=== PATIENT | female | born 1930 | race Caucasian/White ===

== ENCOUNTER 2017-03-01 11:57 | Emergency (ER) | payer MEDICARE, OTHER ==
[2017-03-01] MEDS ORDERED: Albuterol/Ipratropium 3.0-0.5 MG/3 ML Neb Soln NEB ONE ×2 (12:38→14:15)
--- NOTE | 2017-03-01 12:38 | EDM.PDOC ---
ED HISTORY OF PRESENT ILLNESS - General Chief Complaint: Respiratory Problem Stated Complaint: BACK PAINS Time Seen by Provider: 03/01/17 12:34 Source of Information: Reports: Patient History Limitations: Reports: No limitations - History of Present Illness INITIAL COMMENTS - FREE TEXT/NARRATIVE: HISTORY AND PHYSICAL: [] History of Present Illness: [] Review of Systems: As per history of present illness and below otherwise all systems reviewed and negative. Past medical history: As per history of present illness and as reviewed below otherwise noncontributory. Surgical history: As per history of present illness and as reviewed below otherwise noncontributory. Social history: No reported history of drug or alcohol abuse. Family history: As per history of present illness and as reviewed below otherwise noncontributory. Physical exam: HEENT: Atraumatic, normocehpalic, pupils reactive, negative for conjunctival pallor or scleral icterus, mucous membranes moist, throat clear, neck supple, nontender, trachea midline. Lungs: Clear to auscultation, breath sounds equal bilaterally, chest non tender. Heart: S1S2, regular, negative for clicks, rubs, or JVD. Abdomen: Soft, nondistended, nontender. Negative for masses or hepatossplenmegaly. Negative for costovertebral tenderness. Pelvis: Stable nontender. Genitourinary: Deferred. Rectal: Deferred Extremities: Atraumatic, negative for cords or calf pain. Neurovascular unremarkable. Neuro: Awake, alert, oriented. Cranial nerves II through XII unremarkable. Cerebellum unremarkable. Motor and sensory unremarkable throughout. Exam nonfocal. Diagnostics: [Chest x-ray CBC] Therapeutics: [DuoNeb] Impression: [Costochondritis] Plan: [Sent home Followup with primary care next week Placed on diclofenac twice a day Tessalon Perles 4 times a day when necessary cough ] Definitive disposition and diagnosis as appropriate pending reevaluation and review of above. Timing/Duration: Reports: Day(s): Severity: moderate Location, General: Reports: chest Quality: Reports: Same as previous episode - Related Data Allergies/ADRs: Allergies Allergy/AdvReac Type Severity Reaction Status Date / Time meza Allergy Anaphylactic Verified 03/01/17 12:20 Shock codeine Allergy Other Verified 10/09/16 12:57 Latex, Natural Rubber Allergy Itching Verified 10/09/16 12:57 shrimp Allergy Hives Verified 10/09/16 12:57 dust mites Allergy Sneezing Uncoded 10/09/16 12:57 Home Meds: Home Meds Aspirin 325 mg PO DAILY 09/19/15 [History] Calcium Carbonate 600 mg PO BIDMEALS 09/19/15 [History] Furosemide 40 mg PO DAILY 09/19/15 [History] Multivitamin [Multivitamins] 1 cap PO DAILY 09/19/15 [History] Potassium Chloride 10 meq PO DAILY 09/19/15 [History] Vitamin E 400 units PO DAILY 09/19/15 [History] Metoprolol Succinate [Toprol XL] 50 mg PO BID #60 tab.er 09/20/15 [Rx] Albuterol [Proventil HFA] 2 puff INH QID PRN 04/25/16 [History] Fluticasone/Vilanterol [Breo Ellipta 100-25 MCG Inhalation Kit] 1 puff IH DAILY 04/25/16 [History] L Acidophil/B Lactis/B Longum [Florajen3] 460 mg PO DAILY 10/09/16 [History] Albuterol/Ipratropium [DuoNeb 3.0-0.5 MG/3 ML] 3 ml NEB Q4HRRT #25 neb 03/01/17 [Rx] Diclofenac Sodium [IJD: Diclofenac Sodium] 75 mg PO .TWICE DAILY W MEALS #20 tab.ec 03/01/17 [Rx] Fexofenadine/Pseudoephedrine [Lauren-D 24 Hour Tablet] 1 tab PO DAILY PRN 03/01 [History] Levothyroxine [Synthroid] 50 mcg PO DAILY 03/01/17 [History] Lisinopril 20 mg PO BID 03/01/17 [History] Omeprazole 20 mg PO DAILY 03/01/17 [History] Past Medical History HEENT History: Reports: Cataract, Impaired vision, Other (see below) Other HEENT History: wears glasses all the time Cardiovascular History: Reports: Heart Failure, Hypertension, Other (see below) Other Cardiovascular History: Leaky valve Respiratory History: Reports: Asthma Gastrointestinal History: Reports: Bowel obstruction, Diverticulosis Genitourinary History: Reports: None 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: , 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 Musculoskeletal History: Reports: Fracture Neurological History: Reports: None Psychiatric History: Reports: None Endocrine/Metabolic History: Reports: Hypothyroidism Hematologic History: Reports: None Immunologic History: Reports: None Oncologic (Cancer) History: Reports: None Dermatologic History: Reports: None - Infectious Disease History Infectious Disease History: Reports: Measles - Past Surgical History Head Surgeries/Procedures: Reports: None HEENT Surgical History: Reports: Adenoidectomy, Cataract surgery, Tonsillectomy Cardiovascular Surgical History: Reports: None, Other (see below) Other Cardiovascular Surgeries/Procedures: MARK (February 2017) GI Surgical History: Reports: Appendectomy, Cholecystectomy, Other (see below) Other GI Surgeries/Procedures: Hemorrhoid surgery. perforated bowel-- surgery done 1982 Female Surgical History: Reports: D&C Neurological Surgical History: Reports: None Social & Family History - Family History Family Medical History: Noncontributory Cardiac: Reports: Hypertension, Prior cardiac arrest OBGYN: Reports: Neurological: Reports: CVA - Tobacco Use Smoking Status *Q: Never Smoker Second Hand Smoke Exposure: No - Caffeine Use Caffeine Use: Reports: None - Recreational Drug Use Recreational Drug Use: No - Living Situation & Occupation Living situation: Reports: Occupation: retired ED ROS GENERAL - Review of Systems Review Of Systems: ROS reveals no pertinent complaints other than HPI. ED EXAM, GENERAL - Physical Exam Exam: See Below (see dictation) Course - Vital Signs Last Recorded V/S: Last Vital Signs Temp 37.1 C 03/01/17 12:21 Pulse 94 03/01/17 12:21 Resp 20 03/01/17 12:21 BP 140/65 03/01/17 12:21 Pulse Ox 94 L 03/01/17 12:21 - Orders/Labs/Meds Orders: Active Orders 24 hr Category Date Time Status RT Aerosol Therapy [RC] ASDIRECTED Care 03/01/17 12:39 Active CXR [Chest 2V] [CR] Stat Exams 03/01/17 13:23 Taken Labs: Laboratory Tests 03/01/17 Range/Units 13:23 WBC 22.22 H (4.0-11.0) K/uL RBC 4.55 (4.30-5.90) M/uL Hgb 13.5 (12.0-16.0) g/dL Hct 40.6 (36.0-46.0) % MCV 89.2 (80.0-98.0) fL MCH 29.7 (27.0-32.0) pg MCHC 33.3 (31.0-37.0) g/dL RDW Std Deviation 47.6 (28.0-62.0) fl RDW Coeff of Brisa 15 (11.0-15.0) % Plt Count 301 (150-400) K/uL MPV 9.00 (7.40-12.00) fL Neut % (Auto) 84.2 H (48.0-80.0) % Lymph % (Auto) 5.3 L (16.0-40.0) % [place] % (Auto) 10.2 (0.0-15.0) % Eos % (Auto) 0.1 (0.0-7.0) % Baso % (Auto) 0.2 (0.0-1.5) % Neut # (Auto) 18.7 H (1.4-5.7) K/uL Lymph # (Auto) 1.2 (0.6-2.4) K/uL [place] # (Auto) 2.3 H (0.0-0.8) K/uL Eos # (Auto) 0.0 (0.0-0.7) K/uL Baso # (Auto) 0.0 (0.0-0.1) K/uL Nucleated RBC % 0.0 /100WBC Nucleated RBCs # 0 K/uL Meds: Medications Discontinued Medications Generic Name Dose Route Start Last Admin Trade Name Freq PRN Reason Stop Dose Admin Albuterol/Ipratropium 3 ml 03/01/17 12:38 03/01/17 12:46 Duoneb 3.0-0.5 Mg/3 Ml NEB 03/01/17 12:39 3 ml ONETIME ONE Administration Departure - Departure Time of Disposition: 14:16 Disposition: Home, Self-Care 01 Condition: good Clinical Impression: Costochondritis, acute Asthma Qualifiers: Asthma severity: unspecified severity Asthma complication type: uncomplicated Qualified Code(s): J45.909 - Unspecified asthma, uncomplicated Prescriptions: Albuterol/Ipratropium [DuoNeb 3.0-0.5 MG/3 ML] 3 ml NEB Q4HRRT #25 neb Diclofenac Sodium [IJD: Diclofenac Sodium] 75 mg PO .TWICE DAILY W MEALS #20 tab.ec Instructions: Asthma, Adult Forms: ED Department Discharge Additional Instructions: The following information is given to patients seen in the emergency department who are being discharged to home. This information is to outline your options for follow-up care. We provide all patients seen in our emergency department with a follow-up referral. The need for follow-up, as well as the timing and circumstances, are variable depending upon the specifics of your emergency department visit. If you don't have a primary care physician on staff, we will provide you with a referral. We always advise you to contact your personal physician following an emergency department visit to inform them of the circumstance of the visit and for follow-up with them and/or the need for any referrals to a consulting specialist. The emergency department will also refer you to a specialist when appropriate. This referral assures that you have the opportunity for followup care with a specialist. All of these measure are taken in an effort to provide you with optimal care, which includes your followup. Under all circumstances we always encourage you to contact your private physician who remains a resource for coordinating your care. When calling for followup care, please make the office aware that this follow-up is from your recent emergency room visit. If for any reason you are refused follow-up, please contact the [facility] emergency department at and asked to speak to the emergency department charge nurse. Description has been electronically sent to your pharmacy Diclofenac extended release 75 mg twice a day #20 Corey Hercules qid prn cough Followup with your primary care provider next week call right away for an appointment for followup of emergency room - My Orders Last 24 Hours: My Active Orders 03/01/17 12:39 RT Aerosol Therapy [RC] ASDIRECTED 03/01/17 13:23 CXR [Chest 2V] [CR] Stat - Assessment/Plan Last 24 Hours: My Active Orders 03/01/17 12:39 RT Aerosol Therapy [RC] ASDIRECTED 03/01/17 13:23 CXR [Chest 2V] [CR] Stat
[2017-03-01 14:51] VITALS: BP 134/63
--- NOTE | 2017-03-01 17:33 | CR ---
EXAM DATE: 03/01/17 PATIENT'S AGE: 87 Patient: PANCHO SALAS Facility: [place], [place] Site . Site : [id number] Study: XRay Chest [id number]/26/2017 1:53:27 PM Ordering Physician: Doctor Chou Final Report: INDICATION: Pain between shoulder blades. Shortness of breath. COMPARISON: 10/09/2016. FINDINGS/IMPRESSION: Mild right basilar scarring and/or atelectasis, similar to the previous exam. Lungs otherwise clear. No definite pleural effusions. Normal heart size and pulmonary vasculature. Probable [id number] retrocardiac hiatal hernia, similar to the previous exam. Mild spinal degenerative changes. Dictated by Cornel Berrios MD @ 03/01/2017 2:02:12 PM Dictated by: Cornel Berrios MD @ 03/01/2017 14:02:32 (Electronic Signature) Report Signed by Proxy and Original Signed Document filed in the Medical Record. MTDD
== END 2017-03-01 14:51 | disposition home or self-care (01) ==
LOC: MW.ED 11:57
DX: M94.0 Chondrocostal junction syndrome [Tietze] (principal); J45.909 Unspecified asthma, uncomplicated; I11.0 Hypertensive heart disease with heart failure; I50.9 Heart failure, unspecified; E03.9 Hypothyroidism, unspecified; Z79.82 Long term (current) use of aspirin; Z79.899 Other long term (current) drug therapy; Z91.09 Other allergy status, other than to drugs and biological substances; Z98.49 Cataract extraction status, unspecified eye; Z98.890 Other specified postprocedural states; Z90.49 Acquired absence of other specified parts of digestive tract; Z88.5 Allergy status to narcotic agent; Z91.040 Latex allergy status
CPT/HCPCS: 36415; 71020; 71020-26; 85025; 94640; 94664; 99283; 99284

== ENCOUNTER 2017-03-27 08:04 | Inpatient (IN) | payer MEDICARE, OTHER ==
[2017-03-27] MEDS ORDERED: Albuterol/Ipratropium 3.0-0.5 MG/3 ML Neb Soln ONE (08:14)
[2017-03-27] MEDS ORDERED: Albuterol/Ipratropium 3.0-0.5 MG/3 ML Neb Soln NEB ONE (08:19)
[2017-03-27] MEDS ORDERED: Sodium Chloride 0.9% 10 ML Syringe FLUSH PRN (08:21)
[2017-03-27] MEDS ORDERED: Sodium Chloride 0.9% 2.5 ML Syringe FLUSH PRN (08:21)
--- NOTE | 2017-03-27 08:25 | EDM.PDOC ---
ED HPI GENERAL MEDICAL PROBLEM - General Chief Complaint: Respiratory Problem Stated Complaint: NOT FEELING GOOD Time Seen by Provider: 03/27/17 08:20 - History of Present Illness INITIAL COMMENTS - FREE TEXT/NARRATIVE: HISTORY AND PHYSICAL: History of present illness: Patient is an 87-year-old white female presents with cough and shortness of breath this is been a chronic intermittent problem patient's extremely poor historian she reports history of reactive airway disease and CHF she denies chest pain nausea vomiting fever chills or other concern Review of systems: As per history of present illness and below otherwise all systems reviewed and negative. Past medical history: As per history of present illness and as reviewed below otherwise noncontributory. Surgical history: As per history of present illness and as reviewed below otherwise noncontributory. Social history: No reported history of drug or alcohol abuse. Family history: As per history of present illness and as reviewed below otherwise noncontributory. Physical exam: HEENT: Atraumatic, normocephalic, pupils reactive, negative for conjunctival pallor or scleral icterus, mucous membranes moist, throat clear, neck supple, nontender, trachea midline. Lungs: Slightly diminished bilaterally, breath sounds equal bilaterally, chest nontender. Heart: S1S2, irregular tachycardic, negative for clicks, rubs, or JVD. Abdomen: Soft, nondistended, nontender. Negative for masses or hepatosplenomegaly. Negative for costovertebral tenderness. Pelvis: Stable nontender. Genitourinary: Deferred. Rectal: Deferred. Extremities: Atraumatic, negative for cords or calf pain. Neurovascular unremarkable. Neuro: Awake, alert, follows commands moves all extremities is limited but grossly nonfocal exam Diagnostics: CBC CMP troponin BNP PT/INR chest x-ray EKG Therapeutics: IV O2 monitor albuterol ipratropium nebulizer Impression: #1 dyspnea #2 atrial fibrillation with rapid ventricular response Definitive disposition and diagnosis as appropriate pending reevaluation and review of above. - Related Data Allergies Allergy/AdvReac Type Severity Reaction Status Date / Time meza Allergy Anaphylactic Verified 03/27/17 08:18 Shock codeine Allergy Other Verified 03/27/17 08:18 Latex, Natural Rubber Allergy Itching Verified 03/27/17 08:18 shrimp Allergy Hives Verified 03/27/17 08:18 dust mites Allergy Sneezing Uncoded 03/27/17 08:18 Home Meds: Home Meds Aspirin 81 mg PO DAILY 09/19/15 [History] Calcium Carbonate 600 mg PO BIDMEALS 09/19/15 [History] Furosemide 40 mg PO DAILY 09/19/15 [History] Multivitamin [Multivitamins] 1 cap PO DAILY 09/19/15 [History] Potassium Chloride 10 meq PO DAILY 09/19/15 [History] Vitamin E 400 units PO DAILY 09/19/15 [History] Metoprolol Succinate [Toprol XL] 50 mg PO BID #60 tab.er 09/20/15 [Rx] Albuterol [Proventil HFA] 2 puff INH QID PRN 04/25/16 [History] Fluticasone/Vilanterol [Breo Ellipta 100-25 MCG Inhalation Kit] 1 puff IH DAILY 04/25/16 [History] L Acidophil/B Lactis/B Longum [Florajen3] 460 mg PO DAILY 10/09/16 [History] Levothyroxine [Synthroid] 50 mcg PO DAILY 03/01/17 [History] Lisinopril 20 mg PO BID 03/01/17 [History] Past Medical History HEENT History: Reports: Cataract, Impaired Vision, 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) Other HEENT History: wears glasses all the time Cardiovascular History: Reports: Heart Failure, Hypertension, 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) Other Cardiovascular History: Leaky valve Respiratory History: Reports: Asthma Gastrointestinal History: Reports: Bowel Obstruction, Diverticulosis Genitourinary History: Reports: None 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: , 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 Musculoskeletal History: Reports: Fracture Neurological History: Reports: None Psychiatric History: Reports: None Endocrine/Metabolic History: Reports: Hypothyroidism Hematologic History: Reports: None Immunologic History: Reports: None Oncologic (Cancer) History: Reports: None Dermatologic History: Reports: None - Infectious Disease History Infectious Disease History: Reports: Measles - Past Surgical History HEENT Surgical History: Reports: Adenoidectomy, Cataract Surgery, Tonsillectomy Cardiovascular Surgical History: Reports: None, 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) GI Surgical History: Reports: Appendectomy, Cholecystectomy, 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) Social & Family History - Family History Family Medical History: Noncontributory Cardiac: Reports: Hypertension, Prior Cardiac Arrest OBGYN: Reports: Neurological: Reports: CVA - Tobacco Use Smoking Status *Q: Never Smoker Second Hand Smoke Exposure: No - Caffeine Use Caffeine Use: Reports: None - Recreational Drug Use Recreational Drug Use: No - Living Situation & Occupation Living situation: Reports: Occupation: Retired ED ROS GENERAL - Review of Systems Review Of Systems: ROS reveals no pertinent complaints other than HPI. ED EXAM, GENERAL - Physical Exam Exam: See Below (See dictation) Course - Vital Signs Last Recorded V/S: Last Vital Signs Temp 36.6 C 03/27/17 08:05 Pulse 134 H 03/27/17 08:05 Resp 16 03/27/17 08:05 BP 134/88 03/27/17 08:05 Pulse Ox 98 03/27/17 08:05 - Orders/Labs/Meds Orders: Active Orders 24 hr Category Date Time Status EKG Documentation Completion [RC] ROUTINE Care 03/27/17 08:19 Active Oxygen Therapy, ED [RC] ASDIRECTED Care 03/27/17 08:21 Active Pulse Oximetry [RC] ASDIRECTED Care 03/27/17 08:21 Active RT Aerosol Therapy [RC] ASDIRECTED Care 03/27/17 08:19 Active Sodium Chloride 0.9% [Saline Flush] Med 03/27/17 08:21 Active 10 ml FLUSH ASDIRECTED PRN Sodium Chloride 0.9% [Saline Flush] Med 03/27/17 08:21 Active 2.5 ml FLUSH ASDIRECTED PRN Saline Lock Insert [OM.PC] Stat Oth 03/27/17 08:21 Ordered Medication Orders Sodium Chloride (Saline Flush) 10 ml FLUSH ASDIRECTED PRN PRN Reason: Keep Vein Open Sodium Chloride (Saline Flush) 2.5 ml FLUSH ASDIRECTED PRN PRN Reason: Keep Vein Open Labs: Laboratory Tests 03/27/17 03/27/17 03/27/17 Range/Units 08:24 08:24 08:24 WBC 10.82 (4.0-11.0) K/uL RBC 4.35 (4.30-5.90) M/uL Hgb 12.9 (12.0-16.0) g/dL Hct 39.0 (36.0-46.0) % MCV 89.7 (80.0-98.0) fL MCH 29.7 (27.0-32.0) pg MCHC 33.1 (31.0-37.0) g/dL RDW Std Deviation 53.9 (28.0-62.0) fl RDW Coeff of Brisa 16 H (11.0-15.0) % Plt Count 268 (150-400) K/uL MPV 9.40 (7.40-12.00) fL Neut % (Auto) 69.3 (48.0-80.0) % Lymph % (Auto) 16.8 (16.0-40.0) % [place] % (Auto) 11.2 (0.0-15.0) % Eos % (Auto) 2.5 (0.0-7.0) % Baso % (Auto) 0.2 (0.0-1.5) % Neut # (Auto) 7.5 H (1.4-5.7) K/uL Lymph # (Auto) 1.8 (0.6-2.4) K/uL [place] # (Auto) 1.2 H (0.0-0.8) K/uL Eos # (Auto) 0.3 (0.0-0.7) K/uL Baso # (Auto) 0.0 (0.0-0.1) K/uL Nucleated RBC % 0.0 /100WBC Nucleated RBCs # 0 K/uL INR 1.19 H (0.86-1.11) Sodium 139 (136-146) mmol/L Potassium 3.9 (3.5-5.1) mmol/L Chloride 101 (98-110) mmol/L Carbon Dioxide 24 (21-31) mmol/L BUN 20 (6.0-23.0) mg/dL Creatinine 1.3 (0.6-1.5) mg/dL Est Cr Clr Drug Dosing 23.01 mL/min Estimated GFR (MDRD) 38.7 ml/min Glucose 126 H (60-110) mg/dL Calcium 9.3 (8.8-10.8) mg/dL Total Bilirubin 0.8 (0.1-1.5) mg/dL AST 64 H (5-40) IU/L ALT 97 H (8-54) IU/L Alkaline Phosphatase 92 (40-150) Troponin I (0.0-0.29) NG/ML B-Natriuretic Peptide (<100) PG/ML Total Protein 6.4 (6.0-8.0) g/dL Albumin 3.7 (3.4-4.8) g/dL Globulin 2.7 (2.0-3.5) g/dL Albumin/Globulin Ratio 1.4 (1.3-2.8) 03/27/17 03/27/17 Range/Units 08:24 08:24 WBC (4.0-11.0) K/uL RBC (4.30-5.90) M/uL Hgb (12.0-16.0) g/dL Hct (36.0-46.0) % MCV (80.0-98.0) fL MCH (27.0-32.0) pg MCHC (31.0-37.0) g/dL RDW Std Deviation (28.0-62.0) fl RDW Coeff of Brisa (11.0-15.0) % Plt Count (150-400) K/uL MPV (7.40-12.00) fL Neut % (Auto) (48.0-80.0) % Lymph % (Auto) (16.0-40.0) % [place] % (Auto) (0.0-15.0) % Eos % (Auto) (0.0-7.0) % Baso % (Auto) (0.0-1.5) % Neut # (Auto) (1.4-5.7) K/uL Lymph # (Auto) (0.6-2.4) K/uL [place] # (Auto) (0.0-0.8) K/uL Eos # (Auto) (0.0-0.7) K/uL Baso # (Auto) (0.0-0.1) K/uL Nucleated RBC % /100WBC Nucleated RBCs # K/uL INR (0.86-1.11) Sodium (136-146) mmol/L Potassium (3.5-5.1) mmol/L Chloride (98-110) mmol/L Carbon Dioxide (21-31) mmol/L BUN (6.0-23.0) mg/dL Creatinine (0.6-1.5) mg/dL Est Cr Clr Drug Dosing mL/min Estimated GFR (MDRD) ml/min Glucose (60-110) mg/dL Calcium (8.8-10.8) mg/dL Total Bilirubin (0.1-1.5) mg/dL AST (5-40) IU/L ALT (8-54) IU/L Alkaline Phosphatase (40-150) Troponin I < 0.10 (0.0-0.29) NG/ML B-Natriuretic Peptide 999 H (<100) PG/ML Total Protein (6.0-8.0) g/dL Albumin (3.4-4.8) g/dL Globulin (2.0-3.5) g/dL Albumin/Globulin Ratio (1.3-2.8) Meds: Medications Generic Name Dose Route Start Last Admin Trade Name Freq PRN Reason Stop Dose Admin Sodium Chloride 10 ml 03/27/17 08:21 Saline Flush FLUSH ASDIRECTED PRN Keep Vein Open Sodium Chloride 2.5 ml 03/27/17 08:21 Saline Flush FLUSH ASDIRECTED PRN Keep Vein Open Discontinued Medications Generic Name Dose Route Start Last Admin Trade Name Freq PRN Reason Stop Dose Admin Albuterol/Ipratropium Confirm 03/27/17 08:14 03/27/17 08:18 Duoneb 3.0-0.5 Mg/3 Ml Administered 03/27/17 08:15 3 ml Dose Administration 3 ml .ROUTE .STK-MED ONE Albuterol/Ipratropium 3 ml 03/27/17 08:19 Duoneb 3.0-0.5 Mg/3 Ml NEB 03/27/17 08:20 ONETIME ONE Diltiazem HCl 20 mg 03/27/17 08:36 03/27/17 08:45 Diltiazem IVPUSH 03/27/17 08:37 20 mg ONETIME ONE Administration Diltiazem HCl 20 mg 03/27/17 10:20 Diltiazem IVPUSH 03/27/17 10:21 ONETIME ONE Furosemide 20 mg 03/27/17 10:31 Lasix IVPUSH 03/27/17 10:32 NOW ONE Departure - Departure Time of Disposition: 10:34 Disposition: Admitted As Inpatient 66 Condition: good Clinical Impression: Atrial fibrillation with rapid ventricular response, Dyspnea CHF (congestive heart failure) Qualifiers: Congestive heart failure type: systolic Congestive heart failure chronicity: chronic Qualified Code(s): I50.22 - Chronic systolic (congestive) heart failure - Discharge Information Forms: ED Department Discharge - My Orders Last 24 Hours: My Active Orders 03/27/17 08:19 EKG Documentation Completion [RC] ROUTINE RT Aerosol Therapy [RC] ASDIRECTED 03/27/17 08:21 Oxygen Therapy, ED [RC] ASDIRECTED Pulse Oximetry [RC] ASDIRECTED Sodium Chloride 0.9% [Saline Flush] 10 ml FLUSH ASDIRECTED PRN Sodium Chloride 0.9% [Saline Flush] 2.5 ml FLUSH ASDIRECTED PRN Saline Lock Insert [OM.PC] Stat - Assessment/Plan Last 24 Hours: My Active Orders 03/27/17 08:19 EKG Documentation Completion [RC] ROUTINE RT Aerosol Therapy [RC] ASDIRECTED 03/27/17 08:21 Oxygen Therapy, ED [RC] ASDIRECTED Pulse Oximetry [RC] ASDIRECTED Sodium Chloride 0.9% [Saline Flush] 10 ml FLUSH ASDIRECTED PRN Sodium Chloride 0.9% [Saline Flush] 2.5 ml FLUSH ASDIRECTED PRN Saline Lock Insert [OM.PC] Stat
[2017-03-27] MEDS ORDERED: Diltiazem 25 MG/5 ML SDV IVPUSH ONE ×4 (08:36→16:17)
--- NOTE | 2017-03-27 09:11 | CR ---
EXAMINATION: Portable chest radiograph. HISTORY: Shortness of breath. FINDINGS: The trachea is midline. The cardiomediastinal silhouette is within normal limits. No pulmonary infil trates, effusions or pneumothorax. Mild chronic interstitial prominence. Mitral annular calcificatio ns are noted. Osseous structures appear unremarkable. IMPRESSION: No acute cardiopulmonary process.
[2017-03-27] MEDS ORDERED: Furosemide 40 MG/4 ML VIAL IVPUSH ONE ×2 (10:31→18:00)
[2017-03-27] MEDS ORDERED: Metoprolol Succinate 50 MG Tab.ER PO SCH (12:45)
--- NOTE | 2017-03-27 12:58 | PCM.HP ---
[id number] yo female with pmh of CHF with severe mitral insufficency with mitral prolapse. She follow Dr. Kern and has had a recent echocardiogram in January with preservd left ventricular systolic function and severe pulmonary hypertension. During her last visit with Dr. Kern she reports that since she was not having much symptoms she elected not to persue surgical treatment of her valve. She had her lisinopril double to 20mg. She reports that she had been doing well until a few days ago. She reports and increase in her weight be several pounds. She though she was congested with increase in cough with frothy sputum and shortness of breath at night. She double her lasix but did not notice an increase in her urine output. She beleives she may be short of breath due to her asthma and has difficulty telling what is causing her to be short of breath. She denies any chest pain or fevers. In the ED she was noted to be in atrial fibrillation with HR in the 120s She was given 20mg of diltiazem x2 without much response in heart rate. She was also given 20mg of lasix. - Related Data Allergies/Adverse Reactions: Allergies Allergy/AdvReac Type Severity Reaction Status Date / Time aspirin [From Aggrenox] Allergy unknown Verified 03/27/17 12:57 meza Allergy Anaphylactic Verified 03/27/17 08:18 Shock codeine Allergy Other Verified 03/27/17 08:18 dipyridamole [From Aggrenox] Allergy unknown Verified 03/27/17 12:57 Latex, Natural Rubber Allergy Itching Verified 03/27/17 08:18 shrimp Allergy Hives Verified 03/27/17 08:18 dust mites Allergy Sneezing Uncoded 03/27/17 08:18 pollen Allergy Hives Uncoded 03/27/17 13:01 Home Medications: Home Meds Aspirin 81 mg PO DAILY 09/19/15 [History] Calcium Carbonate 600 mg PO BIDMEALS 09/19/15 [History] Furosemide 40 mg PO DAILY 09/19/15 [History] Multivitamin [Multivitamins] 1 cap PO DAILY 09/19/15 [History] Potassium Chloride 10 meq PO DAILY 09/19/15 [History] Vitamin E 400 units PO DAILY 09/19/15 [History] Metoprolol Succinate [Toprol XL] 50 mg PO BID #60 tab.er 09/20/15 [Rx] Albuterol [Proventil HFA] 2 puff INH QID PRN 04/25/16 [History] Fluticasone/Vilanterol [Breo Ellipta 100-25 MCG Inhalation Kit] 1 puff IH DAILY 04/25/16 [History] L Acidophil/B Lactis/B Longum [Florajen3] 460 mg PO DAILY 10/09/16 [History] Levothyroxine [Synthroid] 50 mcg PO DAILY 03/01/17 [History] Lisinopril 20 mg PO BID 03/01/17 [History] Past Medical History HEENT History: Reports: Cataract, Impaired Vision, 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) Other HEENT History: wears glasses all the time Cardiovascular History: Reports: Heart Failure, Hypertension, 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) Other Cardiovascular History: Leaky valve Respiratory History: Reports: Asthma Gastrointestinal History: Reports: Bowel Obstruction, Diverticulosis, Pancreatitis Genitourinary History: Reports: None 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: , 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; D&C, stillbirth Musculoskeletal History: Reports: Fracture Neurological History: Reports: None Psychiatric History: Reports: None Endocrine/Metabolic History: Reports: Hypothyroidism Hematologic History: Reports: Anemia, 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) Other Hematologic History: blood clots in the leg Immunologic History: Reports: None Oncologic (Cancer) History: Reports: None Dermatologic History: Reports: None - Infectious Disease History Infectious Disease History: Reports: Chicken Pox, Influenza, Measles - Past Surgical History Head Surgeries/Procedures: Reports: None HEENT Surgical History: Reports: Adenoidectomy, Cataract Surgery, Tonsillectomy Cardiovascular Surgical History: Reports: None Respiratory Surgical History: Reports: None GI Surgical History: Reports: Appendectomy, Cholecystectomy Endocrine Surgical History: Reports: None Musculoskeletal Surgical History: Reports: None Social & Family History - Family History Family Medical History: Noncontributory HEENT: Reports: Impaired Vision Cardiac: Reports: Hypertension, [place], Prior Cardiac Arrest OBGYN: Reports: Neurological: Reports: CVA - Tobacco Use Smoking Status *Q: Never Smoker Second Hand Smoke Exposure: No - Caffeine Use Caffeine Use: Reports: Coffee - Recreational Drug Use Recreational Drug Use: No - Living Situation & Occupation Living situation: Reports: Occupation: Retired H&P Review of Systems - Review of Systems: Review Of Systems: See Below General: Reports: No Symptoms HEENT: Reports: No Symptoms Pulmonary: Reports: No Symptoms Cardiovascular: Reports: Palpitations, Dyspnea on Exertion, PND Gastrointestinal: Reports: No Symptoms Genitourinary: Reports: No Symptoms Musculoskeletal: Reports: No Symptoms Skin: Reports: No Symptoms Psychiatric: Reports: No Symptoms Neurological: Reports: No Symptoms Hematologic/Lymphatic: Reports: No Symptoms Immunologic: Reports: No Symptoms Exam - Exam Exam: See Below - Vital Signs Vital Signs: Last Vital Signs Temp 36.4 C 03/27/17 11:13 Pulse 112 H 03/27/17 11:15 Resp 15 03/27/17 12:00 BP 116/83 03/27/17 12:00 Pulse Ox 97 03/27/17 12:00 Weight: 72.3 kg - Exam General: Alert, Oriented, 4 Neck: Supple Lungs: Clear to Auscultation, Normal Respiratory Effort Cardiovascular: Irregular Rhythm, Tachycardia Abdomen: Normal Bowel Sounds. No: Tenderness Extremities: Normal Inspection. No: Edema Skin: Warm, Dry, Intact Psychiatric: Alert, Normal Affect, Normal Mood - Patient Data Result Diagrams: 03/28/17 04:50 03/28/17 04:50 Imaging Impressions last 24 hrs: CXR: no acute cardiopulmonary disease *Q Meaningful Use (ADM) - VTE *Q VTE Criteria *Q: - Stroke *Q Stroke Criteria *Q: - AMI *Q AMI Criteria *Q: Problem List Initiated/Reviewed/Updated: Yes Orders Last 24hrs: Active Orders 24 hr Category Date Time Status Antiembolic Devices [RC] PER UNIT ROUTINE Care 03/27/17 12:53 Ordered Oxygen Therapy [RC] PRN Care 03/27/17 12:50 Ordered Up ad Kalee [RC] ASDIRECTED Care 03/27/17 12:50 Ordered VTE/DVT Education [RC] PER UNIT ROUTINE Care 03/27/17 12:50 Ordered Vital Signs [RC] Q4H Care 03/27/17 12:50 Ordered 2 Gram Sodium Diet [DIET] Diet 03/27/17 Lunch Active Heart Healthy Diet [DIET] Diet 03/27/17 Lunch Active BASIC METABOLIC PANEL,BMP [CHEM] AM Lab 03/28/17 05:11 Ordered BASIC METABOLIC PANEL,BMP [CHEM] AM Lab 03/29/17 05:11 Ordered BASIC METABOLIC PANEL,BMP [CHEM] AM Lab 03/30/17 05:11 Ordered CBC WITH AUTO DIFF [HEME] AM Lab 03/28/17 05:11 Ordered CBC WITH AUTO DIFF [HEME] AM Lab 03/29/17 05:11 Ordered CBC WITH AUTO DIFF [HEME] AM Lab 03/30/17 05:11 Ordered Albuterol [Ventolin HFA] Med 03/27/17 12:38 Active 8 gm INH QID PRN Aspirin Med 03/28/17 09:00 Active 81 mg PO DAILY Enoxaparin [Lovenox] Med 03/28/17 09:00 Ordered 40 mg SUBCUT DAILY Furosemide [Lasix] Med 03/27/17 14:00 Active 40 mg IVPUSH BIDDIURETIC Levothyroxine [Synthroid] Med 03/28/17 07:30 Active 50 mcg PO ACBREAKFAST Metoprolol Succinate [Toprol XL] Med 03/27/17 12:45 Active 50 mg PO BIDMEALS Patient's Own Medication [Ptom] Med 03/27/17 12:45 Active 1 each INH DAILY Sequential Compression Device [OM.PC] Per Unit Routine Oth 03/27/17 12:52 Ordered Resuscitation Status Routine Resus Stat 03/27/17 12:50 Ordered Medication Orders Albuterol (Ventolin Hfa) 8 gm INH QID PRN PRN Reason: Dyspnea Aspirin (Aspirin) 81 mg PO DAILY AZUL Furosemide (Lasix) 40 mg IVPUSH BIDDIURETIC AZUL Levothyroxine Sodium (Synthroid) 50 mcg PO ACBREAKFAST AZUL Metoprolol Succinate (Toprol Xl) 50 mg PO BIDMEALS AZUL Fluticasone/ (Vilanterol 1 Puff) 1 each INH DAILY AZUL Sodium Chloride (Saline Flush) 10 ml FLUSH ASDIRECTED PRN PRN Reason: Keep Vein Open Sodium Chloride (Saline Flush) 2.5 ml FLUSH ASDIRECTED PRN PRN Reason: Keep Vein Open Assessment/Plan Comment:: [address] [facility] pmh of mitral valve insufficiency who is admitted with CHF exacerbation and atrial fibrillation with RVR. We will diuresis with lasix. Will consider increasing patient's home dose of metoprolol for better rate control.
[2017-03-27] MEDS: Furosemide 40 MG/4 ML VIAL IVPUSH SCH (13:09)
[2017-03-27] MEDS: Fluticasone/Vilanterol 1 PUFF INH SCH (13:54)
[2017-03-27] MEDS: Diltiazem 100 MG in Sodium Chloride 0.9% 100 ML IV SCH (14:23)
[2017-03-27] MEDS: Albuterol 8 GM Inhaler INH PRN (14:59)
[2017-03-27] MEDS ORDERED: Albuterol/Ipratropium 3.0-0.5 MG/3 ML Neb Soln NEB PRN (18:08)
[2017-03-27] MEDS: Heparin Sodium 5,000 Units/ML Vial SUBCUT SCH (18:15)
[2017-03-27] MEDS: Benzonatate 100 MG Cap PO PRN (18:15)
[2017-03-27] MEDS: Metoprolol Succinate 50 MG Tab.ER PO SCH (21:43)
[2017-03-28] MEDS ORDERED: Melatonin 3 MG Tab PO ONE (01:05)
[2017-03-28] MEDS: Diltiazem 100 MG in Sodium Chloride 0.9% 100 ML IV SCH ×2 (01:19→13:23)
[2017-03-28] MEDS: Benzonatate 100 MG Cap PO PRN ×3 (01:27→20:33)
[2017-03-28] MEDS: Albuterol 8 GM Inhaler INH PRN (05:33)
[2017-03-28] MEDS: Pantoprazole 40 MG Tab.CR PO SCH (06:37)
[2017-03-28] MEDS: Heparin Sodium 5,000 Units/ML Vial SUBCUT SCH ×2 (06:37→18:00)
[2017-03-28] MEDS: Levothyroxine 50 MCG Tab PO SCH (06:37)
--- NOTE | 2017-03-28 08:20 | PCM.PN ---
- General Info Date of Service: 03/28/17 Functional Status: Reports: pain controlled, tolerating diet, urinating. Denies : ambulating - Review of Systems General: Reports: No Symptoms HEENT: Reports: no symptoms Pulmonary: Reports: shortness of breath Cardiovascular: Denies: Chest Pain, Palpitations Gastrointestinal: Reports: No symptoms Genitourinary: Reports: no symptoms Musculoskeletal: Reports: no symptoms Skin: Reports: no symptoms Neurological: Reports: No Symptoms Psychiatric: Reports: no symptoms - Patient Data Vitals - most recent: Last Vital Signs Temp 36.8 C 03/28/17 04:00 Pulse 114 H 03/28/17 01:19 Resp 20 03/28/17 07:00 BP 104/58 L 03/28/17 07:00 Pulse Ox 93 L 03/28/17 07:00 Weight - most recent: 72.8 kg I&O - last 24 hours: Intake & Output 03/27/17 03/28/17 03/28/17 22:59 06:59 14:59 Intake Total 900 800 Output Total 1700 550 Balance -800 250 Lab Results last 24 hrs: Laboratory Results - last 24 hr 03/28/17 03/28/17 Range/Units 04:50 04:50 WBC 8.66 (4.0-11.0) K/uL RBC 3.93 L (4.30-5.90) M/uL Hgb 11.5 L (12.0-16.0) g/dL Hct 35.3 L (36.0-46.0) % MCV 89.8 (80.0-98.0) fL MCH 29.3 (27.0-32.0) pg MCHC 32.6 (31.0-37.0) g/dL RDW Std Deviation 53.5 (28.0-62.0) fl RDW Coeff of Brisa 16 H (11.0-15.0) % Plt Count 237 (150-400) K/uL MPV 9.10 (7.40-12.00) fL Neut % (Auto) 58.8 (48.0-80.0) % Lymph % (Auto) 22.5 (16.0-40.0) % Tate % (Auto) 14.9 (0.0-15.0) % Eos % (Auto) 3.5 (0.0-7.0) % Baso % (Auto) 0.3 (0.0-1.5) % Neut # (Auto) 5.1 (1.4-5.7) K/uL Lymph # (Auto) 2.0 (0.6-2.4) K/uL Tate # (Auto) 1.3 H (0.0-0.8) K/uL Eos # (Auto) 0.3 (0.0-0.7) K/uL Baso # (Auto) 0.0 (0.0-0.1) K/uL Nucleated RBC % 0.0 /100WBC Nucleated RBCs # 0 K/uL Sodium 139 (136-146) mmol/L Potassium 3.8 (3.5-5.1) mmol/L Chloride 99 (98-110) mmol/L Carbon Dioxide 28 (21-31) mmol/L BUN 27 H (6.0-23.0) mg/dL Creatinine 1.3 (0.6-1.5) mg/dL Est Cr Clr Drug Dosing 23.01 mL/min Estimated GFR (MDRD) 38.7 ml/min Glucose 116 H (60-110) mg/dL Calcium 8.5 L (8.8-10.8) mg/dL Med Orders - Current: Current Medications Albuterol (Ventolin Hfa) 8 gm INH QID PRN PRN Reason: Dyspnea Last Admin: 03/28/17 05:33 Dose: 2 puff Albuterol/Ipratropium (Duoneb 3.0-0.5 Mg/3 Ml) 3 ml NEB Q4HRRT PRN PRN Reason: SOB/wheezing Last Admin: 03/27/17 19:14 Dose: 3 ml Aspirin (Aspirin) 81 mg PO DAILY AZUL Benzonatate (Tessalon Perles) 100 mg PO QID PRN PRN Reason: Cough Last Admin: 03/28/17 01:27 Dose: 100 mg Furosemide (Lasix) 40 mg IVPUSH BIDDIURETIC AZUL Last Admin: 03/27/17 13:09 Dose: 40 mg Heparin Sodium (Porcine) (Heparin Sodium) 5,000 units SUBCUT Q12H AZUL Last Admin: 03/28/17 06:37 Dose: 5,000 units Diltiazem HCl 100 mg/ Sodium (Chloride) 100 mls @ 5 mls/hr IV TITRATE AZUL; 5 MG /HR PRN Reason: Protocol Last Admin: 03/28/17 01:19 Dose: 7.5 mg/hr, 7.5 mls/hr Levothyroxine Sodium (Synthroid) 50 mcg PO ACBREAKFAST AZUL Last Admin: 03/28/17 06:37 Dose: 50 mcg Metoprolol Succinate (Toprol Xl) 50 mg PO BID AZUL Last Admin: 03/27/17 21:43 Dose: Not Given Pantoprazole Sodium (Protonix) 40 mg PO ACBREAKFAST AZUL Last Admin: 03/28/17 06:37 Dose: 40 mg Fluticasone/ (Vilanterol 1 Puff) 1 each INH DAILY [facility] Last Admin: 03/27/17 13:54 Dose: Not Given Sodium Chloride (Saline Flush) 10 ml FLUSH ASDIRECTED PRN PRN Reason: Keep Vein Open Sodium Chloride (Saline Flush) 2.5 ml FLUSH ASDIRECTED PRN PRN Reason: Keep Vein Open Discontinued Medications Albuterol/Ipratropium (Duoneb 3.0-0.5 Mg/3 Ml) Confirm Administered Dose 3 ml .ROUTE .STK-MED ONE Stop: 03/27/17 08:15 Last Admin: 03/27/17 08:18 Dose: 3 ml Albuterol/Ipratropium (Duoneb 3.0-0.5 Mg/3 Ml) 3 ml NEB ONETIME ONE Stop: 03/27/17 08:20 Last Admin: 03/27/17 10:57 Dose: Not Given Diltiazem HCl (Diltiazem) 20 mg IVPUSH ONETIME ONE Stop: 03/27/17 08:37 Last Admin: 03/27/17 08:45 Dose: 20 mg Diltiazem HCl (Diltiazem) 20 mg IVPUSH ONETIME ONE Stop: 03/27/17 10:21 Last Admin: 03/27/17 10:37 Dose: 20 mg Diltiazem HCl (Diltiazem) 5 mg IVPUSH ONETIME ONE Stop: 03/27/17 15:26 Last Admin: 03/27/17 15:25 Dose: 5 mg Diltiazem HCl (Diltiazem) 5 mg IVPUSH ONETIME ONE Stop: 03/27/17 16:18 Last Admin: 03/27/17 16:19 Dose: 5 mg Furosemide (Lasix) 20 mg IVPUSH NOW ONE Stop: 03/27/17 10:32 Last Admin: 03/27/17 10:59 Dose: 20 mg Furosemide (Lasix) 40 mg IVPUSH ONETIME ONE Stop: 03/27/17 18:01 Last Admin: 03/27/17 18:18 Dose: 40 mg Melatonin (Melatonin) 3 mg PO ONETIME ONE Stop: 03/28/17 01:06 Last Admin: 03/28/17 01:19 Dose: 3 mg Metoprolol Succinate (Toprol Xl) 50 mg PO BIDMEALS [facility] Last Admin: 03/27/17 13:10 Dose: 50 mg - Exam General: alert, oriented, cooperative, no acute distress HEENT: Pupils equal, Pupils reactive Neck: supple, no JVD, +2 carotid pulse wo bruit Lungs: Decreased breath sounds, Crackles, Other (good aeration) Cardiovascular: Irregular Rhythm, Tachycardia Abdomen: no tenderness Extremities: no edema Neurological: no new focal deficit - Problem List Review Problem List Initiated/Reviewed/Updated: Yes - My Orders Last 24 Hours: My Active Orders 03/28/17 08:15 MAGNESIUM [CHEM] Routine - Plan Plan:: 87 yo female [facility] of mitral valve insufficiency who is admitted with CHF exacerbation and atrial fibrillation with RVR. We will diuresis with lasix. Will consider increasing patient's home dose of metoprolol for better rate control. HR currently 110-120 1. AF with RVR, improved: DC Cardizem drip today if HR stabilizes. Increase PO Metoprolol dose if HR remains elevated. 2. CHF Exacerbation: continue Lasix diuresis. continue to monitor i&o's 3. Diastolic Hypotension: continue to hold lisinopril 4. Hypomagnasemia: administer Magnesium 2 mg 5. Elevated LFT: normal in february 2017. no abdominal pain/tenderness. continue to monitor
[2017-03-28] MEDS: Furosemide 40 MG/4 ML VIAL IVPUSH SCH ×2 (08:34→13:25)
[2017-03-28] MEDS: Aspirin 81 MG Tab.Chew PO SCH (08:35)
[2017-03-28] MEDS: Metoprolol Succinate 50 MG Tab.ER PO SCH ×2 (08:35→20:34)
[2017-03-28] MEDS ORDERED: Magnesium Sulfate/Water 2 GM in Premix Bag 1 BAG IV ONE (09:04)
[2017-03-28] MEDS: Fluticasone/Vilanterol 1 PUFF INH SCH (09:15)
[2017-03-28] MEDS: Docusate Sodium 100 MG Cap PO PRN ×2 (09:40→20:33)
[2017-03-28] MEDS ORDERED: Digoxin 250 MCG Tab PO ONE (14:00)
[2017-03-28] MEDS ORDERED: Albuterol/Ipratropium 3.0-0.5 MG/3 ML Neb Soln NEB ONE (18:57)
[2017-03-28] MEDS: Albuterol/Ipratropium 3.0-0.5 MG/3 ML Neb Soln NEB SCH (22:42)
[2017-03-28] MEDS ORDERED: diphenhydrAMINE 25 MG Cap PO ONE (23:12)
[2017-03-28] MEDS ORDERED: Temazepam 15 MG Cap PO ONE (23:34)
[2017-03-29] MEDS: Albuterol/Ipratropium 3.0-0.5 MG/3 ML Neb Soln NEB SCH ×4 (05:07→23:27)
[2017-03-29] MEDS: Heparin Sodium 5,000 Units/ML Vial SUBCUT SCH ×2 (05:17→17:52)
[2017-03-29] MEDS: Levothyroxine 50 MCG Tab PO SCH (06:30)
[2017-03-29] MEDS: Pantoprazole 40 MG Tab.CR PO SCH (06:30)
[2017-03-29] MEDS: Furosemide 40 MG/4 ML VIAL IVPUSH SCH ×2 (08:06→14:17)
[2017-03-29] MEDS: Aspirin 81 MG Tab.Chew PO SCH (08:24)
[2017-03-29] MEDS: Metoprolol Succinate 50 MG Tab.ER PO SCH ×2 (08:24→22:21)
[2017-03-29] MEDS: Docusate Sodium 100 MG Cap PO PRN ×2 (08:24→20:36)
[2017-03-29] MEDS: Fluticasone/Vilanterol 1 PUFF INH SCH (09:33)
[2017-03-29] MEDS: Albuterol 8 GM Inhaler INH PRN ×2 (09:35→22:24)
[2017-03-29] MEDS: Benzonatate 100 MG Cap PO PRN ×2 (14:56→20:36)
--- NOTE | 2017-03-29 16:07 | US ---
ULTRASOUND EXAMINATION OF the right lower extremity WITH DOPPLER HISTORY: Calf pain FINDINGS: Examination of the right leg was performed from the groin to the calf region. All visualized segmen ts including common femoral, proximal greater saphenous, superficial femoral, popliteal and calf vei ns appear patent with good compressibility and augmentation. There is no evidence of deep vein thro mbosis. IMPRESSION: No evidence of a DVT.
--- NOTE | 2017-03-29 18:32 | PCM.PN ---
<Baluch,Geoffrey - Last Filed: 03/29/17 18:22> - General Info Functional Status: Reports: pain controlled, tolerating diet, ambulating, urinating - Review of Systems General: Reports: No Symptoms HEENT: Reports: no symptoms Pulmonary: Reports: wheezing. Denies: shortness of breath, cough Cardiovascular: Reports: No Symptoms Gastrointestinal: Reports: No symptoms Genitourinary: Reports: no symptoms Musculoskeletal: Reports: no symptoms Skin: Reports: no symptoms Neurological: Reports: No Symptoms Psychiatric: Reports: no symptoms - Patient Data Vitals - most recent: Last Vital Signs Temp 37.2 C 03/29/17 16:00 Pulse 119 H 03/29/17 08:24 Resp 20 03/29/17 18:00 BP 110/57 L 03/29/17 18:00 Pulse Ox 96 03/29/17 18:00 Weight - most recent: 72.5 kg I&O - last 24 hours: Intake & Output 03/29/17 03/29/17 03/29/17 06:59 14:59 22:59 Intake Total 200 1330 Output Total 950 2200 Balance -750 -870 Lab Results last 24 hrs: Laboratory Results - last 24 hr 03/29/17 03/29/17 03/29/17 Range/Units 05:14 05:14 05:14 WBC 8.89 (4.0-11.0) K/uL RBC 3.94 L (4.30-5.90) M/uL Hgb 11.6 L (12.0-16.0) g/dL Hct 35.3 L (36.0-46.0) % MCV 89.6 (80.0-98.0) fL MCH 29.4 (27.0-32.0) pg MCHC 32.9 (31.0-37.0) g/dL RDW Std Deviation 53.0 (28.0-62.0) fl RDW Coeff of Brisa 16 H (11.0-15.0) % Plt Count 231 (150-400) K/uL MPV 9.20 (7.40-12.00) fL Neut % (Auto) 59.0 (48.0-80.0) % Lymph % (Auto) 22.3 (16.0-40.0) % Terrell % (Auto) 11.7 (0.0-15.0) % Eos % (Auto) 6.4 (0.0-7.0) % Baso % (Auto) 0.6 (0.0-1.5) % Neut # (Auto) 5.3 (1.4-5.7) K/uL Lymph # (Auto) 2.0 (0.6-2.4) K/uL Terrell # (Auto) 1.0 H (0.0-0.8) K/uL Eos # (Auto) 0.6 (0.0-0.7) K/uL Baso # (Auto) 0.1 (0.0-0.1) K/uL Nucleated RBC % 0.2 /100WBC Nucleated RBCs # 0 K/uL Sodium 138 (136-146) mmol/L Potassium 3.5 (3.5-5.1) mmol/L Chloride 100 (98-110) mmol/L Carbon Dioxide 27 (21-31) mmol/L BUN 21 (6.0-23.0) mg/dL Creatinine 1.0 (0.6-1.5) mg/dL Est Cr Clr Drug Dosing 29.94 mL/min Estimated GFR (MDRD) 52.4 ml/min Glucose 109 (60-110) mg/dL Calcium 8.5 L (8.8-10.8) mg/dL Magnesium 2.0 (1.5-2.3) mEq/L Med Orders - Current: Current Medications Albuterol (Ventolin Hfa) 8 gm INH QID PRN PRN Reason: Dyspnea Last Admin: 03/29/17 09:35 Dose: 2 puff Albuterol/Ipratropium (Duoneb 3.0-0.5 Mg/3 Ml) 3 ml NEB Q6HRRT [facility] Last Admin: 03/29/17 15:52 Dose: 3 ml Aspirin (Aspirin) 81 mg PO DAILY [facility] Last Admin: 03/29/17 08:24 Dose: 81 mg Benzonatate (Tessalon Perles) 100 mg PO QID PRN PRN Reason: Cough Last Admin: 03/29/17 14:56 Dose: 100 mg Diltiazem HCl (Cardizem) 30 mg PO Q6HR [facility] Last Admin: 03/29/17 17:52 Dose: 30 mg Docusate Sodium (Colace) 100 mg PO BID PRN PRN Reason: Constipation Last Admin: 03/29/17 08:24 Dose: 100 mg Furosemide (Lasix) 40 mg IVPUSH BIDDIURETIC [facility] Last Admin: 03/29/17 14:17 Dose: 40 mg Heparin Sodium (Porcine) (Heparin Sodium) 5,000 units SUBCUT Q12H [facility] Last Admin: 03/29/17 17:52 Dose: 5,000 units Levothyroxine Sodium (Synthroid) 50 mcg PO ACBREAKFAST [facility] Last Admin: 03/29/17 06:30 Dose: 50 mcg Metoprolol Succinate (Toprol Xl) 100 mg PO BID [facility] Last Admin: 03/29/17 08:24 Dose: 100 mg Pantoprazole Sodium (Protonix) 40 mg PO ACBREAKFAST [facility] Last Admin: 03/29/17 06:30 Dose: 40 mg Fluticasone/ (Vilanterol 1 Puff) 1 each INH DAILY [facility] Last Admin: 03/29/17 09:33 Dose: 1 each Sodium Chloride (Saline Flush) 10 ml FLUSH ASDIRECTED PRN PRN Reason: Keep Vein Open Sodium Chloride (Saline Flush) 2.5 ml FLUSH ASDIRECTED PRN PRN Reason: Keep Vein Open Discontinued Medications Albuterol/Ipratropium (Duoneb 3.0-0.5 Mg/3 Ml) Confirm Administered Dose 3 ml .ROUTE .STK-MED ONE Stop: 03/27/17 08:15 Last Admin: 03/27/17 08:18 Dose: 3 ml Albuterol/Ipratropium (Duoneb 3.0-0.5 Mg/3 Ml) 3 ml NEB ONETIME ONE Stop: 03/27/17 08:20 Last Admin: 03/27/17 10:57 Dose: Not Given Albuterol/Ipratropium (Duoneb 3.0-0.5 Mg/3 Ml) 3 ml NEB Q4HRRT PRN PRN Reason: SOB/wheezing Last Admin: 03/27/17 19:14 Dose: 3 ml Albuterol/Ipratropium (Duoneb 3.0-0.5 Mg/3 Ml) 3 ml NEB ONETIME ONE Stop: 03/28/17 18:58 Last Admin: 03/28/17 19:25 Dose: 3 ml Albuterol/Ipratropium (Duoneb 3.0-0.5 Mg/3 Ml) 3 ml NEB BIDRT [facility] Last Admin: 03/29/17 05:07 Dose: 3 ml Digoxin (Lanoxin) 250 mcg PO ONETIME ONE Stop: 03/28/17 14:01 Last Admin: 03/28/17 14:12 Dose: 250 mcg Diltiazem HCl (Diltiazem) 20 mg IVPUSH ONETIME ONE Stop: 03/27/17 08:37 Last Admin: 03/27/17 08:45 Dose: 20 mg Diltiazem HCl (Diltiazem) 20 mg IVPUSH ONETIME ONE Stop: 03/27/17 10:21 Last Admin: 03/27/17 10:37 Dose: 20 mg Diltiazem HCl (Diltiazem) 5 mg IVPUSH ONETIME ONE Stop: 03/27/17 15:26 Last Admin: 03/27/17 15:25 Dose: 5 mg Diltiazem HCl (Diltiazem) 5 mg IVPUSH ONETIME ONE Stop: 03/27/17 16:18 Last Admin: 03/27/17 16:19 Dose: 5 mg Diphenhydramine HCl (Benadryl) 25 mg PO ONETIME ONE Stop: 03/28/17 23:13 Last Admin: 03/29/17 01:17 Dose: Not Given Furosemide (Lasix) 20 mg IVPUSH NOW ONE Stop: 03/27/17 10:32 Last Admin: 03/27/17 10:59 Dose: 20 mg Furosemide (Lasix) 40 mg IVPUSH ONETIME ONE Stop: 03/27/17 18:01 Last Admin: 03/27/17 18:18 Dose: 40 mg Diltiazem HCl 100 mg/ Sodium (Chloride) 100 mls @ 5 mls/hr IV TITRATE AZUL; 5 MG /HR PRN Reason: Protocol Last Titration: 03/28/17 16:10 Dose: 0 mg/hr, 0 mls/hr Magnesium Sulfate 2 gm/ Premix 50 mls @ 50 mls/hr IV ONETIME ONE Stop: 03/28/17 10:03 Last Admin: 03/28/17 09:40 Dose: 50 mls/hr Melatonin (Melatonin) 3 mg PO ONETIME ONE Stop: 03/28/17 01:06 Last Admin: 03/28/17 01:19 Dose: 3 mg Metoprolol Succinate (Toprol Xl) 50 mg PO BIDMEALS [facility] Last Admin: 03/27/17 13:10 Dose: 50 mg Metoprolol Succinate (Toprol Xl) 50 mg PO BID [facility] Last Admin: 03/28/17 08:35 Dose: 50 mg Temazepam (Restoril) 15 mg PO ONETIME ONE Stop: 03/28/17 23:35 Last Admin: 03/29/17 01:24 Dose: 15 mg - Exam General: alert, oriented, cooperative, no acute distress HEENT: Pupils equal, Pupils reactive Neck: supple, no JVD Lungs: Rales, Wheezing Cardiovascular: Regular Rate, Regular Rhythm Extremities: no edema Neurological: no new focal deficit - Problem List Review Problem List Initiated/Reviewed/Updated: Yes - My Orders Last 24 Hours: My Active Orders 03/28/17 18:57 RT Aerosol Therapy [RC] ASDIRECTED 03/28/17 21:00 Metoprolol Succinate [Toprol XL] 100 mg PO BID 03/29/17 12:00 Diltiazem [Cardizem] 30 mg PO Q6HR 03/29/17 15:43 RT Aerosol Therapy [RC] ASDIRECTED 03/29/17 15:45 Albuterol/Ipratropium [DuoNeb 3.0-0.5 MG/3 ML] 3 ml NEB Q6HRRT 03/29/17 17:42 Transfer Patient (Change bed) [ADT] Routine Telemetry Monitoring [Cardiac Monitoring] [RC] . DIRECTED 03/30/17 05:00 CMP [COMPREHENSIVE METABOLIC PN,CMP] [CHEM] Routine - Plan Plan:: 87 yo female [facility] of mitral valve insufficiency who is admitted with CHF exacerbation and atrial fibrillation with RVR. Patent converted to NSR today wi HR 80-100. Patient will be transferred to medical floor with telemetry. On heparin for DVT prophylaxis 1. AF with RVR, resolved: continue Metoprolol 100 mg BID & Cardizem 30 mg q6h. 2. CHF Exacerbation: continue lasix diuresis. continue to monitor i&o's 3. Diastolic Hypotension: continue to hold lisinopril 4. Asthma: duonebs [id number] scheduled 5. Elevated LFT: normal in february 2017. no abdominal pain/tenderness. repeat CMP tomorrow. <Noman Francis - Last Filed: 03/29/17 20:42> - Patient Data Vitals - most recent: Last Vital Signs Temp 37.2 C 03/29/17 16:00 Pulse 119 H 03/29/17 08:24 Resp 20 03/29/17 18:00 BP 110/57 L 03/29/17 18:00 Pulse Ox 96 03/29/17 18:00 I&O - last 24 hours: Intake & Output 03/29/17 03/29/17 03/29/17 06:59 14:59 22:59 Intake Total 200 1330 Output Total 950 2200 Balance -750 -870 Lab Results last 24 hrs: Laboratory Results - last 24 hr 03/29/17 03/29/17 03/29/17 Range/Units 05:14 05:14 05:14 WBC 8.89 (4.0-11.0) K/uL RBC 3.94 L (4.30-5.90) M/uL Hgb 11.6 L (12.0-16.0) g/dL Hct 35.3 L (36.0-46.0) % MCV 89.6 (80.0-98.0) fL MCH 29.4 (27.0-32.0) pg MCHC 32.9 (31.0-37.0) g/dL RDW Std Deviation 53.0 (28.0-62.0) fl RDW Coeff of Brisa 16 H (11.0-15.0) % Plt Count 231 (150-400) K/uL MPV 9.20 (7.40-12.00) fL Neut % (Auto) 59.0 (48.0-80.0) % Lymph % (Auto) 22.3 (16.0-40.0) % Terrell % (Auto) 11.7 (0.0-15.0) % Eos % (Auto) 6.4 (0.0-7.0) % Baso % (Auto) 0.6 (0.0-1.5) % Neut # (Auto) 5.3 (1.4-5.7) K/uL Lymph # (Auto) 2.0 (0.6-2.4) K/uL Terrell # (Auto) 1.0 H (0.0-0.8) K/uL Eos # (Auto) 0.6 (0.0-0.7) K/uL Baso # (Auto) 0.1 (0.0-0.1) K/uL Nucleated RBC % 0.2 /100WBC Nucleated RBCs # 0 K/uL Sodium 138 (136-146) mmol/L Potassium 3.5 (3.5-5.1) mmol/L Chloride 100 (98-110) mmol/L Carbon Dioxide 27 (21-31) mmol/L BUN 21 (6.0-23.0) mg/dL Creatinine 1.0 (0.6-1.5) mg/dL Est Cr Clr Drug Dosing 29.94 mL/min Estimated GFR (MDRD) 52.4 ml/min Glucose 109 (60-110) mg/dL Calcium 8.5 L (8.8-10.8) mg/dL Magnesium 2.0 (1.5-2.3) mEq/L Med Orders - Current: Current Medications Albuterol (Ventolin Hfa) 8 gm INH QID PRN PRN Reason: Dyspnea Last Admin: 03/29/17 09:35 Dose: 2 puff Albuterol/Ipratropium (Duoneb 3.0-0.5 Mg/3 Ml) 3 ml NEB Q6HRRT [facility] Last Admin: 03/29/17 19:16 Dose: Not Given Aspirin (Aspirin) 81 mg PO DAILY [facility] Last Admin: 03/29/17 08:24 Dose: 81 mg Benzonatate (Tessalon Perles) 100 mg PO QID PRN PRN Reason: Cough Last Admin: 03/29/17 20:36 Dose: 100 mg Diltiazem HCl (Cardizem) 30 mg PO Q6HR [facility] Last Admin: 03/29/17 17:52 Dose: 30 mg Docusate Sodium (Colace) 100 mg PO BID PRN PRN Reason: Constipation Last Admin: 03/29/17 20:36 Dose: 100 mg Furosemide (Lasix) 40 mg PO BIDDIURETIC [facility] Heparin Sodium (Porcine) (Heparin Sodium) 5,000 units SUBCUT Q12H [facility] Last Admin: 03/29/17 17:52 Dose: 5,000 units Levothyroxine Sodium (Synthroid) 50 mcg PO ACBREAKFAST [facility] Last Admin: 03/29/17 06:30 Dose: 50 mcg Metoprolol Succinate (Toprol Xl) 100 mg PO BID [facility] Last Admin: 03/29/17 08:24 Dose: 100 mg Pantoprazole Sodium (Protonix) 40 mg PO ACBREAKFAST [facility] Last Admin: 03/29/17 06:30 Dose: 40 mg Fluticasone/ (Vilanterol 1 Puff) 1 each INH DAILY [facility] Last Admin: 03/29/17 09:33 Dose: 1 each Sodium Chloride (Saline Flush) 10 ml FLUSH ASDIRECTED PRN PRN Reason: Keep Vein Open Sodium Chloride (Saline Flush) 2.5 ml FLUSH ASDIRECTED PRN PRN Reason: Keep Vein Open Discontinued Medications Albuterol/Ipratropium (Duoneb 3.0-0.5 Mg/3 Ml) Confirm Administered Dose 3 ml .ROUTE .STK-MED ONE Stop: 03/27/17 08:15 Last Admin: 03/27/17 08:18 Dose: 3 ml Albuterol/Ipratropium (Duoneb 3.0-0.5 Mg/3 Ml) 3 ml NEB ONETIME ONE Stop: 03/27/17 08:20 Last Admin: 03/27/17 10:57 Dose: Not Given Albuterol/Ipratropium (Duoneb 3.0-0.5 Mg/3 Ml) 3 ml NEB Q4HRRT PRN PRN Reason: SOB/wheezing Last Admin: 03/27/17 19:14 Dose: 3 ml Albuterol/Ipratropium (Duoneb 3.0-0.5 Mg/3 Ml) 3 ml NEB ONETIME ONE Stop: 03/28/17 18:58 Last Admin: 03/28/17 19:25 Dose: 3 ml Albuterol/Ipratropium (Duoneb 3.0-0.5 Mg/3 Ml) 3 ml NEB BIDRT [facility] Last Admin: 03/29/17 05:07 Dose: 3 ml Digoxin (Lanoxin) 250 mcg PO ONETIME ONE Stop: 03/28/17 14:01 Last Admin: 03/28/17 14:12 Dose: 250 mcg Diltiazem HCl (Diltiazem) 20 mg IVPUSH ONETIME ONE Stop: 03/27/17 08:37 Last Admin: 03/27/17 08:45 Dose: 20 mg Diltiazem HCl (Diltiazem) 20 mg IVPUSH ONETIME ONE Stop: 03/27/17 10:21 Last Admin: 03/27/17 10:37 Dose: 20 mg Diltiazem HCl (Diltiazem) 5 mg IVPUSH ONETIME ONE Stop: 03/27/17 15:26 Last Admin: 03/27/17 15:25 Dose: 5 mg Diltiazem HCl (Diltiazem) 5 mg IVPUSH ONETIME ONE Stop: 03/27/17 16:18 Last Admin: 03/27/17 16:19 Dose: 5 mg Diphenhydramine HCl (Benadryl) 25 mg PO ONETIME ONE Stop: 03/28/17 23:13 Last Admin: 03/29/17 01:17 Dose: Not Given Furosemide (Lasix) 20 mg IVPUSH NOW ONE Stop: 03/27/17 10:32 Last Admin: 03/27/17 10:59 Dose: 20 mg Furosemide (Lasix) 40 mg IVPUSH BIDDIURETIC [facility] Last Admin: 03/29/17 14:17 Dose: 40 mg Furosemide (Lasix) 40 mg IVPUSH ONETIME ONE Stop: 03/27/17 18:01 Last Admin: 03/27/17 18:18 Dose: 40 mg Diltiazem HCl 100 mg/ Sodium (Chloride) 100 mls @ 5 mls/hr IV TITRATE AZUL; 5 MG /HR PRN Reason: Protocol Last Titration: 03/28/17 16:10 Dose: 0 mg/hr, 0 mls/hr Magnesium Sulfate 2 gm/ Premix 50 mls @ 50 mls/hr IV ONETIME ONE Stop: 03/28/17 10:03 Last Admin: 03/28/17 09:40 Dose: 50 mls/hr Melatonin (Melatonin) 3 mg PO ONETIME ONE Stop: 03/28/17 01:06 Last Admin: 03/28/17 01:19 Dose: 3 mg Metoprolol Succinate (Toprol Xl) 50 mg PO BIDMEALS [facility] Last Admin: 03/27/17 13:10 Dose: 50 mg Metoprolol Succinate (Toprol Xl) 50 mg PO BID [facility] Last Admin: 03/28/17 08:35 Dose: 50 mg Temazepam (Restoril) 15 mg PO ONETIME ONE Stop: 03/28/17 23:35 Last Admin: 03/29/17 01:24 Dose: 15 mg - My Orders Last 24 Hours: My Active Orders 03/30/17 05:11 CBC WITH AUTO DIFF [HEME] AM - Free Text/Narrative Note: I have examined patient. I have discussed findings with resident. I agree with the assessment and plan outlined in the following resident's note.
[2017-03-30] MEDS: Heparin Sodium 5,000 Units/ML Vial SUBCUT SCH ×2 (06:01→18:07)
[2017-03-30] MEDS: Albuterol/Ipratropium 3.0-0.5 MG/3 ML Neb Soln NEB SCH ×2 (06:01→11:00)
[2017-03-30] MEDS: Levothyroxine 50 MCG Tab PO SCH (06:44)
[2017-03-30] MEDS: Pantoprazole 40 MG Tab.CR PO SCH (06:44)
[2017-03-30] MEDS: Furosemide 40 MG Tab PO SCH ×2 (08:20→14:06)
[2017-03-30] MEDS: Aspirin 81 MG Tab.Chew PO SCH (08:20)
[2017-03-30] MEDS: Metoprolol Succinate 50 MG Tab.ER PO SCH (08:20)
[2017-03-30] MEDS: Benzonatate 100 MG Cap PO PRN (08:28)
[2017-03-30] MEDS: Docusate Sodium 100 MG Cap PO PRN (08:29)
[2017-03-30] MEDS: Fluticasone/Vilanterol 1 PUFF INH SCH (08:50)
--- NOTE | 2017-03-30 11:32 | PCM.PN ---
- Review of Systems Systems Review Comment:: reports cough, does not feel ready for to go home - Patient Data Vitals - most recent: Last Vital Signs Temp 36.6 C 03/30/17 08:00 Pulse 88 03/30/17 08:20 Resp 16 03/30/17 08:00 BP 109/62 03/30/17 08:20 Pulse Ox 93 L 03/30/17 08:00 Weight - most recent: 72.6 kg I&O - last 24 hours: Intake & Output 03/29/17 03/30/17 03/30/17 22:59 06:59 14:59 Intake Total 1330 250 Output Total 2200 650 Balance -870 -400 Lab Results last 24 hrs: Laboratory Results - last 24 hr 03/30/17 03/30/17 Range/Units 04:54 04:54 WBC 10.97 (4.0-11.0) K/uL RBC 4.01 L (4.30-5.90) M/uL Hgb 11.6 L (12.0-16.0) g/dL Hct 36.3 (36.0-46.0) % MCV 90.5 (80.0-98.0) fL MCH 28.9 (27.0-32.0) pg MCHC 32.0 (31.0-37.0) g/dL RDW Std Deviation 54.1 (28.0-62.0) fl RDW Coeff of Brisa 16 H (11.0-15.0) % Plt Count 268 (150-400) K/uL MPV 9.10 (7.40-12.00) fL Neut % (Auto) 48.3 (48.0-80.0) % Lymph % (Auto) 33.1 (16.0-40.0) % Hendry % (Auto) 10.6 (0.0-15.0) % Eos % (Auto) 7.5 H (0.0-7.0) % Baso % (Auto) 0.5 (0.0-1.5) % Neut # (Auto) 5.3 (1.4-5.7) K/uL Lymph # (Auto) 3.6 H (0.6-2.4) K/uL Hendry # (Auto) 1.2 H (0.0-0.8) K/uL Eos # (Auto) 0.8 H (0.0-0.7) K/uL Baso # (Auto) 0.1 (0.0-0.1) K/uL Nucleated RBC % 0.0 /100WBC Nucleated RBCs # 0 K/uL Sodium 137 (136-146) mmol/L Potassium 3.4 L (3.5-5.1) mmol/L Chloride 99 (98-110) mmol/L Carbon Dioxide 28 (21-31) mmol/L BUN 16 (6.0-23.0) mg/dL Creatinine 1.0 (0.6-1.5) mg/dL Est Cr Clr Drug Dosing 29.94 mL/min Estimated GFR (MDRD) 52.4 ml/min Glucose 97 (60-110) mg/dL Calcium 8.8 (8.8-10.8) mg/dL Total Bilirubin 0.7 (0.1-1.5) mg/dL AST 19 (5-40) IU/L ALT 41 (8-54) IU/L Alkaline Phosphatase 80 (40-150) Total Protein 5.9 L (6.0-8.0) g/dL Albumin 3.5 (3.4-4.8) g/dL Globulin 2.4 (2.0-3.5) g/dL Albumin/Globulin Ratio 1.5 (1.3-2.8) Med Orders - Current: Current Medications Albuterol (Ventolin Hfa) 8 gm INH QID PRN PRN Reason: Dyspnea Last Admin: 03/29/17 22:24 Dose: 2 puff Albuterol/Ipratropium (Duoneb 3.0-0.5 Mg/3 Ml) 3 ml NEB Q6HRRT [facility] Last Admin: 03/30/17 11:00 Dose: 3 ml Aspirin (Aspirin) 81 mg PO DAILY [facility] Last Admin: 03/30/17 08:20 Dose: 81 mg Benzonatate (Tessalon Perles) 100 mg PO QID PRN PRN Reason: Cough Last Admin: 03/30/17 08:28 Dose: 100 mg Docusate Sodium (Colace) 100 mg PO BID PRN PRN Reason: Constipation Last Admin: 03/30/17 08:29 Dose: 100 mg Furosemide (Lasix) 40 mg PO BIDDIURETIC [facility] Last Admin: 03/30/17 08:20 Dose: 40 mg Heparin Sodium (Porcine) (Heparin Sodium) 5,000 units SUBCUT Q12H [facility] Last Admin: 03/30/17 06:01 Dose: 5,000 units Levothyroxine Sodium (Synthroid) 50 mcg PO ACBREAKFAST [facility] Last Admin: 03/30/17 06:44 Dose: 50 mcg Metoprolol Succinate (Toprol Xl) 100 mg PO BID [facility] Last Admin: 03/30/17 08:20 Dose: 100 mg Pantoprazole Sodium (Protonix) 40 mg PO ACBREAKFAST [facility] Last Admin: 03/30/17 06:44 Dose: 40 mg Fluticasone/ (Vilanterol 1 Puff) 1 each INH DAILY [facility] Last Admin: 03/30/17 08:50 Dose: 1 each Sodium Chloride (Saline Flush) 10 ml FLUSH ASDIRECTED PRN PRN Reason: Keep Vein Open Sodium Chloride (Saline Flush) 2.5 ml FLUSH ASDIRECTED PRN PRN Reason: Keep Vein Open Discontinued Medications Albuterol/Ipratropium (Duoneb 3.0-0.5 Mg/3 Ml) Confirm Administered Dose 3 ml .ROUTE .STK-MED ONE Stop: 03/27/17 08:15 Last Admin: 03/27/17 08:18 Dose: 3 ml Albuterol/Ipratropium (Duoneb 3.0-0.5 Mg/3 Ml) 3 ml NEB ONETIME ONE Stop: 03/27/17 08:20 Last Admin: 03/27/17 10:57 Dose: Not Given Albuterol/Ipratropium (Duoneb 3.0-0.5 Mg/3 Ml) 3 ml NEB Q4HRRT PRN PRN Reason: SOB/wheezing Last Admin: 03/27/17 19:14 Dose: 3 ml Albuterol/Ipratropium (Duoneb 3.0-0.5 Mg/3 Ml) 3 ml NEB ONETIME ONE Stop: 03/28/17 18:58 Last Admin: 03/28/17 19:25 Dose: 3 ml Albuterol/Ipratropium (Duoneb 3.0-0.5 Mg/3 Ml) 3 ml NEB BIDRT [facility] Last Admin: 03/29/17 05:07 Dose: 3 ml Digoxin (Lanoxin) 250 mcg PO ONETIME ONE Stop: 03/28/17 14:01 Last Admin: 03/28/17 14:12 Dose: 250 mcg Diltiazem HCl (Diltiazem) 20 mg IVPUSH ONETIME ONE Stop: 03/27/17 08:37 Last Admin: 03/27/17 08:45 Dose: 20 mg Diltiazem HCl (Diltiazem) 20 mg IVPUSH ONETIME ONE Stop: 03/27/17 10:21 Last Admin: 03/27/17 10:37 Dose: 20 mg Diltiazem HCl (Diltiazem) 5 mg IVPUSH ONETIME ONE Stop: 03/27/17 15:26 Last Admin: 03/27/17 15:25 Dose: 5 mg Diltiazem HCl (Diltiazem) 5 mg IVPUSH ONETIME ONE Stop: 03/27/17 16:18 Last Admin: 03/27/17 16:19 Dose: 5 mg Diltiazem HCl (Cardizem) 30 mg PO Q6HR [facility] Last Admin: 03/30/17 06:01 Dose: 30 mg Diphenhydramine HCl (Benadryl) 25 mg PO ONETIME ONE Stop: 03/28/17 23:13 Last Admin: 03/29/17 01:17 Dose: Not Given Furosemide (Lasix) 20 mg IVPUSH NOW ONE Stop: 03/27/17 10:32 Last Admin: 03/27/17 10:59 Dose: 20 mg Furosemide (Lasix) 40 mg IVPUSH BIDDIURETIC [facility] Last Admin: 03/29/17 14:17 Dose: 40 mg Furosemide (Lasix) 40 mg IVPUSH ONETIME ONE Stop: 03/27/17 18:01 Last Admin: 03/27/17 18:18 Dose: 40 mg Diltiazem HCl 100 mg/ Sodium (Chloride) 100 mls @ 5 mls/hr IV TITRATE [facility]; 5 MG /HR PRN Reason: Protocol Last Titration: 03/28/17 16:10 Dose: 0 mg/hr, 0 mls/hr Magnesium Sulfate 2 gm/ Premix 50 mls @ 50 mls/hr IV ONETIME ONE Stop: 03/28/17 10:03 Last Admin: 03/28/17 09:40 Dose: 50 mls/hr Melatonin (Melatonin) 3 mg PO ONETIME ONE Stop: 03/28/17 01:06 Last Admin: 03/28/17 01:19 Dose: 3 mg [facility] Last Admin: 03/27/17 13:10 Dose: 50 mg Metoprolol Succinate (Toprol Xl) 50 mg PO BID [facility] Last Admin: 03/28/17 08:35 Dose: 50 mg Temazepam (Restoril) 15 mg PO ONETIME ONE Stop: 03/28/17 23:35 Last Admin: 03/29/17 01:24 Dose: 15 mg - Exam General: alert, oriented Lungs: Clear to auscultation, Normal respiratory effort. No: Crackles, Wheezing Cardiovascular: Regular Rate, Regular Rhythm Abdomen: bowel sounds present, soft, no tenderness, no distension Extremities: no edema Skin: warm, dry, intact - Problem List Review Problem List Initiated/Reviewed/Updated: Yes - Plan Plan:: 87 yo female [facility] of mitral valve insufficiency who is admitted with CHF exacerbation and atrial fibrillation with RVR. Patent converted to NSR today [facility] HR 80-100. Patient will be transferred to medical floor with telemetry. On heparin for DVT prophylaxis 1. Paroxysmal a.fib: in normal sinus now, will continue meetoprolol succinate, but will d/c diltiazem, I have recommended anticoagulation but patient would like to follow up with Dr. Kern before starting any anticoagulation. Will continue ASA. 2. CHF Exacerbation: continue lasix diuresis. will resume lisinopril if blood pressure allows 4. Asthma: duonebs [id number] scheduled
[2017-03-30] MEDS ORDERED: Pantoprazole 40 MG Tab.CR PO SCH (13:45)
[2017-03-30] MEDS ORDERED: Polyethylene Glycol 3350 Powder 17 GM Packet PO SCH (14:30)
[2017-03-30] MEDS ORDERED: Budesonide 0.5 MG/2 ML Neb Susp NEB SCH (15:16)
--- NOTE | 2017-03-30 15:58 | CR ---
EXAM DATE: 03/27/17 PATIENT'S AGE: 87 Patient: PANCHO SALAS Facility: [place], [place] Site . Site : [id number] Study: XRay Chest [id number]/25/2017 7:35:10 AM Ordering Physician: Tito Tineo Final Report: HISTORY: Wheezing and coughing. FINDINGS: AP portable chest radiograph is compared 27 Mar 2017. EKG leads overlie the thorax. Cardiac silhouette is at the upper limits of normal without change. Pulmonary vasculature is free cephalization. No lobar consolidation or pleural effusion is seen. Bony structures are normal for age. IMPRESSION: Borderline cardiomegaly without evidence of CHF. Dictated by Meg Rick MD @ 03/30/2017 7:48:18 AM Dictated by: Meg Rick MD @ 03/30/2017 07:48:25 (Electronic Signature) Report Signed by Proxy. JAIME
[2017-03-30 16:40] VITALS: BP 110/59
[2017-03-30] MEDS ORDERED: Albuterol/Ipratropium 3.0-0.5 MG/3 ML Neb Soln NEB SCH (18:00)
[2017-03-30] MEDS ORDERED: Albuterol/Ipratropium 3.0-0.5 MG/3 ML Neb Soln ONE (21:13)
--- NOTE | 2017-03-31 15:20 | CR ---
EXAMINATION: Two-view chest (PA and Lateral views). HISTORY: Shortness of breath. FINDINGS: The trachea is midline. The heart is borderline in size. No pulmonary infiltrates, effusions or pneu mothorax. Mild dependent atelectasis noted. Chronic interstitial prominence. Mitral annular calcific ations are present. Osseous structures appear unremarkable. IMPRESSION: Mild dependent atelectasis/infiltrate.
--- NOTE | 2017-04-02 12:31 | PCM.DCSUM1 ---
Discharge Summary - Hospital Course Free Text/Narrative:: 03/27: Patient presents to ED c/o SOB. Initial EKG in ED shows AF with RVR with rate 134. BNP 999 but no acute changes on CXR. Troponin negative. In the ED she was started on duonebs for SOB which improved SOB. She was given 2 doses of Cardizem 20 mg IV and 1 dose of Lasix 20 mg IV. Her AF w RVR persisted and she was admitted to ICU for Dyspnea, CHF & AF with RVR. On the floor her home Toprol XL 50 mg was administered which resulted in hypotension but RVR persisted. She was the started on Cardizem drip. Records were obtained that revealed history of HFpEF, Pulmonary HTN, MVP and Mitral Insufficiency. Due to hypotension her Lisinopril was held. Patient remained comfortable during day without any chest pain. She had significant wheezing on exam but was not hypoxic. 03/28: Patients HR began to decrease and was stable 80-100. Her Cardizem drip was stopped. HR seemed to be under control but started to creep up to 100-120 with movement. Cardizem PO was added to her Toprol. AF persisted, hypotension persisted, wheezing persisted. 03/29: AF with her 100-120 persisted throughout the morning. Digoxin 250 mcg tried but not effective. Toprol then increased to 100 mg BID. Later during day patient converted to NSR. Hypotension persisted but mostly diastolic with DBP 50 -70. Wheezing persisted despite Duonebs [id number]. 03/30: Patient remained NSR with 2-3 paroxysmal bouts of AF lasting few seconds. HR was 80-100. Cardizem PO was discontinued. Toprol 100 mg BID continued. Lasix IV transitioned to PO. Lisinopril still held. BP 100-120/60-80. Wheezing peristed. Nebulized Pulmicort was tried which patient responded to well. 03/31: Patient remained NSR with 2-3 paroxysmal bouts AF lasting few seconds. HR was 80-100. Toprol 100 mg BID continued. Lasix PO continued. Lisinopril still held. Pulmicort continued. Duonebs continued. Wheezing started to improve on exam. Planned to discharge patient but patient complained of cough and wheezing. 04/01: Patient remained NSR with 2-3 paroxysmal bouts AF lasting few seconds. HR was 80-100. Toprol 100 mg BID continued. Lasix PO continued. Lisinopril still held. Pulmicort continued. Duonebs continued. Wheezing resolved on exam. Patient felt better. Patient discharged. F/u scheduled with PCP Dr. Quezada on 04/[address] Kern on 04/12. Discussed discharging on anticoagulation based on [id number] score however patient was reluctant to start Coumadin and f/u could not be arranged within 1 week to start INR monitoring. Eliquis/Pradaxa/Xarelto not started due to patients age. Patient will be discussing anticoagulation with PCP and/or Firmware Engineer. Discharge Diagnosis: 1. Paroxysmal AF -continue Toprol 100 mg PO BID -continue Lasix 40 mg PO Daily -DC Lisinopril due to hypotension, patient to discuss re-starting with Firmware Engineer -anticoagulation not started -f/u with PCP and Cardiology 2. Hypotension, stable -DC Lisinopril -f/u with PCP and Cardiology 3. Acute Asthma, improved -Albuterol INH 2 puffs q4-6 hours scheduled until f/u with PCP -Bero 1 puff daily -f/u with PCP - Discharge Data Discharge Date: 04/01/17 Discharge Disposition: Home, Self-Care 01 Condition: Good - Patient Instructions Diet: Heart Healthy Diet Activity: As Tolerated, Rest and Relax Today Notify Provider of: Fever, Increased Pain, Swelling and Redness, Drainage, Nausea and/or Vomiting - Discharge Plan Home Medications: Home Meds Aspirin 81 mg PO DAILY 09/19/15 [History] Calcium Carbonate 600 mg PO BIDMEALS 09/19/15 [History] Furosemide 40 mg PO DAILY 09/19/15 [History] Multivitamin [Multivitamins] 1 cap PO DAILY 09/19/15 [History] Potassium Chloride 10 meq PO DAILY 09/19/15 [History] Vitamin E 400 units PO DAILY 09/19/15 [History] L Acidophil/B Lactis/B Longum [Florajen3] 460 mg PO DAILY 10/09/16 [History] Levothyroxine [Synthroid] 50 mcg PO DAILY 03/01/17 [History] Ipratropium/Albuterol Sulfate [Iprat-Albut 0.5-3(2.5) mg/3 ml] 3 ml IH TID PRN 03/31/17 [History] Albuterol [Proventil HFA] 2 puff INH QID #1 inhaler 04/01/17 [Rx] Fluticasone/Vilanterol [Breo Ellipta 100-25 MCG Inhalation Kit] 1 puff IH DAILY #1 inhaler 04/01/17 [Rx] Metoprolol Succinate [Toprol XL] 100 mg PO BID #30 tab.er 04/01/17 [Rx] Referrals: Colette Quezada DO [Physician] - Kobe Kern MD [Ordering Only Provider] - 04/12/17 1:00 pm - Discharge Summary/Plan Comment DC Time >30 min.: No - Patient Data Vitals - Most Recent: Last Vital Signs Temp 37.5 C 03/30/17 16:39 Pulse 87 03/30/17 16:39 Resp 16 03/30/17 16:39 BP 110/59 L 03/30/17 16:39 Pulse Ox 95 03/30/17 16:39 Weight - Most Recent: 72.6 kg Med Orders - Current: Current Medications Discontinued Medications Albuterol (Ventolin Hfa) 8 gm INH QID PRN PRN Reason: Dyspnea Last Admin: 03/29/17 22:24 Dose: 2 puff Albuterol/Ipratropium (Duoneb 3.0-0.5 Mg/3 Ml) Confirm Administered Dose 3 ml .ROUTE .STK-MED ONE Stop: 03/27/17 08:15 Last Admin: 03/27/17 08:18 Dose: 3 ml Albuterol/Ipratropium (Duoneb 3.0-0.5 Mg/3 Ml) 3 ml NEB ONETIME ONE Stop: 03/27/17 08:20 Last Admin: 03/27/17 10:57 Dose: Not Given Albuterol/Ipratropium (Duoneb 3.0-0.5 Mg/3 Ml) 3 ml NEB Q4HRRT PRN PRN Reason: SOB/wheezing Last Admin: 03/27/17 19:14 Dose: 3 ml Albuterol/Ipratropium (Duoneb 3.0-0.5 Mg/3 Ml) 3 ml NEB ONETIME ONE Stop: 03/28/17 18:58 Last Admin: 03/28/17 19:25 Dose: 3 ml Albuterol/Ipratropium (Duoneb 3.0-0.5 Mg/3 Ml) 3 ml NEB BIDRT [facility] Last Admin: 03/29/17 05:07 Dose: 3 ml Albuterol/Ipratropium (Duoneb 3.0-0.5 Mg/3 Ml) 3 ml NEB Q6HRRT [facility] Last Admin: 03/30/17 11:00 Dose: 3 ml Albuterol/Ipratropium (Duoneb 3.0-0.5 Mg/3 Ml) 3 ml NEB Q4HRRT [facility] Last Admin: 03/30/17 17:01 Dose: 3 ml Albuterol/Ipratropium (Duoneb 3.0-0.5 Mg/3 Ml) Confirm Administered Dose 3 ml .ROUTE .STK-MED ONE Stop: 03/30/17 21:14 Aspirin (Aspirin) 81 mg PO DAILY [facility] Last Admin: 03/30/17 08:20 Dose: 81 mg Benzonatate (Tessalon Perles) 100 mg PO QID PRN PRN Reason: Cough Last Admin: 03/30/17 08:28 Dose: 100 mg Budesonide (Pulmicort) 0.5 mg NEB BIDRT [facility] Last Admin: 03/30/17 16:00 Dose: 0.5 mg Digoxin (Lanoxin) 250 mcg PO ONETIME ONE Stop: 03/28/17 14:01 Last Admin: 03/28/17 14:12 Dose: 250 mcg Diltiazem HCl (Diltiazem) 20 mg IVPUSH ONETIME ONE Stop: 03/27/17 08:37 Last Admin: 03/27/17 08:45 Dose: 20 mg Diltiazem HCl (Diltiazem) 20 mg IVPUSH ONETIME ONE Stop: 03/27/17 10:21 Last Admin: 03/27/17 10:37 Dose: 20 mg Diltiazem HCl (Diltiazem) 5 mg IVPUSH ONETIME ONE Stop: 03/27/17 15:26 Last Admin: 03/27/17 15:25 Dose: 5 mg Diltiazem HCl (Diltiazem) 5 mg IVPUSH ONETIME ONE Stop: 03/27/17 16:18 Last Admin: 03/27/17 16:19 Dose: 5 mg Diltiazem HCl (Cardizem) 30 mg PO Q6HR [facility] Last Admin: 03/30/17 06:01 Dose: 30 mg Diphenhydramine HCl (Benadryl) 25 mg PO ONETIME ONE Stop: 03/28/17 23:13 Last Admin: 03/29/17 01:17 Dose: Not Given Docusate Sodium (Colace) 100 mg PO BID PRN PRN Reason: Constipation Last Admin: 03/30/17 08:29 Dose: 100 mg Furosemide (Lasix) 20 mg IVPUSH NOW ONE Stop: 03/27/17 10:32 Last Admin: 03/27/17 10:59 Dose: 20 mg Furosemide (Lasix) 40 mg IVPUSH BIDDIURETIC AZUL Last Admin: 03/29/17 14:17 Dose: 40 mg Furosemide (Lasix) 40 mg IVPUSH ONETIME ONE Stop: 03/27/17 18:01 Last Admin: 03/27/17 18:18 Dose: 40 mg Furosemide (Lasix) 40 mg PO BIDDIURETIC AZUL Last Admin: 03/30/17 14:06 Dose: 40 mg Heparin Sodium (Porcine) (Heparin Sodium) 5,000 units SUBCUT Q12H AZUL Last Admin: 03/30/17 18:07 Dose: 5,000 units Diltiazem HCl 100 mg/ Sodium (Chloride) 100 mls @ 5 mls/hr IV TITRATE AZUL; 5 MG /HR PRN Reason: Protocol Last Titration: 03/28/17 16:10 Dose: 0 mg/hr, 0 mls/hr Magnesium Sulfate 2 gm/ Premix 50 mls @ 50 mls/hr IV ONETIME ONE Stop: 03/28/17 10:03 Last Admin: 03/28/17 09:40 Dose: 50 mls/hr Levothyroxine Sodium (Synthroid) 50 mcg PO ACBREAKFAST AZUL Last Admin: 03/30/17 06:44 Dose: 50 mcg Melatonin (Melatonin) 3 mg PO ONETIME ONE Stop: 03/28/17 01:06 Last Admin: 03/28/17 01:19 Dose: 3 mg Metoprolol Succinate (Toprol Xl) 50 mg PO BIDMEALS [facility] Last Admin: 03/27/17 13:10 Dose: 50 mg Metoprolol Succinate (Toprol Xl) 50 mg PO BID AZUL Last Admin: 03/28/17 08:35 Dose: 50 mg Metoprolol Succinate (Toprol Xl) 100 mg PO BID [facility] Last Admin: 03/30/17 08:20 Dose: 100 mg Pantoprazole Sodium (Protonix) 40 mg PO ACBREAKFAST [facility] Last Admin: 03/30/17 06:44 Dose: 40 mg Pantoprazole Sodium (Protonix) 40 mg PO ACBREAKFAST [facility] Last Admin: 03/30/17 14:06 Dose: 40 mg Fluticasone/ (Vilanterol 1 Puff) 1 each INH DAILY [facility] Last Admin: 03/30/17 08:50 Dose: 1 each Polyethylene Glycol (Miralax) 17 gm PO DAILY [facility] Last Admin: 03/30/17 14:41 Dose: 17 gm Sodium Chloride (Saline Flush) 10 ml FLUSH ASDIRECTED PRN PRN Reason: Keep Vein Open Sodium Chloride (Saline Flush) 2.5 ml FLUSH ASDIRECTED PRN PRN Reason: Keep Vein Open Temazepam (Restoril) 15 mg PO ONETIME ONE Stop: 03/28/17 23:35 Last Admin: 03/29/17 01:24 Dose: 15 mg *Q Meaningful Use (DIS) - VTE *Q VTE Criteria *Q: - Stroke *Q Stroke Criteria *Q: - AMI *Q AMI Criteria *Q:
== END 2017-03-30 21:00 | disposition home or self-care (01) | DRG 293 ==
LOC: MW.ED 08:04 → UNDOADMIN 10:36 → MW.ICU 10:36 → MW.ED 11:16 → MW.ICU 11:34 → UNDOADMIN 11:34 → MW.ICU 13:15 → UNDOADMIN 13:15 → MW.ICU 03-30 18:00 → MW.MS 03-30 18:00 → UNDODISIN 03-30 21:00
PROVIDERS: ADMIT Internal Medicine; ATTEND Internal Medicine
DX: I50.30 Unspecified diastolic (congestive) heart failure (principal); I48.91 Unspecified atrial fibrillation; J45.909 Unspecified asthma, uncomplicated; I10 Essential (primary) hypertension; E03.9 Hypothyroidism, unspecified; I27.2 Other secondary pulmonary hypertension; I34.0 Nonrheumatic mitral (valve) insufficiency; Z79.82 Long term (current) use of aspirin; I95.9 Hypotension, unspecified; I34.1 Nonrheumatic mitral (valve) prolapse; Z95.2 Presence of prosthetic heart valve; Z91.040 Latex allergy status; Z88.8 Allergy status to other drugs, medicaments and biological substances; Z79.899 Other long term (current) drug therapy
CPT/HCPCS: 36415; 71010; 80053; 83880; 84484; 85025; 85610; 93005; 94664; 96374; 96375; 96376; 99285; J1940; 71020; 71020-26; 80048; 81001; 83735; 86480; 93971-26-RT; 93971-RT; 94640; 97161-GP; A9270-GY; J1644; J3475; J3490; J7030

== ENCOUNTER 2017-05-25 23:39 | Emergency (ER) | payer MEDICARE, OTHER ==
[2017-05-26] MEDS ORDERED: Ondansetron 4 MG/2 ML SDV ONE (00:02)
[2017-05-26] MEDS ORDERED: Ondansetron 4 MG/2 ML SDV IVPUSH ONE (00:22)
--- NOTE | 2017-05-26 00:27 | EDM.PDOC ---
ED HPI GENERAL MEDICAL PROBLEM - General Chief Complaint: General Stated Complaint: WEAKNESS Time Seen by Provider: 05/26/17 00:24 - History of Present Illness INITIAL COMMENTS - FREE TEXT/NARRATIVE: she presents by ambulance today stating that she has been feeling weak today. She has no chest pain. She has chronic dyspnea and thinks that it might be a little worse today. She states that she is scheduled to go to [place] for a mitral valve repair. She has a history of chf. no bleeding no headache she felt presyncope no chest pain she felt nausea no bleeding no fainting she sees Dr Rodriguez exam alert normal mentation neck supple lungs CTA heart irregularly irregular abdomen non tender no ankle edema no JVD - Related Data Allergies Allergy/AdvReac Type Severity Reaction Status Date / Time aspirin [From Aggrenox] Allergy unknown Verified 05/25/17 23:45 meza Allergy Anaphylactic Verified 05/25/17 23:45 Shock codeine Allergy Other Verified 05/25/17 23:45 dipyridamole [From Aggrenox] Allergy unknown Verified 05/25/17 23:45 Latex, Natural Rubber Allergy Itching Verified 05/25/17 23:45 shrimp Allergy Hives Verified 05/25/17 23:45 dust mites Allergy Sneezing Uncoded 05/25/17 23:45 pollen Allergy Hives Uncoded 05/25/17 23:45 Home Meds: Home Meds Aspirin 81 mg PO DAILY 09/19/15 [History] Calcium Carbonate 600 mg PO BIDMEALS 09/19/15 [History] Furosemide 40 mg PO DAILY 09/19/15 [History] Multivitamin [Multivitamins] 1 cap PO DAILY 09/19/15 [History] Potassium Chloride 10 meq PO DAILY 09/19/15 [History] Vitamin E 400 units PO DAILY 09/19/15 [History] L Acidophil/B Lactis/B Longum [Florajen3] 460 mg PO DAILY 10/09/16 [History] Levothyroxine [Synthroid] 50 mcg PO DAILY 03/01/17 [History] Ipratropium/Albuterol Sulfate [Iprat-Albut 0.5-3(2.5) mg/3 ml] 3 ml IH TID PRN 03/31/17 [History] Albuterol [Proventil HFA] 2 puff INH QID #1 inhaler 04/01/17 [Rx] Fluticasone/Vilanterol [Breo Ellipta 100-25 MCG Inhalation Kit] 1 puff IH DAILY #1 inhaler 04/01/17 [Rx] Metoprolol Succinate [Toprol XL] 100 mg PO BID #30 tab.er 04/01/17 [Rx] Past Medical History HEENT History: Reports: Cataract, Impaired Vision, 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) Other HEENT History: wears glasses all the time Cardiovascular History: Reports: Afib, Heart Failure, Hypertension, 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) Other Cardiovascular History: Leaky valve Respiratory History: Reports: Asthma Gastrointestinal History: Reports: Bowel Obstruction, Diverticulosis, Pancreatitis Genitourinary History: Reports: None [employer] History: Reports: , 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; D&C, stillbirth Musculoskeletal History: Reports: Fracture Neurological History: Reports: None Psychiatric History: Reports: None Endocrine/Metabolic History: Reports: Hypothyroidism Hematologic History: Reports: Anemia, 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) Other Hematologic History: blood clots in the leg Immunologic History: Reports: None Oncologic (Cancer) History: Reports: None Dermatologic History: Reports: None - Infectious Disease History Infectious Disease History: Reports: Chicken Pox, Influenza, Measles - Past Surgical History Head Surgeries/Procedures: Reports: None HEENT Surgical History: Reports: Adenoidectomy, Cataract Surgery, Tonsillectomy Cardiovascular Surgical History: Reports: None Respiratory Surgical History: Reports: None GI Surgical History: Reports: Appendectomy, Cholecystectomy Endocrine Surgical History: Reports: None Musculoskeletal Surgical History: Reports: None Social & Family History - Family History Family Medical History: Noncontributory HEENT: Reports: Impaired Vision Cardiac: Reports: Hypertension, MS, Prior Cardiac Arrest OBGYN: Reports: Neurological: Reports: CVA - Tobacco Use Smoking Status *Q: Never Smoker Second Hand Smoke Exposure: No - Caffeine Use Caffeine Use: Reports: Coffee - Recreational Drug Use Recreational Drug Use: No - Living Situation & Occupation Living situation: Reports: Occupation: Retired ED ROS GENERAL - Review of Systems Review Of Systems: See Below Constitutional: Denies: Fever, Chills Respiratory: Denies: Cough, Sputum Cardiovascular: Denies: Chest Pain (see hpi) ED EXAM, GENERAL - Physical Exam Exam: See Below Free Text/Narrative:: see HPI Course - Vital Signs Last Recorded V/S: Last Vital Signs Temp 97.2 F 05/25/17 23:50 Pulse 84 05/26/17 02:14 Resp 14 05/26/17 02:14 BP 117/64 05/26/17 02:14 Pulse Ox 100 05/26/17 02:14 - Orders/Labs/Meds Orders: Active Orders 24 hr Category Date Time Status EKG Documentation Completion [RC] STAT Care 05/26/17 00:27 Active Chest 1V Frontal [CR] Stat Exams 05/26/17 00:27 Taken UA W/MICROSCOPIC [URIN] Stat Lab 05/26/17 00:28 Uncollected Labs: Laboratory Tests 05/26/17 05/26/17 05/26/17 Range/Units 00:34 00:34 00:34 WBC 8.82 (4.0-11.0) K/uL RBC 4.64 (4.30-5.90) M/uL Hgb 13.6 (12.0-16.0) g/dL Hct 41.5 (36.0-46.0) % MCV 89.4 (80.0-98.0) fL MCH 29.3 (27.0-32.0) pg MCHC 32.8 (31.0-37.0) g/dL RDW Std Deviation 50.9 (28.0-62.0) fl RDW Coeff of Brisa 16 H (11.0-15.0) % Plt Count 341 (150-400) K/uL MPV 9.50 (7.40-12.00) fL Neut % (Auto) 62.4 (48.0-80.0) % Lymph % (Auto) 22.6 (16.0-40.0) % [place] % (Auto) 11.1 (0.0-15.0) % Eos % (Auto) 3.4 (0.0-7.0) % Baso % (Auto) 0.5 (0.0-1.5) % Neut # (Auto) 5.5 (1.4-5.7) K/uL Lymph # (Auto) 2.0 (0.6-2.4) K/uL [place] # (Auto) 1.0 H (0.0-0.8) K/uL Eos # (Auto) 0.3 (0.0-0.7) K/uL Baso # (Auto) 0.0 (0.0-0.1) K/uL Nucleated RBC % 0.0 /100WBC Nucleated RBCs # 0 K/uL INR 1.16 H (0.86-1.11) Sodium 136 (136-146) mmol/L Potassium 4.6 (3.5-5.1) mmol/L Chloride 101 (98-110) mmol/L Carbon Dioxide 22 (21-31) mmol/L BUN 25 H (6.0-23.0) mg/dL Creatinine 1.6 H (0.6-1.5) mg/dL Est Cr Clr Drug Dosing 18.71 mL/min Estimated GFR (MDRD) 30.5 ml/min Glucose 196 H (60-110) mg/dL Calcium 9.5 (8.8-10.8) mg/dL Magnesium 1.8 (1.5-2.3) mEq/L Total Bilirubin 0.4 (0.1-1.5) mg/dL AST 28 (5-40) IU/L ALT 44 (8-54) IU/L Alkaline Phosphatase 99 (40-150) B-Natriuretic Peptide (<100) PG/ML Total Protein 6.6 (6.0-8.0) g/dL Albumin 3.6 (3.4-4.8) g/dL Globulin 3.0 (2.0-3.5) g/dL Albumin/Globulin Ratio 1.2 L (1.3-2.8) Free T4 1.42 (0.7-1.48) ng/dL TSH 3rd Generation 7.78 H (0.47-5.0) uIU/mL 05/26/17 Range/Units 00:34 WBC (4.0-11.0) K/uL RBC (4.30-5.90) M/uL Hgb (12.0-16.0) g/dL Hct (36.0-46.0) % MCV (80.0-98.0) fL MCH (27.0-32.0) pg MCHC (31.0-37.0) g/dL RDW Std Deviation (28.0-62.0) fl RDW Coeff of Brisa (11.0-15.0) % Plt Count (150-400) K/uL MPV (7.40-12.00) fL Neut % (Auto) (48.0-80.0) % Lymph % (Auto) (16.0-40.0) % [place] % (Auto) (0.0-15.0) % Eos % (Auto) (0.0-7.0) % Baso % (Auto) (0.0-1.5) % Neut # (Auto) (1.4-5.7) K/uL Lymph # (Auto) (0.6-2.4) K/uL [place] # (Auto) (0.0-0.8) K/uL Eos # (Auto) (0.0-0.7) K/uL Baso # (Auto) (0.0-0.1) K/uL Nucleated RBC % /100WBC Nucleated RBCs # K/uL INR (0.86-1.11) Sodium (136-146) mmol/L Potassium (3.5-5.1) mmol/L Chloride (98-110) mmol/L Carbon Dioxide (21-31) mmol/L BUN (6.0-23.0) mg/dL Creatinine (0.6-1.5) mg/dL Est Cr Clr Drug Dosing mL/min Estimated GFR (MDRD) ml/min Glucose (60-110) mg/dL Calcium (8.8-10.8) mg/dL Magnesium (1.5-2.3) mEq/L Total Bilirubin (0.1-1.5) mg/dL AST (5-40) IU/L ALT (8-54) IU/L Alkaline Phosphatase (40-150) B-Natriuretic Peptide 875 H (<100) PG/ML Total Protein (6.0-8.0) g/dL Albumin (3.4-4.8) g/dL Globulin (2.0-3.5) g/dL Albumin/Globulin Ratio (1.3-2.8) Free T4 (0.7-1.48) ng/dL TSH 3rd Generation (0.47-5.0) uIU/mL Meds: Medications Discontinued Medications Generic Name Dose Route Start Last Admin Trade Name Freq PRN Reason Stop Dose Admin Ondansetron HCl Confirm 05/26/17 00:02 Zofran Administered 05/26/17 00:03 Dose 4 mg .ROUTE .STK-MED ONE Ondansetron HCl 4 mg 05/26/17 00:22 05/26/17 00:23 Zoayaan IVPUSH 05/26/17 00:23 4 mg ONETIME ONE Administration - Re-Assessments/Exams Free Text/Narrative Re-Assessment/Exam: 05/26/17 02:20 I note that her serum creatinine is elevated to 1.6 ; with her last serum creatinine in the chart noted to be 1.0. I advised her and family regarding findings and recommended skipping lasix dose x two days and increasing po fluids moderately. follow up with Dr Rodriguez early next week Departure - Departure Time of Disposition: 02:21 Disposition: Home, Self-Care 01 Condition: Good Clinical Impression: Elevated serum creatinine - Discharge Information Forms: ED Department Discharge Additional Instructions: skip lasix for two days then restart as before increase fluids to moderate amount see Dr Rodriguez early next week. come back sooner if needed. - My Orders Last 24 Hours: My Active Orders 05/26/17 00:27 EKG Documentation Completion [RC] STAT Chest 1V Frontal [CR] Stat 05/26/17 00:28 UA W/MICROSCOPIC [URIN] Stat - Assessment/Plan Last 24 Hours: My Active Orders 05/26/17 00:27 EKG Documentation Completion [RC] STAT Chest 1V Frontal [CR] Stat 05/26/17 00:28 UA W/MICROSCOPIC [URIN] Stat
[2017-05-26 04:53] VITALS: BP 113/64
--- NOTE | 2017-05-26 09:33 | CR ---
EXAM DATE: 05/25/17 PATIENT'S AGE: 87 Patient: PANCHO SALAS Facility: [place], [place] Site . Site : [id number] Study: XRay Chest [id number]/21/2017 12:44:54 AM Ordering Physician: Angie Johnson Final Report: INDICATION: weakness, hx of chf TECHNIQUE: Chest 1 view. COMPARISON: 03/31/17 FINDINGS: Cardiovascular and mediastinum: Heart size and vasculature are normal in caliber and appearance. Mediastinum is within normal limits. Lungs and pleural space: Lungs are clear. No sign of infiltrate or mass. No sign of pleural effusion. No pneumothorax. Bones and soft tissues: No significant findings. IMPRESSION: Unremarkable chest. Dictated by: Gregg Mijares MD @ 05/26/2017 01:02:32 (Electronic Signature) Report Signed by Proxy. JAIME
== END 2017-05-26 02:48 | disposition home or self-care (01) ==
LOC: MW.ED 23:39
DX: R79.89 Other specified abnormal findings of blood chemistry (principal); Z79.899 Other long term (current) drug therapy; I48.91 Unspecified atrial fibrillation; I11.0 Hypertensive heart disease with heart failure; I50.9 Heart failure, unspecified; J45.909 Unspecified asthma, uncomplicated; E03.9 Hypothyroidism, unspecified; Z88.6 Allergy status to analgesic agent; Z88.5 Allergy status to narcotic agent; Z91.013 Allergy to seafood; Z91.040 Latex allergy status; Z79.82 Long term (current) use of aspirin; Z90.49 Acquired absence of other specified parts of digestive tract; Z98.890 Other specified postprocedural states; Z98.49 Cataract extraction status, unspecified eye
CPT/HCPCS: 36415; 71010; 80053; 83735; 83880; 84439; 84443; 85025; 85610; 93005; 96374; 99285; J2405; 99284

== ENCOUNTER 2017-12-07 08:33 | Observation (INO) | payer MEDICARE, OTHER ==
[2017-12-07] MEDS ORDERED: Sodium Chloride 0.9% 2.5 ML Syringe FLUSH PRN (09:43)
[2017-12-07] MEDS ORDERED: Sodium Chloride 0.9% 10 ML Syringe FLUSH PRN (09:43)
[2017-12-07] MEDS ORDERED: Albuterol/Ipratropium 3.0-0.5 MG/3 ML Neb Soln NEB ONE (09:43)
--- NOTE | 2017-12-07 09:46 | EDM.PDOC ---
ED HPI GENERAL MEDICAL PROBLEM - General Chief Complaint: Respiratory Problem Stated Complaint: SHORT OF BREATH Time Seen by Provider: 12/07/17 09:36 - History of Present Illness INITIAL COMMENTS - FREE TEXT/NARRATIVE: HISTORY AND PHYSICAL: History of present illness: The patient is an 87-year-old female who is followed at [facility] for primary care as well as with Dr. Kern in [place] for cardiology care and has a history of a leaky mitral valve which she was seen in [place] for and there was plans to replace it but because they do not have a valve small enough they were unable to do it; she currently is managed medically and says that when she has problems she gets more short of breath. The patient says that for the last day and a half she has had a "tight cough" and some chest discomfort with coughing as well as more shortness of breath. She is only sleeping on one pillow at night and that did not change overnight. She felt more short of breath when she laid down but she did not have to sleep upright. She currently has no chest pain no leg swelling no abdominal pain no fevers chills and is eating and drinking normally. The patient says that when she coughs and occasional white phlegm will, but it is not copious nor is it green yellow or bloody. She is worried this might just be a cold but due to her history she wanted to get checked out. She says that she takes her Lasix daily but did not take it yet today. Patient has a history of asthma and uses inhalers at home and says that some of the tightness feels like her asthma. Patient also has a history of hypertension and hypothyroidism Review of systems: As per history of present illness and below otherwise all systems reviewed and negative. Past medical history: As per history of present illness and as reviewed below otherwise noncontributory. Surgical history: As per history of present illness and as reviewed below otherwise noncontributory. Social history: No reported history of drug or alcohol abuse. Family history: As per history of present illness and as reviewed below otherwise noncontributory. Physical exam: Gen.: Well-developed well-nourished female who is nontoxic and vital signs are noted by me. HEENT: Atraumatic, normocephalic, pupils reactive, negative for conjunctival pallor or scleral icterus, mucous membranes moist, throat clear, neck supple, nontender, trachea midline. Lungs: Clear to auscultation with slight expiratory squeak in the bases and no work of breathing, breath sounds equal bilaterally, chest nontender. Heart: S1S2, regular, negative for clicks, rubs, or JVD. There is an ejection murmur that is heard at the lower left sternal border consistent with her history of mitral valve issues Abdomen: Soft, nondistended, nontender. Negative for masses or hepatosplenomegaly. Negative for costovertebral tenderness. Pelvis: Stable nontender. Genitourinary: Deferred. Rectal: Deferred. Extremities: Atraumatic, negative for cords or calf pain. Neurovascular unremarkable. No pedal edema or leg asymmetry Neuro: Awake, alert, oriented. Cranial nerves II through XII unremarkable. Cerebellum unremarkable. Motor and sensory unremarkable throughout. Exam nonfocal. Diagnostics: EKG CBC CMP BNP chest x-ray troponin influenza Therapeutics: IV O2 monitor DuoNeb [id number]--I discussed the case with Dr. Francis for observation admission and gentle diuresis due to the mild fluid overload and he is agreed to admit her. Patient feels more comfortable with this care plan as well. Dr. Francis will dose Lasix on the floor but I will give her 20 mg IV in the ER Impression: Dyspnea, mild CHF exacerbation Definitive disposition and diagnosis as appropriate pending reevaluation and review of above. chest tightness Pain Score (Numeric/FACES): 5 - Related Data Allergies Allergy/AdvReac Type Severity Reaction Status Date / Time aspirin [From Aggrenox] Allergy unknown Verified 12/07/17 09:30 meza Allergy Anaphylactic Verified 12/07/17 09:30 Shock codeine Allergy Other Verified 12/07/17 09:30 dipyridamole [From Aggrenox] Allergy unknown Verified 12/07/17 09:30 Latex, Natural Rubber Allergy Itching Verified 12/07/17 09:30 shrimp Allergy Hives Verified 12/07/17 09:30 dust mites Allergy Sneezing Uncoded 12/07/17 09:30 pollen Allergy Hives Uncoded 12/07/17 09:30 Home Meds: Home Meds Aspirin 81 mg PO DAILY 09/19/15 [History] Calcium Carbonate 600 mg PO BIDMEALS 09/19/15 [History] Furosemide 40 mg PO DAILY 09/19/15 [History] Multivitamin [Multivitamins] 1 cap PO DAILY 09/19/15 [History] Potassium Chloride 10 meq PO DAILY 09/19/15 [History] Vitamin E 400 units PO DAILY 09/19/15 [History] L Acidophil/B Lactis/B Longum [Florajen3] 460 mg PO DAILY 10/09/16 [History] Ipratropium/Albuterol Sulfate [Iprat-Albut 0.5-3(2.5) mg/3 ml] 3 ml IH TID PRN 03/31/17 [History] Fluticasone/Vilanterol [Breo Ellipta 100-25 MCG Inhalation Kit] 1 puff IH DAILY #1 inhaler 04/01/17 [Rx] Metoprolol Succinate [Toprol XL] 100 mg PO BID #30 tab.er 04/01/17 [Rx] Albuterol [Proventil HFA] 2 puff INH Q4HRRT PRN 12/07/17 [History] Fluticasone Propionate [Flonase] 16 gm NS DAILY PRN 12/07/17 [History] Levothyroxine 75 mcg PO ACBREAKFAST 12/07/17 [History] Omeprazole 20 mg PO ACBREAKFAST PRN 12/07/17 [History] Past Medical History HEENT History: Reports: Cataract, Impaired Vision, 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) Other HEENT History: wears glasses all the time Cardiovascular History: Reports: Afib, Heart Failure, Hypertension, 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) Other Cardiovascular History: Leaky valve Respiratory History: Reports: Asthma Gastrointestinal History: Reports: Bowel Obstruction, Diverticulosis, Pancreatitis Genitourinary History: Reports: None 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: , 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; D&C, stillbirth Musculoskeletal History: Reports: Fracture Neurological History: Reports: None Psychiatric History: Reports: None Endocrine/Metabolic History: Reports: Hypothyroidism Hematologic History: Reports: Anemia, 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) Other Hematologic History: blood clots in the leg Immunologic History: Reports: None Oncologic (Cancer) History: Reports: None Dermatologic History: Reports: None - Infectious Disease History Infectious Disease History: Reports: Chicken Pox, Measles - Past Surgical History Head Surgeries/Procedures: Reports: None HEENT Surgical History: Reports: Adenoidectomy, Cataract Surgery, Tonsillectomy Cardiovascular Surgical History: Reports: None Respiratory Surgical History: Reports: None GI Surgical History: Reports: Appendectomy, Cholecystectomy Endocrine Surgical History: Reports: None Musculoskeletal Surgical History: Reports: None Social & Family History - Family History Family Medical History: Noncontributory HEENT: Reports: Impaired Vision Cardiac: Reports: Hypertension, [place], Prior Cardiac Arrest OBGYN: Reports: Neurological: Reports: CVA - Tobacco Use Smoking Status *Q: Never Smoker Second Hand Smoke Exposure: Yes - Caffeine Use Caffeine Use: Reports: None - Recreational Drug Use Recreational Drug Use: No - Living Situation & Occupation Living situation: Reports: Occupation: Retired ED ROS GENERAL - Review of Systems Review Of Systems: ROS reveals no pertinent complaints other than HPI. ED EXAM, GENERAL - Physical Exam Exam: See Below (See dictation) Course - Vital Signs Last Recorded V/S: Last Vital Signs Temp 36.8 C 12/07/17 09:27 Pulse 82 12/07/17 09:27 Resp 20 12/07/17 09:27 BP 179/80 H 12/07/17 09:27 Pulse Ox 95 12/07/17 09:27 - Orders/Labs/Meds Orders: Active Orders 24 hr Category Date Time Status Cardiac Monitoring [RC] . DIRECTED Care 12/07/17 09:42 Active EKG Documentation Completion [RC] STAT Care 12/07/17 09:42 Active Oxygen Therapy, ED [RC] ASDIRECTED Care 12/07/17 09:42 Active Pulse Oximetry [RC] ASDIRECTED Care 12/07/17 09:42 Active RT Aerosol Therapy [RC] ASDIRECTED Care 12/07/17 09:43 Active Sodium Chloride 0.9% [Saline Flush] Med 12/07/17 09:43 Active 10 ml FLUSH ASDIRECTED PRN Sodium Chloride 0.9% [Saline Flush] Med 12/07/17 09:43 Active 2.5 ml FLUSH ASDIRECTED PRN Saline Lock Insert [OM.PC] Stat Oth 12/07/17 09:42 Ordered Medication Orders Sodium Chloride (Saline Flush) 10 ml FLUSH ASDIRECTED PRN PRN Reason: Keep Vein Open Sodium Chloride (Saline Flush) 2.5 ml FLUSH ASDIRECTED PRN PRN Reason: Keep Vein Open Labs: Laboratory Tests 12/07/17 12/07/17 12/07/17 Range/Units 09:55 09:55 09:55 WBC 7.28 (4.0-11.0) K/uL RBC 4.57 (4.30-5.90) M/uL Hgb 13.7 (12.0-16.0) g/dL Hct 40.7 (36.0-46.0) % MCV 89.1 (80.0-98.0) fL MCH 30.0 (27.0-32.0) pg MCHC 33.7 (31.0-37.0) g/dL RDW Std Deviation 45.9 (28.0-62.0) fl RDW Coeff of Brisa 14 (11.0-15.0) % Plt Count 256 (150-400) K/uL MPV 9.00 (7.40-12.00) fL Add Manual Diff YES Neutrophils % (Manual) 43 L (48.0-80.0) % Band Neutrophils % 8 % Lymphocytes % (Manual) 27 (16.0-40.0) % Monocytes % (Manual) 15 (0.0-15.0) % Eosinophils % (Manual) 7 (0.0-7.0) % Nucleated RBC % 0.0 /100WBC Absolute Seg Neuts 3.1 (1.4-5.7) Band Neutrophils # 0.6 Lymphocytes # (Manual) 2.0 (0.6-2.4) Monocytes # (Manual) 1.1 H (0.0-0.8) Eosinophils # (Manual) 0.5 (0.0-0.7) Nucleated RBCs # 0 K/uL Sodium 137 (136-146) mmol/L Potassium 4.4 (3.5-5.1) mmol/L Chloride 104 (98-110) mmol/L Carbon Dioxide 23 (21-31) mmol/L BUN 14 (6.0-23.0) mg/dL Creatinine 0.8 (0.6-1.5) mg/dL Est Cr Clr Drug Dosing 37.38 mL/min Estimated GFR (MDRD) > 60.0 ml/min Glucose 103 (60-110) mg/dL Calcium 9.3 (8.8-10.8) mg/dL Total Bilirubin 0.5 (0.1-1.5) mg/dL AST 22 (5-40) IU/L ALT 22 (8-54) IU/L Alkaline Phosphatase 77 (40-150) Troponin I 0.11 (0.0-0.29) NG/ML B-Natriuretic Peptide 970 H (<100) PG/ML Total Protein 6.6 (6.0-8.0) g/dL Albumin 3.7 (3.4-4.8) g/dL Globulin 2.9 (2.0-3.5) g/dL Albumin/Globulin Ratio 1.3 (1.3-2.8) Meds: Medications Generic Name Dose Route Start Last Admin Trade Name Freq PRN Reason Stop Dose Admin Sodium Chloride 10 ml 12/07/17 09:43 Saline Flush FLUSH ASDIRECTED PRN Keep Vein Open Sodium Chloride 2.5 ml 12/07/17 09:43 Saline Flush FLUSH ASDIRECTED PRN Keep Vein Open Discontinued Medications Generic Name Dose Route Start Last Admin Trade Name Freq PRN Reason Stop Dose Admin Albuterol/Ipratropium 3 ml 12/07/17 09:43 12/07/17 09:51 Duoneb 3.0-0.5 Mg/3 Ml NEB 12/07/17 09:44 3 ml ONETIME ONE Administration Departure - Departure Time of Disposition: 12:03 Disposition: Refer to Observation Condition: Good Clinical Impression: Dyspnea Qualifiers: Dyspnea type: unspecified Qualified Code(s): R06.00 - Dyspnea, unspecified CHF exacerbation Qualifiers: Congestive heart failure type: unspecified Qualified Code(s): I50.9 - Heart failure, unspecified - Discharge Information Referrals: Colette Quezada DO [Primary Care Provider] - Forms: ED Department Discharge - My Orders Last 24 Hours: My Active Orders 12/07/17 09:42 Cardiac Monitoring [RC] . DIRECTED EKG Documentation Completion [RC] STAT Oxygen Therapy, ED [RC] ASDIRECTED Pulse Oximetry [RC] ASDIRECTED Saline Lock Insert [OM.PC] Stat 12/07/17 09:43 RT Aerosol Therapy [RC] ASDIRECTED Sodium Chloride 0.9% [Saline Flush] 10 ml FLUSH ASDIRECTED PRN Sodium Chloride 0.9% [Saline Flush] 2.5 ml FLUSH ASDIRECTED PRN - Assessment/Plan Last 24 Hours: My Active Orders 12/07/17 09:42 Cardiac Monitoring [RC] . DIRECTED EKG Documentation Completion [RC] STAT Oxygen Therapy, ED [RC] ASDIRECTED Pulse Oximetry [RC] ASDIRECTED Saline Lock Insert [OM.PC] Stat 12/07/17 09:43 RT Aerosol Therapy [RC] ASDIRECTED Sodium Chloride 0.9% [Saline Flush] 10 ml FLUSH ASDIRECTED PRN Sodium Chloride 0.9% [Saline Flush] 2.5 ml FLUSH ASDIRECTED PRN
[2017-12-07 10:30] LABS: CHLORIDE,CL 104 mmol/L (98-110); SODIUM,NA 137 mmol/L (136-146)
--- NOTE | 2017-12-07 11:19 | CR ---
PA and lateral chest Clinical history: Chest pain and shortness of breath Comparison: Examination May 26, 2017 Findings: There is mild cardiomegaly with annular calcifications of the mitral valve again identified . Vessels aren't upper normal limits in size. On the occasion of this examination there are interstit ial septal lines present in the lower third of the lungs at the bases laterally which were not seen o n the 2016. Pulmonary vessels are upper normal limits to slightly enlarged. Impression: Likely early heart failure.
[2017-12-07] MEDS ORDERED: Furosemide 40 MG/4 ML VIAL IVPUSH ONE (12:04)
[2017-12-07] MEDS ORDERED: Albuterol/Ipratropium 3.0-0.5 MG/3 ML Neb Soln INH PRN (12:38)
[2017-12-07] MEDS ORDERED: Omeprazole 20 MG Cap.CR PO PRN (12:38)
--- NOTE | 2017-12-07 12:38 | PCM.HP ---
H&P History of Present Illness - General Admit Problem/Dx: Admission Diagnosis/Problem Admission Diagnosis/Problem Congestive heart failure - History of Present Illness Initial Comments - Free Text/Narative: 87 yo female with pmh of severe mitral valve insufficiency with MVP. She presents with three day history of shortness of breath, nonproductive cough and two lbs weight gain. She denies any fevers or chest pain. She reports that she has been taking her lasix 40mg daily. CXR performed in ED reports early heart failure. She was gien 20mg IV lasix in the ED. chest tightness Pain Score (Numeric/FACES): 5 - Related Data Allergies/Adverse Reactions: Allergies Allergy/AdvReac Type Severity Reaction Status Date / Time aspirin [From Aggrenox] Allergy unknown Verified 12/07/17 09:30 meza Allergy Anaphylactic Verified 12/07/17 09:30 Shock codeine Allergy Other Verified 12/07/17 09:30 dipyridamole [From Aggrenox] Allergy unknown Verified 12/07/17 09:30 Latex, Natural Rubber Allergy Itching Verified 12/07/17 09:30 shrimp Allergy Hives Verified 12/07/17 09:30 dust mites Allergy Sneezing Uncoded 12/07/17 09:30 pollen Allergy Hives Uncoded 12/07/17 09:30 Home Medications: Home Meds Aspirin 81 mg PO DAILY 09/19/15 [History] Calcium Carbonate 600 mg PO BIDMEALS 09/19/15 [History] Multivitamin [Multivitamins] 1 cap PO DAILY 09/19/15 [History] Potassium Chloride 10 meq PO DAILY 09/19/15 [History] Vitamin E 400 units PO DAILY 09/19/15 [History] L Acidophil/B Lactis/B Longum [Florajen3] 460 mg PO DAILY 10/09/16 [History] Ipratropium/Albuterol Sulfate [Iprat-Albut 0.5-3(2.5) mg/3 ml] 3 ml IH TID PRN 03/31/17 [History] Fluticasone/Vilanterol [Breo Ellipta 100-25 MCG Inhalation Kit] 1 puff IH DAILY #1 inhaler 04/01/17 [Rx] Metoprolol Succinate [Toprol XL] 100 mg PO BID #30 tab.er 05/27/17 [Rx] Albuterol [Proventil HFA] 2 puff INH Q4HRRT PRN 12/07/17 [History] Fluticasone Propionate [Flonase] 16 gm NS DAILY PRN 12/07/17 [History] Levothyroxine 75 mcg PO ACBREAKFAST 12/07/17 [History] Omeprazole 20 mg PO ACBREAKFAST PRN 12/07/17 [History] Furosemide 40 mg PO DAILY #0 12/08/17 [Rx] Past Medical History HEENT History: Reports: Cataract, Impaired Vision, 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) Other HEENT History: wears glasses all the time Cardiovascular History: Reports: Afib, Heart Failure, Hypertension, 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) Other Cardiovascular History: Leaky valve Respiratory History: Reports: Asthma Gastrointestinal History: Reports: Bowel Obstruction, Diverticulosis, Pancreatitis Genitourinary History: Reports: 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: , 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; D&C, stillbirth Musculoskeletal History: Reports: Fracture Neurological History: Reports: None Psychiatric History: Reports: None Endocrine/Metabolic History: Reports: Hypothyroidism Hematologic History: Reports: Anemia, 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) Other Hematologic History: blood clots in the leg Immunologic History: Reports: None Oncologic (Cancer) History: Reports: None Dermatologic History: Reports: None - Infectious Disease History Infectious Disease History: Reports: Chicken Pox, Measles - Past Surgical History Head Surgeries/Procedures: Reports: None HEENT Surgical History: Reports: Adenoidectomy, Cataract Surgery, Tonsillectomy Cardiovascular Surgical History: Reports: None Respiratory Surgical History: Reports: None GI Surgical History: Reports: Appendectomy, Cholecystectomy Endocrine Surgical History: Reports: None Musculoskeletal Surgical History: Reports: None Social & Family History - Family History Family Medical History: Noncontributory HEENT: Reports: Impaired Vision Cardiac: Reports: Hypertension, [place], Prior Cardiac Arrest OBGYN: Reports: Neurological: Reports: CVA - Tobacco Use Smoking Status *Q: Never Smoker Second Hand Smoke Exposure: Yes - Caffeine Use Caffeine Use: Reports: None - Recreational Drug Use Recreational Drug Use: No - Living Situation & Occupation Living situation: Reports: Occupation: Retired H&P Review of Systems - Review of Systems: Review Of Systems: ROS reveals no pertinent complaints other than HPI. Exam - Exam Exam: See Below - Vital Signs Vital Signs: Last Vital Signs Temp 36.8 C 12/07/17 09:27 Pulse 82 12/07/17 09:27 Resp 20 12/07/17 09:27 BP 179/80 H 12/07/17 09:27 Pulse Ox 95 12/07/17 09:27 Weight: 72.4 kg - Exam General: Alert, Cooperative HEENT: Mucosa Moist & [place]: Supple, Trachea Midline Lungs: Clear to Auscultation, Normal Respiratory Effort. No: Crackles, Wheezing Cardiovascular: Regular Rate, Regular Rhythm, Systolic Murmur GI/Abdominal Exam: Normal Bowel Sounds, Soft, Non-Tender, No Distention Extremities: Non-Tender, No Pedal Edema Skin: Warm, Dry, Intact - Patient Data Lab Results Last 24 hrs: Laboratory Results - last 24 hr 12/07/17 12/07/17 12/07/17 Range/Units 09:55 09:55 09:55 WBC 7.28 (4.0-11.0) K/uL RBC 4.57 (4.30-5.90) M/uL Hgb 13.7 (12.0-16.0) g/dL Hct 40.7 (36.0-46.0) % MCV 89.1 (80.0-98.0) fL MCH 30.0 (27.0-32.0) pg MCHC 33.7 (31.0-37.0) g/dL RDW Std Deviation 45.9 (28.0-62.0) fl RDW Coeff of Brisa 14 (11.0-15.0) % Plt Count 256 (150-400) K/uL MPV 9.00 (7.40-12.00) fL Add Manual Diff YES Neutrophils % (Manual) 43 L (48.0-80.0) % Band Neutrophils % 8 % Lymphocytes % (Manual) 27 (16.0-40.0) % Monocytes % (Manual) 15 (0.0-15.0) % Eosinophils % (Manual) 7 (0.0-7.0) % Nucleated RBC % 0.0 /100WBC Absolute Seg Neuts 3.1 (1.4-5.7) Band Neutrophils # 0.6 Lymphocytes # (Manual) 2.0 (0.6-2.4) Monocytes # (Manual) 1.1 H (0.0-0.8) Eosinophils # (Manual) 0.5 (0.0-0.7) Nucleated RBCs # 0 K/uL Sodium 137 (136-146) mmol/L Potassium 4.4 (3.5-5.1) mmol/L Chloride 104 (98-110) mmol/L Carbon Dioxide 23 (21-31) mmol/L BUN 14 (6.0-23.0) mg/dL Creatinine 0.8 (0.6-1.5) mg/dL Est Cr Clr Drug Dosing 37.38 mL/min Estimated GFR (MDRD) > 60.0 ml/min Glucose 103 (60-110) mg/dL Calcium 9.3 (8.8-10.8) mg/dL Total Bilirubin 0.5 (0.1-1.5) mg/dL AST 22 (5-40) IU/L ALT 22 (8-54) IU/L Alkaline Phosphatase 77 (40-150) Troponin I 0.11 (0.0-0.29) NG/ML B-Natriuretic Peptide 970 H (<100) PG/ML Total Protein 6.6 (6.0-8.0) g/dL Albumin 3.7 (3.4-4.8) g/dL Globulin 2.9 (2.0-3.5) g/dL Albumin/Globulin Ratio 1.3 (1.3-2.8) Result Diagrams: 12/07/17 09:55 12/07/17 09:55 Zack Results Last 24 hrs: Microbiology 12/07/17 09:58 Influenza Type A Antigen Screen - Final Nasopharyngeal Swab NEGATIVE INFLUENZA A VIRUS AG Influenza Type B Antigen Screen - Final NEGATIVE INFLUENZA B VIRUS AG *Q Meaningful Use (ADM) - VTE *Q VTE Criteria *Q: - Stroke *Q Stroke Criteria *Q: - AMI *Q AMI Criteria *Q: Problem List Initiated/Reviewed/Updated: Yes Orders Last 24hrs: Active Orders 24 hr Category Date Time Status Patient Status [ADT] Stat ADT 12/07/17 12:04 Active Cardiac Monitoring [RC] . DIRECTED Care 12/07/17 09:42 Active EKG Documentation Completion [RC] STAT Care 12/07/17 09:42 Active Oxygen Therapy, ED [RC] ASDIRECTED Care 12/07/17 09:42 Active Pulse Oximetry [RC] ASDIRECTED Care 12/07/17 09:42 Active RT Aerosol Therapy [RC] ASDIRECTED Care 12/07/17 09:43 Active Sodium Chloride 0.9% [Saline Flush] Med 12/07/17 09:43 Active 10 ml FLUSH ASDIRECTED PRN Sodium Chloride 0.9% [Saline Flush] Med 12/07/17 09:43 Active 2.5 ml FLUSH ASDIRECTED PRN Saline Lock Insert [OM.PC] Stat Oth 12/07/17 09:42 Ordered Medication Orders Sodium Chloride (Saline Flush) 10 ml FLUSH ASDIRECTED PRN PRN Reason: Keep Vein Open Sodium Chloride (Saline Flush) 2.5 ml FLUSH ASDIRECTED PRN PRN Reason: Keep Vein Open Assessment/Plan Comment:: 87 yo female with MVP who presents with CHF exacerbation. We will treat with IV lasix and monitor overnight.
[2017-12-07] MEDS ORDERED: Albuterol/Ipratropium 3.0-0.5 MG/3 ML Neb Soln NEB PRN (12:42)
[2017-12-07] MEDS ORDERED: Ondansetron 4 MG/2 ML SDV IVPUSH PRN (12:42)
[2017-12-07] MEDS ORDERED: Acetaminophen 325 MG Tab PO PRN (12:42)
[2017-12-07] MEDS ORDERED: Furosemide 40 MG/4 ML VIAL IV ONE (18:00)
[2017-12-07] MEDS ORDERED: Furosemide 40 MG in Sodium Chloride 0.9% 50 ML IV ONE (18:00)
[2017-12-07] MEDS: Heparin Sodium 5,000 Units/ML Vial SUBCUT SCH (20:58)
[2017-12-07] MEDS: Metoprolol Succinate 100 MG Tab.ER PO SCH (21:01)
[2017-12-08] MEDS ORDERED: Levothyroxine 75 MCG Tab PO SCH (07:30)
[2017-12-08 07:51] VITALS: BP 125/61
[2017-12-08] MEDS: Heparin Sodium 5,000 Units/ML Vial SUBCUT SCH (08:22)
[2017-12-08] MEDS: Metoprolol Succinate 100 MG Tab.ER PO SCH (08:32)
[2017-12-08] MEDS ORDERED: Fluticasone/Vilanterol 1 PUFF INH SCH (09:00)
[2017-12-08] MEDS ORDERED: Aspirin 325 MG Tab PO SCH (09:00)
[2017-12-08] MEDS ORDERED: Potassium Chloride 10 MEQ Tab.ER PO SCH (09:00)
[2017-12-08] MEDS ORDERED: Furosemide 40 MG Tab PO SCH (09:15)
--- NOTE | 2017-12-08 09:16 | PCM.DCSUM1 ---
Discharge Summary - Hospital Course Brief History: 87 yo female with pmh of severe mitral valve insufficiency with MVP. She presents with three day history of shortness of breath, nonproductive cough and two lbs weight gain. She denies any fevers or chest pain. She reports that she has been taking her lasix 40mg daily. CXR performed in ED reports early heart failure. She was gien 20mg IV lasix in the ED. - Discharge Data Discharge Date: 12/08/17 Discharge Disposition: Home, Self-Care 01 Condition: Good - Discharge Diagnosis/Problem(s) (1) Dyspnea SNOMED Code(s): 232671912 ICD Code: R06.00 - DYSPNEA, UNSPECIFIED Status: Acute Current Visit: Yes Qualifiers: Dyspnea type: dyspnea on exertion Qualified Code(s): R06.09 - Other forms of dyspnea (2) CHF exacerbation SNOMED Code(s): 87498325 ICD Code: I50.9 - HEART FAILURE, UNSPECIFIED Status: Acute Current Visit : Yes Qualifiers: Congestive heart failure type: unspecified Qualified Code(s): I50.9 - Heart failure, unspecified (3) Mitral valve insufficiency SNOMED Code(s): 98064636 ICD Code: I34.0 - NONRHEUMATIC MITRAL (VALVE) INSUFFICIENCY Status: Chronic Current Visit: Yes Qualifiers: Cardiac valve disease etiology: etiology unspecified Qualified Code(s): I34.0 - Nonrheumatic mitral (valve) insufficiency (4) Mitral valve prolapse SNOMED Code(s): 350552350 ICD Code: I34.1 - NONRHEUMATIC MITRAL (VALVE) PROLAPSE Status: Chronic Current Visit: Yes (5) HTN (hypertension) SNOMED Code(s): 29447088 ICD Code: I10 - ESSENTIAL (PRIMARY) HYPERTENSION Status: Chronic Current Visit: No Qualifiers: Hypertension type: essential hypertension Qualified Code(s): I10 - Essential (primary) hypertension (6) Hypothyroid SNOMED Code(s): 69384446 ICD Code: E03.9 - HYPOTHYROIDISM, UNSPECIFIED Status: Chronic Current Visit: No Qualifiers: Hypothyroidism type: unspecified Qualified Code(s): E03.9 - Hypothyroidism , unspecified - Patient Instructions Diet: Heart Healthy Diet, Low Sodium Activity: As Tolerated Showering/Bathing: May Shower Notify Provider of: Fever, Increased Pain, Swelling and Redness, Drainage, Nausea and/or Vomiting - Discharge Plan Home Medications: Home Meds Aspirin 81 mg PO DAILY 09/19/15 [History] Calcium Carbonate 600 mg PO BIDMEALS 09/19/15 [History] Multivitamin [Multivitamins] 1 cap PO DAILY 09/19/15 [History] Potassium Chloride 10 meq PO DAILY 09/19/15 [History] Vitamin E 400 units PO DAILY 09/19/15 [History] L Acidophil/B Lactis/B Longum [Florajen3] 460 mg PO DAILY 10/09/16 [History] Ipratropium/Albuterol Sulfate [Iprat-Albut 0.5-3(2.5) mg/3 ml] 3 ml IH TID PRN 03/31/17 [History] Fluticasone/Vilanterol [Breo Ellipta 100-25 MCG Inhalation Kit] 1 puff IH DAILY #1 inhaler 04/01/17 [Rx] Metoprolol Succinate [Toprol XL] 100 mg PO BID #30 tab.er 04/01/17 [Rx] Albuterol [Proventil HFA] 2 puff INH Q4HRRT PRN 12/07/17 [History] Fluticasone Propionate [Flonase] 16 gm NS DAILY PRN 12/07/17 [History] Levothyroxine 75 mcg PO ACBREAKFAST 12/07/17 [History] Omeprazole 20 mg PO ACBREAKFAST PRN 12/07/17 [History] Furosemide 40 mg PO DAILY #0 12/08/17 [Rx] Patient Handouts: Heart Failure, [id number] Referrals: [facility] [Outside] Colette Quezada DO [Primary Care Provider] - 12/19/17 3:00 pm - Discharge Summary/Plan Comment DC Time >30 min.: No Discharge Summary/Plan Comment: Discharge Diagnoses: Dyspnea Mild CHF exacerbation Hx Mitral valve insufficiency with MVP HTN Hypothyroid Padmini was admitted and treated with extra dosing of Lasix, she was given 20 mg IV in ED and then later in the evening given another 40 mg IV. She diuresed well and is feeling much better today. She is no longer dyspneic and is eager to be discharged home. She continues to have intermittent cough with frothy white sputum. No fevers and labwork WNL. She will be discharged home today. She was instructed to increase her Lasix dose to BID for two days, today and tomorrow, then return to her daily dosing. She was encouraged to continue low sodium heart healthy diet and to monitor her weight daily at the same time every day and log this. If she notices an increase in 2-3 lbs over 3-5 days she should be notifin her PCP for instructions on increasing Lasix for a short period of time to limit hospitalizations. She verbalized understanding. She is to return to ED or clinic if concerns should arise. Follow up with PCP in 1 week. - General Info Date of Service: 12/08/17 Admission Dx/Problem (Free Text: Admission Diagnosis/Problem Admission Diagnosis/Problem Congestive heart failure Subjective Update: Sitting on edge of bed, feeling really good today. No chest pain or SOB. Asking to be discharged home. Functional Status: Reports: Pain Controlled, Tolerating Diet, Ambulating, Urinating - Review of Systems Pulmonary: Reports: Cough, Sputum (white frothy). Denies: Shortness of Breath Cardiovascular: Reports: No Symptoms. Denies: Chest Pain Gastrointestinal: Reports: No Symptoms. Denies: Abdominal Pain, Nausea, Vomiting Genitourinary: Reports: No Symptoms. Denies: Dysuria, Frequency, Burning, Pain Neurological: Reports: No Symptoms. Denies: Confusion - Patient Data Vitals - Most Recent: Last Vital Signs Temp 97.8 F 12/08/17 07:50 Pulse 67 12/08/17 08:32 Resp 18 12/08/17 07:50 BP 125/61 12/08/17 08:32 Pulse Ox 97 12/08/17 07:50 Weight - Most Recent: 525.577 kg I&O - Last 24 hours: Intake & Output 12/07/17 12/08/17 12/08/17 22:59 06:59 14:59 Intake Total 200 650 Output Total 1150 1500 Balance -950 -850 Med Orders - Current: Current Medications Acetaminophen (Tylenol) 650 mg PO Q4H PRN PRN Reason: Pain (Mild 1-3)/fever Last Admin: 12/08/17 00:53 Dose: 650 mg Albuterol/Ipratropium (Duoneb 3.0-0.5 Mg/3 Ml) 3 ml INH TID PRN PRN Reason: Shortness of Breath Albuterol/Ipratropium (Duoneb 3.0-0.5 Mg/3 Ml) 3 ml NEB Q4HRRT PRN PRN Reason: Shortness Of Breath/wheezing Aspirin (Aspirin) 81 mg PO DAILY [facility] Last Admin: 12/08/17 08:32 Dose: 81 mg Heparin Sodium (Porcine) (Heparin Sodium) 5,000 units SUBCUT Q12HR [facility] Last Admin: 12/08/17 08:22 Dose: 5,000 units Levothyroxine Sodium (Levothyroxine) 75 mcg PO ACBREAKFAST [facility] Last Admin: 12/08/17 08:21 Dose: 75 mcg Metoprolol Succinate (Toprol Xl) 100 mg PO BID [facility] Last Admin: 12/08/17 08:32 Dose: 100 mg Omeprazole (Omeprazole) 20 mg PO ACBREAKFAST PRN PRN Reason: Heartburn Ondansetron HCl (Zofran) 4 mg IVPUSH Q4H PRN PRN Reason: Nausea Fluticasone/ (Vilanterol 1 Puff) 1 each INH DAILY [facility] Potassium Chloride (Klor-Con 10) 10 meq PO DAILY [facility] Last Admin: 12/08/17 08:21 Dose: 10 meq Sodium Chloride (Saline Flush) 10 ml FLUSH ASDIRECTED PRN PRN Reason: Keep Vein Open Sodium Chloride (Saline Flush) 2.5 ml FLUSH ASDIRECTED PRN PRN Reason: Keep Vein Open Discontinued Medications Albuterol/Ipratropium (Duoneb 3.0-0.5 Mg/3 Ml) 3 ml NEB ONETIME ONE Stop: 12/07/17 09:44 Last Admin: 12/07/17 09:51 Dose: 3 ml Furosemide (Lasix) 20 mg IVPUSH NOW ONE Stop: 12/07/17 12:05 Last Admin: 12/07/17 12:48 Dose: 20 mg Furosemide (Lasix) 40 mg IV DAILY@1800 ONE Stop: 12/07/17 18:01 Last Admin: 12/07/17 17:18 Dose: 40 mg Furosemide 40 mg/ Sodium (Chloride) 54 mls @ 100 mls/hr IV ONETIME ONE Stop: 12/07/17 18:32 - Exam General: Reports: Alert, Oriented, Cooperative, No Acute Distress Lungs: Reports: Clear to Auscultation, Normal Respiratory Effort Cardiovascular: Reports: Regular Rate, Regular Rhythm, Murmurs (systolic) GI/Abdominal Exam: Normal Bowel Sounds, Soft, Non-Tender, No Organomegaly, No Distention, No Abnormal Bruit, No Mass, Pelvis Stable Extremities: Normal Inspection, Normal Range of Motion, Non-Tender, No Pedal Edema, Normal Capillary Refill Neurological: Reports: No New Focal Deficit Psy/Mental Status: Reports: Alert, Normal Affect, Normal Mood *Q Meaningful Use (DIS) - VTE *Q VTE Criteria *Q: - Stroke *Q Stroke Criteria *Q: - AMI *Q AMI Criteria *Q:
== END 2017-12-08 12:20 | disposition home or self-care (01) ==
LOC: MW.ED 08:33 → MW.MS 12:04 → MW.ED 12:53
PROVIDERS: ADMIT Internal Medicine; ATTEND Internal Medicine
DX: I11.0 Hypertensive heart disease with heart failure (principal); I50.9 Heart failure, unspecified; I34.0 Nonrheumatic mitral (valve) insufficiency; I34.1 Nonrheumatic mitral (valve) prolapse; E03.9 Hypothyroidism, unspecified; I48.91 Unspecified atrial fibrillation; J45.909 Unspecified asthma, uncomplicated; Z90.89 Acquired absence of other organs; Z90.49 Acquired absence of other specified parts of digestive tract; Z79.82 Long term (current) use of aspirin; Z79.899 Other long term (current) drug therapy; Z88.6 Allergy status to analgesic agent; Z91.018 Allergy to other foods; Z88.5 Allergy status to narcotic agent; Z91.040 Latex allergy status; Z91.013 Allergy to seafood; Z91.09 Other allergy status, other than to drugs and biological substances
CPT/HCPCS: 36415; 71046; 80053; 83880; 84484; 85025; 87804; 93005; 94640; 96374; 99285; A9270; J1644; J1940; 96372; 96376; 99284; G0378

== ENCOUNTER 2017-12-23 19:16 | Observation (INO) | payer MEDICARE, OTHER ==
[2017-12-23] MEDS ORDERED: Sodium Chloride 0.9% 10 ML Syringe FLUSH PRN (20:05)
[2017-12-23] MEDS ORDERED: Sodium Chloride 0.9% 2.5 ML Syringe FLUSH PRN (20:05)
--- NOTE | 2017-12-23 20:11 | EDM.PDOC ---
ED HPI GENERAL MEDICAL PROBLEM - General Chief Complaint: General Stated Complaint: COUGH/CONGESTION/SHORT OF BREATH Time Seen by Provider: 12/23/17 20:01 Source of Information: Reports: Patient, Family History Limitations: Reports: No Limitations - History of Present Illness INITIAL COMMENTS - FREE TEXT/NARRATIVE: HISTORY AND PHYSICAL: []87-year-old female well known to the emergency department staff presenting with shortness of breath History of Present Illness: []Patient has history of CHF SHe has a mass in her neck that is not cancerous in origin Reports recent hospitalization to 12/07/17 for CHF exacerbation Patient reports some streaking of blood in her phlegm today with cough. Report of leaky valve that has been assessed in [facility] and they were unable to perform surgery for repair Patient generally sees personnel at [facility] for her healthcare Patient states that she was told if she has any bleeding when she coughs that she needs to be evaluated there was small amount of blood-tinged phlegm when she coughed today. Patient does weigh herself daily she was up 2 pounds in weight and took 2 of her Lasix today. History of hypertension History of pancreatitis Mitral valve prolapse Review of Systems: As per history of present illness and below otherwise all systems reviewed and negative. Past medical history: As per history of present illness and as reviewed below otherwise noncontributory. Surgical history: As per history of present illness and as reviewed below otherwise noncontributory. Social history: No reported history of drug or alcohol abuse. Family history: As per history of present illness and as reviewed below otherwise noncontributory. Physical exam: Alert and oriented female who answers questions appropriately in full sentences without any shortness of breath. She is a good affect and good eye contact skin is warm and dry. HEENT: Atraumatic, normocehpalic, pupils reactive, negative for conjunctival pallor or scleral icterus, mucous membranes moist, throat clear, neck supple, nontender, trachea midline. Mild anterior cervical adenopathy is palpable. Lungs: Clear to auscultation, breath sounds equal bilaterally, chest with mild tenderness. Heart: S1S2, regular, negative for clicks, rubs, or JVD. Abdomen: Soft, nondistended, nontender. Negative for masses or hepatossplenmegaly. Negative for costovertebral tenderness. Pelvis: Stable nontender. Genitourinary: Deferred. Rectal: Deferred Extremities: Atraumatic, negative for cords or calf pain. Neurovascular unremarkable. Neuro: Awake, alert, oriented. Cranial nerves II through XII unremarkable. Cerebellum unremarkable. Motor and sensory unremarkable throughout. Exam nonfocal. Discussed with the patient the blood-tinged sputum the negative chest x-ray will obtain a CTA to rule out having any PE Would like her admitted for dyspnea and she is agreeable to this. Have discussed the laboratory values and patient status with Dr. Francis he is agreeable for referral to observation. Diagnostics: [CBC CMP EKG chest x-ray] CTA Therapeutics: [] Impression: [Dyspnea Blood-tinged sputum Congestive heart failure] Plan: []Referred for observation Definitive disposition and diagnosis as appropriate pending reevaluation and review of above. Onset: Gradual Duration: Day(s): (2) Location: Reports: Chest Quality: Reports: Same as Previous Episode Severity: Mild Improves with: Reports: None Worsens with: Reports: None Associated Symptoms: Reports: Cough - Related Data Allergies Allergy/AdvReac Type Severity Reaction Status Date / Time aspirin [From Aggrenox] Allergy unknown Verified 12/23/17 19:40 meza Allergy Anaphylactic Verified 12/23/17 19:40 Shock codeine Allergy Other Verified 12/23/17 19:40 dipyridamole [From Aggrenox] Allergy unknown Verified 12/23/17 19:40 Latex, Natural Rubber Allergy Itching Verified 12/23/17 19:40 shrimp Allergy Hives Verified 12/23/17 19:40 dust mites Allergy Sneezing Uncoded 12/23/17 19:40 pollen Allergy Hives Uncoded 12/23/17 19:40 Home Meds: Home Meds Aspirin 81 mg PO DAILY 09/19/15 [History] Calcium Carbonate 600 mg PO BIDMEALS 09/19/15 [History] Multivitamin [Multivitamins] 1 cap PO DAILY 09/19/15 [History] Potassium Chloride 10 meq PO DAILY 09/19/15 [History] Vitamin E 400 units PO DAILY 09/19/15 [History] L Acidophil/B Lactis/B Longum [Florajen3] 460 mg PO DAILY 10/09/16 [History] Ipratropium/Albuterol Sulfate [Iprat-Albut 0.5-3(2.5) mg/3 ml] 3 ml IH TID PRN 03/31/17 [History] Fluticasone/Vilanterol [Breo Ellipta 100-25 MCG Inhalation Kit] 1 puff IH DAILY #1 inhaler 04/01/17 [Rx] Metoprolol Succinate [Toprol XL] 100 mg PO BID #30 tab.er 04/01/17 [Rx] Albuterol [Proventil HFA] 2 puff INH Q4HRRT PRN 12/07/17 [History] Fluticasone Propionate [Flonase] 16 gm NS DAILY PRN 12/07/17 [History] Levothyroxine 75 mcg PO ACBREAKFAST 12/07/17 [History] Omeprazole 20 mg PO ACBREAKFAST PRN 12/07/17 [History] Furosemide 40 mg PO DAILY #0 12/08/17 [Rx] Past Medical History - Past Health History Medical/Surgical History: Denies Medical/Surgical History HEENT History: Reports: Cataract, Impaired Vision, 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) Other HEENT History: wears glasses all the time Cardiovascular History: Reports: Afib, Heart Failure, Hypertension, 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) Other Cardiovascular History: Leaky valve Respiratory History: Reports: Asthma Gastrointestinal History: Reports: Bowel Obstruction, Diverticulosis, Pancreatitis Genitourinary History: Reports: None PET CARETAKER History: Reports: , 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; D&C, stillbirth Musculoskeletal History: Reports: Fracture Neurological History: Reports: None Psychiatric History: Reports: None Endocrine/Metabolic History: Reports: Hypothyroidism Hematologic History: Reports: Anemia, 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) Other Hematologic History: blood clots in the leg Immunologic History: Reports: None Oncologic (Cancer) History: Reports: None Dermatologic History: Reports: None - Infectious Disease History Infectious Disease History: Reports: Chicken Pox, Measles - Past Surgical History Head Surgeries/Procedures: Reports: None HEENT Surgical History: Reports: Adenoidectomy, Cataract Surgery, Tonsillectomy Cardiovascular Surgical History: Reports: None Respiratory Surgical History: Reports: None GI Surgical History: Reports: Appendectomy, Cholecystectomy Endocrine Surgical History: Reports: None Musculoskeletal Surgical History: Reports: None Social & Family History - Family History Family Medical History: Noncontributory HEENT: Reports: Impaired Vision Cardiac: Reports: Hypertension, [place], Prior Cardiac Arrest OBGYN: Reports: Neurological: Reports: CVA - Tobacco Use Smoking Status *Q: Never Smoker Second Hand Smoke Exposure: Yes - Caffeine Use Caffeine Use: Reports: Coffee Caffeine Use Comment: decaf - Recreational Drug Use Recreational Drug Use: No - Living Situation & Occupation Living situation: Reports: Occupation: Retired ED ROS GENERAL - Review of Systems Review Of Systems: ROS reveals no pertinent complaints other than HPI. ED EXAM, GENERAL - Physical Exam Exam: See Below (See dictation) Course - Vital Signs Last Recorded V/S: Last Vital Signs Temp 37.2 C 12/23/17 19:16 Pulse 92 12/23/17 19:16 Resp 20 12/23/17 19:16 BP 175/67 H 12/23/17 19:16 Pulse Ox 96 12/23/17 19:16 - Orders/Labs/Meds Orders: Active Orders 24 hr Category Date Time Status Patient Status [ADT] Stat ADT 12/23/17 21:42 Ordered CTA Chest W WO Contrast [Ang Chest] [CT] Stat Exams 12/23/17 21:02 Ordered Chest 2V [CR] Stat Exams 12/23/17 20:06 Taken Sodium Chloride 0.9% [Saline Flush] Med 12/23/17 20:05 Active 10 ml FLUSH ASDIRECTED PRN Sodium Chloride 0.9% [Saline Flush] Med 12/23/17 20:05 Active 2.5 ml FLUSH ASDIRECTED PRN Saline Lock Insert [OM.PC] Stat Oth 12/23/17 20:05 Ordered Medication Orders Sodium Chloride (Saline Flush) 10 ml FLUSH ASDIRECTED PRN PRN Reason: Keep Vein Open Sodium Chloride (Saline Flush) 2.5 ml FLUSH ASDIRECTED PRN PRN Reason: Keep Vein Open Labs: Laboratory Tests 12/23/17 12/23/17 12/23/17 Range/Units 20:26 20:26 20:26 WBC 6.80 (4.0-11.0) K/uL RBC 4.60 (4.30-5.90) M/uL Hgb 13.7 (12.0-16.0) g/dL Hct 40.8 (36.0-46.0) % MCV 88.7 (80.0-98.0) fL MCH 29.8 (27.0-32.0) pg MCHC 33.6 (31.0-37.0) g/dL RDW Std Deviation 44.2 (28.0-62.0) fl RDW Coeff of Brisa 14 (11.0-15.0) % Plt Count 330 (150-400) K/uL MPV 8.90 (7.40-12.00) fL Neut % (Auto) 50.6 (48.0-80.0) % Lymph % (Auto) 25.6 (16.0-40.0) % [place] % (Auto) 14.6 (0.0-15.0) % Eos % (Auto) 8.5 H (0.0-7.0) % Baso % (Auto) 0.7 (0.0-1.5) % Neut # (Auto) 3.4 (1.4-5.7) K/uL Lymph # (Auto) 1.7 (0.6-2.4) K/uL [place] # (Auto) 1.0 H (0.0-0.8) K/uL Eos # (Auto) 0.6 (0.0-0.7) K/uL Baso # (Auto) 0.1 (0.0-0.1) K/uL Nucleated RBC % 0.0 /100WBC Nucleated RBCs # 0 K/uL Sodium 139 (136-146) mmol/L Potassium 3.5 (3.5-5.1) mmol/L Chloride 102 (98-110) mmol/L Carbon Dioxide 26 (21-31) mmol/L BUN 15 (6.0-23.0) mg/dL Creatinine 0.9 (0.6-1.5) mg/dL Est Cr Clr Drug Dosing TNP Estimated GFR (MDRD) 59.2 ml/min Glucose 108 (60-110) mg/dL Calcium 9.3 (8.8-10.8) mg/dL Total Bilirubin 0.4 (0.1-1.5) mg/dL AST 19 (5-40) IU/L ALT 21 (8-54) IU/L Alkaline Phosphatase 76 (40-150) Troponin I < 0.10 (0.0-0.29) NG/ML B-Natriuretic Peptide 571 H (<100) PG/ML Total Protein 6.9 (6.0-8.0) g/dL Albumin 3.8 (3.4-4.8) g/dL Globulin 3.1 (2.0-3.5) g/dL Albumin/Globulin Ratio 1.2 L (1.3-2.8) Urine Color Urine Appearance Urine pH (5.0-8.0) Ur Specific [place] (1.001-1.035) Urine Protein (NEGATIVE) mg/dL Urine Glucose (UA) (NEGATIVE) mg/dL Urine Ketones (NEGATIVE) mg/dL Urine Occult Blood (NEGATIVE) Urine Nitrite (NEGATIVE) Urine Bilirubin (NEGATIVE) Urine Urobilinogen (<2.0) EU/dL Ur Leukocyte Esterase (NEGATIVE) Urine RBC (0-2/HPF) Urine WBC (0-5/HPF) Ur Epithelial Cells (NONE-FEW) Urine Bacteria (NEGATIVE) 12/23/17 Range/Units 21:05 WBC (4.0-11.0) K/uL RBC (4.30-5.90) M/uL Hgb (12.0-16.0) g/dL Hct (36.0-46.0) % MCV (80.0-98.0) fL MCH (27.0-32.0) pg MCHC (31.0-37.0) g/dL RDW Std Deviation (28.0-62.0) fl RDW Coeff of Brisa (11.0-15.0) % Plt Count (150-400) K/uL MPV (7.40-12.00) fL Neut % (Auto) (48.0-80.0) % Lymph % (Auto) (16.0-40.0) % [place] % (Auto) (0.0-15.0) % Eos % (Auto) (0.0-7.0) % Baso % (Auto) (0.0-1.5) % Neut # (Auto) (1.4-5.7) K/uL Lymph # (Auto) (0.6-2.4) K/uL [place] # (Auto) (0.0-0.8) K/uL Eos # (Auto) (0.0-0.7) K/uL Baso # (Auto) (0.0-0.1) K/uL Nucleated RBC % /100WBC Nucleated RBCs # K/uL Sodium (136-146) mmol/L Potassium (3.5-5.1) mmol/L Chloride (98-110) mmol/L Carbon Dioxide (21-31) mmol/L BUN (6.0-23.0) mg/dL Creatinine (0.6-1.5) mg/dL Est Cr Clr Drug Dosing Estimated GFR (MDRD) ml/min Glucose (60-110) mg/dL Calcium (8.8-10.8) mg/dL Total Bilirubin (0.1-1.5) mg/dL AST (5-40) IU/L ALT (8-54) IU/L Alkaline Phosphatase (40-150) Troponin I (0.0-0.29) NG/ML B-Natriuretic Peptide (<100) PG/ML Total Protein (6.0-8.0) g/dL Albumin (3.4-4.8) g/dL Globulin (2.0-3.5) g/dL Albumin/Globulin Ratio (1.3-2.8) Urine Color YELLOW Urine Appearance CLEAR Urine pH 5.5 (5.0-8.0) Ur Specific [place] <= 1.005 (1.001-1.035) Urine Protein NEGATIVE (NEGATIVE) mg/dL Urine Glucose (UA) NEGATIVE (NEGATIVE) mg/dL Urine Ketones NEGATIVE (NEGATIVE) mg/dL Urine Occult Blood TRACE-INTACT (NEGATIVE) Urine Nitrite NEGATIVE (NEGATIVE) Urine Bilirubin NEGATIVE (NEGATIVE) Urine Urobilinogen 0.2 (<2.0) EU/dL Ur Leukocyte Esterase NEGATIVE (NEGATIVE) Urine RBC 0-1 (0-2/HPF) Urine WBC 0-2 (0-5/HPF) Ur Epithelial Cells OCCASIONAL (NONE-FEW) Urine Bacteria FEW (NEGATIVE) Meds: Medications Generic Name Dose Route Start Last Admin Trade Name Freq PRN Reason Stop Dose Admin Sodium Chloride 10 ml 12/23/17 20:05 Saline Flush FLUSH ASDIRECTED PRN Keep Vein Open Sodium Chloride 2.5 ml 12/23/17 20:05 Saline Flush FLUSH ASDIRECTED PRN Keep Vein Open Departure - Departure Time of Disposition: 21:45 Disposition: Refer to Observation Condition: Good Clinical Impression: CHF, Congestive heart failure, Blood-tinged sputum Dyspnea Qualifiers: Dyspnea type: dyspnea on exertion Qualified Code(s): R06.09 - Other forms of dyspnea - Discharge Information Referrals: Colette Quezada DO [Primary Care Provider] - Forms: ED Department Discharge - My Orders Last 24 Hours: My Active Orders 12/23/17 20:05 Sodium Chloride 0.9% [Saline Flush] 10 ml FLUSH ASDIRECTED PRN Sodium Chloride 0.9% [Saline Flush] 2.5 ml FLUSH ASDIRECTED PRN Saline Lock Insert [OM.PC] Stat 12/23/17 20:06 Chest 2V [CR] Stat 12/23/17 21:02 CTA Chest W WO Contrast [Ang Chest] [CT] Stat 12/23/17 21:42 Patient Status [ADT] Stat - Assessment/Plan Last 24 Hours: My Active Orders 12/23/17 20:05 Sodium Chloride 0.9% [Saline Flush] 10 ml FLUSH ASDIRECTED PRN Sodium Chloride 0.9% [Saline Flush] 2.5 ml FLUSH ASDIRECTED PRN Saline Lock Insert [OM.PC] Stat 12/23/17 20:06 Chest 2V [CR] Stat 12/23/17 21:02 CTA Chest W WO Contrast [Ang Chest] [CT] Stat 12/23/17 21:42 Patient Status [ADT] Stat
[2017-12-23 21:00] LABS: CHLORIDE,CL 102 mmol/L (98-110); SODIUM,NA 139 mmol/L (136-146)
[2017-12-23] MEDS ORDERED: Iopamidol 755 MG/ML 50 ML Bottle IV ONE (21:48)
[2017-12-23] MEDS ORDERED: Albuterol/Ipratropium 3.0-0.5 MG/3 ML Neb Soln NEB PRN (22:36)
[2017-12-23] MEDS ORDERED: Acetaminophen 325 MG Tab PO PRN (22:36)
[2017-12-24] MEDS ORDERED: Levothyroxine 75 MCG Tab PO SCH (07:30)
[2017-12-24 08:17] VITALS: BP 142/54
--- NOTE | 2017-12-24 11:25 | PCM.HP ---
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 She presented to the ED with complaints of hemoptysis for past two days. She reports phlegm that is blood tinged. She reports a chronic cough that is at times productive of white sputum. She denies any shortness of breath, or fevers. She noticed a two pound weight gain and double up on her lasix the past two days. She was told to report and blood in her cough which is why she presented to the ED. CT of the chest was negative for PE, showed no acute airspace disease and no inflammation about the esophageal diverticulum. Headache Pain Score (Numeric/FACES): 4 denies pain Pain Score (Numeric/FACES): 0 - Related Data Allergies/Adverse Reactions: Allergies Allergy/AdvReac Type Severity Reaction Status Date / Time meza Allergy Anaphylactic Verified 12/23/17 19:40 Shock codeine Allergy Other Verified 12/23/17 19:40 dipyridamole [From Aggrenox] Allergy unknown Verified 12/23/17 19:40 Latex, Natural Rubber Allergy Itching Verified 12/23/17 19:40 shrimp Allergy Hives Verified 12/23/17 19:40 dust mites Allergy Sneezing Uncoded 12/23/17 19:40 pollen Allergy Hives Uncoded 12/23/17 19:40 Home Medications: Home Meds Aspirin 81 mg PO DAILY 09/19/15 [History] Calcium Carbonate 600 mg PO BIDMEALS 09/19/15 [History] Multivitamin [Multivitamins] 1 cap PO DAILY 09/19/15 [History] Potassium Chloride 10 meq PO DAILY 09/19/15 [History] Vitamin E 400 units PO DAILY 09/19/15 [History] L Acidophil/B Lactis/B Longum [Florajen3] 460 mg PO DAILY 10/09/16 [History] Ipratropium/Albuterol Sulfate [Iprat-Albut 0.5-3(2.5) mg/3 ml] 3 ml IH TID PRN 03/31/17 [History] Fluticasone/Vilanterol [Breo Ellipta 100-25 MCG Inhalation Kit] 1 puff IH DAILY #1 inhaler 05/27/17 [Rx] Metoprolol Succinate [Toprol XL] 100 mg PO BID #30 tab.er 04/01/17 [Rx] Albuterol [Proventil HFA] 2 puff INH Q4HRRT PRN 12/07/17 [History] Fluticasone Propionate [Flonase] 16 gm NS DAILY PRN 12/07/17 [History] Levothyroxine 75 mcg PO ACBREAKFAST 12/07/17 [History] Omeprazole 20 mg PO ACBREAKFAST PRN 12/07/17 [History] Furosemide 40 mg PO DAILY #0 12/08/17 [Rx] Past Medical History - Past Health History Medical/Surgical History: Denies Medical/Surgical History HEENT History: Reports: Cataract, Impaired Vision, 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) Other HEENT History: wears glasses all the time Cardiovascular History: Reports: Afib, Heart Failure, Hypertension, 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) Other Cardiovascular History: Leaky valve Respiratory History: Reports: Asthma Gastrointestinal History: Reports: Bowel Obstruction, Diverticulosis, Pancreatitis Genitourinary History: Reports: None 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: Reports: , 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; D&C, stillbirth Musculoskeletal History: Reports: Fracture Neurological History: Reports: None Psychiatric History: Reports: None Endocrine/Metabolic History: Reports: Hypothyroidism Hematologic History: Reports: Anemia, 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) Other Hematologic History: blood clots in the leg Immunologic History: Reports: None Oncologic (Cancer) History: Reports: None Dermatologic History: Reports: None - Infectious Disease History Infectious Disease History: Reports: Chicken Pox, Measles - Past Surgical History Head Surgeries/Procedures: Reports: None HEENT Surgical History: Reports: Adenoidectomy, Cataract Surgery, Tonsillectomy Cardiovascular Surgical History: Reports: None Respiratory Surgical History: Reports: None GI Surgical History: Reports: Appendectomy, Cholecystectomy Endocrine Surgical History: Reports: None Musculoskeletal Surgical History: Reports: None Social & Family History - Family History Family Medical History: Noncontributory HEENT: Reports: Impaired Vision Cardiac: Reports: Hypertension, OR, Prior Cardiac Arrest OBGYN: Reports: Neurological: Reports: CVA - Tobacco Use Smoking Status *Q: Never Smoker Second Hand Smoke Exposure: No - Caffeine Use Caffeine Use: Reports: None Caffeine Use Comment: decaf - Recreational Drug Use Recreational Drug Use: No - Living Situation & Occupation Living situation: Reports: Occupation: Retired H&P Review of Systems - Review of Systems: Review Of Systems: ROS reveals no pertinent complaints other than HPI. Exam - Exam Exam: See Below - Vital Signs Vital Signs: Last Vital Signs Temp 36.8 C 12/24/17 08:00 Pulse 63 12/24/17 08:00 Resp 14 12/24/17 08:00 BP 142/54 H 12/24/17 08:00 Pulse Ox 96 12/24/17 08:00 Weight: 70.896 kg - Exam General: Alert, Oriented HEENT: Mucosa Moist & [place] Neck: Supple. No: JVD Lungs: Clear to Auscultation, Normal Respiratory Effort Cardiovascular: Regular Rate, Regular Rhythm GI/Abdominal Exam: Soft, Non-Tender Extremities: No Pedal Edema Skin: Warm, Dry, Intact - Patient Data Result Diagrams: 12/23/17 20:26 12/23/17 20:26 Zack Results Last 24 hrs: Microbiology 12/23/17 23:00 Influenza Type A Antigen Screen - Final Nasopharyngeal Swab NEGATIVE INFLUENZA A VIRUS AG Influenza Type B Antigen Screen - Final NEGATIVE INFLUENZA B VIRUS AG *Q Meaningful Use (ADM) - VTE *Q VTE Criteria *Q: - Stroke *Q Stroke Criteria *Q: - AMI *Q AMI Criteria *Q: Problem List Initiated/Reviewed/Updated: Yes Orders Last 24hrs: Active Orders 24 hr Category Date Time Status RT Aerosol Therapy [RC] ASDIRECTED Care 12/23/17 22:38 Active Ready for Discharge [RC] PER UNIT ROUTINE Care 12/24/17 11:17 Active Regular Diet [DIET] Diet 12/24/17 Breakfast Active Acetaminophen [Tylenol] Med 12/23/17 22:36 Active 650 mg PO Q4H PRN Albuterol/Ipratropium [DuoNeb 3.0-0.5 MG/3 ML] Med 12/23/17 22:36 Active 3 ml NEB Q4HRRT PRN Levothyroxine Med 12/24/17 07:30 Active 75 mcg PO ACBREAKFAST Medication Orders Acetaminophen (Tylenol) 650 mg PO Q4H PRN PRN Reason: Pain Last Admin: 12/23/17 23:14 Dose: 650 mg Albuterol/Ipratropium (Duoneb 3.0-0.5 Mg/3 Ml) 3 ml NEB Q4HRRT PRN PRN Reason: Shortness of Breath Levothyroxine Sodium (Levothyroxine) 75 mcg PO ACBREAKFAST AZUL Last Admin: 12/24/17 06:30 Dose: 75 mcg Sodium Chloride (Saline Flush) 10 ml FLUSH ASDIRECTED PRN PRN Reason: Keep Vein Open Sodium Chloride (Saline Flush) 2.5 ml FLUSH ASDIRECTED PRN PRN Reason: Keep Vein Open Assessment/Plan Comment:: 87 yo female who presented with blood tinged sputum. She had no more hemoptysis during her obsevation last night. We will discharge home.
--- NOTE | 2017-12-25 17:54 | CR ---
EXAM DATE: 12/23/17 PATIENT'S AGE: 87 Patient: PANCHO SALAS Facility: [place], [place] Site . Site : 1930 Study: XRay Chest [id number]/17/2018 8:52:10 PM Ordering Physician: Doctor Chou Final Report: INDICATION: COUGH, CONGESTION, COUGHING UP BLOODY SPUTUM HISTORY: Cough and congestion. COMPARISON: 12/07/2017. TECHNIQUE: Chest, 2 views. FINDINGS: Heart size and pulmonary vasculature are within normal limits. There is thickening of the central bronchovascular interstitium, which is stable from previous. There is no focal consolidation or pneumothorax. The central airway is normal. The osseous structures are intact. IMPRESSION: Stable exam when compared with 12/07/2017. Dictated by Jamaal Smith MD @ 12/23/2017 9:10:14 PM Dictated by: Jamaal Smith MD @ 12/23/2017 21:10:20 (Electronic Signature) Report Signed by Proxy. JAIME
--- NOTE | 2017-12-25 17:57 | CT ---
EXAM DATE: 12/23/17 PATIENT'S AGE: 87 Patient: PANCHO SALAS Facility: [place], [place] Site . Site : 1930 Study: CT Chest Angio [id number]/17/2018 9:52:14 PM Ordering Physician: Doctor Chou Final Report: INDICATION: [id number] SPUTUM. PT STATES HX OF BLOOD CLOTS IN LEGS HISTORY: Dyspnea. Blood tinged sputum. COMPARISON: None. TECHNIQUE: CT pulmonary angiogram. 50 cc of Isovue-370 IV. Coronal/sagittal reconstruction images. FINDINGS: The contrast bolus is adequate for pulmonary emboli interpretation. No filling defect is seen to indicate an acute pulmonary embolus. Main pulmonary artery is normal in caliber. There is no pleural or pericardial effusion. Dense calcifications of the mitral valve anulus. Normal caliber thoracic aorta. Normal caliber main pulmonary artery. There is an air-fluid level present about the posterior mediastinum, which may represent an esophageal diverticulum. This is seen on series 401, image 36. There are no associated inflammatory changes. The lung windows demonstrate no endobronchial mass. There is no bronchiectasis. There is no architectural distortion. There is no suspicious pulmonary nodule. No acute airspace disease. Linear atelectasis in the right middle lobe, and at the lung bases. No honeycomb formation. No traction bronchiectasis. Evaluation of the upper abdomen demonstrates low-density hepatic lesions which are likely benign cysts. There is no upper abdominal lymphadenopathy. Incidental calcification adjacent to the spleen is of doubtful significance. The bone windows demonstrate no lytic or blastic bone lesions. There is osteophytic spurring present at the endplates of the thoracic spine. Calcified granuloma in the inferior segment of the lingula and in the right middle lobe. IMPRESSION: 1. No pulmonary emboli demonstrated. Study is technically adequate. 2. No thoracic lymphadenopathy. No acute airspace disease. 3. 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 No inflammatory changes. Dictated by Jamaal Smith MD @ 12/23/2017 10:21:18 PM Dictated by: Jamaal Smith MD @ 12/23/2017 22:21:29 (Electronic Signature) Report Signed by Proxy. [facility] MED[facility] CENTERBhupendra
== END 2017-12-24 11:45 | disposition home or self-care (01) ==
LOC: MW.ED 19:16 → MW.MS 21:56
PROVIDERS: ADMIT Internal Medicine; ATTEND Internal Medicine
DX: R04.2 Hemoptysis (principal); I11.0 Hypertensive heart disease with heart failure; I50.9 Heart failure, unspecified; I34.0 Nonrheumatic mitral (valve) insufficiency; I34.1 Nonrheumatic mitral (valve) prolapse; I48.91 Unspecified atrial fibrillation; J45.909 Unspecified asthma, uncomplicated; E03.9 Hypothyroidism, unspecified; Z91.018 Allergy to other foods; Z88.5 Allergy status to narcotic agent; Z88.8 Allergy status to other drugs, medicaments and biological substances; Z91.040 Latex allergy status; Z91.013 Allergy to seafood; Z91.09 Other allergy status, other than to drugs and biological substances; Z79.82 Long term (current) use of aspirin; Z79.899 Other long term (current) drug therapy; Z79.51 Long term (current) use of inhaled steroids; Z90.49 Acquired absence of other specified parts of digestive tract; Z90.89 Acquired absence of other organs
CPT/HCPCS: 36415; 71046; 71275; 80053; 81001; 83880; 84484; 85025; 87804; 93005; 99285; A9270; G0378; Q9967; 99284

== ENCOUNTER 2018-01-30 08:38 | Observation (INO) | payer MEDICARE, OTHER ==
[2018-01-30] MEDS ORDERED: Aspirin 81 MG Tab.Chew ONE (09:02)
--- NOTE | 2018-01-30 10:37 | EDM.PDOC ---
ED HPI GENERAL MEDICAL PROBLEM - General Chief Complaint: Chest Pain Stated Complaint: CHEST PAIN Time Seen by Provider: 01/30/18 10:31 - History of Present Illness INITIAL COMMENTS - FREE TEXT/NARRATIVE: T-sheet - Related Data Allergies Allergy/AdvReac Type Severity Reaction Status Date / Time meza Allergy Anaphylactic Verified 12/23/17 19:40 Shock codeine Allergy Other Verified 12/23/17 19:40 dipyridamole [From Aggrenox] Allergy unknown Verified 12/23/17 19:40 Latex, Natural Rubber Allergy Itching Verified 12/23/17 19:40 shrimp Allergy Hives Verified 12/23/17 19:40 dust mites Allergy Sneezing Uncoded 12/23/17 19:40 pollen Allergy Hives Uncoded 12/23/17 19:40 Home Meds: Home Meds Aspirin 81 mg PO DAILY 09/19/15 [History] Calcium Carbonate 600 mg PO BIDMEALS 09/19/15 [History] Multivitamin [Multivitamins] 1 cap PO DAILY 09/19/15 [History] Potassium Chloride 10 meq PO DAILY 09/19/15 [History] Vitamin E 400 units PO DAILY 09/19/15 [History] L Acidophil/B Lactis/B Longum [Florajen3] 460 mg PO DAILY 10/09/16 [History] Ipratropium/Albuterol Sulfate [Iprat-Albut 0.5-3(2.5) mg/3 ml] 3 ml IH TID PRN 03/31/17 [History] Fluticasone/Vilanterol [Breo Ellipta 100-25 MCG Inhalation Kit] 1 puff IH DAILY #1 inhaler 04/01/17 [Rx] Metoprolol Succinate [Toprol XL] 100 mg PO BID #30 tab.er 04/01/17 [Rx] Albuterol [Proventil HFA] 2 puff INH Q4HRRT PRN 12/07/17 [History] Fluticasone Propionate [Flonase] 16 gm NS DAILY PRN 12/07/17 [History] Levothyroxine 75 mcg PO ACBREAKFAST 12/07/17 [History] Omeprazole 20 mg PO ACBREAKFAST PRN 12/07/17 [History] Furosemide 40 mg PO DAILY #0 12/08/17 [Rx] Past Medical History - Past Health History Medical/Surgical History: Denies Medical/Surgical History HEENT History: Reports: Cataract, Impaired Vision, 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) Other HEENT History: wears glasses all the time Cardiovascular History: Reports: Afib, Heart Failure, Hypertension, 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) Other Cardiovascular History: Leaky valve Respiratory History: Reports: Asthma Gastrointestinal History: Reports: Bowel Obstruction, Diverticulosis, Pancreatitis Genitourinary History: Reports: None 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: , 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; D&C, stillbirth Musculoskeletal History: Reports: Fracture Neurological History: Reports: None Psychiatric History: Reports: None Endocrine/Metabolic History: Reports: Hypothyroidism Hematologic History: Reports: Anemia, 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) Other Hematologic History: blood clots in the leg Immunologic History: Reports: None Oncologic (Cancer) History: Reports: None Dermatologic History: Reports: None - Infectious Disease History Infectious Disease History: Reports: Chicken Pox, Measles - Past Surgical History Head Surgeries/Procedures: Reports: None HEENT Surgical History: Reports: Adenoidectomy, Cataract Surgery, Tonsillectomy Cardiovascular Surgical History: Reports: None Respiratory Surgical History: Reports: None GI Surgical History: Reports: Appendectomy, Cholecystectomy Endocrine Surgical History: Reports: None Musculoskeletal Surgical History: Reports: None Social & Family History - Family History Family Medical History: Noncontributory HEENT: Reports: Impaired Vision Cardiac: Reports: Hypertension, ID, Prior Cardiac Arrest OBGYN: Reports: Neurological: Reports: CVA - Tobacco Use Smoking Status *Q: Never Smoker Second Hand Smoke Exposure: No - Caffeine Use Caffeine Use: Reports: None Caffeine Use Comment: decaf - Recreational Drug Use Recreational Drug Use: No - Living Situation & Occupation Living situation: Reports: Occupation: Retired ED ROS GENERAL - Review of Systems Review Of Systems: See Below (T-sheet) ED EXAM, GENERAL - Physical Exam Exam: See Below (T-sheet) Departure - Departure Time of Disposition: 10:36 Disposition: Refer to Observation Condition: Good Clinical Impression: Chest pain - Discharge Information Referrals: PCP,Unknown [Primary Care Provider] -
[2018-01-30 10:52] LABS: CHLORIDE,CL 97 mmol/L (98-107); SODIUM,NA 134 mmol/L (136-145)
[2018-01-30] MEDS ORDERED: Acetaminophen 325 MG Tab PO PRN (12:55)
[2018-01-30] MEDS ORDERED: Morphine 4 MG/ML Syringe IVPUSH PRN (12:55)
[2018-01-30] MEDS ORDERED: Ondansetron 4 MG/2 ML SDV IVPUSH PRN (12:58)
[2018-01-30] MEDS ORDERED: Sodium Chloride 0.9% 2.5 ML Syringe FLUSH PRN (12:58)
--- NOTE | 2018-01-30 13:14 | PCM.HP ---
H&P History of Present Illness - General Date of Service: 01/30/18 Admit Problem/Dx: Admission Diagnosis/Problem Admission Diagnosis/Problem Chest pain Source of Information: Patient, Family (son at bedside), Old Records History Limitations: Reports: No Limitations - History of Present Illness Initial Comments - Free Text/Narative: This 88 yevgeniy old female with pmh of CHF with severe mitral valve insufficiency with mitral valve prolapse,diverticulosis and esophageal diverticulum presented to the ED with complaints of chest pain since Monday. She reports on Monday she started having pain between her shoulder blades and this progressively worsened to include midsternum pain as well. She denies N/V, palpitations, SOB or diaphoresis. She reports just feeling run down and overall not well, fatigued. She Reports lying on her back worsens the pain, but nothing seems to help it, she has tried Tylenol and Tramadol at home with little relief. She denies any recent injury or fall, but recalls on Monday she did slightly "over do it" and mopped all her floors. She denies abdominal pain, urinary symptoms, cough or fevers and no focal neurologic deficits. In the ED, slight leukocytosis noted at 13,000. BMP WNL. Troponin negative. UA negative. EKG SR with no acute ischemic changes. She was treated with ASA and admitted observation for atypical chest pain. PCP, Dr Quezada. left chest Pain Score (Numeric/FACES): 8 - Related Data Allergies/Adverse Reactions: Allergies Allergy/AdvReac Type Severity Reaction Status Date / Time meza Allergy Anaphylactic Verified 01/30/18 13:41 Shock codeine Allergy Other Verified 01/30/18 13:41 dipyridamole [From Aggrenox] Allergy unknown Verified 01/30/18 13:41 Latex, Natural Rubber Allergy Itching Verified 01/30/18 13:41 shrimp Allergy Hives Verified 01/30/18 13:41 dust mites Allergy Sneezing Uncoded 12/23/17 19:40 pollen Allergy Hives Uncoded 12/23/17 19:40 Home Medications: Home Meds Aspirin 81 mg PO DAILY 09/19/15 [History] Calcium Carbonate 600 mg PO BIDMEALS 09/19/15 [History] Multivitamin [Multivitamins] 1 cap PO DAILY 09/19/15 [History] Potassium Chloride 10 meq PO DAILY 09/19/15 [History] Vitamin E 400 units PO DAILY 09/19/15 [History] L Acidophil/B Lactis/B Longum [Florajen3] 460 mg PO DAILY 10/09/16 [History] Ipratropium/Albuterol Sulfate [Iprat-Albut 0.5-3(2.5) mg/3 ml] 3 ml IH TID PRN 03/31/17 [History] Fluticasone/Vilanterol [Breo Ellipta 100-25 MCG Inhalation Kit] 1 puff IH DAILY #1 inhaler 04/01/17 [Rx] Albuterol [Proventil HFA] 2 puff INH Q4HRRT PRN 12/07/17 [History] Fluticasone Propionate [Flonase] 16 gm NS DAILY PRN 12/07/17 [History] Levothyroxine 75 mcg PO ACBREAKFAST 12/07/17 [History] Omeprazole 20 mg PO ACBREAKFAST PRN 12/07/17 [History] Furosemide 40 mg PO DAILY #0 12/08/17 [Rx] Metoprolol Succinate [Toprol XL] 100 mg PO BIDMEALS 01/30/18 [History] Past Medical History - Past Health History Medical/Surgical History: Denies Medical/Surgical History HEENT History: Reports: Cataract, Impaired Vision, 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) Other HEENT History: wears glasses all the time Cardiovascular History: Reports: Afib, Heart Failure, Hypertension, 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) Other Cardiovascular History: 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 Denies: CVA, TIA Psychiatric History: Reports: None Endocrine/Metabolic History: Reports: Hypothyroidism. Denies: Diabetes, Type II Hematologic History: Reports: Anemia, 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) Other Hematologic History: blood clots in the leg Immunologic History: Reports: None Oncologic (Cancer) History: Reports: None Dermatologic History: Reports: None - Infectious Disease History Infectious Disease History: Reports: Chicken Pox, Measles - Past Surgical History Head Surgeries/Procedures: Reports: None HEENT Surgical History: Reports: Adenoidectomy, Cataract Surgery, Tonsillectomy Cardiovascular Surgical History: Reports: None Respiratory Surgical History: Reports: None GI Surgical History: Reports: Appendectomy, Cholecystectomy Endocrine Surgical History: Reports: None Musculoskeletal Surgical History: Reports: None Social & Family History - Family History Family Medical History: Noncontributory HEENT: Reports: Impaired Vision Cardiac: Reports: Hypertension, [place], Prior Cardiac Arrest OBGYN: Reports: Neurological: Reports: CVA - Tobacco Use Smoking Status *Q: Never Smoker Second Hand Smoke Exposure: No - Caffeine Use Caffeine Use: Reports: None Caffeine Use Comment: decaf - Recreational Drug Use Recreational Drug Use: No - Living Situation & Occupation Living situation: Reports: , Alone Occupation: Retired H&P Review of Systems - Review of Systems: Review Of Systems: See Below General: Reports: Fatigue, Decreased Appetite. Denies: Fever, Chills, Malaise HEENT: Reports: No Symptoms. Denies: Hearing Changes, Sinus Congestion, Sore Throat, Vertigo Pulmonary: Reports: No Symptoms. Denies: Shortness of Breath, Wheezing, Cough, Sputum Cardiovascular: Denies: Palpitations, Dyspnea on Exertion, Orthopnea, Edema, Lightheadedness, Syncope Gastrointestinal: Reports: No Symptoms. Denies: Abdominal Pain, Black Stool, Bloody Stool, Distension, Nausea, Vomiting Genitourinary: Reports: No Symptoms. Denies: Dysuria, Frequency, Burning Musculoskeletal: Reports: Back Pain (upper back pain mainly R side and midsternum) Psychiatric: Reports: No Symptoms Neurological: Reports: No Symptoms Hematologic/Lymphatic: Reports: No Symptoms Exam - Exam Exam: See Below - Vital Signs Vital Signs: Last Vital Signs Temp 97.6 F 01/30/18 12:00 Pulse 74 01/30/18 12:00 Resp 20 01/30/18 12:00 BP 124/47 L 01/30/18 12:00 Pulse Ox 96 01/30/18 12:55 Weight: 70.5 kg - Exam Quality Assessment: DVT Prophylaxis. No: Supplemental Oxygen General: Alert, Oriented, Cooperative HEENT: Conjunctiva Clear, Mucosa Moist & [place], Nares Patent, Posterior Pharynx Clear, Pupils Equal Neck: Supple, Trachea Midline, Full Range of Motion. No: Lymphadenopathy Lungs: Clear to Auscultation, Normal Respiratory Effort Cardiovascular: Regular Rate, Regular Rhythm GI/Abdominal Exam: Normal Bowel Sounds, Soft, Non-Tender, No Organomegaly, No Distention, No Abnormal Bruit, No Mass, Pelvis Stable Back Exam: Normal Inspection, Full Range of Motion, Other (Pain noted mainly to R mid trapezius muscular in nature and tenderness to palpation to midsternum.). No: CVA Tenderness (L), CVA Tenderness (R) Extremities: Normal Inspection, Normal Range of Motion, Non-Tender, No Pedal Edema, Normal Capillary Refill Skin: Warm, Dry, Intact Neurological: Cranial Nerves Intact Neuro Extensive - Mental Status: Alert, Oriented x3, Normal Mood/Affect Neuro Extensive - Motor, Sensory, Reflexes: CN II-XII Intact, Normal Gait Psychiatric: Alert, Normal Affect, Normal Mood - Patient Data Lab Results Last 24 hrs: Laboratory Results - last 24 hr 01/30/18 01/30/18 01/30/18 Range/Units 08:46 08:46 08:46 WBC 13.14 H (4.0-11.0) K/uL RBC 4.65 (4.30-5.90) M/uL Hgb 14.1 (12.0-16.0) g/dL Hct 41.0 (36.0-46.0) % MCV 88.2 (80.0-98.0) fL MCH 30.3 (27.0-32.0) pg MCHC 34.4 (31.0-37.0) g/dL RDW Std Deviation 46.0 (28.0-62.0) fl RDW Coeff of Brisa 14 (11.0-15.0) % Plt Count 293 (150-400) K/uL MPV 9.00 (7.40-12.00) fL Neut % (Auto) 68.9 (48.0-80.0) % Lymph % (Auto) 18.3 (16.0-40.0) % [place] % (Auto) 10.4 (0.0-15.0) % Eos % (Auto) 2.2 (0.0-7.0) % Baso % (Auto) 0.2 (0.0-1.5) % Neut # (Auto) 9.1 H (1.4-5.7) K/uL Lymph # (Auto) 2.4 (0.6-2.4) K/uL [place] # (Auto) 1.4 H (0.0-0.8) K/uL Eos # (Auto) 0.3 (0.0-0.7) K/uL Baso # (Auto) 0.0 (0.0-0.1) K/uL Nucleated RBC % 0.0 /100WBC Nucleated RBCs # 0 K/uL INR 1.04 APTT 22.9 (18.6-31.3) SEC Sodium 134 L (136-145) mmol/L Potassium 4.2 (3.5-5.1) mmol/L Chloride 97 L (98-107) mmol/L Carbon Dioxide 26.4 (21.0-32.0) mmol/L BUN 12 (7.0-18.0) mg/dL Creatinine 1.0 (0.6-1.0) mg/dL Est Cr Clr Drug Dosing TNP Estimated GFR (MDRD) 52.3 ml/min Glucose 111 H (74-106) mg/dL Calcium 9.4 (8.5-10.1) mg/dL Total Bilirubin 0.9 (0.2-1.0) mg/dL AST 22 (15-37) IU/L ALT 26 (14-63) IU/L Alkaline Phosphatase 113 (46-116) U/L Troponin I < 0.050 (0.000-0.056) ng/mL Total Protein 7.4 (6.4-8.2) g/dL Albumin 3.0 L (3.4-5.0) g/dL Globulin 4.4 H (2.0-3.5) g/dL Albumin/Globulin Ratio 0.7 L (1.3-2.8) Urine Color Urine Appearance Urine pH (5.0-8.0) Ur Specific [place] (1.001-1.035) Urine Protein (NEGATIVE) mg/dL Urine Glucose (UA) (NEGATIVE) mg/dL Urine Ketones (NEGATIVE) mg/dL Urine Occult Blood (NEGATIVE) Urine Nitrite (NEGATIVE) Urine Bilirubin (NEGATIVE) Urine Ictotest Urine Urobilinogen (<2.0) EU/dL Ur Leukocyte Esterase (NEGATIVE) Urine RBC (0-2/HPF) Urine WBC (0-5/HPF) Ur Epithelial Cells (NONE-FEW) Amorphous Sediment (NEGATIVE) Urine Bacteria (NEGATIVE) 01/30/18 Range/Units 08:46 WBC (4.0-11.0) K/uL RBC (4.30-5.90) M/uL Hgb (12.0-16.0) g/dL Hct (36.0-46.0) % MCV (80.0-98.0) fL MCH (27.0-32.0) pg MCHC (31.0-37.0) g/dL RDW Std Deviation (28.0-62.0) fl RDW Coeff of Brisa (11.0-15.0) % Plt Count (150-400) K/uL MPV (7.40-12.00) fL Neut % (Auto) (48.0-80.0) % Lymph % (Auto) (16.0-40.0) % [place] % (Auto) (0.0-15.0) % Eos % (Auto) (0.0-7.0) % Baso % (Auto) (0.0-1.5) % Neut # (Auto) (1.4-5.7) K/uL Lymph # (Auto) (0.6-2.4) K/uL [place] # (Auto) (0.0-0.8) K/uL Eos # (Auto) (0.0-0.7) K/uL Baso # (Auto) (0.0-0.1) K/uL Nucleated RBC % /100WBC Nucleated RBCs # K/uL INR APTT (18.6-31.3) SEC Sodium (136-145) mmol/L Potassium (3.5-5.1) mmol/L Chloride (98-107) mmol/L Carbon Dioxide (21.0-32.0) mmol/L BUN (7.0-18.0) mg/dL Creatinine (0.6-1.0) mg/dL Est Cr Clr Drug Dosing Estimated GFR (MDRD) ml/min Glucose (74-106) mg/dL Calcium (8.5-10.1) mg/dL Total Bilirubin (0.2-1.0) mg/dL AST (15-37) IU/L ALT (14-63) IU/L Alkaline Phosphatase (46-116) U/L Troponin I (0.000-0.056) ng/mL Total Protein (6.4-8.2) g/dL Albumin (3.4-5.0) g/dL Globulin (2.0-3.5) g/dL Albumin/Globulin Ratio (1.3-2.8) Urine Color DARK YELLOW Urine Appearance SLT CLOUDY Urine pH 5.5 (5.0-8.0) Ur Specific [place] 1.020 (1.001-1.035) Urine Protein TRACE (NEGATIVE) mg/dL Urine Glucose (UA) NEGATIVE (NEGATIVE) mg/dL Urine Ketones TRACE H (NEGATIVE) mg/dL Urine Occult Blood MODERATE (NEGATIVE) Urine Nitrite NEGATIVE (NEGATIVE) Urine Bilirubin SMALL H (NEGATIVE) Urine Ictotest NEGATIVE Urine Urobilinogen 0.2 (<2.0) EU/dL Ur Leukocyte Esterase NEGATIVE (NEGATIVE) Urine RBC 1-2 (0-2/HPF) Urine WBC 0-1 (0-5/HPF) Ur Epithelial Cells MODERATE (NONE-FEW) Amorphous Sediment FEW (NEGATIVE) Urine Bacteria FEW (NEGATIVE) Result Diagrams: 01/30/18 08:46 01/30/18 08:46 EKG INTERPRETATION EKG Date: 01/30/18 Rhythm: NSR Rate (Beats/Min): 80 QRS: Normal ST-T: Normal QT: Normal *Q Meaningful Use (ADM) - VTE *Q VTE Pharmacological Contraindications *Q: Risk of Bleeding - Problem List (1) Atypical chest pain SNOMED Code(s): 095187682 ICD Code: R07.89 - OTHER CHEST PAIN Status: Acute Current Visit: Yes (2) Asthma SNOMED Code(s): 628598254 ICD Code: J45.909 - UNSPECIFIED ASTHMA, UNCOMPLICATED Status: Chronic Current Visit: No Qualifiers: Asthma severity: unspecified severity Asthma complication type: uncomplicated Qualified Code(s): J45.909 - Unspecified asthma, uncomplicated (3) CHF (congestive heart failure) SNOMED Code(s): 01448563 ICD Code: I50.9 - HEART FAILURE, UNSPECIFIED Status: Chronic Current Visit: No Qualifiers: Qualified Code(s): I50.22 - Chronic systolic (congestive) heart failure (4) HTN (hypertension) SNOMED Code(s): 85636426 ICD Code: I10 - ESSENTIAL (PRIMARY) HYPERTENSION Status: Chronic Current Visit: No Qualifiers: Hypertension type: essential hypertension Qualified Code(s): I10 - Essential (primary) hypertension (5) Hypothyroid SNOMED Code(s): 36482861 ICD Code: E03.9 - HYPOTHYROIDISM, UNSPECIFIED Status: Chronic Current Visit: No Qualifiers: Hypothyroidism type: unspecified Qualified Code(s): E03.9 - Hypothyroidism , unspecified (6) Mitral valve insufficiency SNOMED Code(s): 21317549 ICD Code: I34.0 - NONRHEUMATIC MITRAL (VALVE) INSUFFICIENCY Status: Chronic Current Visit: No Qualifiers: Cardiac valve disease etiology: etiology unspecified Qualified Code(s): I34.0 - Nonrheumatic mitral (valve) insufficiency (7) Mitral valve prolapse SNOMED Code(s): 873962346 ICD Code: I34.1 - NONRHEUMATIC MITRAL (VALVE) PROLAPSE Status: Chronic Current Visit: No Problem List Initiated/Reviewed/Updated: Yes Orders Last 24hrs: Active Orders 24 hr Category Date Time Status Patient Status [ADT] Stat ADT 01/30/18 10:39 Active Intake and Output [RC] QSHIFT Care 01/30/18 12:57 Active Oxygen Therapy [RC] PRN Care 01/30/18 12:55 Active Telemetry Monitoring [Cardiac Monitoring] [RC] . Care 01/30/18 12:59 Active DIRECTED Up ad Kalee [RC] ASDIRECTED Care 01/30/18 12:55 Active VTE/DVT Education [RC] Q12H Care 01/30/18 12:55 Active Vital Signs [RC] Q4H Care 01/30/18 12:55 Active 2 Gram Sodium Diet [DIET] Diet 01/30/18 Lunch Active Acetaminophen [Tylenol] Med 01/30/18 12:55 Active 650 mg PO Q4H PRN Morphine Med 01/30/18 12:55 Active 2 mg IVPUSH Q2H PRN Ondansetron [Zofran] Med 01/30/18 12:58 Active 4 mg IVPUSH Q4H PRN Sodium Chloride 0.9% [Saline Flush] Med 01/30/18 12:58 Active 2.5 ml FLUSH ASDIRECTED PRN traMADol [Ultram] Med 01/30/18 13:02 Active 50 mg PO Q6H PRN Saline Lock Insert [OM.PC] Routine Oth 01/30/18 12:55 Ordered Resuscitation Status Routine Resus Stat 01/30/18 12:55 Ordered Medication Orders Acetaminophen (Tylenol) 650 mg PO Q4H PRN PRN Reason: Pain (mild 1-3) Morphine Sulfate (Morphine) 2 mg IVPUSH Q2H PRN PRN Reason: Pain (severe 7-10) Ondansetron HCl (Zofran) 4 mg IVPUSH Q4H PRN PRN Reason: Nausea Sodium Chloride (Saline Flush) 2.5 ml FLUSH ASDIRECTED PRN PRN Reason: Keep Vein Open Tramadol HCl (Ultram) 50 mg PO Q6H PRN PRN Reason: Pain Assessment/Plan Comment:: This 88 year old female admitted with atypical chest pain 1. Chest pain: Likely musculoskeletal in nature due to tenderness upon palpation to both back and sternum, which reproduces pain exactly. Will trend troponins and monitor on Telemetry. 2. Back pain: Will give Tylenol and Tramadol PO, along with Morphine PRN for pain. Heat and ICE to affected areas PRN pain 3. CHF: Stable, no concerns at this time of exacerbation. Patient reports weight is stable at home and no increase in dyspnea. CXR stable. 4. Hx Afib: stable. in SR currently. Continue Metoprolol and ASA. 5. Hypothyroidism: Stable, continue Levothyroxine 6. Asthma: Stable, no wheezing. Continue Breo and Albuterol. VTE prophylaxis: SCDs only, recently was admitted for hemoptysis. Dispo: 1 day
[2018-01-30] MEDS: traMADol 50 MG Tab PO PRN ×2 (13:26→20:54)
[2018-01-30] MEDS ORDERED: Fluticasone Propionate Nasal Spray 16 GM Bottle NASBOTH PRN (14:03)
[2018-01-30] MEDS ORDERED: Albuterol/Ipratropium 3.0-0.5 MG/3 ML Neb Soln INH PRN (14:03)
[2018-01-30] MEDS ORDERED: Omeprazole 20 MG Cap.CR PO PRN (14:03)
[2018-01-30] MEDS ORDERED: Albuterol 8 GM Inhaler INH PRN (14:03)
--- NOTE | 2018-01-30 14:23 | CR ---
EXAMINATION: Portable chest radiograph. HISTORY: Chest pain . FINDINGS: The trachea is midline. The cardiomediastinal silhouette is within normal limits. No pulmonary infilt rates, effusions or pneumothorax. Mild interstitial prominence. Osseous structures appear unremarkable. IMPRESSION: No acute cardiopulmonary process.
[2018-01-30] MEDS: Furosemide 40 MG Tab PO SCH (14:36)
[2018-01-30] MEDS: Calcium Carbonate 500 MG Tab.Chew PO SCH (16:50)
[2018-01-30] MEDS: Metoprolol Succinate 100 MG Tab.ER PO SCH (16:50)
[2018-01-31] MEDS: traMADol 50 MG Tab PO PRN (06:42)
[2018-01-31] MEDS ORDERED: Levothyroxine 75 MCG Tab PO SCH (07:30)
[2018-01-31] MEDS: Metoprolol Succinate 100 MG Tab.ER PO SCH (08:15)
[2018-01-31] MEDS: Furosemide 40 MG Tab PO SCH (08:15)
[2018-01-31] MEDS: Calcium Carbonate 500 MG Tab.Chew PO SCH (08:16)
[2018-01-31 08:17] VITALS: BP 124/49
--- NOTE | 2018-01-31 08:49 | PCM.DCSUM1 ---
Discharge Summary - Hospital Course Brief History: This 88 year old female with pmh of CHF with severe mitral valve insufficiency with mitral valve prolapse,diverticulosis and esophageal diverticulum presented to the ED with complaints of chest pain since Monday. She reports on Monday she started having pain between her shoulder blades and this progressively worsened to include midsternum pain as well. She denies N/V, palpitations, SOB or diaphoresis. She reports just feeling run down and overall not well, fatigued. She Reports lying on her back worsens the pain, but nothing seems to help it, she has tried Tylenol and Tramadol at home with little relief. She denies any recent injury or fall, but recalls on Monday she did slightly "over do it" and mopped all her floors. She denies abdominal pain, urinary symptoms, cough or fevers and no focal neurologic deficits. In the ED, slight leukocytosis noted at 13,000. BMP WNL. Troponin negative. UA negative. EKG SR with no acute ischemic changes. She was treated with ASA and admitted observation for atypical chest pain. PCP, Dr Quezada. - Discharge Data Discharge Date: 01/31/18 Discharge Disposition: Home, Self-Care 01 Condition: Good - Discharge Diagnosis/Problem(s) (1) Atypical chest pain SNOMED Code(s): 070933035 ICD Code: R07.89 - OTHER CHEST PAIN Status: Acute Current Visit: Yes (2) Asthma SNOMED Code(s): 613399780 ICD Code: J45.909 - UNSPECIFIED ASTHMA, UNCOMPLICATED Status: Chronic Current Visit: No Qualifiers: Asthma severity: unspecified severity Asthma complication type: uncomplicated (3) CHF (congestive heart failure) SNOMED Code(s): 33797422 ICD Code: I50.9 - HEART FAILURE, UNSPECIFIED Status: Chronic Current Visit: No (4) HTN (hypertension) SNOMED Code(s): 44313160 ICD Code: I10 - ESSENTIAL (PRIMARY) HYPERTENSION Status: Chronic Current Visit: No Qualifiers: Hypertension type: essential hypertension Qualified Code(s): I10 - Essential (primary) hypertension (5) Hypothyroid SNOMED Code(s): 82355934 ICD Code: E03.9 - HYPOTHYROIDISM, UNSPECIFIED Status: Chronic Current Visit: No Qualifiers: Hypothyroidism type: unspecified Qualified Code(s): E03.9 - Hypothyroidism , unspecified (6) Mitral valve insufficiency SNOMED Code(s): 85780932 ICD Code: I34.0 - NONRHEUMATIC MITRAL (VALVE) INSUFFICIENCY Status: Chronic Current Visit: No Qualifiers: Cardiac valve disease etiology: etiology unspecified Qualified Code(s): I34.0 - Nonrheumatic mitral (valve) insufficiency (7) Mitral valve prolapse SNOMED Code(s): 263552754 ICD Code: I34.1 - NONRHEUMATIC MITRAL (VALVE) PROLAPSE Status: Chronic Current Visit: No - Patient Instructions Diet: Heart Healthy Diet, Low Sodium, Fluid Restriction Activity: No Strenuous Activities, Rest and Relax Today Showering/Bathing: May Shower Notify Provider of: Fever, Increased Pain, Swelling and Redness, Drainage, Nausea and/or Vomiting - Discharge Plan Prescriptions/Med Rec: traMADol [Ultram] 50 mg PO Q6H PRN #15 tablet PRN Reason: Pain Home Medications: Home Meds Aspirin 81 mg PO DAILY 09/19/15 [History] Calcium Carbonate 600 mg PO BIDMEALS 09/19/15 [History] Multivitamin [Multivitamins] 1 cap PO DAILY 09/19/15 [History] Potassium Chloride 10 meq PO DAILY 09/19/15 [History] Vitamin E 400 units PO DAILY 09/19/15 [History] L Acidophil/B Lactis/B Longum [Florajen3] 460 mg PO DAILY 10/09/16 [History] Ipratropium/Albuterol Sulfate [Iprat-Albut 0.5-3(2.5) mg/3 ml] 3 ml IH TID PRN 03/31/17 [History] Fluticasone/Vilanterol [Breo Ellipta 100-25 MCG Inhalation Kit] 1 puff IH DAILY #1 inhaler 04/01/17 [Rx] Albuterol [Proventil HFA] 2 puff INH Q4HRRT PRN 12/07/17 [History] Fluticasone Propionate [Flonase] 16 gm NS DAILY PRN 12/07/17 [History] Levothyroxine 75 mcg PO ACBREAKFAST 12/07/17 [History] Omeprazole 20 mg PO ACBREAKFAST PRN 12/07/17 [History] Furosemide 40 mg PO DAILY #0 12/08/17 [Rx] Metoprolol Succinate [Toprol XL] 100 mg PO BIDMEALS 01/30/18 [History] Acetaminophen [Tylenol] 650 mg PO Q4H PRN tablet 01/31/18 [Rx] traMADol [Ultram] 50 mg PO Q6H PRN #15 tablet 01/31/18 [Rx] Referrals: [facility] [Outside] Colette Quezada DO [Physician] - 02/08/18 12:30 pm (please arrange appointment with Damien in 1 week) PCP,Unknown [Primary Care Provider] - - Discharge Summary/Plan Comment DC Time >30 min.: No Discharge Summary/Plan Comment: Discharge Diagnoses: Atypical chest pain, likely muscular vs costochondritis CHF Severe mitral valve insufficiency/prolapse Diverticulosis Padmini was admitted for atypical chest pain, which was located in between her shoulder blades and mid sternum. This pain was reproducible with palpation to both locations and seemed more muscularskeletal in nature. She was ruled out for ACS, all troponins negative and telemetry did not show any acute ischemic changes. She was given Tylenol and Tramadol with ok pain relief. She reports to me this morning, that this pain has been there for "years". It will move to more of her R flank upper chest to shoulder blade and to midsternum. It is intermittent in nature. Again, this is likely musculoskeletal in nature. Encouraged her to rest and relax today and to not be doing too many strenuous activities. Her son agrees, and was noted to be mopping all her floors a day or two before this pain worsened. She will be encouraged to use heat and ice along with Tylenol and Tramadol she has at home. She is to return to ED or clinic if concerns should arise. Follow up appointment with Dr Quezada, PCP was arranged for next week. - General Info Date of Service: 01/31/18 Admission Dx/Problem (Free Text: Admission Diagnosis/Problem Admission Diagnosis/Problem Chest pain Subjective Update: Reports feeling better this morning, intermittent pain to upper back and midsternum, but this has improved. No SOB or palpitations. Functional Status: Reports: Pain Controlled, Tolerating Diet, Ambulating, Urinating - Review of Systems General: Reports: No Symptoms. Denies: Fever, Fatigue, Malaise HEENT: Reports: No Symptoms. Denies: Headaches, Sore Throat, Rhinitis, Visual Changes Pulmonary: Reports: No Symptoms. Denies: Shortness of Breath Cardiovascular: Reports: No Symptoms. Denies: Chest Pain Gastrointestinal: Reports: No Symptoms. Denies: Abdominal Pain, Nausea, Vomiting Musculoskeletal: Reports: Other (mid sternum pain to palpation as well as upper back, in between shoulder blades.) Neurological: Reports: No Symptoms Psychiatric: Reports: No Symptoms - Patient Data Vitals - Most Recent: Last Vital Signs Temp 97.5 F 01/31/18 08:00 Pulse 65 01/31/18 08:15 Resp 16 01/31/18 08:00 BP 124/49 L 01/31/18 08:15 Pulse Ox 97 01/31/18 08:00 Weight - Most Recent: 70.3 kg I&O - Last 24 hours: Intake & Output 01/30/18 01/31/18 01/31/18 22:59 06:59 14:59 Intake Total 300 400 Output Total 250 800 Balance 50 -400 Lab Results - Last 24 hrs: Laboratory Results - last 24 hr 01/30/18 01/30/18 01/30/18 Range/Units 08:46 08:46 08:46 WBC 13.14 H (4.0-11.0) K/uL RBC 4.65 (4.30-5.90) M/uL Hgb 14.1 (12.0-16.0) g/dL Hct 41.0 (36.0-46.0) % MCV 88.2 (80.0-98.0) fL MCH 30.3 (27.0-32.0) pg MCHC 34.4 (31.0-37.0) g/dL RDW Std Deviation 46.0 (28.0-62.0) fl RDW Coeff of Brisa 14 (11.0-15.0) % Plt Count 293 (150-400) K/uL MPV 9.00 (7.40-12.00) fL Neut % (Auto) 68.9 (48.0-80.0) % Lymph % (Auto) 18.3 (16.0-40.0) % [place] % (Auto) 10.4 (0.0-15.0) % Eos % (Auto) 2.2 (0.0-7.0) % Baso % (Auto) 0.2 (0.0-1.5) % Neut # (Auto) 9.1 H (1.4-5.7) K/uL Lymph # (Auto) 2.4 (0.6-2.4) K/uL [place] # (Auto) 1.4 H (0.0-0.8) K/uL Eos # (Auto) 0.3 (0.0-0.7) K/uL Baso # (Auto) 0.0 (0.0-0.1) K/uL Add Manual Diff Neutrophils % (Manual) (48.0-80.0) % Band Neutrophils % % Lymphocytes % (Manual) (16.0-40.0) % Monocytes % (Manual) (0.0-15.0) % Eosinophils % (Manual) (0.0-7.0) % Nucleated RBC % 0.0 /100WBC Absolute Seg Neuts (1.4-5.7) Band Neutrophils # Lymphocytes # (Manual) (0.6-2.4) Monocytes # (Manual) (0.0-0.8) Eosinophils # (Manual) (0.0-0.7) Nucleated RBCs # 0 K/uL INR 1.04 APTT 22.9 (18.6-31.3) SEC Sodium 134 L (136-145) mmol/L Potassium 4.2 (3.5-5.1) mmol/L Chloride 97 L (98-107) mmol/L Carbon Dioxide 26.4 (21.0-32.0) mmol/L BUN 12 (7.0-18.0) mg/dL Creatinine 1.0 (0.6-1.0) mg/dL Est Cr Clr Drug Dosing TNP Estimated GFR (MDRD) 52.3 ml/min Glucose 111 H (74-106) mg/dL Calcium 9.4 (8.5-10.1) mg/dL Total Bilirubin 0.9 (0.2-1.0) mg/dL AST 22 (15-37) IU/L ALT 26 (14-63) IU/L Alkaline Phosphatase 113 (46-116) U/L Troponin I < 0.050 (0.000-0.056) ng/mL Total Protein 7.4 (6.4-8.2) g/dL Albumin 3.0 L (3.4-5.0) g/dL Globulin 4.4 H (2.0-3.5) g/dL Albumin/Globulin Ratio 0.7 L (1.3-2.8) Urine Color Urine Appearance Urine pH (5.0-8.0) Ur Specific [place] (1.001-1.035) Urine Protein (NEGATIVE) mg/dL Urine Glucose (UA) (NEGATIVE) mg/dL Urine Ketones (NEGATIVE) mg/dL Urine Occult Blood (NEGATIVE) Urine Nitrite (NEGATIVE) Urine Bilirubin (NEGATIVE) Urine Ictotest Urine Urobilinogen (<2.0) EU/dL Ur Leukocyte Esterase (NEGATIVE) Urine RBC (0-2/HPF) Urine WBC (0-5/HPF) Ur Epithelial Cells (NONE-FEW) Amorphous Sediment (NEGATIVE) Urine Bacteria (NEGATIVE) 01/30/18 01/30/18 01/30/18 Range/Units 08:46 14:57 21:02 WBC (4.0-11.0) K/uL RBC (4.30-5.90) M/uL Hgb (12.0-16.0) g/dL Hct (36.0-46.0) % MCV (80.0-98.0) fL MCH (27.0-32.0) pg MCHC (31.0-37.0) g/dL RDW Std Deviation (28.0-62.0) fl RDW Coeff of Brisa (11.0-15.0) % Plt Count (150-400) K/uL MPV (7.40-12.00) fL Neut % (Auto) (48.0-80.0) % Lymph % (Auto) (16.0-40.0) % [place] % (Auto) (0.0-15.0) % Eos % (Auto) (0.0-7.0) % Baso % (Auto) (0.0-1.5) % Neut # (Auto) (1.4-5.7) K/uL Lymph # (Auto) (0.6-2.4) K/uL [place] # (Auto) (0.0-0.8) K/uL Eos # (Auto) (0.0-0.7) K/uL Baso # (Auto) (0.0-0.1) K/uL Add Manual Diff Neutrophils % (Manual) (48.0-80.0) % Band Neutrophils % % Lymphocytes % (Manual) (16.0-40.0) % Monocytes % (Manual) (0.0-15.0) % Eosinophils % (Manual) (0.0-7.0) % Nucleated RBC % /100WBC Absolute Seg Neuts (1.4-5.7) Band Neutrophils # Lymphocytes # (Manual) (0.6-2.4) Monocytes # (Manual) (0.0-0.8) Eosinophils # (Manual) (0.0-0.7) Nucleated RBCs # K/uL INR APTT (18.6-31.3) SEC Sodium (136-145) mmol/L Potassium (3.5-5.1) mmol/L Chloride (98-107) mmol/L Carbon Dioxide (21.0-32.0) mmol/L BUN (7.0-18.0) mg/dL Creatinine (0.6-1.0) mg/dL Est Cr Clr Drug Dosing Estimated GFR (MDRD) ml/min Glucose (74-106) mg/dL Calcium (8.5-10.1) mg/dL Total Bilirubin (0.2-1.0) mg/dL AST (15-37) IU/L ALT (14-63) IU/L Alkaline Phosphatase (46-116) U/L Troponin I < 0.050 < 0.050 (0.000-0.056) ng/mL Total Protein (6.4-8.2) g/dL Albumin (3.4-5.0) g/dL Globulin (2.0-3.5) g/dL Albumin/Globulin Ratio (1.3-2.8) Urine Color DARK YELLOW Urine Appearance SLT CLOUDY Urine pH 5.5 (5.0-8.0) Ur Specific [place] 1.020 (1.001-1.035) Urine Protein TRACE (NEGATIVE) mg/dL Urine Glucose (UA) NEGATIVE (NEGATIVE) mg/dL Urine Ketones TRACE H (NEGATIVE) mg/dL Urine Occult Blood MODERATE (NEGATIVE) Urine Nitrite NEGATIVE (NEGATIVE) Urine Bilirubin SMALL H (NEGATIVE) Urine Ictotest NEGATIVE Urine Urobilinogen 0.2 (<2.0) EU/dL Ur Leukocyte Esterase NEGATIVE (NEGATIVE) Urine RBC 1-2 (0-2/HPF) Urine WBC 0-1 (0-5/HPF) Ur Epithelial Cells MODERATE (NONE-FEW) Amorphous Sediment FEW (NEGATIVE) Urine Bacteria FEW (NEGATIVE) 01/31/18 01/31/18 Range/Units 05:50 05:50 WBC 8.02 (4.0-11.0) K/uL RBC 4.19 L (4.30-5.90) M/uL Hgb 12.5 (12.0-16.0) g/dL Hct 36.9 (36.0-46.0) % MCV 88.1 (80.0-98.0) fL MCH 29.8 (27.0-32.0) pg MCHC 33.9 (31.0-37.0) g/dL RDW Std Deviation 45.3 (28.0-62.0) fl RDW Coeff of Brisa 14 (11.0-15.0) % Plt Count 309 (150-400) K/uL MPV 8.80 (7.40-12.00) fL Neut % (Auto) (48.0-80.0) % Lymph % (Auto) (16.0-40.0) % [place] % (Auto) (0.0-15.0) % Eos % (Auto) (0.0-7.0) % Baso % (Auto) (0.0-1.5) % Neut # (Auto) (1.4-5.7) K/uL Lymph # (Auto) (0.6-2.4) K/uL [place] # (Auto) (0.0-0.8) K/uL Eos # (Auto) (0.0-0.7) K/uL Baso # (Auto) (0.0-0.1) K/uL Add Manual Diff YES Neutrophils % (Manual) 66 (48.0-80.0) % Band Neutrophils % 3 % Lymphocytes % (Manual) 20 (16.0-40.0) % Monocytes % (Manual) 8 (0.0-15.0) % Eosinophils % (Manual) 3 (0.0-7.0) % Nucleated RBC % 0.0 /100WBC Absolute Seg Neuts 5.3 (1.4-5.7) Band Neutrophils # 0.2 Lymphocytes # (Manual) 1.6 (0.6-2.4) Monocytes # (Manual) 0.6 (0.0-0.8) Eosinophils # (Manual) 0.2 (0.0-0.7) Nucleated RBCs # 0 K/uL INR APTT (18.6-31.3) SEC Sodium 135 L (136-145) mmol/L Potassium 3.7 (3.5-5.1) mmol/L Chloride 99 (98-107) mmol/L Carbon Dioxide 32.1 H (21.0-32.0) mmol/L BUN 13 (7.0-18.0) mg/dL Creatinine 1.0 (0.6-1.0) mg/dL Est Cr Clr Drug Dosing 29.34 Estimated GFR (MDRD) 52.3 ml/min Glucose 96 (74-106) mg/dL Calcium 8.8 (8.5-10.1) mg/dL Total Bilirubin (0.2-1.0) mg/dL AST (15-37) IU/L ALT (14-63) IU/L Alkaline Phosphatase (46-116) U/L Troponin I (0.000-0.056) ng/mL Total Protein (6.4-8.2) g/dL Albumin (3.4-5.0) g/dL Globulin (2.0-3.5) g/dL Albumin/Globulin Ratio (1.3-2.8) Urine Color Urine Appearance Urine pH (5.0-8.0) Ur Specific [place] (1.001-1.035) Urine Protein (NEGATIVE) mg/dL Urine Glucose (UA) (NEGATIVE) mg/dL Urine Ketones (NEGATIVE) mg/dL Urine Occult Blood (NEGATIVE) Urine Nitrite (NEGATIVE) Urine Bilirubin (NEGATIVE) Urine Ictotest Urine Urobilinogen (<2.0) EU/dL Ur Leukocyte Esterase (NEGATIVE) Urine RBC (0-2/HPF) Urine WBC (0-5/HPF) Ur Epithelial Cells (NONE-FEW) Amorphous Sediment (NEGATIVE) Urine Bacteria (NEGATIVE) Med Orders - Current: Current Medications Acetaminophen (Tylenol) 650 mg PO Q4H PRN PRN Reason: Pain (mild 1-3) Last Admin: 01/31/18 08:15 Dose: 650 mg Albuterol (Ventolin Hfa) 0 gm INH Q4HRRT PRN PRN Reason: Shortness of Breath Albuterol/Ipratropium (Duoneb 3.0-0.5 Mg/3 Ml) 3 ml INH TID PRN PRN Reason: Shortness of Breath Aspirin (Aspirin) 81 mg PO DAILY [facility] Last Admin: 01/31/18 08:15 Dose: 81 mg Calcium Carbonate/Glycine (Tums) 500 mg PO BIDMEALS [facility] Last Admin: 01/31/18 08:16 Dose: 500 mg Fluticasone Propionate (Flonase) 16 gm NASBOTH DAILY PRN PRN Reason: ALLERGY Furosemide (Lasix) 40 mg PO DAILY [facility] Last Admin: 01/31/18 08:15 Dose: 40 mg Levothyroxine Sodium (Levothyroxine) 75 mcg PO ACBREAKFAST [facility] Last Admin: 01/31/18 06:42 Dose: 75 mcg Metoprolol Succinate (Toprol Xl) 100 mg PO BIDMEALS [facility] Last Admin: 01/31/18 08:15 Dose: 100 mg Morphine Sulfate (Morphine) 2 mg IVPUSH Q2H PRN PRN Reason: Pain (severe 7-10) Last Admin: 01/30/18 16:47 Dose: 2 mg Omeprazole (Omeprazole) 20 mg PO ACBREAKFAST PRN PRN Reason: Heartburn Ondansetron HCl (Zofran) 4 mg IVPUSH Q4H PRN PRN Reason: Nausea Fluticasone/ (Vilanterol 1 Puff) 1 each INH DAILY [facility] Sodium Chloride (Saline Flush) 2.5 ml FLUSH ASDIRECTED PRN PRN Reason: Keep Vein Open Tramadol HCl (Ultram) 50 mg PO Q6H PRN PRN Reason: Pain Last Admin: 01/31/18 06:42 Dose: 50 mg Vitamin E (Vitamin E) 400 units PO DAILY [facility] Last Admin: 01/31/18 08:15 Dose: 400 units Discontinued Medications Aspirin (Aspirin) Confirm Administered Dose 324 mg .ROUTE .STK-MED ONE Stop: 01/30/18 09:03 Last Admin: 01/30/18 16:29 Dose: Not Given - Exam Quality Assessment: Reports: DVT Prophylaxis. Denies: Supplemental Oxygen General: Reports: Alert, Oriented, Cooperative, No Acute Distress Neck: Reports: Supple Lungs: Reports: Clear to Auscultation, Normal Respiratory Effort Cardiovascular: Reports: Regular Rate, Regular Rhythm GI/Abdominal Exam: Normal Bowel Sounds, Soft, Non-Tender, No Organomegaly, No Distention, No Abnormal Bruit, No Mass, Pelvis Stable Back Exam: Reports: Normal Inspection, Full Range of Motion, Other (tenderness between shoulder blades, just right of spinal cord on mid trapezius muscle. Midsternum extreme tenderness to palpation) Neurological: Reports: No New Focal Deficit Psy/Mental Status: Reports: Alert, Normal Affect, Normal Mood *Q Meaningful Use (DIS) - VTE *Q VTE Pharmacological Contraindications *Q: Risk of Bleeding
[2018-01-31] MEDS ORDERED: Aspirin 81 MG Tab.Chew PO SCH (09:00)
[2018-01-31] MEDS ORDERED: Vitamin E (dl-alpha-tocopherol acetate) 400 Unit Cap PO SCH (09:00)
[2018-01-31] MEDS ORDERED: Fluticasone/Vilanterol 1 PUFF INH SCH (09:00)
== END 2018-01-31 10:20 | disposition home or self-care (01) ==
LOC: MW.ED 08:38 → MW.ICU 10:55
PROVIDERS: ADMIT Internal Medicine; ATTEND Internal Medicine
DX: R07.89 Other chest pain (principal); I11.0 Hypertensive heart disease with heart failure; I50.9 Heart failure, unspecified; I34.0 Nonrheumatic mitral (valve) insufficiency; I34.1 Nonrheumatic mitral (valve) prolapse; J45.909 Unspecified asthma, uncomplicated; E03.9 Hypothyroidism, unspecified; K57.90 Diverticulosis of intestine, part unspecified, without perforation or abscess without bleeding; I48.91 Unspecified atrial fibrillation; Z79.82 Long term (current) use of aspirin; Z79.51 Long term (current) use of inhaled steroids; Z91.018 Allergy to other foods; Z88.5 Allergy status to narcotic agent; Z88.8 Allergy status to other drugs, medicaments and biological substances; Z91.040 Latex allergy status; Z91.013 Allergy to seafood; Z91.09 Other allergy status, other than to drugs and biological substances
CPT/HCPCS: 36415; 71045; 80048; 80053; 81001; 84484; 85025; 85610; 85730; 93005; 94664; 96374; 99285; A9270; G0378; J2270; 99284

== ENCOUNTER 2018-03-24 10:45 | Emergency (ER) | payer MEDICARE, OTHER ==
--- NOTE | 2018-03-24 11:06 | EDM.PDOC ---
ED HPI GENERAL MEDICAL PROBLEM - General Stated Complaint: STOMACH HURTS Time Seen by Provider: 03/24/18 11:06 Source of Information: Reports: Patient, Old Records History Limitations: Reports: No Limitations - History of Present Illness INITIAL COMMENTS - FREE TEXT/NARRATIVE: HISTORY AND PHYSICAL: []88-year-old female presenting with abdominal pain History of Present Illness: [Patient states that her abdominal pain started sometime last night. She did have his bowel movement yesterday Past medical history includes CHF with severe mitral valve insufficiency Mitral valve prolapse Diverticulitis/diverticulosis History of pancreatitis Presented with chest pain in the past Has felt overall fatigue States that the lens in her eye has slipped has seen 2 different ophthalmologists and has an appointment scheduled in [place] He does have Tylenol and tramadol at home has obtained little relief Denies any urinary symptoms no cough or fevers no neurologic deficits Her primary care physician is Dr. Quezada. She does have history of DVT She does report history of appendectomy and cholecystectomy adnoidectomy cataract surgery and tonsillectomy] Review of Systems: As per history of present illness and below otherwise all systems reviewed and negative. Past medical history: As per history of present illness and as reviewed below otherwise noncontributory. Surgical history: As per history of present illness and as reviewed below otherwise noncontributory. Social history: No reported history of drug or alcohol abuse. Family history: As per history of present illness and as reviewed below otherwise noncontributory. Physical exam: HEENT: Atraumatic, normocehpalic, pupils reactive, negative for conjunctival pallor or scleral icterus, mucous membranes moist, throat clear, neck supple, nontender, trachea midline. Lungs: Clear to auscultation, breath sounds equal bilaterally, chest non tender. Heart: S1S2, regular, negative for clicks, rubs, or JVD. Abdomen: Soft, nondistended, nontender. Negative for masses or hepatossplenmegaly. Negative for costovertebral tenderness. Pelvis: Stable nontender. Genitourinary: Deferred. Rectal: Deferred Extremities: Atraumatic, negative for cords or calf pain. Neurovascular unremarkable. Neuro: Awake, alert, oriented. Cranial nerves II through XII unremarkable. Cerebellum unremarkable. Motor and sensory unremarkable throughout. Exam nonfocal. Diagnostics: [CBC CMP UA troponin fentanyl 25] Therapeutics: []Normal saline Impression: []Small sliding hiatal hernia Early diverticulitis Plan: []Discharged home Prescription for Zofran Prescription for cephalexin Definitive disposition and diagnosis as appropriate pending reevaluation and review of above. Onset: Sudden Duration: Hour(s): Location: Reports: Abdomen (Since last night) Quality: Reports: Ache Severity: Mild Improves with: Reports: None Worsens with: Reports: None abdominal pain Pain Score (Numeric/FACES): 8 - Related Data Allergies Allergy/AdvReac Type Severity Reaction Status Date / Time meza Allergy Anaphylactic Verified 03/24/18 11:10 Shock codeine Allergy Other Verified 03/24/18 11:10 dipyridamole [From Aggrenox] Allergy unknown Verified 03/24/18 11:10 Latex, Natural Rubber Allergy Itching Verified 03/24/18 11:10 shrimp Allergy Hives Verified 03/24/18 11:10 dust mites Allergy Sneezing Uncoded 03/24/18 11:10 pollen Allergy Hives Uncoded 03/24/18 11:10 Home Meds: Home Meds Aspirin 81 mg PO DAILY 09/19/15 [History] Calcium Carbonate 600 mg PO BIDMEALS 09/19/15 [History] Multivitamin [Multivitamins] 1 cap PO DAILY 09/19/15 [History] Potassium Chloride 10 meq PO DAILY 09/19/15 [History] Vitamin E 400 units PO DAILY 09/19/15 [History] L Acidophil/B Lactis/B Longum [Florajen3] 460 mg PO DAILY 10/09/16 [History] Ipratropium/Albuterol Sulfate [Iprat-Albut 0.5-3(2.5) mg/3 ml] 3 ml IH TID PRN 03/31/17 [History] Fluticasone/Vilanterol [Breo Ellipta 100-25 MCG Inhalation Kit] 1 puff IH DAILY #1 inhaler 04/01/17 [Rx] Albuterol [Proventil HFA] 2 puff INH Q4HRRT PRN 12/07/17 [History] Fluticasone Propionate [Flonase] 16 gm NS DAILY PRN 12/07/17 [History] Levothyroxine 75 mcg PO ACBREAKFAST 12/07/17 [History] Omeprazole 20 mg PO ACBREAKFAST PRN 12/07/17 [History] Furosemide 40 mg PO DAILY #0 12/08/17 [Rx] Metoprolol Succinate [Toprol XL] 100 mg PO BIDMEALS 01/30/18 [History] Acetaminophen [Tylenol] 650 mg PO Q4H PRN tablet 01/31/18 [Rx] traMADol [Ultram] 50 mg PO Q6H PRN #15 tablet 01/31/18 [Rx] Cephalexin 500 mg PO TID #21 capsule 03/24/18 [Rx] Ondansetron HCl [Zofran] 4 mg PO BID #14 tablet 03/24/18 [Rx] Past Medical History - Past Health History Medical/Surgical History: Denies Medical/Surgical History HEENT History: Reports: Cataract, Impaired Vision, 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) Other HEENT History: wears glasses all the time Cardiovascular History: Reports: Afib, Heart Failure, Hypertension, 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) Other Cardiovascular History: 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 Respiratory History: Reports: Asthma Gastrointestinal History: Reports: Bowel Obstruction, Diverticulosis, Pancreatitis, 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) (esophageal diverticulum) Genitourinary History: Reports: None DIRECTOR OF CAREER RESOURCES History: Reports: , 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; D&C, stillbirth Musculoskeletal History: Reports: Fracture Neurological History: Reports: None. Denies: CVA, TIA Psychiatric History: Reports: None Endocrine/Metabolic History: Reports: Hypothyroidism. Denies: Diabetes, Type II Hematologic History: Reports: Anemia, 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) Other Hematologic History: blood clots in the leg Immunologic History: Reports: None Oncologic (Cancer) History: Reports: None Dermatologic History: Reports: None - Infectious Disease History Infectious Disease History: Reports: Chicken Pox, Measles - Past Surgical History Head Surgeries/Procedures: Reports: None HEENT Surgical History: Reports: Adenoidectomy, Cataract Surgery, Tonsillectomy Cardiovascular Surgical History: Reports: None Respiratory Surgical History: Reports: None GI Surgical History: Reports: Appendectomy, Cholecystectomy Endocrine Surgical History: Reports: None Musculoskeletal Surgical History: Reports: None Social & Family History - Family History Family Medical History: Noncontributory HEENT: Reports: Impaired Vision Cardiac: Reports: Hypertension, [place], Prior Cardiac Arrest OBGYN: Reports: Neurological: Reports: CVA - Caffeine Use Caffeine Use: Reports: None Caffeine Use Comment: decaf - Living Situation & Occupation Living situation: Reports: , Alone Occupation: Retired ED ROS GENERAL - Review of Systems Review Of Systems: ROS reveals no pertinent complaints other than HPI. ED EXAM, GENERAL - Physical Exam Exam: See Below (See dictation) EKG INTERPRETATION EKG Date: 03/24/18 Rhythm: NSR Rate (Beats/Min): 61 Comparison: No Change Course - Vital Signs Last Recorded V/S: Last Vital Signs Temp 36.8 C 03/24/18 14:32 Pulse 80 03/24/18 14:32 Resp 18 03/24/18 14:32 BP 130/55 L 03/24/18 14:32 Pulse Ox 97 03/24/18 14:32 - Orders/Labs/Meds Orders: Active Orders 24 hr Category Date Time Status EKG Documentation Completion [RC] STAT Care 03/24/18 11:14 Active Abdomen Pelvis wo Cont [CT] Stat Exams 03/24/18 12:39 Taken Chest 2V [CR] Stat Exams 03/24/18 11:14 Taken UA W/MICROSCOPIC [URIN] Stat Lab 03/24/18 13:23 Ordered Sodium Chloride 0.9% [Saline Flush] Med 03/24/18 11:14 Active 10 ml FLUSH ASDIRECTED PRN Sodium Chloride 0.9% [Saline Flush] Med 03/24/18 11:14 Active 2.5 ml FLUSH ASDIRECTED PRN Saline Lock Insert [OM.PC] Stat Oth 03/24/18 11:14 Ordered Medication Orders Sodium Chloride (Saline Flush) 10 ml FLUSH ASDIRECTED PRN PRN Reason: Keep Vein Open Sodium Chloride (Saline Flush) 2.5 ml FLUSH ASDIRECTED PRN PRN Reason: Keep Vein Open Labs: Laboratory Tests 03/24/18 03/24/18 03/24/18 Range/Units 11:55 11:55 11:55 WBC 15.68 H (4.0-11.0) K/uL RBC 4.96 (4.30-5.90) M/uL Hgb 14.8 (12.0-16.0) g/dL Hct 44.1 (36.0-46.0) % MCV 88.9 (80.0-98.0) fL MCH 29.8 (27.0-32.0) pg MCHC 33.6 (31.0-37.0) g/dL RDW Std Deviation 46.6 (28.0-62.0) fl RDW Coeff of Brisa 14 (11.0-15.0) % Plt Count 321 (150-400) K/uL MPV 9.40 (7.40-12.00) fL Neut % (Auto) 78.9 (48.0-80.0) % Lymph % (Auto) 11.6 L (16.0-40.0) % [place] % (Auto) 5.9 (0.0-15.0) % Eos % (Auto) 3.3 (0.0-7.0) % Baso % (Auto) 0.3 (0.0-1.5) % Neut # (Auto) 12.4 H (1.4-5.7) K/uL Lymph # (Auto) 1.8 (0.6-2.4) K/uL [place] # (Auto) 0.9 H (0.0-0.8) K/uL Eos # (Auto) 0.5 (0.0-0.7) K/uL Baso # (Auto) 0.1 (0.0-0.1) K/uL Nucleated RBC % 0.0 /100WBC Nucleated RBCs # 0 K/uL Sodium 137 (136-145) mmol/L Potassium 4.8 (3.5-5.1) mmol/L Chloride 103 (98-107) mmol/L Carbon Dioxide 27.7 (21.0-32.0) mmol/L BUN 19 H (7.0-18.0) mg/dL Creatinine 1.0 (0.6-1.0) mg/dL Est Cr Clr Drug Dosing 29.34 mL/min Estimated GFR (MDRD) 52.3 ml/min Glucose 149 H (74-106) mg/dL Calcium 9.6 (8.5-10.1) mg/dL Total Bilirubin 0.6 (0.2-1.0) mg/dL AST 29 (15-37) IU/L ALT 25 (14-63) IU/L Alkaline Phosphatase 75 (46-116) U/L Troponin I < 0.050 (0.000-0.056) ng/mL B-Natriuretic Peptide 314 H (<100) PG/ML Total Protein 7.4 (6.4-8.2) g/dL Albumin 3.6 (3.4-5.0) g/dL Globulin 3.8 H (2.0-3.5) g/dL Albumin/Globulin Ratio 1.0 L (1.3-2.8) Amylase 72 (25-115) U/L Lipase 114 (73-393) U/L Urine Color Urine Appearance Urine pH (5.0-8.0) Ur Specific [place] (1.001-1.035) Urine Protein (NEGATIVE) mg/dL Urine Glucose (UA) (NEGATIVE) mg/dL Urine Ketones (NEGATIVE) mg/dL Urine Occult Blood (NEGATIVE) Urine Nitrite (NEGATIVE) Urine Bilirubin (NEGATIVE) Urine Urobilinogen (<2.0) EU/dL Ur Leukocyte Esterase (NEGATIVE) Urine RBC (0-2/HPF) Urine WBC (0-5/HPF) Ur Epithelial Cells (NONE-FEW) Urine Bacteria (NEGATIVE) Urine Yeast 03/24/18 Range/Units 13:23 WBC (4.0-11.0) K/uL RBC (4.30-5.90) M/uL Hgb (12.0-16.0) g/dL Hct (36.0-46.0) % MCV (80.0-98.0) fL MCH (27.0-32.0) pg MCHC (31.0-37.0) g/dL RDW Std Deviation (28.0-62.0) fl RDW Coeff of Brisa (11.0-15.0) % Plt Count (150-400) K/uL MPV (7.40-12.00) fL Neut % (Auto) (48.0-80.0) % Lymph % (Auto) (16.0-40.0) % [place] % (Auto) (0.0-15.0) % Eos % (Auto) (0.0-7.0) % Baso % (Auto) (0.0-1.5) % Neut # (Auto) (1.4-5.7) K/uL Lymph # (Auto) (0.6-2.4) K/uL [place] # (Auto) (0.0-0.8) K/uL Eos # (Auto) (0.0-0.7) K/uL Baso # (Auto) (0.0-0.1) K/uL Nucleated RBC % /100WBC Nucleated RBCs # K/uL Sodium (136-145) mmol/L Potassium (3.5-5.1) mmol/L Chloride (98-107) mmol/L Carbon Dioxide (21.0-32.0) mmol/L BUN (7.0-18.0) mg/dL Creatinine (0.6-1.0) mg/dL Est Cr Clr Drug Dosing mL/min Estimated GFR (MDRD) ml/min Glucose (74-106) mg/dL Calcium (8.5-10.1) mg/dL Total Bilirubin (0.2-1.0) mg/dL AST (15-37) IU/L ALT (14-63) IU/L Alkaline Phosphatase (46-116) U/L Troponin I (0.000-0.056) ng/mL B-Natriuretic Peptide (<100) PG/ML Total Protein (6.4-8.2) g/dL Albumin (3.4-5.0) g/dL Globulin (2.0-3.5) g/dL Albumin/Globulin Ratio (1.3-2.8) Amylase (25-115) U/L Lipase (73-393) U/L Urine Color YELLOW Urine Appearance CLEAR Urine pH 5.5 (5.0-8.0) Ur Specific [place] 1.025 (1.001-1.035) Urine Protein NEGATIVE (NEGATIVE) mg/dL Urine Glucose (UA) NEGATIVE (NEGATIVE) mg/dL Urine Ketones NEGATIVE (NEGATIVE) mg/dL Urine Occult Blood TRACE-INTACT (NEGATIVE) Urine Nitrite NEGATIVE (NEGATIVE) Urine Bilirubin NEGATIVE (NEGATIVE) Urine Urobilinogen 0.2 (<2.0) EU/dL Ur Leukocyte Esterase NEGATIVE (NEGATIVE) Urine RBC 1-3 (0-2/HPF) Urine WBC 3-6 (0-5/HPF) Ur Epithelial Cells FEW (NONE-FEW) Urine Bacteria FEW (NEGATIVE) Urine Yeast OCCASIONAL Meds: Medications Generic Name Dose Route Start Last Admin Trade Name Freq PRN Reason Stop Dose Admin Sodium Chloride 10 ml 03/24/18 11:14 Saline Flush FLUSH ASDIRECTED PRN Keep Vein Open Sodium Chloride 2.5 ml 03/24/18 11:14 Saline Flush FLUSH ASDIRECTED PRN Keep Vein Open Discontinued Medications Generic Name Dose Route Start Last Admin Trade Name Fredyq PRN Reason Stop Dose Admin Fentanyl 25 mcg 03/24/18 11:23 03/24/18 12:00 Sublimaze IVPUSH 03/24/18 11:24 25 mcg ONETIME ONE Administration Sodium Chloride 1,000 mls @ 999 mls/hr 03/24/18 11:14 03/24/18 12:02 Normal Saline IV 03/24/18 12:14 999 mls/hr STAT ONE Administration Ondansetron HCl 4 mg 03/24/18 11:14 03/24/18 11:59 Zofran IVPUSH 03/24/18 11:15 4 mg ONETIME ONE Administration Departure - Departure Time of Disposition: 14:56 Disposition: Home, Self-Care 01 Condition: Good Clinical Impression: Hiatal hernia, Diverticulitis Abdominal pain Qualifiers: Abdominal location: upper abdomen, unspecified Qualified Code(s): R10.10 - Upper abdominal pain, unspecified - Discharge Information Prescriptions: Cephalexin 500 mg PO TID #21 capsule Ondansetron HCl [Zofran] 4 mg PO BID #14 tablet Instructions: Hernia, Adult, Diverticulitis, [id number], Abdominal Pain, Adult Referrals: PCP,None [Primary Care Provider] - Additional Instructions: The following information is given to patients seen in the emergency department who are being discharged to home. This information is to outline your options for follow-up care. We provide all patients seen in our emergency department with a follow-up referral. The need for follow-up, as well as the timing and circumstances, are variable depending upon the specifics of your emergency department visit. If you don't have a primary care physician on staff, we will provide you with a referral. We always advise you to contact your personal physician following an emergency department visit to inform them of the circumstance of the visit and for follow-up with them and/or the need for any referrals to a consulting specialist. The emergency department will also refer you to a specialist when appropriate. This referral assures that you have the opportunity for followup care with a specialist. All of these measure are taken in an effort to provide you with optimal care, which includes your followup. Under all circumstances we always encourage you to contact your private physician who remains a resource for coordinating your care. When calling for followup care, please make the office aware that this follow-up is from your recent emergency room visit. If for any reason you are refused follow-up, please contact the [facility] emergency department at and asked to speak to the emergency department charge nurse. small sliding hiatal hernia noted on CT scan Diverticulosis with mild tenderness left lower quadrant Nausea likely related to pain Zofran may be taken twice a day - My Orders Last 24 Hours: My Active Orders 03/24/18 11:14 EKG Documentation Completion [RC] STAT Chest 2V [CR] Stat Sodium Chloride 0.9% [Saline Flush] 10 ml FLUSH ASDIRECTED PRN Sodium Chloride 0.9% [Saline Flush] 2.5 ml FLUSH ASDIRECTED PRN Saline Lock Insert [OM.PC] Stat 03/24/18 12:39 Abdomen Pelvis wo Cont [CT] Stat 03/24/18 13:23 UA W/MICROSCOPIC [URIN] Stat - Assessment/Plan Last 24 Hours: My Active Orders 03/24/18 11:14 EKG Documentation Completion [RC] STAT Chest 2V [CR] Stat Sodium Chloride 0.9% [Saline Flush] 10 ml FLUSH ASDIRECTED PRN Sodium Chloride 0.9% [Saline Flush] 2.5 ml FLUSH ASDIRECTED PRN Saline Lock Insert [OM.PC] Stat 03/24/18 12:39 Abdomen Pelvis wo Cont [CT] Stat 03/24/18 13:23 UA W/MICROSCOPIC [URIN] Stat
[2018-03-24] MEDS ORDERED: Sodium Chloride 0.9% 1,000 ML IV ONE (11:14)
[2018-03-24] MEDS ORDERED: Sodium Chloride 0.9% 2.5 ML Syringe FLUSH PRN (11:14)
[2018-03-24] MEDS ORDERED: Ondansetron 4 MG/2 ML SDV IVPUSH ONE (11:14)
[2018-03-24] MEDS ORDERED: Sodium Chloride 0.9% 10 ML Syringe FLUSH PRN (11:14)
[2018-03-24] MEDS ORDERED: fentaNYL 100 MCG/2 ML SDV IVPUSH ONE (11:23)
[2018-03-24 12:34] LABS: CHLORIDE,CL 103 mmol/L (98-107); SODIUM,NA 137 mmol/L (136-145)
[2018-03-24 15:17] VITALS: BP 129/54
--- NOTE | 2018-03-26 10:46 | CR ---
EXAM DATE: 03/24/18 PATIENT'S AGE: 88 Patient: PANCHO SALAS Facility: [place], [place] Site . Site : [id number] Study: XRay Chest [id number] 1:19:18 PM Ordering Physician: Doctor Chou Final Report: INDICATION: Pain. Shortness of breath. TECHNIQUE: PA and lateral chest. COMPARISON: Portable chest January 30, 2018. FINDINGS: No focal or diffuse infiltrate within either lung. No pleural effusions. The left atrium is mildly prominent on the lateral view. Dense mitral annular calcification. Probable small esophageal hiatal hernia. Vascular calcification within the thoracic aorta. Mild scalloping of the right hemidiaphragm. The included skeletal thorax is unremarkable. IMPRESSION: No acute cardiopulmonary process identified. Dictated by Alex Hayes MD @ 03/24/2018 1:31:34 PM Dictated by: Alex Hayes MD @ 03/24/2018 13:31:41 (Electronic Signature) Report Signed by Proxy. JAIME
--- NOTE | 2018-03-26 10:46 | CT ---
EXAM DATE: 03/24/18 PATIENT'S AGE: 88 Patient: PANCHO SALAS Facility: [place], [place] Site . Site : 1930 Study: CT Abdomen/Pelvis [id number]/19/2018 1:20:18 PM Ordering Physician: Doctor Chou Final Report: Abdominal pain history diverticulitis COMPARISON: CT abdomen and pelvis 09/30/2016. Technique: The heart is mildly enlarged. Tiny pleural effusions and basilar atelectasis. Lingular calcified granuloma. Basilar atelectasis. Small hiatal hernia. Left hepatic cysts. The pancreas adrenal glands, spleen appears unremarkable. 7 cm right renal cyst. No abdominal aortic aneurysm. Kidneys are otherwise unremarkable. Urinary bladder is unremarkable. Diverticulosis. Umbilical hernia containing fat and small bowel without obstruction. No inflammatory change visualized. 2.6 centimeter right ovarian cyst unchanged there no suspicious bony lesions. IMPRESSION: 1. No acute findings in the abdomen or pelvis. Diverticulosis. Umbilical hernia containing fat and small bowel without incarceration. Please note that all CT scans at this facility use dose modulation, iterative reconstruction, and/or weight-based dosing when appropriate to reduce radiation dose to as low as reasonably achievable. Dictated by Peg Wood MD @ Mar 24 2018 1:31PM (Electronic Signature) Report Signed by Proxy. MTDD
== END 2018-03-24 15:41 | disposition home or self-care (01) ==
LOC: MW.ED 10:45
DX: K44.9 Diaphragmatic hernia without obstruction or gangrene (principal); K57.92 Diverticulitis of intestine, part unspecified, without perforation or abscess without bleeding; I48.91 Unspecified atrial fibrillation; I11.0 Hypertensive heart disease with heart failure; I50.9 Heart failure, unspecified; J45.909 Unspecified asthma, uncomplicated; E03.9 Hypothyroidism, unspecified; D64.9 Anemia, unspecified; Z90.49 Acquired absence of other specified parts of digestive tract; Z88.5 Allergy status to narcotic agent; Z91.013 Allergy to seafood; Z91.040 Latex allergy status; Z79.82 Long term (current) use of aspirin; Z79.899 Other long term (current) drug therapy; Z88.8 Allergy status to other drugs, medicaments and biological substances
CPT/HCPCS: 36415; 71046; 74176; 80053; 81001; 82150; 83690; 83880; 84484; 85025; 93005; 96361; 96374; 96375; 99285; J2405; J3010; J7040

== ENCOUNTER 2018-03-25 01:26 | Inpatient (IN) | payer MEDICARE, OTHER ==
[2018-03-25] MEDS ORDERED: Ondansetron 4 MG/2 ML SDV IVPUSH ONE (01:59)
[2018-03-25] MEDS ORDERED: Sodium Chloride 0.9% 500 ML IV SCH (02:00)
[2018-03-25 02:44] LABS: CHLORIDE,CL 102 mmol/L (98-107); SODIUM,NA 138 mmol/L (136-145)
[2018-03-25] MEDS ORDERED: metroNIDAZOLE/Normal Saline 500 MG in Premix Bag 1 BAG IV ONE (02:58)
[2018-03-25] MEDS ORDERED: Ciprofloxacin in D5W 400 MG in Premix Bag 1 BAG IV STA ×2 (02:58)
[2018-03-25] MEDS ORDERED: Morphine 4 MG/ML Syringe IVPUSH ONE (02:58)
--- NOTE | 2018-03-25 03:11 | EDM.PDOC ---
ED HPI GENERAL MEDICAL PROBLEM - General Chief Complaint: Gastrointestinal Problem Stated Complaint: VOMITING Time Seen by Provider: 03/25/18 03:10 Source of Information: Reports: Patient - History of Present Illness INITIAL COMMENTS - FREE TEXT/NARRATIVE: HISTORY AND PHYSICAL: History of present illness: [ Patient presents with abdominal pain and vomiting, she was seen yesterday with similar complaint provided antibiotics that she is not able to keep down she is diffusely tender particularly tender along her sigmoid colon she does have a CT scan from previous visit with no acute findings there is a small bowel containing umbilical hernia no incarceration on exam it is tender but reducible this morning she is diffusely tender throughout her abdomen next the focus of tenderness seems to be along the sigmoid at current consistent more with diverticulitis No fever chills sweats] Review of systems: As per history of present illness and below otherwise all systems reviewed and negative. Past medical history: As per history of present illness and as reviewed below otherwise noncontributory. Surgical history: As per history of present illness and as reviewed below otherwise noncontributory. Social history: No reported history of drug or alcohol abuse. Family history: As per history of present illness and as reviewed below otherwise noncontributory. Physical exam: HEENT: Atraumatic, normocephalic, pupils reactive, negative for conjunctival pallor or scleral icterus, mucous membranes moist, throat clear, neck supple, nontender, trachea midline. Lungs: Clear to auscultation, breath sounds equal bilaterally, chest nontender. Heart: S1S2, regular, negative for clicks, rubs, or JVD. Abdomen: Soft, nondistended, diffusely tender focus along the sigmoid: Reducible umbilical hernia. Negative for masses or hepatosplenomegaly. Negative for costovertebral tenderness. Pelvis: Stable nontender. Genitourinary: Deferred. Rectal: Deferred. Extremities: Atraumatic, negative for cords or calf pain. Neurovascular unremarkable. Neuro: Awake, alert, oriented. Cranial nerves II through XII unremarkable. Cerebellum unremarkable. Motor and sensory unremarkable throughout. Exam nonfocal. Diagnostics: [CBC CMP UA CT abdomen pelvis on file with contrast ] Therapeutics: [] 15 2 mg IV Cipro 400 mg IV Flagyl 500 mg IV Normal saline [address] Kohler is a excepting physician, recommended surgical consultation to evaluate the umbilical hernia as patient has also has tenderness associated with this is reducible at this time but does contain small bowel on CT no evidence of incarceration oN CT Impression: [ abdominal pain nausea umbilical hernia with small bowel no evidence of incarceration ] Definitive disposition and diagnosis as appropriate pending reevaluation and review of above. abdomen Pain Score (Numeric/FACES): 8 - Related Data Allergies Allergy/AdvReac Type Severity Reaction Status Date / Time meza Allergy Anaphylactic Verified 03/25/18 01:55 Shock codeine Allergy Abdominal Verified 03/25/18 01:55 Cramps dipyridamole [From Aggrenox] Allergy unknown Verified 03/25/18 01:55 Latex, Natural Rubber Allergy Itching Verified 03/25/18 01:55 shrimp Allergy Hives Verified 03/25/18 01:55 dust mites Allergy Sneezing Uncoded 03/25/18 01:55 pollen Allergy Hives Uncoded 03/25/18 01:55 Home Meds: Home Meds Aspirin 81 mg PO DAILY 09/19/15 [History] Calcium Carbonate 600 mg PO BIDMEALS 09/19/15 [History] Multivitamin [Multivitamins] 1 cap PO DAILY 09/19/15 [History] Potassium Chloride 10 meq PO DAILY 09/19/15 [History] Vitamin E 400 units PO DAILY 09/19/15 [History] L Acidophil/B Lactis/B Longum [Florajen3] 460 mg PO DAILY 10/09/16 [History] Ipratropium/Albuterol Sulfate [Iprat-Albut 0.5-3(2.5) mg/3 ml] 3 ml IH TID PRN 03/31/17 [History] Fluticasone/Vilanterol [Breo Ellipta 100-25 MCG Inhalation Kit] 1 puff IH DAILY #1 inhaler 04/01/17 [Rx] Albuterol [Proventil HFA] 2 puff INH Q4HRRT PRN 12/07/17 [History] Fluticasone Propionate [Flonase] 16 gm NS DAILY PRN 12/07/17 [History] Levothyroxine 75 mcg PO ACBREAKFAST 12/07/17 [History] Omeprazole 20 mg PO ACBREAKFAST PRN 12/07/17 [History] Furosemide 40 mg PO DAILY #0 12/08/17 [Rx] Metoprolol Succinate [Toprol XL] 100 mg PO BIDMEALS 01/30/18 [History] Acetaminophen [Tylenol] 650 mg PO Q4H PRN tablet 01/31/18 [Rx] traMADol [Ultram] 50 mg PO Q6H PRN #15 tablet 01/31/18 [Rx] Cephalexin 500 mg PO TID #21 capsule 03/24/18 [Rx] Ondansetron HCl [Zofran] 4 mg PO BID #14 tablet 03/24/18 [Rx] Warfarin [Coumadin] 1 tab PO DAILY 03/25/18 [History] Past Medical History - Past Health History Medical/Surgical History: Denies Medical/Surgical History HEENT History: Reports: Cataract, Impaired Vision, 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) Other HEENT History: wears glasses all the time Cardiovascular History: Reports: Afib, Heart Failure, Hypertension, 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) Other Cardiovascular History: 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 Respiratory History: Reports: Asthma Gastrointestinal History: Reports: Bowel Obstruction, Diverticulosis, Pancreatitis, 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) Genitourinary History: Reports: None PAD CUTTER History: Reports: , 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; D&C, stillbirth Musculoskeletal History: Reports: Fracture Neurological History: Reports: None Psychiatric History: Reports: None Endocrine/Metabolic History: Reports: Hypothyroidism Hematologic History: Reports: Anemia, 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) Other Hematologic History: blood clots in the leg Immunologic History: Reports: None Oncologic (Cancer) History: Reports: None Dermatologic History: Reports: None - Infectious Disease History Infectious Disease History: Reports: Chicken Pox, Measles - Past Surgical History Head Surgeries/Procedures: Reports: None HEENT Surgical History: Reports: Adenoidectomy, Cataract Surgery, Tonsillectomy Cardiovascular Surgical History: Reports: None Respiratory Surgical History: Reports: None GI Surgical History: Reports: Appendectomy, Cholecystectomy Endocrine Surgical History: Reports: None Musculoskeletal Surgical History: Reports: None Social & Family History - Family History Family Medical History: Noncontributory HEENT: Reports: Impaired Vision Cardiac: Reports: Hypertension, PR, Prior Cardiac Arrest OBGYN: Reports: Neurological: Reports: CVA - Tobacco Use Smoking Status *Q: Never Smoker - Caffeine Use Caffeine Use: Reports: None Caffeine Use Comment: decaf - Recreational Drug Use Recreational Drug Use: No - Living Situation & Occupation Living situation: Reports: , Alone Occupation: Retired ED ROS GENERAL - Review of Systems Review Of Systems: ROS reveals no pertinent complaints other than HPI. ED EXAM, GENERAL - Physical Exam Exam: See Below Course - Vital Signs Last Recorded V/S: Last Vital Signs Temp 97 F 03/25/18 01:26 Pulse 80 03/25/18 03:15 Resp 18 03/25/18 03:15 BP 144/53 H 03/25/18 03:15 Pulse Ox 96 03/25/18 03:15 - Orders/Labs/Meds Orders: Active Orders 24 hr Category Date Time Status EKG Documentation Completion [RC] STAT Care 03/25/18 01:59 Active Chest 1V Frontal [CR] Stat Exams 03/25/18 01:59 Taken UA W/MICROSCOPIC [URIN] Stat Lab 03/25/18 01:59 Ordered Ciprofloxacin in D5W [Cipro in D5W 400 MG/200 ML] 400 Med 03/25/18 02:58 Active mg Premix Bag 1 bag IV NOW Sodium Chloride 0.9% [Normal Saline] 500 ml Med 03/25/18 02:00 Active IV STAT metroNIDAZOLE/Normal Saline [Flagyl 500 MG in NS 100 ML Med 03/25/18 02:58 Active ] 500 mg Premix Bag 1 bag IV ONETIME Medication Orders Sodium Chloride (Normal Saline) 500 mls @ 999 mls/hr IV STAT AZUL Last Admin: 03/25/18 02:12 Dose: 999 mls/hr Ciprofloxacin/Dextrose 400 mg/ (Premix) 200 mls @ 200 mls/hr IV NOW STA Stop: 03/25/18 03:57 Last Admin: 03/25/18 03:17 Dose: 200 mls/hr Metronidazole 500 mg/ Premix 100 mls @ 100 mls/hr IV ONETIME ONE Stop: 03/25/18 03:57 Last Admin: 03/25/18 03:20 Dose: 100 mls/hr Labs: Laboratory Tests 03/25/18 03/25/18 03/25/18 Range/Units 02:10 02:10 02:10 WBC 13.88 H (4.0-11.0) K/uL RBC 4.87 (4.30-5.90) M/uL Hgb 14.6 (12.0-16.0) g/dL Hct 43.2 (36.0-46.0) % MCV 88.7 (80.0-98.0) fL MCH 30.0 (27.0-32.0) pg MCHC 33.8 (31.0-37.0) g/dL RDW Std Deviation 46.3 (28.0-62.0) fl RDW Coeff of Brisa 14 (11.0-15.0) % Plt Count 328 (150-400) K/uL MPV 9.00 (7.40-12.00) fL Neut % (Auto) 84.0 H (48.0-80.0) % Lymph % (Auto) 8.1 L (16.0-40.0) % [place] % (Auto) 7.1 (0.0-15.0) % Eos % (Auto) 0.6 (0.0-7.0) % Baso % (Auto) 0.2 (0.0-1.5) % Neut # (Auto) 11.7 H (1.4-5.7) K/uL Lymph # (Auto) 1.1 (0.6-2.4) K/uL [place] # (Auto) 1.0 H (0.0-0.8) K/uL Eos # (Auto) 0.1 (0.0-0.7) K/uL Baso # (Auto) 0.0 (0.0-0.1) K/uL Nucleated RBC % 0.0 /100WBC Nucleated RBCs # 0 K/uL INR 1.12 Sodium 138 (136-145) mmol/L Potassium 4.1 (3.5-5.1) mmol/L Chloride 102 (98-107) mmol/L Carbon Dioxide 28.0 (21.0-32.0) mmol/L BUN 18 (7.0-18.0) mg/dL Creatinine 1.2 H (0.6-1.0) mg/dL Est Cr Clr Drug Dosing TNP Estimated GFR (MDRD) 42.4 ml/min Glucose 168 H (74-106) mg/dL Calcium 9.3 (8.5-10.1) mg/dL Total Bilirubin 0.6 (0.2-1.0) mg/dL AST 21 (15-37) IU/L ALT 23 (14-63) IU/L Alkaline Phosphatase 81 (46-116) U/L Troponin I < 0.050 (0.000-0.056) ng/mL Total Protein 7.5 (6.4-8.2) g/dL Albumin 3.6 (3.4-5.0) g/dL Globulin 3.9 H (2.0-3.5) g/dL Albumin/Globulin Ratio 0.9 L (1.3-2.8) Meds: Medications Generic Name Dose Route Start Last Admin Trade Name Freq PRN Reason Stop Dose Admin Sodium Chloride 500 mls @ 999 mls/hr 03/25/18 02:00 03/25/18 02:12 Normal Saline IV 999 mls/hr STAT AZUL Administration Ciprofloxacin/Dextrose 400 mg/ 200 mls @ 200 mls/hr 03/25/18 02:58 03/25/18 03:17 Premix IV 03/25/18 03:57 200 mls/hr NOW STA Administration Metronidazole 500 mg/ Premix 100 mls @ 100 mls/hr 03/25/18 02:58 03/25/18 03: 20 IV 03/25/18 03:57 100 mls/hr ONETIME ONE Administration Discontinued Medications Generic Name Dose Route Start Last Admin Trade Name Freq PRN Reason Stop Dose Admin Morphine Sulfate 2 mg 03/25/18 02:58 03/25/18 03:13 Morphine IVPUSH 03/25/18 02:59 2 mg ONETIME ONE Administration Ondansetron HCl 8 mg 03/25/18 01:59 03/25/18 02:12 Zofran IVPUSH 03/25/18 02:00 8 mg ONETIME ONE Administration Departure - Departure Time of Disposition: 03:36 Disposition: Admitted As Inpatient 66 Condition: Fair Clinical Impression: Abdominal pain, Vomiting - Discharge Information Referrals: Colette Quezada DO [Primary Care Provider] - Forms: ED Department Discharge - My Orders Last 24 Hours: My Active Orders 03/25/18 01:59 EKG Documentation Completion [RC] STAT Chest 1V Frontal [CR] Stat UA W/MICROSCOPIC [URIN] Stat 03/25/18 02:00 Sodium Chloride 0.9% [Normal Saline] 500 ml IV STAT 03/25/18 02:58 Ciprofloxacin in D5W [Cipro in D5W 400 MG/200 ML] 400 mg Premix Bag 1 bag IV NOW metroNIDAZOLE/Normal Saline [Flagyl 500 MG in NS 100 ML] 500 mg Premix Bag 1 bag IV ONETIME - Assessment/Plan Last 24 Hours: My Active Orders 03/25/18 01:59 EKG Documentation Completion [RC] STAT Chest 1V Frontal [CR] Stat UA W/MICROSCOPIC [URIN] Stat 03/25/18 02:00 Sodium Chloride 0.9% [Normal Saline] 500 ml IV STAT 03/25/18 02:58 Ciprofloxacin in D5W [Cipro in D5W 400 MG/200 ML] 400 mg Premix Bag 1 bag IV NOW metroNIDAZOLE/Normal Saline [Flagyl 500 MG in NS 100 ML] 500 mg Premix Bag 1 bag IV ONETIME
[2018-03-25] MEDS ORDERED: Albuterol/Ipratropium 3.0-0.5 MG/3 ML Neb Soln NEB PRN (05:09)
[2018-03-25] MEDS ORDERED: Sodium Chloride 0.9% 10 ML Syringe FLUSH PRN (05:09)
[2018-03-25] MEDS ORDERED: Sodium Chloride 0.9% 2.5 ML Syringe FLUSH PRN (05:09)
[2018-03-25] MEDS ORDERED: Fluticasone Propionate Nasal Spray 16 GM Bottle NAS PRN (05:12)
[2018-03-25] MEDS ORDERED: traMADol 50 MG Tab PO PRN (05:12)
[2018-03-25] MEDS ORDERED: Omeprazole 20 MG Cap.CR PO PRN (05:12)
[2018-03-25] MEDS ORDERED: Ondansetron 4 MG/2 ML SDV IVPUSH PRN (05:26)
[2018-03-25] MEDS ORDERED: Ciprofloxacin in D5W 400 MG in Premix Bag 1 BAG IV SCH ×2 (05:30)
[2018-03-25] MEDS ORDERED: Morphine 4 MG/ML Syringe IVPUSH PRN (05:50)
[2018-03-25] MEDS ORDERED: metroNIDAZOLE/Normal Saline 500 MG in Premix Bag 1 BAG IV SCH (06:00)
[2018-03-25] MEDS: Levothyroxine 75 MCG Tab PO SCH (06:30)
[2018-03-25] MEDS: Metoprolol Succinate 100 MG Tab.ER PO SCH ×2 (07:54→17:40)
[2018-03-25] MEDS: Potassium Chloride 10 MEQ Tab.ER PO SCH (08:15)
[2018-03-25] MEDS: Multivitamins with Iron/Calcium/Folic Acid/Minerals Tab PO SCH (08:15)
[2018-03-25] MEDS: Furosemide 40 MG Tab PO SCH (08:15)
[2018-03-25] MEDS: Aspirin 81 MG Tab.EC PO SCH (08:15)
[2018-03-25] MEDS: Acidophilus with Citrus Pectin Tab PO SCH (08:15)
[2018-03-25] MEDS: Non-Formulary Medication 1 Each (Fluticasone/Vilanterol 1 PUFF) IH SCH (08:16)
[2018-03-25] MEDS: Lactated Ringers 1,000 ML IV SCH ×2 (10:36→20:49)
[2018-03-25] MEDS: metroNIDAZOLE/Normal Saline 500 MG in Premix Bag 1 BAG IV SCH ×3 (11:00→22:24)
--- NOTE | 2018-03-25 11:49 | PCM.HP ---
H&P History of Present Illness - General Date of Service: 03/25/18 Admit Problem/Dx: Admission Diagnosis/Problem Admission Diagnosis/Problem Abdominal pain Source of Information: Patient - History of Present Illness Initial Comments - Free Text/Narative: Patient 88 y old female presented to Er due to pain in the abdomen severe , upper abdomen also LLQ associated with nausea and vomiting one time. Pain started night , was seen in Er on Monday and had blood work and Ct of the abdomen which was negative for acute findings and had a small bowel umbilical hernia , no incarceration. Patient has history of diverticulitis and pancreatitis , she also states she had resection of a portion of her colon secondary to "twisting of bowels" Onset of Symptoms: Reports: Gradual Duration of Symptoms: Reports: Day(s): Quality: Reports: Sharp, Throbbing abdomen Pain Score (Numeric/FACES): 3 - Related Data Allergies/Adverse Reactions: Allergies Allergy/AdvReac Type Severity Reaction Status Date / Time meza Allergy Anaphylactic Verified 03/25/18 01:55 Shock codeine Allergy Abdominal Verified 03/25/18 01:55 Cramps dipyridamole [From Aggrenox] Allergy unknown Verified 03/25/18 01:55 Latex, Natural Rubber Allergy Itching Verified 03/25/18 01:55 shrimp Allergy Hives Verified 03/25/18 01:55 dust mites Allergy Sneezing Uncoded 03/25/18 01:55 pollen Allergy Hives Uncoded 03/25/18 01:55 Home Medications: Home Meds Aspirin 81 mg PO DAILY 09/19/15 [History] Calcium Carbonate 600 mg PO BIDMEALS 09/19/15 [History] Multivitamin [Multivitamins] 1 cap PO DAILY 09/19/15 [History] Potassium Chloride 10 meq PO DAILY 09/19/15 [History] Vitamin E 400 units PO DAILY 09/19/15 [History] L Acidophil/B Lactis/B Longum [Florajen3] 460 mg PO DAILY 10/09/16 [History] Ipratropium/Albuterol Sulfate [Iprat-Albut 0.5-3(2.5) mg/3 ml] 3 ml IH TID PRN 03/31/17 [History] Fluticasone/Vilanterol [Breo Ellipta 100-25 MCG Inhalation Kit] 1 puff IH DAILY #1 inhaler 04/01/17 [Rx] Albuterol [Proventil HFA] 2 puff INH Q4HRRT PRN 12/07/17 [History] Fluticasone Propionate [Flonase] 16 gm NS DAILY PRN 12/07/17 [History] Levothyroxine 75 mcg PO ACBREAKFAST 12/07/17 [History] Omeprazole 20 mg PO ACBREAKFAST PRN 12/07/17 [History] Furosemide 40 mg PO DAILY #0 12/08/17 [Rx] Metoprolol Succinate [Toprol XL] 100 mg PO BIDMEALS 01/30/18 [History] Acetaminophen [Tylenol] 650 mg PO Q4H PRN tablet 01/31/18 [Rx] traMADol [Ultram] 50 mg PO Q6H PRN #15 tablet 01/31/18 [Rx] Cephalexin 500 mg PO TID #21 capsule 03/24/18 [Rx] Ondansetron HCl [Zofran] 4 mg PO BID #14 tablet 03/24/18 [Rx] Atropine 1% [Atropine 1% Ophth Soln] 1 drop EYELF DAILY 03/25/18 [History] Warfarin [Coumadin] 1 tab PO DAILY 03/25/18 [History] prednisoLONE Acetate [Prednisolone Acetate] 1 drop EYELF Q6HR 03/25/18 [History] Past Medical History - Past Health History Medical/Surgical History: Denies Medical/Surgical History HEENT History: Reports: Cataract, Impaired Vision, 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) Other HEENT History: wears glasses all the time Cardiovascular History: Reports: Afib, Heart Failure, Hypertension, 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) Other Cardiovascular History: 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: , 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; D&C, stillbirth Musculoskeletal History: Reports: Fracture Neurological History: Reports: None Psychiatric History: Reports: None Endocrine/Metabolic History: Reports: Hypothyroidism Hematologic History: Reports: Anemia, 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) Other Hematologic History: blood clots in the leg Immunologic History: Reports: None Oncologic (Cancer) History: Reports: None Dermatologic History: Reports: None - Infectious Disease History Infectious Disease History: Reports: Chicken Pox, Measles - Past Surgical History Head Surgeries/Procedures: Reports: None HEENT Surgical History: Reports: Adenoidectomy, Cataract Surgery, Tonsillectomy Cardiovascular Surgical History: Reports: None Respiratory Surgical History: Reports: None GI Surgical History: Reports: Appendectomy, Cholecystectomy Endocrine Surgical History: Reports: None Musculoskeletal Surgical History: Reports: None Social & Family History - Family History Family Medical History: Noncontributory HEENT: Reports: Impaired Vision Cardiac: Reports: Hypertension, [place], Prior Cardiac Arrest OBGYN: Reports: Neurological: Reports: CVA - Tobacco Use Smoking Status *Q: Never Smoker - Caffeine Use Caffeine Use: Reports: Coffee Caffeine Use Comment: decaf - Recreational Drug Use Recreational Drug Use: No - Living Situation & Occupation Living situation: Reports: , Alone Occupation: Retired H&P Review of Systems - Review of Systems: Review Of Systems: See Below General: Reports: No Symptoms HEENT: Reports: No Symptoms Pulmonary: Reports: No Symptoms Cardiovascular: Reports: No Symptoms Gastrointestinal: Reports: Abdominal Pain, Nausea, Vomiting Genitourinary: Reports: No Symptoms Musculoskeletal: Reports: No Symptoms Skin: Reports: No Symptoms Psychiatric: Reports: No Symptoms Neurological: Reports: No Symptoms Exam - Exam Exam: See Below - Vital Signs Vital Signs: Last Vital Signs Temp 98 F 03/25/18 07:56 Pulse 85 03/25/18 07:56 Resp 16 03/25/18 07:56 BP 132/66 03/25/18 07:56 Pulse Ox 94 L 03/25/18 07:56 Weight: 157 lb 10.088 oz - Exam Quality Assessment: Supplemental Oxygen General: Alert, Oriented HEENT: Conjunctiva Clear, EACs Clear Neck: Supple, Trachea Midline Lungs: Clear to Auscultation, Normal Respiratory Effort Cardiovascular: Regular Rate, Regular Rhythm, Normal S1, Normal S2 GI/Abdominal Exam: Normal Bowel Sounds, Soft, Non-Tender, No Organomegaly, No Distention, No Abnormal Bruit Back Exam: Normal Inspection Extremities: Normal Inspection Skin: Warm, Dry Neurological: Cranial Nerves Intact Neuro Extensive - Mental Status: Alert, Oriented x3 Neuro Extensive - Motor, Sensory, Reflexes: CN II-XII Intact Psychiatric: Alert - Patient Data Lab Results Last 24 hrs: Laboratory Results - last 24 hr 03/25/18 03/25/18 03/25/18 Range/Units 02:10 02:10 02:10 WBC 13.88 H (4.0-11.0) K/uL RBC 4.87 (4.30-5.90) M/uL Hgb 14.6 (12.0-16.0) g/dL Hct 43.2 (36.0-46.0) % MCV 88.7 (80.0-98.0) fL MCH 30.0 (27.0-32.0) pg MCHC 33.8 (31.0-37.0) g/dL RDW Std Deviation 46.3 (28.0-62.0) fl RDW Coeff of Brisa 14 (11.0-15.0) % Plt Count 328 (150-400) K/uL MPV 9.00 (7.40-12.00) fL Neut % (Auto) 84.0 H (48.0-80.0) % Lymph % (Auto) 8.1 L (16.0-40.0) % [place] % (Auto) 7.1 (0.0-15.0) % Eos % (Auto) 0.6 (0.0-7.0) % Baso % (Auto) 0.2 (0.0-1.5) % Neut # (Auto) 11.7 H (1.4-5.7) K/uL Lymph # (Auto) 1.1 (0.6-2.4) K/uL [place] # (Auto) 1.0 H (0.0-0.8) K/uL Eos # (Auto) 0.1 (0.0-0.7) K/uL Baso # (Auto) 0.0 (0.0-0.1) K/uL Nucleated RBC % 0.0 /100WBC Nucleated RBCs # 0 K/uL INR 1.12 Sodium 138 (136-145) mmol/L Potassium 4.1 (3.5-5.1) mmol/L Chloride 102 (98-107) mmol/L Carbon Dioxide 28.0 (21.0-32.0) mmol/L BUN 18 (7.0-18.0) mg/dL Creatinine 1.2 H (0.6-1.0) mg/dL Est Cr Clr Drug Dosing TNP Estimated GFR (MDRD) 42.4 ml/min Glucose 168 H (74-106) mg/dL Calcium 9.3 (8.5-10.1) mg/dL Total Bilirubin 0.6 (0.2-1.0) mg/dL AST 21 (15-37) IU/L ALT 23 (14-63) IU/L Alkaline Phosphatase 81 (46-116) U/L Troponin I < 0.050 (0.000-0.056) ng/mL Total Protein 7.5 (6.4-8.2) g/dL Albumin 3.6 (3.4-5.0) g/dL Globulin 3.9 H (2.0-3.5) g/dL Albumin/Globulin Ratio 0.9 L (1.3-2.8) Urine Color Urine Appearance Urine pH (5.0-8.0) Ur Specific [place] (1.001-1.035) Urine Protein (NEGATIVE) mg/dL Urine Glucose (UA) (NEGATIVE) mg/dL Urine Ketones (NEGATIVE) mg/dL Urine Occult Blood (NEGATIVE) Urine Nitrite (NEGATIVE) Urine Bilirubin (NEGATIVE) Urine Urobilinogen (<2.0) EU/dL Ur Leukocyte Esterase (NEGATIVE) Urine RBC (0-2/HPF) Urine WBC (0-5/HPF) Ur Epithelial Cells (NONE-FEW) Urine Bacteria (NEGATIVE) 03/25/18 Range/Units 04:40 WBC (4.0-11.0) K/uL RBC (4.30-5.90) M/uL Hgb (12.0-16.0) g/dL Hct (36.0-46.0) % MCV (80.0-98.0) fL MCH (27.0-32.0) pg MCHC (31.0-37.0) g/dL RDW Std Deviation (28.0-62.0) fl RDW Coeff of Brisa (11.0-15.0) % Plt Count (150-400) K/uL MPV (7.40-12.00) fL Neut % (Auto) (48.0-80.0) % Lymph % (Auto) (16.0-40.0) % [place] % (Auto) (0.0-15.0) % Eos % (Auto) (0.0-7.0) % Baso % (Auto) (0.0-1.5) % Neut # (Auto) (1.4-5.7) K/uL Lymph # (Auto) (0.6-2.4) K/uL [place] # (Auto) (0.0-0.8) K/uL Eos # (Auto) (0.0-0.7) K/uL Baso # (Auto) (0.0-0.1) K/uL Nucleated RBC % /100WBC Nucleated RBCs # K/uL INR Sodium (136-145) mmol/L Potassium (3.5-5.1) mmol/L Chloride (98-107) mmol/L Carbon Dioxide (21.0-32.0) mmol/L BUN (7.0-18.0) mg/dL Creatinine (0.6-1.0) mg/dL Est Cr Clr Drug Dosing Estimated GFR (MDRD) ml/min Glucose (74-106) mg/dL Calcium (8.5-10.1) mg/dL Total Bilirubin (0.2-1.0) mg/dL AST (15-37) IU/L ALT (14-63) IU/L Alkaline Phosphatase (46-116) U/L Troponin I (0.000-0.056) ng/mL Total Protein (6.4-8.2) g/dL Albumin (3.4-5.0) g/dL Globulin (2.0-3.5) g/dL Albumin/Globulin Ratio (1.3-2.8) Urine Color YELLOW Urine Appearance CLEAR Urine pH 5.0 (5.0-8.0) Ur Specific [place] >= 1.030 (1.001-1.035) Urine Protein NEGATIVE (NEGATIVE) mg/dL Urine Glucose (UA) NEGATIVE (NEGATIVE) mg/dL Urine Ketones NEGATIVE (NEGATIVE) mg/dL Urine Occult Blood TRACE-INTACT (NEGATIVE) Urine Nitrite NEGATIVE (NEGATIVE) Urine Bilirubin NEGATIVE (NEGATIVE) Urine Urobilinogen 0.2 (<2.0) EU/dL Ur Leukocyte Esterase NEGATIVE (NEGATIVE) Urine RBC 0-3 (0-2/HPF) Urine WBC 1-4 (0-5/HPF) Ur Epithelial Cells FEW (NONE-FEW) Urine Bacteria FEW (NEGATIVE) Result Diagrams: 03/25/18 02:10 03/25/18 02:10 - Problem List (1) Pancreatitis, acute SNOMED Code(s): 385223323 ICD Code: K85.90 - ACUTE PANCREATITIS WITHOUT NECROSIS OR INFECTION, UNSP Status: Acute Priority: High Current Visit: Yes Qualifiers: Pancreatitis type: idiopathic (2) Hypothyroidism SNOMED Code(s): 72871598 ICD Code: E03.9 - HYPOTHYROIDISM, UNSPECIFIED Status: Acute Current Visit : Yes Problem List Initiated/Reviewed/Updated: Yes Orders Last 24hrs: Active Orders 24 hr Category Date Time Status Admission Status [Patient Status] [ADT] Stat ADT 03/25/18 03:37 Active Communication Order [RC] ROUTINE Care 03/25/18 05:52 Active Notify Provider Consults [RC] ASDIRECTED Care 03/25/18 11:48 Active Oxygen Therapy [RC] PRN Care 03/25/18 05:09 Active RT Aerosol Therapy [RC] ASDIRECTED Care 03/25/18 05:12 Active Up ad Kalee [RC] ASDIRECTED Care 03/25/18 05:09 Active VTE/DVT Education [RC] PER UNIT ROUTINE Care 03/25/18 05:09 Active Vital Signs [RC] Q4H Care 03/25/18 05:09 Active Consult to Physician [CONS] Routine Cons 03/25/18 11:47 Active Nothing per Oral Now Diet [DIET] Diet 03/25/18 Breakfast Active Chest 1V Frontal [CR] Stat Exams 03/25/18 01:59 Taken BASIC METABOLIC PANEL,BMP [CHEM] AM Lab 03/26/18 05:11 Ordered BASIC METABOLIC PANEL,BMP [CHEM] AM Lab 03/27/18 05:11 Ordered BASIC METABOLIC PANEL,BMP [CHEM] AM Lab 03/28/18 05:11 Ordered BASIC METABOLIC PANEL,BMP [CHEM] AM Lab 03/29/18 05:11 Ordered CBC WITH AUTO DIFF [HEME] AM Lab 03/26/18 05:11 Ordered CBC WITH AUTO DIFF [HEME] AM Lab 03/27/18 05:11 Ordered CBC WITH AUTO DIFF [HEME] AM Lab 03/28/18 05:11 Ordered CBC WITH AUTO DIFF [HEME] AM Lab 03/29/18 05:11 Ordered UA W/MICROSCOPIC [URIN] Stat Lab 03/25/18 04:40 Ordered Acidophilus/Pectin, Park Med 03/25/18 09:00 Active 1 tab PO DAILY Albuterol/Ipratropium [DuoNeb 3.0-0.5 MG/3 ML] Med 03/25/18 05:09 Active 3 ml NEB Q4HRRT PRN Aspirin [Halfprin] Med 03/25/18 09:00 Active 81 mg PO DAILY Ciprofloxacin in D5W [Cipro in D5W 400 MG/200 ML] 400 Med 03/25/18 15:00 Active mg Premix Bag 1 bag IV Q12H Fluticasone Propionate [Flonase] Med 03/25/18 05:12 Active 0 gm YUMIKO DAILY PRN Fluticasone/Vilanterol Med 03/25/18 09:00 Active 1 puff IH DAILY Furosemide [Lasix] Med 03/25/18 09:00 Active 40 mg PO DAILY Lactated Ringers [Ringers, Lactated] 1,000 ml Med 03/25/18 10:00 Active IV ASDIRECTED Levothyroxine Med 03/25/18 07:30 Active 75 mcg PO ACBREAKFAST Metoprolol Succinate [Toprol XL] Med 03/25/18 08:00 Active 100 mg PO BIDMEALS Morphine Med 03/25/18 05:50 Active 2 mg IVPUSH Q2H PRN Multivitamins w-Iron/Ca/FA/Min [Thera M Plus] Med 03/25/18 09:00 Active 1 tab PO DAILY Omeprazole Med 03/25/18 05:12 Active 20 mg PO ACBREAKFAST PRN Ondansetron [Zofran] Med 03/25/18 05:26 Active 4 mg IVPUSH Q4H PRN Potassium Chloride [Klor-Con 10] Med 03/25/18 09:00 Active 10 meq PO DAILY Sodium Chloride 0.9% [Normal Saline] 500 ml Med 03/25/18 02:00 Active IV STAT Sodium Chloride 0.9% [Saline Flush] Med 03/25/18 05:09 Active 10 ml FLUSH ASDIRECTED PRN Sodium Chloride 0.9% [Saline Flush] Med 03/25/18 05:09 Active 2.5 ml FLUSH ASDIRECTED PRN Warfarin [Coumadin] Med 03/25/18 14:00 Active 2 mg PO DAILY@1400 metroNIDAZOLE/Normal Saline [Flagyl 500 MG in NS 100 ML Med 03/25/18 10:00 Active ] 500 mg Premix Bag 1 bag IV Q6H traMADol [Ultram] Med 03/25/18 05:12 Active 50 mg PO Q6H PRN Peripheral IV Insertion Adult [OM.PC] Routine Oth 03/25/18 05:09 Ordered Sequential Compression Device [OM.PC] Per Unit Routine Oth 03/25/18 05:10 Ordered Resuscitation Status Routine Resus Stat 03/25/18 05:09 Ordered Medication Orders Acidophilus/Pectin (Acidophilus/Pectin, Park) 1 tab PO DAILY [facility] Last Admin: 03/25/18 08:15 Dose: Albuterol/Ipratropium (Duoneb 3.0-0.5 Mg/3 Ml) 3 ml NEB Q4HRRT PRN PRN Reason: Shortness Of Breath/wheezing Aspirin (Halfprin) 81 mg PO DAILY [facility] Last Admin: 03/25/18 08:15 Dose: Fluticasone Propionate (Flonase) 0 gm YUMIKO DAILY PRN PRN Reason: ALLERGY Furosemide (Lasix) 40 mg PO DAILY [facility] Last Admin: 03/25/18 08:15 Dose: Sodium Chloride (Normal Saline) 500 mls @ 999 mls/hr IV STAT [facility] Last Admin: 03/25/18 02:12 Dose: 999 mls/hr Ciprofloxacin/Dextrose 400 mg/ (Premix) 200 mls @ 200 mls/hr IV Q12H AZUL Metronidazole 500 mg/ Premix 100 mls @ 100 mls/hr IV Q6H [facility] Lactated Ringer's (Ringers, Lactated) 1,000 mls @ 125 mls/hr IV ASDIRECTED [facility] Last Admin: 03/25/18 10:36 Dose: 125 mls/hr Levothyroxine Sodium (Levothyroxine) 75 mcg PO ACBREAKFAST [facility] Last Admin: 03/25/18 06:30 Dose: Metoprolol Succinate (Toprol Xl) 100 mg PO BIDMEALS [facility] Last Admin: 03/25/18 07:54 Dose: Morphine Sulfate (Morphine) 2 mg IVPUSH Q2H PRN PRN Reason: Pain Last Admin: 03/25/18 07:35 Dose: 2 mg Multivitamins/Minerals (Thera M Plus) 1 tab PO DAILY [facility] Last Admin: 03/25/18 08:15 Dose: Non-Formulary Medication (Fluticasone/Vilanterol) 1 puff IH DAILY [facility] Last Admin: 03/25/18 08:16 Dose: 1 puff Omeprazole (Omeprazole) 20 mg PO ACBREAKFAST PRN PRN Reason: Heartburn Ondansetron HCl (Zofran) 4 mg IVPUSH Q4H PRN PRN Reason: Nausea/Vomiting Last Admin: 03/25/18 07:50 Dose: 4 mg Potassium Chloride (Klor-Con 10) 10 meq PO DAILY [facility] Last Admin: 03/25/18 08:15 Dose: Sodium Chloride (Saline Flush) 10 ml FLUSH ASDIRECTED PRN PRN Reason: Keep Vein Open Sodium Chloride (Saline Flush) 2.5 ml FLUSH ASDIRECTED PRN PRN Reason: Keep Vein Open Tramadol HCl (Ultram) 50 mg PO Q6H PRN PRN Reason: Pain Warfarin Sodium (Coumadin) 2 mg PO DAILY@1400 [facility] Assessment/Plan Comment:: Acute pancreatitis- this is the second episode - will admit patient to [facility] , Npo , dilaudid iv for pain , iv fluids at 200 cc /h , f/up lipase , inflamatory markers , f/up Surgery consult DVt prof - heparin sq Hypothyroidism - will continue patient with her home levothyroxine paroxismal a fib - continue warfarin , currently her inr is subtherapeutic HTN- stable - continue metoprolol as per reconciliation
[2018-03-25] MEDS ORDERED: HYDROmorphone 2 MG/ML SDV IVPUSH PRN (11:50)
[2018-03-25] MEDS: Ciprofloxacin in D5W 400 MG in Premix Bag 1 BAG IV SCH ×2 (16:00)
[2018-03-25] MEDS: Warfarin 2 MG Tab PO SCH (16:00)
[2018-03-25] MEDS: prednisoLONE Acetate 1% Ophth Susp 5 ML Bottle EYELF SCH ×2 (17:17→23:16)
--- NOTE | 2018-03-25 18:27 | PCM.CONS ---
H&P History of Present Illness - General Date of Service: 03/25/18 Admit Problem/Dx: Admission Diagnosis/Problem Admission Diagnosis/Problem Abdominal pain Source of Information: Patient History Limitations: Reports: No Limitations - History of Present Illness Duration of Symptoms: Reports: Day(s):, Recurring Location: Reports: Abdomen Quality: Reports: Pressure, Same as Previous Episode Severity: Moderate Improves with: Reports: None Worsens with: Reports: None Context: Reports: Sick Contact Associated Symptoms: Reports: Nausea/Vomiting abdomen Pain Score (Numeric/FACES): 3 - Related Data Allergies/Adverse Reactions: Allergies Allergy/AdvReac Type Severity Reaction Status Date / Time meza Allergy Anaphylactic Verified 03/25/18 01:55 Shock codeine Allergy Abdominal Verified 03/25/18 01:55 Cramps dipyridamole [From Aggrenox] Allergy unknown Verified 03/25/18 01:55 Latex, Natural Rubber Allergy Itching Verified 03/25/18 01:55 shrimp Allergy Hives Verified 03/25/18 01:55 dust mites Allergy Sneezing Uncoded 03/25/18 01:55 pollen Allergy Hives Uncoded 03/25/18 01:55 Home Medications: Home Meds Aspirin 81 mg PO DAILY 09/19/15 [History] Calcium Carbonate 600 mg PO BIDMEALS 09/19/15 [History] Multivitamin [Multivitamins] 1 cap PO DAILY 09/19/15 [History] Potassium Chloride 10 meq PO DAILY 09/19/15 [History] Vitamin E 400 units PO DAILY 09/19/15 [History] L Acidophil/B Lactis/B Longum [Florajen3] 460 mg PO DAILY 10/09/16 [History] Ipratropium/Albuterol Sulfate [Iprat-Albut 0.5-3(2.5) mg/3 ml] 3 ml IH TID PRN 03/31/17 [History] Fluticasone/Vilanterol [Breo Ellipta 100-25 MCG Inhalation Kit] 1 puff IH DAILY #1 inhaler 04/01/17 [Rx] Albuterol [Proventil HFA] 2 puff INH Q4HRRT PRN 12/07/17 [History] Fluticasone Propionate [Flonase] 16 gm NS DAILY PRN 12/07/17 [History] Levothyroxine 75 mcg PO ACBREAKFAST 12/07/17 [History] Omeprazole 20 mg PO ACBREAKFAST PRN 12/07/17 [History] Furosemide 40 mg PO DAILY #0 12/08/17 [Rx] Metoprolol Succinate [Toprol XL] 100 mg PO BIDMEALS 01/30/18 [History] Acetaminophen [Tylenol] 650 mg PO Q4H PRN tablet 01/31/18 [Rx] traMADol [Ultram] 50 mg PO Q6H PRN #15 tablet 01/31/18 [Rx] Cephalexin 500 mg PO TID #21 capsule 03/24/18 [Rx] Ondansetron HCl [Zofran] 4 mg PO BID #14 tablet 03/24/18 [Rx] Atropine 1% [Atropine 1% Ophth Soln] 1 drop EYELF DAILY 03/25/18 [History] Warfarin [Coumadin] 1 tab PO DAILY 03/25/18 [History] prednisoLONE Acetate [Prednisolone Acetate] 1 drop EYELF Q6HR 03/25/18 [History] Past Medical History - Past Health History Medical/Surgical History: Denies Medical/Surgical History HEENT History: Reports: Cataract, Impaired Vision, 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) Other HEENT History: wears glasses all the time Cardiovascular History: Reports: Afib, Heart Failure, Hypertension, 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) Other Cardiovascular History: 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 Respiratory History: Reports: Asthma Gastrointestinal History: Reports: Bowel Obstruction, Diverticulosis, Pancreatitis, 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) Genitourinary History: Reports: None [employer] History: Reports: , 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; D&C, stillbirth Musculoskeletal History: Reports: Fracture Neurological History: Reports: None Psychiatric History: Reports: None Endocrine/Metabolic History: Reports: Hypothyroidism Hematologic History: Reports: Anemia, 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) Other Hematologic History: blood clots in the leg Immunologic History: Reports: None Oncologic (Cancer) History: Reports: None Dermatologic History: Reports: None - Infectious Disease History Infectious Disease History: Reports: Chicken Pox, Measles - Past Surgical History Head Surgeries/Procedures: Reports: None HEENT Surgical History: Reports: Adenoidectomy, Cataract Surgery, Tonsillectomy Cardiovascular Surgical History: Reports: None Respiratory Surgical History: Reports: None GI Surgical History: Reports: Appendectomy, Cholecystectomy Endocrine Surgical History: Reports: None Musculoskeletal Surgical History: Reports: None Social & Family History - Family History Family Medical History: Noncontributory HEENT: Reports: Impaired Vision Cardiac: Reports: Hypertension, [place], Prior Cardiac Arrest OBGYN: Reports: Neurological: Reports: CVA - Tobacco Use Smoking Status *Q: Never Smoker - Caffeine Use Caffeine Use: Reports: Coffee Caffeine Use Comment: decaf - Recreational Drug Use Recreational Drug Use: No - Living Situation & Occupation Living situation: Reports: , Alone Occupation: Retired H&P Review of Systems - Review of Systems: Review Of Systems: See Below General: Reports: Decreased Appetite. Denies: Fever, Chills, Malaise, Weakness HEENT: Reports: No Symptoms Pulmonary: Denies: Shortness of Breath, Wheezing Cardiovascular: Denies: Chest Pain, Palpitations Gastrointestinal: Reports: Abdominal Pain, Anorexia. Denies: Black Stool, Bloody Stool, Constipation, Diarrhea, Decreased Appetite Genitourinary: Reports: No Symptoms Musculoskeletal: Reports: No Symptoms Skin: Reports: No Symptoms Psychiatric: Reports: No Symptoms Neurological: Reports: No Symptoms Hematologic/Lymphatic: Reports: No Symptoms Immunologic: Reports: No Symptoms Exam - Exam Exam: See Below - Vital Signs Vital Signs: Last Vital Signs Temp 97.0 F 03/25/18 16:00 Pulse 79 03/25/18 17:40 Resp 22 H 03/25/18 16:00 BP 115/68 03/25/18 17:40 Pulse Ox 92 L 03/25/18 16:00 Weight: 157 lb 10.088 oz - Exam General: Alert, Oriented, Cooperative HEENT: Conjunctiva Clear, Pupils Equal, Pupils Reactive. No: Scleral Icterus Neck: Supple, Trachea Midline Lungs: Clear to Auscultation Cardiovascular: Regular Rate, Regular Rhythm, Systolic Murmur (I/) GI/Abdominal Exam: Normal Bowel Sounds, Soft, Non-Tender, No Distention, No Abnormal Bruit. No: Guarding, Rigid, Rebound (Female) Exam: Normal External Exam Rectal (Female) Exam: Deferred Back Exam: Normal Inspection, Full Range of Motion Extremities: Normal Inspection, Normal Range of Motion Skin: Warm, Dry, Intact Neurological: Cranial Nerves Intact Psychiatric: Alert, Normal Affect, Normal Mood - Patient Data Lab Results Last 24 hrs: Laboratory Results - last 24 hr 05/03/25/18 03/25/18 Range/Units 02:10 02:10 02:10 WBC 13.88 H (4.0-11.0) K/uL RBC 4.87 (4.30-5.90) M/uL Hgb 14.6 (12.0-16.0) g/dL Hct 43.2 (36.0-46.0) % MCV 88.7 (80.0-98.0) fL MCH 30.0 (27.0-32.0) pg MCHC 33.8 (31.0-37.0) g/dL RDW Std Deviation 46.3 (28.0-62.0) fl RDW Coeff of Brisa 14 (11.0-15.0) % Plt Count 328 (150-400) K/uL MPV 9.00 (7.40-12.00) fL Neut % (Auto) 84.0 H (48.0-80.0) % Lymph % (Auto) 8.1 L (16.0-40.0) % [place] % (Auto) 7.1 (0.0-15.0) % Eos % (Auto) 0.6 (0.0-7.0) % Baso % (Auto) 0.2 (0.0-1.5) % Neut # (Auto) 11.7 H (1.4-5.7) K/uL Lymph # (Auto) 1.1 (0.6-2.4) K/uL [place] # (Auto) 1.0 H (0.0-0.8) K/uL Eos # (Auto) 0.1 (0.0-0.7) K/uL Baso # (Auto) 0.0 (0.0-0.1) K/uL Nucleated RBC % 0.0 /100WBC Nucleated RBCs # 0 K/uL INR 1.12 Sodium 138 (136-145) mmol/L Potassium 4.1 (3.5-5.1) mmol/L Chloride 102 (98-107) mmol/L Carbon Dioxide 28.0 (21.0-32.0) mmol/L BUN 18 (7.0-18.0) mg/dL Creatinine 1.2 H (0.6-1.0) mg/dL Est Cr Clr Drug Dosing TNP Estimated GFR (MDRD) 42.4 ml/min Glucose 168 H (74-106) mg/dL Calcium 9.3 (8.5-10.1) mg/dL Total Bilirubin 0.6 (0.2-1.0) mg/dL AST 21 (15-37) IU/L ALT 23 (14-63) IU/L Alkaline Phosphatase 81 (46-116) U/L Troponin I < 0.050 (0.000-0.056) ng/mL Total Protein 7.5 (6.4-8.2) g/dL Albumin 3.6 (3.4-5.0) g/dL Globulin 3.9 H (2.0-3.5) g/dL Albumin/Globulin Ratio 0.9 L (1.3-2.8) Lipase (73-393) U/L Urine Color Urine Appearance Urine pH (5.0-8.0) Ur Specific [place] (1.001-1.035) Urine Protein (NEGATIVE) mg/dL Urine Glucose (UA) (NEGATIVE) mg/dL Urine Ketones (NEGATIVE) mg/dL Urine Occult Blood (NEGATIVE) Urine Nitrite (NEGATIVE) Urine Bilirubin (NEGATIVE) Urine Urobilinogen (<2.0) EU/dL Ur Leukocyte Esterase (NEGATIVE) Urine RBC (0-2/HPF) Urine WBC (0-5/HPF) Ur Epithelial Cells (NONE-FEW) Urine Bacteria (NEGATIVE) 03/25/18 03/25/18 Range/Units 04:40 12:05 WBC (4.0-11.0) K/uL RBC (4.30-5.90) M/uL Hgb (12.0-16.0) g/dL Hct (36.0-46.0) % MCV (80.0-98.0) fL MCH (27.0-32.0) pg MCHC (31.0-37.0) g/dL RDW Std Deviation (28.0-62.0) fl RDW Coeff of Brisa (11.0-15.0) % Plt Count (150-400) K/uL MPV (7.40-12.00) fL Neut % (Auto) (48.0-80.0) % Lymph % (Auto) (16.0-40.0) % [place] % (Auto) (0.0-15.0) % Eos % (Auto) (0.0-7.0) % Baso % (Auto) (0.0-1.5) % Neut # (Auto) (1.4-5.7) K/uL Lymph # (Auto) (0.6-2.4) K/uL [place] # (Auto) (0.0-0.8) K/uL Eos # (Auto) (0.0-0.7) K/uL Baso # (Auto) (0.0-0.1) K/uL Nucleated RBC % /100WBC Nucleated RBCs # K/uL INR Sodium (136-145) mmol/L Potassium (3.5-5.1) mmol/L Chloride (98-107) mmol/L Carbon Dioxide (21.0-32.0) mmol/L BUN (7.0-18.0) mg/dL Creatinine (0.6-1.0) mg/dL Est Cr Clr Drug Dosing Estimated GFR (MDRD) ml/min Glucose (74-106) mg/dL Calcium (8.5-10.1) mg/dL Total Bilirubin (0.2-1.0) mg/dL AST (15-37) IU/L ALT (14-63) IU/L Alkaline Phosphatase (46-116) U/L Troponin I (0.000-0.056) ng/mL Total Protein (6.4-8.2) g/dL Albumin (3.4-5.0) g/dL Globulin (2.0-3.5) g/dL Albumin/Globulin Ratio (1.3-2.8) Lipase 2639 H (73-393) U/L Urine Color YELLOW Urine Appearance CLEAR Urine pH 5.0 (5.0-8.0) Ur Specific [place] >= 1.030 (1.001-1.035) Urine Protein NEGATIVE (NEGATIVE) mg/dL Urine Glucose (UA) NEGATIVE (NEGATIVE) mg/dL Urine Ketones NEGATIVE (NEGATIVE) mg/dL Urine Occult Blood TRACE-INTACT (NEGATIVE) Urine Nitrite NEGATIVE (NEGATIVE) Urine Bilirubin NEGATIVE (NEGATIVE) Urine Urobilinogen 0.2 (<2.0) EU/dL Ur Leukocyte Esterase NEGATIVE (NEGATIVE) Urine RBC 0-3 (0-2/HPF) Urine WBC 1-4 (0-5/HPF) Ur Epithelial Cells FEW (NONE-FEW) Urine Bacteria FEW (NEGATIVE) Result Diagrams: 03/25/18 02:10 03/25/18 02:10 Consult PN Assessment/Plan Procedures: Procedures AGENT NOS ASSAY W/OPTIC (10/02/16) AIRWAY INHALATION TREATMENT (12/07/17) ANTINUCLEAR ANTIBODIES (10/08/15) APPLY FOREARM SPLINT (05/28/16) ASSAY OF ALDOLASE (10/08/15) ASSAY OF AMYLASE (09/30/16) ASSAY OF CK (CPK) (10/08/15) ASSAY OF FREE THYROXINE (05/25/17) ASSAY OF LACTIC ACID (10/09/16) ASSAY OF LIPASE (09/30/16) ASSAY OF MAGNESIUM (05/25/17) ASSAY OF NATRIURETIC PEPTIDE (12/23/17) ASSAY OF TROPONIN QUANT (01/30/18) ASSAY THYROID STIM HORMONE (05/25/17) BLOOD CULTURE FOR BACTERIA (09/30/16) CHEST X-RAY 1 VIEW FRONTAL (05/25/17) CHEST X-RAY 2VW FRONTAL&LATL (03/30/17) CO/MEMBANE DIFFUSE CAPACITY (01/18/18) COMPLETE CBC W/AUTO DIFF WBC (01/30/18) COMPREHEN METABOLIC PANEL (01/30/18) CT ABD & PELV W/CONTRAST (09/30/16) CT ANGIOGRAPHY CHEST (12/23/17) CT HEAD/BRAIN W/O DYE (09/18/15) ELECTROCARDIOGRAM TRACING (01/30/18) EMERGENCY DEPT VISIT (01/30/18) EMERGENCY DEPT VISIT (03/01/17) EMERGENCY DEPT VISIT (10/09/16) EMERGENCY DEPT VISIT (10/02/16) EMERGENCY DEPT VISIT (09/30/16) EMERGENCY DEPT VISIT (09/04/16) EMERGENCY DEPT VISIT (05/28/16) EMERGENCY DEPT VISIT (04/25/16) EMERGENCY DEPT VISIT (04/20/16) EMERGENCY DEPT VISIT (09/18/15) EVALUATE PT USE OF INHALER (01/30/18) EVALUATION OF WHEEZING (01/18/18) EXTREMITY STUDY (03/27/17) GAIT TRAINING THERAPY (04/25/16) HOT OR COLD PACKS THERAPY (08/29/16) HYDRATE IV INFUSION ADD-ON (10/02/16) HYDRATION IV INFUSION INIT (09/04/16) INFLUENZA ASSAY W/OPTIC (12/23/17) LIPID PANEL (04/25/16) METABOLIC PANEL TOTAL CA (01/30/18) MRI ABDOMEN W/O DYE (04/25/16) OFFICE/OUTPATIENT VISIT EST (11/23/15) OT EVALUATION (08/03/16) PROTEIN E-PHORESIS SERUM (10/08/15) PROTHROMBIN TIME (01/30/18) PT EVAL LOW COMPLEX 20 MIN (03/30/17) PT EVALUATION (07/06/16) PULM FUNCTION TEST BY GAS (01/18/18) RANGE OF MOTION MEASUREMENTS (09/22/16) RBC SED RATE AUTOMATED (10/08/15) ROUTINE VENIPUNCTURE (01/30/18) STOOL CULTR AEROBIC BACT EA (10/02/16) TB TEST CELL IMMUN MEASURE (03/27/17) THER/PROPH/DIAG INJ IV PUSH (01/30/18) THER/PROPH/DIAG IV INF INIT (09/30/16) THERAPEUTIC ACTIVITIES (07/06/16) THERAPEUTIC EXERCISES (09/22/16) THROMBOPLASTIN TIME PARTIAL (01/30/18) TX/PRO/DX INJ NEW DRUG ADDON (03/27/17) TX/PRO/DX INJ SAME DRUG WEIGHER PRODUCTION (03/27/17) ULTRASOUND THERAPY (07/06/16) URINALYSIS AUTO W/SCOPE (01/30/18) URINE CULTURE/COLONY COUNT (09/04/16) X-RAY EXAM CHEST 1 VIEW (01/30/18) X-RAY EXAM CHEST 2 VIEWS (12/23/17) X-RAY EXAM OF SHOULDER (05/28/16) X-RAY EXAM OF WRIST (07/13/16) (1) Pancreatitis, acute SNOMED Code(s): 953419732 Code(s): K85.90 - ACUTE PANCREATITIS WITHOUT NECROSIS OR INFECTION, UNSP Priority: High Current Visit: Yes Qualifiers: Pancreatitis type: idiopathic Problem List Initiated/Reviewed/Updated: Yes Plan: Conservative treatment with NPO, bowel rest and IV fluids. Repeat lipase tomorrow along with ESR, CRP and lactate. Would keep NPO until lipase is normal. No evidence of bowel obstruction. No indication for hernia repair.
[2018-03-26] MEDS: Ciprofloxacin in D5W 400 MG in Premix Bag 1 BAG IV SCH ×2 (02:59)
[2018-03-26] MEDS: metroNIDAZOLE/Normal Saline 500 MG in Premix Bag 1 BAG IV SCH (04:22)
[2018-03-26] MEDS: Lactated Ringers 1,000 ML IV SCH (04:25)
[2018-03-26] MEDS: Levothyroxine 75 MCG Tab PO SCH (06:40)
[2018-03-26] MEDS: prednisoLONE Acetate 1% Ophth Susp 5 ML Bottle EYELF SCH ×2 (06:41→11:23)
--- NOTE | 2018-03-26 08:01 | PCM.PN ---
- General Info Date of Service: 03/26/18 Admission Dx/Problem (Free Text): Admission Diagnosis/Problem Admission Diagnosis/Problem Abdominal pain Subjective Update: Patient states abdominal pain is improving. Nausea and vomiting has resolved since last night. She feels her hands getting swollen and would like her iv fluids stopped Functional Status: Reports: Pain Controlled - Review of Systems General: Reports: No Symptoms HEENT: Reports: No Symptoms Pulmonary: Reports: No Symptoms Cardiovascular: Reports: No Symptoms Gastrointestinal: Reports: Abdominal Pain Genitourinary: Reports: No Symptoms Musculoskeletal: Reports: No Symptoms Skin: Reports: No Symptoms Neurological: Reports: No Symptoms Psychiatric: Reports: No Symptoms - Patient Data Vitals - Most Recent: Last Vital Signs Temp 36.6 C 03/26/18 04:00 Pulse 71 03/26/18 04:00 Resp 20 03/26/18 04:00 BP 109/59 L 03/26/18 04:00 Pulse Ox 95 03/26/18 04:00 Weight - Most Recent: 72 kg I&O - Last 24 Hours: Intake & Output 03/25/18 03/26/18 03/26/18 22:59 06:59 14:59 Intake Total 1300 1150 Output Total 300 700 Balance 1000 450 Lab Results Last 24 Hours: Laboratory Results - last 24 hr 03/25/18 03/26/18 03/26/18 Range/Units 12:05 05:26 05:26 WBC 7.39 (4.0-11.0) K/uL RBC 4.00 L (4.30-5.90) M/uL Hgb 11.6 L (12.0-16.0) g/dL Hct 36.6 (36.0-46.0) % MCV 91.5 (80.0-98.0) fL MCH 29.0 (27.0-32.0) pg MCHC 31.7 (31.0-37.0) g/dL RDW Std Deviation 49.2 (28.0-62.0) fl RDW Coeff of Brisa 15 (11.0-15.0) % Plt Count 251 (150-400) K/uL MPV 8.90 (7.40-12.00) fL Neut % (Auto) 53.7 (48.0-80.0) % Lymph % (Auto) 24.4 (16.0-40.0) % [place] % (Auto) 14.1 (0.0-15.0) % Eos % (Auto) 7.3 H (0.0-7.0) % Baso % (Auto) 0.5 (0.0-1.5) % Neut # (Auto) 4.0 (1.4-5.7) K/uL Lymph # (Auto) 1.8 (0.6-2.4) K/uL Nash # (Auto) 1.0 H (0.0-0.8) K/uL Eos # (Auto) 0.5 (0.0-0.7) K/uL Baso # (Auto) 0.0 (0.0-0.1) K/uL Nucleated RBC % 0.0 /100WBC Nucleated RBCs # 0 K/uL ESR (0-29) mm/hr Lactate (0.20-2.00) mmol/L Sodium 139 (136-145) mmol/L Potassium 4.7 (3.5-5.1) mmol/L Chloride 107 (98-107) mmol/L Carbon Dioxide 32.0 (21.0-32.0) mmol/L BUN 14 (7.0-18.0) mg/dL Creatinine 1.1 H (0.6-1.0) mg/dL Est Cr Clr Drug Dosing 26.71 mL/min Estimated GFR (MDRD) 46.9 ml/min Glucose 100 (74-106) mg/dL Calcium 8.3 L (8.5-10.1) mg/dL C-Reactive Protein (0.00-0.90) mg/dL Lipase 2639 H (73-393) U/L 18 18 03/26/18 Range/Units 05:26 05:26 05:26 WBC (4.0-11.0) K/uL RBC (4.30-5.90) M/uL Hgb (12.0-16.0) g/dL Hct (36.0-46.0) % MCV (80.0-98.0) fL MCH (27.0-32.0) pg MCHC (31.0-37.0) g/dL RDW Std Deviation (28.0-62.0) fl RDW Coeff of Brisa (11.0-15.0) % Plt Count (150-400) K/uL MPV (7.40-12.00) fL Neut % (Auto) (48.0-80.0) % Lymph % (Auto) (16.0-40.0) % Nash % (Auto) (0.0-15.0) % Eos % (Auto) (0.0-7.0) % Baso % (Auto) (0.0-1.5) % Neut # (Auto) (1.4-5.7) K/uL Lymph # (Auto) (0.6-2.4) K/uL Nash # (Auto) (0.0-0.8) K/uL Eos # (Auto) (0.0-0.7) K/uL Baso # (Auto) (0.0-0.1) K/uL Nucleated RBC % /100WBC Nucleated RBCs # K/uL ESR 18 (0-29) mm/hr Lactate 1.1 (0.20-2.00) mmol/L Sodium (136-145) mmol/L Potassium (3.5-5.1) mmol/L Chloride (98-107) mmol/L Carbon Dioxide (21.0-32.0) mmol/L BUN (7.0-18.0) mg/dL Creatinine (0.6-1.0) mg/dL Est Cr Clr Drug Dosing mL/min Estimated GFR (MDRD) ml/min Glucose (74-106) mg/dL Calcium (8.5-10.1) mg/dL C-Reactive Protein 2.30 H (0.00-0.90) mg/dL Lipase 190 (73-393) U/L Med Orders - Current: Current Medications Acidophilus/Pectin (Acidophilus/Pectin, [place]) 1 tab PO DAILY AZUL Last Admin: 03/25/18 08:15 Dose: Not Given Albuterol/Ipratropium (Duoneb 3.0-0.5 Mg/3 Ml) 3 ml NEB Q4HRRT PRN PRN Reason: Shortness Of Breath/wheezing Aspirin (Halfprin) 81 mg PO DAILY AZUL Last Admin: 03/25/18 08:15 Dose: Not Given Atropine Sulfate (Atropine 1% Ophth Soln) 5 ml EYELF DAILY [facility] Fluticasone Propionate (Flonase) 0 gm YUMIKO DAILY PRN PRN Reason: ALLERGY Furosemide (Lasix) 40 mg PO DAILY [facility] Last Admin: 03/25/18 08:15 Dose: Not Given Hydromorphone HCl (Dilaudid) 1 mg IVPUSH Q3H PRN PRN Reason: Pain Last Admin: 03/25/18 12:50 Dose: 1 mg Sodium Chloride (Normal Saline) 500 mls @ 999 mls/hr IV STAT [facility] Last Admin: 03/25/18 02:12 Dose: 999 mls/hr Ciprofloxacin/Dextrose 400 mg/ (Premix) 200 mls @ 200 mls/hr IV Q12H [facility] Last Admin: 03/26/18 02:59 Dose: 200 mls/hr Metronidazole 500 mg/ Premix 100 mls @ 100 mls/hr IV Q6H [facility] Last Admin: 03/26/18 04:22 Dose: 100 mls/hr Levothyroxine Sodium (Levothyroxine) 75 mcg PO ACBREAKFAST [facility] Last Admin: 03/26/18 06:40 Dose: 75 mcg Metoprolol Succinate (Toprol Xl) 100 mg PO BIDMEALS [facility] Last Admin: 03/25/18 17:40 Dose: 100 mg Multivitamins/Minerals (Thera M Plus) 1 tab PO DAILY [facility] Last Admin: 03/25/18 08:15 Dose: Not Given Non-Formulary Medication (Fluticasone/Vilanterol) 1 puff IH DAILY [facility] Last Admin: 03/25/18 08:16 Dose: 1 puff Omeprazole (Omeprazole) 20 mg PO ACBREAKFAST PRN PRN Reason: Heartburn Ondansetron HCl (Zofran) 4 mg IVPUSH Q4H PRN PRN Reason: Nausea/Vomiting Last Admin: 03/25/18 07:50 Dose: 4 mg Potassium Chloride (Klor-Con 10) 10 meq PO DAILY [facility] Last Admin: 03/25/18 08:15 Dose: Not Given Prednisolone Acetate (Pred Forte 1% Ophth Susp) 5 ml EYELF Q6HR [facility] Last Admin: 03/26/18 06:41 Dose: 1 drop Sodium Chloride (Saline Flush) 10 ml FLUSH ASDIRECTED PRN PRN Reason: Keep Vein Open Sodium Chloride (Saline Flush) 2.5 ml FLUSH ASDIRECTED PRN PRN Reason: Keep Vein Open Tramadol HCl (Ultram) 50 mg PO Q6H PRN PRN Reason: Pain Warfarin Sodium (Coumadin) 2 mg PO DAILY@1400 AZUL Last Admin: 03/25/18 16:00 Dose: 2 mg Discontinued Medications Ciprofloxacin/Dextrose 400 mg/ (Premix) 200 mls @ 200 mls/hr IV NOW STA Stop: 03/25/18 03:57 Last Admin: 03/25/18 03:17 Dose: 200 mls/hr Metronidazole 500 mg/ Premix 100 mls @ 100 mls/hr IV ONETIME ONE Stop: 03/25/18 03:57 Last Admin: 03/25/18 03:20 Dose: 100 mls/hr Ciprofloxacin/Dextrose 400 mg/ (Premix) 200 mls @ 200 mls/hr IV Q12H [facility] Last Admin: 03/25/18 06:29 Dose: Not Given Metronidazole 500 mg/ Premix 100 mls @ 100 mls/hr IV QID AZUL Lactated Ringer's (Ringers, Lactated) 1,000 mls @ 200 mls/hr IV ASDIRECTED [facility] Last Admin: 03/26/18 04:25 Dose: 125 mls/hr Morphine Sulfate (Morphine) 2 mg IVPUSH ONETIME ONE Stop: 03/25/18 02:59 Last Admin: 03/25/18 03:13 Dose: 2 mg Morphine Sulfate (Morphine) 2 mg IVPUSH Q2H PRN PRN Reason: Pain Last Admin: 03/25/18 07:35 Dose: 2 mg Ondansetron HCl (Zofran) 8 mg IVPUSH ONETIME ONE Stop: 03/25/18 02:00 Last Admin: 03/25/18 02:12 Dose: 8 mg - Exam General: Alert, Oriented, Cooperative, No Acute Distress HEENT: Pupils Equal, Pupils Reactive, Mucous Membr. Moist/[place] Neck: Supple Lungs: Clear to Auscultation, Normal Respiratory Effort Cardiovascular: Murmurs Extremities: Normal Inspection, Pedal Edema (trace BL) Peripheral Pulses: 1+: Dorsalis Pedis (L), Dorsalis Pedis (R) Skin: Warm, Dry, Intact Neurological: No New Focal Deficit Psy/Mental Status: Alert, Normal Affect, Normal Mood - Problem List Review Problem List Initiated/Reviewed/Updated: Yes - Plan Plan:: as per hospitalist
[2018-03-26] MEDS: Metoprolol Succinate 100 MG Tab.ER PO SCH (08:18)
[2018-03-26] MEDS: Acidophilus with Citrus Pectin Tab PO SCH (08:18)
[2018-03-26] MEDS: Potassium Chloride 10 MEQ Tab.ER PO SCH (08:18)
[2018-03-26] MEDS: Multivitamins with Iron/Calcium/Folic Acid/Minerals Tab PO SCH (08:18)
[2018-03-26] MEDS: Aspirin 81 MG Tab.EC PO SCH (08:19)
[2018-03-26] MEDS: Furosemide 40 MG Tab PO SCH (08:19)
[2018-03-26] MEDS: Atropine 1% Ophth Soln 5 ML BOTTLE EYELF SCH ×2 (08:25→11:24)
[2018-03-26] MEDS: Non-Formulary Medication 1 Each (Fluticasone/Vilanterol 1 PUFF) IH SCH (09:07)
[2018-03-26 12:36] VITALS: BP 131/56
[2018-03-26] MEDS: Warfarin 2 MG Tab PO SCH (13:13)
--- NOTE | 2018-03-26 13:45 | CR ---
EXAM DATE: 03/25/18 PATIENT'S AGE: 88 Patient: PANCHO SALAS Facility: [place], [place] Site . Site : 1930 Study: XRay Chest [id number]/20/2018 2:33:12 AM Ordering Physician: Doctor Chou Final Report: INDICATION: Chest pain, "still not feeling better" TECHNIQUE: Chest radiograph 1 view COMPARISON: 03/24/2018 FINDINGS: Mediastinum: Moderate cardiomegaly is present and increased from prior examination. The mediastinum is normal in appearance. Lungs: Bilateral pulmonary hyperinflation and lucency noted, suggestive of moderate pulmonary emphysema. Mild pulmonary vascular congestion seen without interval change. No sign of pleural effusion seen. No pneumothorax is identified. Bones and soft tissue: Unremarkable for age. IMPRESSIONS: 1. Moderate cardiomegaly is present and increased from prior examination. 2. Bilateral pulmonary hyperinflation and lucency noted, suggestive of moderate pulmonary emphysema. 3. Mild pulmonary vascular congestion seen without interval change. Dictated by Dionisio Garcia MD @ 03/25/2018 2:34:37 AM Dictated by: Dionisio Garcia MD @ 03/25/2018 02:34:41 (Electronic Signature) Report Signed by Proxy. JAIME
--- NOTE | 2018-03-26 14:37 | PCM.DCSUM1 ---
Discharge Summary - Discharge Data Discharge Disposition: Home, Self-Care 01 Condition: Fair - Discharge Diagnosis/Problem(s) (1) Pancreatitis, acute SNOMED Code(s): 500887060 ICD Code: K85.90 - ACUTE PANCREATITIS WITHOUT NECROSIS OR INFECTION, UNSP Status: Acute Priority: High Qualifiers: Pancreatitis type: idiopathic (2) Hypothyroidism SNOMED Code(s): 99689286 ICD Code: E03.9 - HYPOTHYROIDISM, UNSPECIFIED Status: Acute - Patient Summary/Data Consults: Consultations 03/25/18 11:47 Consult to Physician [CONS] Routine - Patient Instructions Diet, Other: full liquid diet Activity: As Tolerated Driving: May Drive Today Showering/Bathing: May Shower Notify Provider of: Fever, Nausea and/or Vomiting - Discharge Plan Home Medications: Home Meds Aspirin 81 mg PO DAILY 09/19/15 [History] Calcium Carbonate 600 mg PO BIDMEALS 09/19/15 [History] Multivitamin [Multivitamins] 1 cap PO DAILY 09/19/15 [History] Potassium Chloride 10 meq PO DAILY 09/19/15 [History] Vitamin E 400 units PO DAILY 09/19/15 [History] L Acidophil/B Lactis/B Longum [Florajen3] 460 mg PO DAILY 10/09/16 [History] Ipratropium/Albuterol Sulfate [Iprat-Albut 0.5-3(2.5) mg/3 ml] 3 ml IH TID PRN 03/31/17 [History] Fluticasone/Vilanterol [Breo Ellipta 100-25 MCG Inhalation Kit] 1 puff IH DAILY #1 inhaler 04/01/17 [Rx] Albuterol [Proventil HFA] 2 puff INH Q4HRRT PRN 12/07/17 [History] Fluticasone Propionate [Flonase] 16 gm NS DAILY PRN 12/07/17 [History] Levothyroxine 75 mcg PO ACBREAKFAST 12/07/17 [History] Omeprazole 20 mg PO ACBREAKFAST PRN 12/07/17 [History] Furosemide 40 mg PO DAILY #0 12/08/17 [Rx] Metoprolol Succinate [Toprol XL] 100 mg PO BIDMEALS 01/30/18 [History] Acetaminophen [Tylenol] 650 mg PO Q4H PRN tablet 01/31/18 [Rx] traMADol [Ultram] 50 mg PO Q6H PRN #15 tablet 01/31/18 [Rx] Ondansetron HCl [Zofran] 4 mg PO BID #14 tablet 03/24/18 [Rx] Atropine 1% [Atropine 1% Ophth Soln] 1 drop EYELF DAILY 03/25/18 [History] Warfarin [Coumadin] 1 tab PO DAILY 03/25/18 [History] prednisoLONE Acetate [Prednisolone Acetate] 1 drop EYELF Q6HR 03/25/18 [History] Warfarin [Coumadin] 2 mg PO DAILY@1400 tablet 03/26/18 [Rx] Patient Handouts: Acute Pancreatitis, [id number] Referrals: [facility] [Outside] Colette Quezada DO [Primary Care Provider] - 04/09/18 12:45 pm - Patient Data Vitals - Most Recent: Last Vital Signs Temp 97.8 F 03/26/18 12:00 Pulse 79 03/26/18 12:00 Resp 22 H 03/26/18 12:00 BP 131/56 L 03/26/18 12:00 Pulse Ox 93 L 03/26/18 12:00 Weight - Most Recent: 158 lb 11.725 oz I&O - Last 24 hours: Intake & Output 03/25/18 03/26/18 03/26/18 22:59 06:59 14:59 Intake Total 1300 1150 Output Total 300 700 Balance 1000 450 Lab Results - Last 24 hrs: Laboratory Results - last 24 hr 03/26/18 03/26/18 03/26/18 Range/Units 05:26 05:26 05:26 WBC 7.39 (4.0-11.0) K/uL RBC 4.00 L (4.30-5.90) M/uL Hgb 11.6 L (12.0-16.0) g/dL Hct 36.6 (36.0-46.0) % MCV 91.5 (80.0-98.0) fL MCH 29.0 (27.0-32.0) pg MCHC 31.7 (31.0-37.0) g/dL RDW Std Deviation 49.2 (28.0-62.0) fl RDW Coeff of Brisa 15 (11.0-15.0) % Plt Count 251 (150-400) K/uL MPV 8.90 (7.40-12.00) fL Neut % (Auto) 53.7 (48.0-80.0) % Lymph % (Auto) 24.4 (16.0-40.0) % [place] % (Auto) 14.1 (0.0-15.0) % Eos % (Auto) 7.3 H (0.0-7.0) % Baso % (Auto) 0.5 (0.0-1.5) % Neut # (Auto) 4.0 (1.4-5.7) K/uL Lymph # (Auto) 1.8 (0.6-2.4) K/uL [place] # (Auto) 1.0 H (0.0-0.8) K/uL Eos # (Auto) 0.5 (0.0-0.7) K/uL Baso # (Auto) 0.0 (0.0-0.1) K/uL Nucleated RBC % 0.0 /100WBC Nucleated RBCs # 0 K/uL ESR (0-29) mm/hr INR Lactate (0.20-2.00) mmol/L Sodium 139 (136-145) mmol/L Potassium 4.7 (3.5-5.1) mmol/L Chloride 107 (98-107) mmol/L Carbon Dioxide 32.0 (21.0-32.0) mmol/L BUN 14 (7.0-18.0) mg/dL Creatinine 1.1 H (0.6-1.0) mg/dL Est Cr Clr Drug Dosing 26.71 mL/min Estimated GFR (MDRD) 46.9 ml/min Glucose 100 (74-106) mg/dL Calcium 8.3 L (8.5-10.1) mg/dL C-Reactive Protein 2.30 H (0.00-0.90) mg/dL Lipase 190 (73-393) U/L 03/26/18 03/26/18 03/26/18 Range/Units 05:26 05:26 08:45 WBC (4.0-11.0) K/uL RBC (4.30-5.90) M/uL Hgb (12.0-16.0) g/dL Hct (36.0-46.0) % MCV (80.0-98.0) fL MCH (27.0-32.0) pg MCHC (31.0-37.0) g/dL RDW Std Deviation (28.0-62.0) fl RDW Coeff of Brisa (11.0-15.0) % Plt Count (150-400) K/uL MPV (7.40-12.00) fL Neut % (Auto) (48.0-80.0) % Lymph % (Auto) (16.0-40.0) % [place] % (Auto) (0.0-15.0) % Eos % (Auto) (0.0-7.0) % Baso % (Auto) (0.0-1.5) % Neut # (Auto) (1.4-5.7) K/uL Lymph # (Auto) (0.6-2.4) K/uL [place] # (Auto) (0.0-0.8) K/uL Eos # (Auto) (0.0-0.7) K/uL Baso # (Auto) (0.0-0.1) K/uL Nucleated RBC % /100WBC Nucleated RBCs # K/uL ESR 18 (0-29) mm/hr INR 1.19 Lactate 1.1 (0.20-2.00) mmol/L Sodium (136-145) mmol/L Potassium (3.5-5.1) mmol/L Chloride (98-107) mmol/L Carbon Dioxide (21.0-32.0) mmol/L BUN (7.0-18.0) mg/dL Creatinine (0.6-1.0) mg/dL Est Cr Clr Drug Dosing mL/min Estimated GFR (MDRD) ml/min Glucose (74-106) mg/dL Calcium (8.5-10.1) mg/dL C-Reactive Protein (0.00-0.90) mg/dL Lipase (73-393) U/L Med Orders - Current: Current Medications Acidophilus/Pectin (Acidophilus/Pectin, [place]) 1 tab PO DAILY AZUL Last Admin: 03/26/18 08:18 Dose: 1 tab Albuterol/Ipratropium (Duoneb 3.0-0.5 Mg/3 Ml) 3 ml NEB Q4HRRT PRN PRN Reason: Shortness Of Breath/wheezing Atropine Sulfate (Atropine 1% Ophth Soln) 5 ml EYELF DAILY [facility] Last Admin: 03/26/18 11:24 Dose: 5 ml Fluticasone Propionate (Flonase) 0 gm YUMIKO DAILY PRN PRN Reason: ALLERGY Furosemide (Lasix) 40 mg PO DAILY [facility] Last Admin: 03/26/18 08:19 Dose: 40 mg Hydromorphone HCl (Dilaudid) 1 mg IVPUSH Q3H PRN PRN Reason: Pain Last Admin: 03/25/18 12:50 Dose: 1 mg Sodium Chloride (Normal Saline) 500 mls @ 999 mls/hr IV STAT [facility] Last Admin: 03/25/18 02:12 Dose: 999 mls/hr Levothyroxine Sodium (Levothyroxine) 75 mcg PO ACBREAKFAST [facility] Last Admin: 03/26/18 06:40 Dose: 75 mcg Metoprolol Succinate (Toprol Xl) 100 mg PO BIDMEALS [facility] Last Admin: 03/26/18 08:18 Dose: 100 mg Multivitamins/Minerals (Thera M Plus) 1 tab PO DAILY [facility] Last Admin: 03/26/18 08:18 Dose: 1 tab Non-Formulary Medication (Fluticasone/Vilanterol) 1 puff IH DAILY [facility] Last Admin: 03/26/18 09:07 Dose: 1 puff Omeprazole (Omeprazole) 20 mg PO ACBREAKFAST PRN PRN Reason: Heartburn Ondansetron HCl (Zofran) 4 mg IVPUSH Q4H PRN PRN Reason: Nausea/Vomiting Last Admin: 03/25/18 07:50 Dose: 4 mg Potassium Chloride (Klor-Con 10) 10 meq PO DAILY [facility] Last Admin: 03/26/18 08:18 Dose: 10 meq Prednisolone Acetate (Pred Forte 1% Ophth Susp) 5 ml EYELF Q6HR [facility] Last Admin: 03/26/18 11:23 Dose: 1 drop Sodium Chloride (Saline Flush) 10 ml FLUSH ASDIRECTED PRN PRN Reason: Keep Vein Open Sodium Chloride (Saline Flush) 2.5 ml FLUSH ASDIRECTED PRN PRN Reason: Keep Vein Open Tramadol HCl (Ultram) 50 mg PO Q6H PRN PRN Reason: Pain Warfarin Sodium (Coumadin) 2 mg PO DAILY@1400 [facility] Last Admin: 03/26/18 13:13 Dose: 2 mg Discontinued Medications Aspirin (Halfprin) 81 mg PO DAILY [facility] Last Admin: 03/26/18 08:19 Dose: Not Given Ciprofloxacin/Dextrose 400 mg/ (Premix) 200 mls @ 200 mls/hr IV NOW STA Stop: 03/25/18 03:57 Last Admin: 03/25/18 03:17 Dose: 200 mls/hr Metronidazole 500 mg/ Premix 100 mls @ 100 mls/hr IV ONETIME ONE Stop: 03/25/18 03:57 Last Admin: 03/25/18 03:20 Dose: 100 mls/hr Ciprofloxacin/Dextrose 400 mg/ (Premix) 200 mls @ 200 mls/hr IV Q12H [facility] Last Admin: 03/25/18 06:29 Dose: Not Given Metronidazole 500 mg/ Premix 100 mls @ 100 mls/hr IV QID AZUL Ciprofloxacin/Dextrose 400 mg/ (Premix) 200 mls @ 200 mls/hr IV Q12H [facility] Last Admin: 03/26/18 02:59 Dose: 200 mls/hr Metronidazole 500 mg/ Premix 100 mls @ 100 mls/hr IV Q6H [facility] Last Admin: 03/26/18 04:22 Dose: 100 mls/hr Lactated Ringer's (Ringers, Lactated) 1,000 mls @ 200 mls/hr IV ASDIRECTED [facility] Last Admin: 03/26/18 04:25 Dose: 125 mls/hr Morphine Sulfate (Morphine) 2 mg IVPUSH ONETIME ONE Stop: 03/25/18 02:59 Last Admin: 03/25/18 03:13 Dose: 2 mg Morphine Sulfate (Morphine) 2 mg IVPUSH Q2H PRN PRN Reason: Pain Last Admin: 03/25/18 07:35 Dose: 2 mg Ondansetron HCl (Zofran) 8 mg IVPUSH ONETIME ONE Stop: 03/25/18 02:00 Last Admin: 03/25/18 02:12 Dose: 8 mg
== END 2018-03-26 14:50 | disposition home or self-care (01) | DRG 440 ==
LOC: MW.ED 01:26 → MW.MS 03:37
PROVIDERS: ADMIT Internal Medicine; ATTEND Internal Medicine
DX: R10.9 Unspecified abdominal pain (principal); R11.10 Vomiting, unspecified; I48.91 Unspecified atrial fibrillation; K85.90 Acute pancreatitis without necrosis or infection, unspecified; E03.9 Hypothyroidism, unspecified; K42.9 Umbilical hernia without obstruction or gangrene; I50.9 Heart failure, unspecified; I10 Essential (primary) hypertension; I34.0 Nonrheumatic mitral (valve) insufficiency; I48.0 Paroxysmal atrial fibrillation; Z87.19 Personal history of other diseases of the digestive system; Z91.040 Latex allergy status; Z88.8 Allergy status to other drugs, medicaments and biological substances; Z79.899 Other long term (current) drug therapy
CPT/HCPCS: 36415; 71045; 80053; 84484; 85025; 85610; 93005; 96361; 96365; 96368; 96375; 99285; J0744; J2270; J2405; J7040; 80048; 81001; 83605; 83690; 85652; 86140; A9270-GY; J1170; J7120

== ENCOUNTER 2018-06-22 12:27 | Inpatient (IN) | payer MEDICARE, OTHER ==
[2018-06-22] MEDS ORDERED: Sodium Chloride 0.9% 10 ML Syringe FLUSH PRN ×2 (12:33→17:22)
[2018-06-22] MEDS ORDERED: Sodium Chloride 0.9% 2.5 ML Syringe FLUSH PRN ×2 (12:33→17:22)
[2018-06-22] MEDS ORDERED: Famotidine 20 MG/2 ML SDV IVPUSH ONE (12:33)
[2018-06-22] MEDS ORDERED: Aspirin 81 MG Tab.Chew PO ONE (12:33)
[2018-06-22] MEDS ORDERED: Sodium Chloride 0.9% 1,000 ML IV ONE (12:33)
[2018-06-22] MEDS: Nitroglycerin 0.4 MG Tab.SL SL ONE ×2 (12:52→12:57)
[2018-06-22] MEDS ORDERED: Morphine 2 MG/ML Syringe IVPUSH ONE ×2 (13:11→14:06)
[2018-06-22] MEDS ORDERED: Acetaminophen 325 MG Tab PO ONE (13:12)
--- NOTE | 2018-06-22 13:17 | EDM.PDOC ---
ED HPI GENERAL MEDICAL PROBLEM - General Chief Complaint: Chest Pain Stated Complaint: CHEST PAIN Time Seen by Provider: 06/22/18 12:35 Source of Information: Reports: Patient History Limitations: Reports: No Limitations - History of Present Illness INITIAL COMMENTS - FREE TEXT/NARRATIVE: HISTORY AND PHYSICAL: [] 88-year-old female presenting with chest pain on the right side of her neck and extending up into her jaw History of Present Illness: []Patient has had this pain for the last 2 days. Rating her pain 10/10 History of pancreatitis costochondritis CHF She is complaining the pain goes up to the right side of her neck extending into her jaw and her ear. Review of Systems: As per history of present illness and below otherwise all systems reviewed and negative. Past medical history: As per history of present illness and as reviewed below otherwise noncontributory. Surgical history: As per history of present illness and as reviewed below otherwise noncontributory. Social history: No reported history of drug or alcohol abuse. Family history: As per history of present illness and as reviewed below otherwise noncontributory. Physical exam: Alert female answering questions appropriately in full sentences without any shortness of breath. She is nontoxic in appearance. Skin is warm and dry intact. HEENT: Atraumatic, normocehpalic, pupils reactive, negative for conjunctival pallor or scleral icterus, mucous membranes moist, throat clear, neck supple, nontender, trachea midline. Lungs: Clear to auscultation, breath sounds equal bilaterally, chest wall tender on palpation. Heart: S1S2, regular, negative for clicks, rubs, or JVD. Abdomen: Soft, nondistended, nontender. Negative for masses or hepatossplenmegaly. Negative for costovertebral tenderness. Pelvis: Stable nontender. Genitourinary: Deferred. Rectal: Deferred Extremities: Atraumatic, negative for cords or calf pain. Neurovascular unremarkable. Neuro: Awake, alert, oriented. Cranial nerves II through XII unremarkable. Cerebellum unremarkable. Motor and sensory unremarkable throughout. Exam nonfocal. Discussed this case with who has accepted this patient for admission. She has requested for this patient has a CTA to rule out dissection. Diagnostics: []EKG CBC CMP troponin UA Therapeutics: []1 L normal saline Morphine 1 mg IV Tylenol by mouth Pepcid IV Nitrostat sublingual Nitropaste Zofran Impression: []Chest wall pain Plan: []Admit to med-surg for Dr. Red. Definitive disposition and diagnosis as appropriate pending reevaluation and review of above. Onset: Sudden Duration: Day(s): (3) Location: Reports: Chest Quality: Reports: Same as Previous Episode, Sharp Severity: Severe Improves with: Reports: None Worsens with: Reports: None Associated Symptoms: Reports: Chest Pain Mid-Sternal Chest Pain Score (Numeric/FACES): 10 - Related Data Allergies Allergy/AdvReac Type Severity Reaction Status Date / Time meza Allergy Anaphylactic Verified 06/22/18 12:37 Shock codeine Allergy Abdominal Verified 06/22/18 12:37 Cramps dipyridamole [From Aggrenox] Allergy unknown Verified 06/22/18 12:37 Latex, Natural Rubber Allergy Itching Verified 06/22/18 12:37 shrimp Allergy Hives Verified 06/22/18 12:37 dust mites Allergy Sneezing Uncoded 03/25/18 01:55 pollen Allergy Hives Uncoded 03/25/18 01:55 Home Meds: Home Meds Aspirin 81 mg PO DAILY 09/19/15 [History] Calcium Carbonate 600 mg PO BIDMEALS 09/19/15 [History] Multivitamin [Multivitamins] 1 cap PO DAILY 09/19/15 [History] Potassium Chloride 10 meq PO DAILY 09/19/15 [History] Vitamin E 400 units PO DAILY 09/19/15 [History] L Acidophil/B Lactis/B Longum [Florajen3] 460 mg PO DAILY 10/09/16 [History] Ipratropium/Albuterol Sulfate [Iprat-Albut 0.5-3(2.5) mg/3 ml] 3 ml IH TID PRN 03/31/17 [History] Fluticasone/Vilanterol [Breo Ellipta 100-25 MCG Inhalation Kit] 1 puff IH DAILY #1 inhaler 04/01/17 [Rx] Albuterol [Proventil HFA] 2 puff INH Q4HRRT PRN 12/07/17 [History] Fluticasone Propionate [Flonase] 16 gm NS DAILY PRN 12/07/17 [History] Levothyroxine 75 mcg PO ACBREAKFAST 12/07/17 [History] Omeprazole 20 mg PO ACBREAKFAST PRN 12/07/17 [History] Furosemide 40 mg PO DAILY #0 12/08/17 [Rx] Metoprolol Succinate [Toprol XL] 100 mg PO BIDMEALS 01/30/18 [History] Acetaminophen [Tylenol] 650 mg PO Q4H PRN tablet 01/31/18 [Rx] traMADol [Ultram] 50 mg PO Q6H PRN #15 tablet 01/31/18 [Rx] Ondansetron HCl [Zofran] 4 mg PO BID #14 tablet 03/24/18 [Rx] Atropine 1% [Atropine 1% Ophth Soln] 1 drop EYELF DAILY 03/25/18 [History] Warfarin [Coumadin] 1 tab PO DAILY 03/25/18 [History] prednisoLONE Acetate [Prednisolone Acetate] 1 drop EYELF Q6HR 03/25/18 [History] Warfarin [Coumadin] 2 mg PO DAILY@1400 tablet 03/26/18 [Rx] Past Medical History - Past Health History Medical/Surgical History: Denies Medical/Surgical History HEENT History: Reports: Cataract, Impaired Vision, 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) Other HEENT History: wears glasses all the time Cardiovascular History: Reports: Afib, Heart Failure, Hypertension, 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) Other Cardiovascular History: 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 Respiratory History: Reports: Asthma Gastrointestinal History: Reports: Bowel Obstruction, Diverticulosis, Pancreatitis Genitourinary History: Reports: None MEAT PACKER History: Reports: , 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) Other MEAT PACKER History: force labor; D&C, stillbirth Musculoskeletal History: Reports: Fracture Neurological History: Reports: None Psychiatric History: Reports: None Endocrine/Metabolic History: Reports: Hypothyroidism Hematologic History: Reports: Anemia, 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) Other Hematologic History: blood clots in the leg Immunologic History: Reports: None Oncologic (Cancer) History: Reports: None Dermatologic History: Reports: None - Infectious Disease History Infectious Disease History: Reports: Chicken Pox, Measles, Mumps - Past Surgical History Head Surgeries/Procedures: Reports: None HEENT Surgical History: Reports: Adenoidectomy, Cataract Surgery, Tonsillectomy Cardiovascular Surgical History: Reports: None Respiratory Surgical History: Reports: None GI Surgical History: Reports: Appendectomy, Cholecystectomy Endocrine Surgical History: Reports: None Musculoskeletal Surgical History: Reports: None Social & Family History - Family History Family Medical History: Noncontributory HEENT: Reports: Impaired Vision Cardiac: Reports: Hypertension, [place], Prior Cardiac Arrest OBGYN: Reports: Neurological: Reports: CVA - Tobacco Use Smoking Status *Q: Never Smoker - Caffeine Use Caffeine Use: Reports: Coffee Caffeine Use Comment: decaf - Recreational Drug Use Recreational Drug Use: No - Living Situation & Occupation Living situation: Reports: , Alone Occupation: Retired ED ROS GENERAL - Review of Systems Review Of Systems: ROS reveals no pertinent complaints other than HPI. ED EXAM, GENERAL - Physical Exam Exam: See Below (See Dictation) EKG INTERPRETATION EKG Date: 06/22/18 Rhythm: NSR Comparison: No Change Course - Vital Signs Last Recorded V/S: Last Vital Signs Temp 36.7 C 06/22/18 12:33 Pulse 73 06/22/18 12:33 Resp 18 06/22/18 12:33 BP 134/56 L 06/22/18 12:57 Pulse Ox 97 06/22/18 12:33 - Orders/Labs/Meds Orders: Active Orders 24 hr Category Date Time Status Patient Status [ADT] Stat ADT 06/22/18 14:13 Ordered Cardiac Monitoring [RC] . DIRECTED Care 06/22/18 12:33 Active EKG Documentation Completion [RC] STAT Care 06/22/18 12:33 Active Oxygen Therapy [RC] ASDIRECTED Care 06/22/18 12:33 Active Pulse Oximetry [RC] ASDIRECTED Care 06/22/18 12:33 Active Telemetry Monitoring [Cardiac Monitoring] [RC] . Care 06/22/18 14:15 Ordered DIRECTED Ang Chest [CT] Stat Exams 06/22/18 14:12 Ordered UA W/MICROSCOPIC [URIN] Stat Lab 06/22/18 12:34 Ordered Sodium Chloride 0.9% [Saline Flush] Med 06/22/18 12:33 Active 10 ml FLUSH ASDIRECTED PRN Sodium Chloride 0.9% [Saline Flush] Med 06/22/18 12:33 Active 2.5 ml FLUSH ASDIRECTED PRN Saline Lock Insert [OM.PC] Stat Oth 06/22/18 12:33 Ordered Medication Orders Sodium Chloride (Saline Flush) 10 ml FLUSH ASDIRECTED PRN PRN Reason: Keep Vein Open Sodium Chloride (Saline Flush) 2.5 ml FLUSH ASDIRECTED PRN PRN Reason: Keep Vein Open Labs: Laboratory Tests 06/22/18 06/22/18 Range/Units 12:45 12:45 WBC 13.40 H (4.0-11.0) K/uL RBC 4.58 (4.30-5.90) M/uL Hgb 13.8 (12.0-16.0) g/dL Hct 41.0 (36.0-46.0) % MCV 89.5 (80.0-98.0) fL MCH 30.1 (27.0-32.0) pg MCHC 33.7 (31.0-37.0) g/dL RDW Std Deviation 44.6 (28.0-62.0) fl RDW Coeff of Brisa 14 (11.0-15.0) % Plt Count 306 (150-400) K/uL MPV 8.90 (7.40-12.00) fL Neut % (Auto) 64.7 (48.0-80.0) % Lymph % (Auto) 21.3 (16.0-40.0) % [place] % (Auto) 9.1 (0.0-15.0) % Eos % (Auto) 4.5 (0.0-7.0) % Baso % (Auto) 0.4 (0.0-1.5) % Neut # (Auto) 8.7 H (1.4-5.7) K/uL Lymph # (Auto) 2.9 H (0.6-2.4) K/uL [place] # (Auto) 1.2 H (0.0-0.8) K/uL Eos # (Auto) 0.6 (0.0-0.7) K/uL Baso # (Auto) 0.1 (0.0-0.1) K/uL Nucleated RBC % 0.0 /100WBC Nucleated RBCs # 0 K/uL Sodium 138 (136-145) mmol/L Potassium 4.1 (3.5-5.1) mmol/L Chloride 100 (98-107) mmol/L Carbon Dioxide 32.3 H (21.0-32.0) mmol/L BUN 15 (7.0-18.0) mg/dL Creatinine 1.2 H (0.6-1.0) mg/dL Est Cr Clr Drug Dosing 24.45 mL/min Estimated GFR (MDRD) 42.4 ml/min Glucose 136 H (74-106) mg/dL Calcium 9.8 (8.5-10.1) mg/dL Total Bilirubin 0.3 (0.2-1.0) mg/dL AST 16 (15-37) IU/L ALT 22 (14-63) IU/L Alkaline Phosphatase 75 (46-116) U/L Troponin I < 0.050 (0.000-0.056) ng/mL Total Protein 7.3 (6.4-8.2) g/dL Albumin 3.5 (3.4-5.0) g/dL Globulin 3.8 H (2.0-3.5) g/dL Albumin/Globulin Ratio 0.9 L (1.3-2.8) Amylase 73 (25-115) U/L Lipase 186 (73-393) U/L Meds: Medications Generic Name Dose Route Start Last Admin Trade Name Freq PRN Reason Stop Dose Admin Sodium Chloride 10 ml 06/22/18 12:33 Saline Flush FLUSH ASDIRECTED PRN Keep Vein Open Sodium Chloride 2.5 ml 06/22/18 12:33 Saline Flush FLUSH ASDIRECTED PRN Keep Vein Open Discontinued Medications Generic Name Dose Route Start Last Admin Trade Name Freq PRN Reason Stop Dose Admin Acetaminophen 325 mg 06/22/18 13:12 06/22/18 13:19 Tylenol PO 06/22/18 13:13 325 mg NOW ONE Administration Aspirin 324 mg 06/22/18 12:33 06/22/18 12:54 Aspirin PO 06/22/18 12:34 324 mg ONETIME ONE Administration Famotidine 20 mg 06/22/18 12:33 06/22/18 12:52 Pepcid IVPUSH 06/22/18 12:34 20 mg ONETIME ONE Administration Sodium Chloride 1,000 mls @ 999 mls/hr 06/22/18 12:33 06/22/18 12:51 Normal Saline IV 06/22/18 13:33 999 mls/hr BOLUS ONE Administration Morphine Sulfate 2 mg 06/22/18 13:11 06/22/18 13:19 Morphine IVPUSH 06/22/18 13:12 1 mg ONETIME ONE Administration Morphine Sulfate 2 mg 06/22/18 14:06 06/22/18 14:12 Morphine IVPUSH 06/22/18 14:07 2 mg ONETIME ONE Administration Nitroglycerin 0.4 mg 06/22/18 12:33 06/22/18 12:57 Nitrostat SL 06/22/18 12:34 0.4 mg ONETIME ONE Administration Nitroglycerin 1 gm 06/22/18 13:53 06/22/18 14:13 Nitro-Bid 2% TOP 06/22/18 13:54 1 gm ONETIME ONE Administration Ondansetron HCl 4 mg 06/22/18 14:08 06/22/18 14:12 Zofran IVPUSH 06/22/18 14:09 4 mg ONETIME ONE Administration Ondansetron HCl Confirm 06/22/18 14:10 Zofran Administered 06/22/18 14:11 Dose 4 mg .ROUTE .STK-MED ONE Departure - Departure Time of Disposition: 14:19 Disposition: Admitted As Inpatient 66 Condition: Good Clinical Impression: Atypical chest pain Referrals: Colette Quezada DO [Primary Care Provider] - Forms: ED Department Discharge - My Orders Last 24 Hours: My Active Orders 06/22/18 12:33 Cardiac Monitoring [RC] . DIRECTED EKG Documentation Completion [RC] STAT Oxygen Therapy [RC] ASDIRECTED Pulse Oximetry [RC] ASDIRECTED Sodium Chloride 0.9% [Saline Flush] 10 ml FLUSH ASDIRECTED PRN Sodium Chloride 0.9% [Saline Flush] 2.5 ml FLUSH ASDIRECTED PRN Saline Lock Insert [OM.PC] Stat 06/22/18 12:34 UA W/MICROSCOPIC [URIN] Stat 06/22/18 14:12 Ang Chest [CT] Stat 06/22/18 14:13 Patient Status [ADT] Stat 06/22/18 14:15 Telemetry Monitoring [Cardiac Monitoring] [RC] . DIRECTED - Assessment/Plan Last 24 Hours: My Active Orders 06/22/18 12:33 Cardiac Monitoring [RC] . DIRECTED EKG Documentation Completion [RC] STAT Oxygen Therapy [RC] ASDIRECTED Pulse Oximetry [RC] ASDIRECTED Sodium Chloride 0.9% [Saline Flush] 10 ml FLUSH ASDIRECTED PRN Sodium Chloride 0.9% [Saline Flush] 2.5 ml FLUSH ASDIRECTED PRN Saline Lock Insert [OM.PC] Stat 06/22/18 12:34 UA W/MICROSCOPIC [URIN] Stat 06/22/18 14:12 Ang Chest [CT] Stat 06/22/18 14:13 Patient Status [ADT] Stat 06/22/18 14:15 Telemetry Monitoring [Cardiac Monitoring] [RC] . DIRECTED
[2018-06-22 13:45] LABS: CHLORIDE,CL 100 mmol/L (98-107); SODIUM,NA 138 mmol/L (136-145)
[2018-06-22] MEDS ORDERED: Nitroglycerin 2% Oint 1 GM UD Packet TOP ONE (13:53)
--- NOTE | 2018-06-22 13:56 | CR ---
EXAMINATION: Portable chest radiograph. HISTORY: Chest pain. FINDINGS: The trachea is midline. Heart is mildly enlarged. Mild aortic calcifications. The cardiomediastinal s ilhouette is within normal limits. No pulmonary infiltrates, effusions or pneumothorax. Osseous structures appear unremarkable. IMPRESSION: 1. Mild cardiomegaly otherwise no acute cardiopulmonary findings.
[2018-06-22] MEDS ORDERED: Ondansetron 4 MG/2 ML SDV IVPUSH ONE (14:08)
[2018-06-22] MEDS ORDERED: Ondansetron 4 MG/2 ML SDV ONE (14:10)
[2018-06-22] MEDS ORDERED: diphenhydrAMINE 50 MG/ML SDV IVPUSH ONE (14:20)
[2018-06-22] MEDS ORDERED: diphenhydrAMINE 50 MG/ML SDV ONE (14:23)
--- NOTE | 2018-06-22 15:28 | CT ---
EXAMINATION: CTA chest HISTORY: Pain COMPARISON: None TECHNIQUE: Multiplanar and multisequence imaging obtained through the chest following the administrat ion of 40 mL of Isovue-370 in the right antecubital fossa. Coronal and sagittal reconstructions obtai abhishek. FINDINGS: The lungs are clear without focal consolidation. No pleural effusion or pneumothorax. Mild dependent atelectasis. There is a moderate to large hiatal hernia. The heart is borderline in size wi thout a pericardial effusion. The thoracic aorta is normal in caliber. The main and central pulmonary arteries are patent without evidence of a pulmonary embolism. No mediastinal, hilar, or axillary lym phadenopathy. Central airways are clear. Coronary artery calcifications and moderate ventral annular calcifications are noted. No suspicious osseous abnormalities identified. IMPRESSION: 1. No evidence of a pulmonary embolism. 2. Moderate to large hiatal hernia.
[2018-06-22] MEDS ORDERED: Acetaminophen/oxyCODONE 325-5 MG Tab PO PRN (17:22)
[2018-06-22] MEDS ORDERED: Temazepam 15 MG Cap PO PRN (17:22)
[2018-06-22] MEDS ORDERED: Promethazine 25 MG/ML SDV IM PRN (17:22)
--- NOTE | 2018-06-22 17:49 | PCM.HP ---
H&P History of Present Illness - General Date of Service: 06/22/18 Admit Problem/Dx: Admission Diagnosis/Problem Admission Diagnosis/Problem Chest pain Source of Information: Patient History Limitations: Reports: No Limitations - History of Present Illness Initial Comments - Free Text/Narative: Patient 88 years old female presented to hospital because of generalized body pain, patient says she has pain on her anterior chest on her back on her abdomen arms and in the legs. She was seen by an neurologist 2 years ago when she was diagnosed with myalgia. She states that for the past 2 days his symptoms are worse. She is very sensitive to touch all over her body and she states she has tenderness all over the body. Onset of Symptoms: Reports: Gradual Duration of Symptoms: Reports: Day(s): Location: Reports: Chest, Abdomen, Upper Extremity, Left, Upper Extremity, Right , Lower Extremity, Left, Lower Extremity, Right Mid-Sternal Chest Pain Score (Numeric/FACES): 8 Headache Pain Score (Numeric/FACES): 8 - Related Data Allergies/Adverse Reactions: Allergies Allergy/AdvReac Type Severity Reaction Status Date / Time meza Allergy Anaphylactic Verified 06/22/18 12:37 Shock codeine Allergy Abdominal Verified 06/22/18 12:37 Cramps dipyridamole [From Aggrenox] Allergy unknown Verified 06/22/18 12:37 Latex, Natural Rubber Allergy Itching Verified 06/22/18 12:37 morphine Allergy Itching Verified 06/22/18 14:23 shrimp Allergy Hives Verified 06/22/18 12:37 dust mites Allergy Sneezing Uncoded 03/25/18 01:55 pollen Allergy Hives Uncoded 03/25/18 01:55 Home Medications: Home Meds Calcium Carbonate 600 mg PO BIDMEALS 09/19/15 [History] Multivitamin [Multivitamins] 1 cap PO DAILY 09/19/15 [History] Potassium Chloride 10 meq PO DAILY 09/19/15 [History] Vitamin E 400 units PO DAILY 09/19/15 [History] L Acidophil/B Lactis/B Longum [Florajen3] 460 mg PO DAILY 10/09/16 [History] Ipratropium/Albuterol Sulfate [Iprat-Albut 0.5-3(2.5) mg/3 ml] 3 ml IH TID PRN 03/31/17 [History] Fluticasone/Vilanterol [Breo Ellipta 100-25 MCG Inhalation Kit] 1 puff IH DAILY #1 inhaler 04/01/17 [Rx] Albuterol [Proventil HFA] 2 puff INH Q4HRRT PRN 12/07/17 [History] Fluticasone Propionate [Flonase] 1 spray NS DAILY PRN 12/07/17 [History] Levothyroxine 75 mcg PO ACBREAKFAST 12/07/17 [History] Omeprazole 20 mg PO ACBREAKFAST PRN 12/07/17 [History] Furosemide 40 mg PO DAILY #0 12/08/17 [Rx] Metoprolol Succinate [Toprol XL] 100 mg PO BIDMEALS 01/30/18 [History] Acetaminophen [Tylenol] 650 mg PO Q4H PRN tablet 01/31/18 [Rx] traMADol [Ultram] 50 mg PO Q6H PRN #15 tablet 01/31/18 [Rx] prednisoLONE Acetate [Prednisolone Acetate] 1 drop EYELF Q6HR 03/25/18 [History] Apixaban [Eliquis] 5 mg PO BID 06/22/18 [History] Cholecalciferol (Vitamin D3) [Vitamin D3] 5,000 unit PO DAILY 06/22/18 [History] Diltiazem HCl [Dilt-XR] 120 mg PO DAILY 06/22/18 [History] Past Medical History - Past Health History Medical/Surgical History: Denies Medical/Surgical History HEENT History: Reports: Cataract, Impaired Vision, 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) Other HEENT History: wears glasses all the time Cardiovascular History: Reports: Afib, Heart Failure, Hypertension, 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) Other Cardiovascular History: 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 Respiratory History: Reports: Asthma Gastrointestinal History: Reports: Bowel Obstruction, Diverticulosis, Pancreatitis Genitourinary History: Reports: None CONTEMPORARY OR MODERN DANCER History: Reports: , 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; D&C, stillbirth Musculoskeletal History: Reports: Fracture Neurological History: Reports: None Psychiatric History: Reports: None Endocrine/Metabolic History: Reports: Hypothyroidism Hematologic History: Reports: Anemia, 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) Other Hematologic History: blood clots in the leg Immunologic History: Reports: None Oncologic (Cancer) History: Reports: None Dermatologic History: Reports: None - Infectious Disease History Infectious Disease History: Reports: Chicken Pox, Measles - Past Surgical History Head Surgeries/Procedures: Reports: None HEENT Surgical History: Reports: Adenoidectomy, Cataract Surgery, Tonsillectomy Cardiovascular Surgical History: Reports: None Respiratory Surgical History: Reports: None GI Surgical History: Reports: Appendectomy, Cholecystectomy Endocrine Surgical History: Reports: None Musculoskeletal Surgical History: Reports: None Social & Family History - Family History Family Medical History: Noncontributory HEENT: Reports: Impaired Vision Cardiac: Reports: Hypertension, [place], Prior Cardiac Arrest OBGYN: Reports: Neurological: Reports: CVA - Tobacco Use Smoking Status *Q: Never Smoker Second Hand Smoke Exposure: Yes - Caffeine Use Caffeine Use: Reports: None Caffeine Use Comment: decaf - Recreational Drug Use Recreational Drug Use: No - Living Situation & Occupation Living situation: Reports: , Alone Occupation: Retired H&P Review of Systems - Review of Systems: Review Of Systems: See Below General: Reports: No Symptoms HEENT: Reports: No Symptoms Pulmonary: Reports: No Symptoms Cardiovascular: Reports: No Symptoms Gastrointestinal: Reports: No Symptoms Genitourinary: Reports: No Symptoms Musculoskeletal: Reports: Neck Pain, Shoulder Pain, Arm Pain, Back Pain, Hand Pain, Leg Pain, Muscle Pain Skin: Reports: No Symptoms Psychiatric: Reports: No Symptoms Neurological: Reports: No Symptoms Hematologic/Lymphatic: Reports: No Symptoms Immunologic: Reports: No Symptoms Exam - Exam Exam: See Below - Vital Signs Vital Signs: Last Vital Signs Temp 97 F 06/22/18 16:15 Pulse 84 06/22/18 16:15 Resp 20 06/22/18 16:15 BP 157/70 H 06/22/18 16:15 Pulse Ox 95 06/22/18 16:15 Weight: 163 lb 3 oz - Exam General: Alert, Oriented HEENT: Conjunctiva Clear, EACs Clear Neck: Supple, Trachea Midline Lungs: Clear to Auscultation, Normal Respiratory Effort Cardiovascular: Regular Rate, Regular Rhythm, Normal S1, Normal S2 GI/Abdominal Exam: Normal Bowel Sounds, Soft, Non-Tender, No Organomegaly, No Distention Back Exam: Normal Inspection Extremities: Normal Inspection Skin: Warm, Dry Neuro Extensive - Mental Status: Alert, Oriented x3 Neuro Extensive - Motor, Sensory, Reflexes: CN II-XII Intact Psychiatric: Alert - Patient Data Lab Results Last 24 hrs: Laboratory Results - last 24 hr 06/22/18 06/22/18 Range/Units 12:45 12:45 WBC 13.40 H (4.0-11.0) K/uL RBC 4.58 (4.30-5.90) M/uL Hgb 13.8 (12.0-16.0) g/dL Hct 41.0 (36.0-46.0) % MCV 89.5 (80.0-98.0) fL MCH 30.1 (27.0-32.0) pg MCHC 33.7 (31.0-37.0) g/dL RDW Std Deviation 44.6 (28.0-62.0) fl RDW Coeff of Brisa 14 (11.0-15.0) % Plt Count 306 (150-400) K/uL MPV 8.90 (7.40-12.00) fL Neut % (Auto) 64.7 (48.0-80.0) % Lymph % (Auto) 21.3 (16.0-40.0) % Tripp % (Auto) 9.1 (0.0-15.0) % Eos % (Auto) 4.5 (0.0-7.0) % Baso % (Auto) 0.4 (0.0-1.5) % Neut # (Auto) 8.7 H (1.4-5.7) K/uL Lymph # (Auto) 2.9 H (0.6-2.4) K/uL Tripp # (Auto) 1.2 H (0.0-0.8) K/uL Eos # (Auto) 0.6 (0.0-0.7) K/uL Baso # (Auto) 0.1 (0.0-0.1) K/uL Nucleated RBC % 0.0 /100WBC Nucleated RBCs # 0 K/uL Sodium 138 (136-145) mmol/L Potassium 4.1 (3.5-5.1) mmol/L Chloride 100 (98-107) mmol/L Carbon Dioxide 32.3 H (21.0-32.0) mmol/L BUN 15 (7.0-18.0) mg/dL Creatinine 1.2 H (0.6-1.0) mg/dL Est Cr Clr Drug Dosing 24.45 mL/min Estimated GFR (MDRD) 42.4 ml/min Glucose 136 H (74-106) mg/dL Calcium 9.8 (8.5-10.1) mg/dL Total Bilirubin 0.3 (0.2-1.0) mg/dL AST 16 (15-37) IU/L ALT 22 (14-63) IU/L Alkaline Phosphatase 75 (46-116) U/L Troponin I < 0.050 (0.000-0.056) ng/mL Total Protein 7.3 (6.4-8.2) g/dL Albumin 3.5 (3.4-5.0) g/dL Globulin 3.8 H (2.0-3.5) g/dL Albumin/Globulin Ratio 0.9 L (1.3-2.8) Amylase 73 (25-115) U/L Lipase 186 (73-393) U/L Result Diagrams: 06/22/18 12:45 06/22/18 12:45 EKG INTERPRETATION EKG Date: 06/22/18 Rhythm: NSR ST-T: Normal - Problem List (1) Myalgia SNOMED Code(s): 04153593 ICD Code: M79.1 - MYALGIA Status: Acute Current Visit: Yes Problem List Initiated/Reviewed/Updated: Yes Orders Last 24hrs: Active Orders 24 hr Category Date Time Status Patient Status [ADT] Stat ADT 06/22/18 14:13 Active Oxygen Therapy [RC] PRN Care 06/22/18 17:22 Active Pulse Oximetry [RC] PRN Care 06/22/18 17:22 Active Telemetry Monitoring [Cardiac Monitoring] [RC] . Care 06/22/18 16:09 Active DIRECTED Up ad Kalee [RC] ASDIRECTED Care 06/22/18 17:22 Active VTE/DVT Education [RC] PER UNIT ROUTINE Care 06/22/18 17:22 Active Vital Signs [RC] Q4H Care 06/22/18 17:22 Active 2 Gram Sodium Diet [DIET] Diet 06/22/18 Dinner Active CBC WITH AUTO DIFF [HEME] AM Lab 06/23/18 05:11 Ordered CBC WITH AUTO DIFF [HEME] AM Lab 06/24/18 05:11 Ordered CBC WITH AUTO DIFF [HEME] AM Lab 06/25/18 05:11 Ordered CBC WITH AUTO DIFF [HEME] AM Lab 06/26/18 05:11 Ordered CBC WITH AUTO DIFF [HEME] AM Lab 06/27/18 05:11 Ordered COMPREHENSIVE METABOLIC PN,CMP [CHEM] AM Lab 06/23/18 05:11 Ordered COMPREHENSIVE METABOLIC PN,CMP [CHEM] AM Lab 06/24/18 05:11 Ordered COMPREHENSIVE METABOLIC PN,CMP [CHEM] AM Lab 06/25/18 05:11 Ordered COMPREHENSIVE METABOLIC PN,CMP [CHEM] AM Lab 06/26/18 05:11 Ordered COMPREHENSIVE METABOLIC PN,CMP [CHEM] AM Lab 06/27/18 05:11 Ordered CREATINE KINASE,CK [CHEM] Routine Lab 06/22/18 12:45 Received CRP [C-REACTIVE PROTEIN] [CHEM] Routine Lab 06/22/18 12:45 Received ESR [SEDIMENTATION RATE AUTO] [HEME] Routine Lab 06/22/18 12:45 Received UA W/MICROSCOPIC [URIN] Stat Lab 06/22/18 12:34 Ordered Acetaminophen/oxyCODONE [Percocet 325-5 MG] Med 06/22/18 17:22 Active 1 tab PO Q4H PRN Heparin Sodium Med 06/22/18 21:00 Active 5,000 units SUBCUT Q12H Promethazine [Phenergan] Med 06/22/18 17:22 Active 12.5 mg IM Q4H PRN Sodium Chloride 0.9% [Saline Flush] Med 06/22/18 12:33 Active 10 ml FLUSH ASDIRECTED PRN Sodium Chloride 0.9% [Saline Flush] Med 06/22/18 17:22 Active 10 ml FLUSH ASDIRECTED PRN Sodium Chloride 0.9% [Saline Flush] Med 06/22/18 12:33 Active 2.5 ml FLUSH ASDIRECTED PRN Sodium Chloride 0.9% [Saline Flush] Med 06/22/18 17:22 Active 2.5 ml FLUSH ASDIRECTED PRN Temazepam [Restoril] Med 06/22/18 17:22 Active 15 mg PO BEDTIME PRN Peripheral IV Insertion Adult [OM.PC] Routine Oth 06/22/18 17:22 Ordered Saline Lock Insert [OM.PC] Stat Oth 06/22/18 12:33 Ordered Sequential Compression Device [OM.PC] Per Unit Routine Oth 06/22/18 17:22 Ordered Resuscitation Status Routine Resus Stat 06/22/18 17:22 Ordered Medication Orders Heparin Sodium (Porcine) (Heparin Sodium) 5,000 units SUBCUT Q12H AZUL Oxycodone/Acetaminophen (Percocet 325-5 Mg) 1 tab PO Q4H PRN PRN Reason: Pain (moderate 4-6) Promethazine HCl (Phenergan) 12.5 mg IM Q4H PRN PRN Reason: Nausea/Vomiting Sodium Chloride (Saline Flush) 10 ml FLUSH ASDIRECTED PRN PRN Reason: Keep Vein Open Sodium Chloride (Saline Flush) 2.5 ml FLUSH ASDIRECTED PRN PRN Reason: Keep Vein Open Sodium Chloride (Saline Flush) 10 ml FLUSH ASDIRECTED PRN PRN Reason: Keep Vein Open Sodium Chloride (Saline Flush) 2.5 ml FLUSH ASDIRECTED PRN PRN Reason: Keep Vein Open Temazepam (Restoril) 15 mg PO BEDTIME PRN PRN Reason: Sleep Assessment/Plan Comment:: will admit patient to telemetry will order serial troponins and will continue patient with eliquis 5 mg po Bid , will order ESR and CRP to evaluate for polymyalgia rheumatica. patient received aspirin 325 mg po one dose in Er will f/up lipid profile in am, Hb A1c For myalgia will give patient Percocet 5/325 mg po q 6 h prn for pain
[2018-06-22] MEDS ORDERED: Heparin Sodium 5,000 Units/ML Vial SUBCUT SCH (21:00)
[2018-06-23] MEDS ORDERED: traMADol 50 MG Tab PO PRN (00:15)
[2018-06-23] MEDS ORDERED: Acetaminophen 325 MG Tab PO PRN (00:15)
[2018-06-23] MEDS ORDERED: Omeprazole 20 MG Cap.CR PO PRN (00:15)
[2018-06-23] MEDS ORDERED: Albuterol 6.7 GM Inhaler INH PRN (00:15)
[2018-06-23] MEDS ORDERED: Albuterol/Ipratropium 3.0-0.5 MG/3 ML Neb Soln INH PRN (00:15)
[2018-06-23] MEDS ORDERED: Fluticasone Propionate Nasal Spray 16 GM Bottle NAS PRN (00:30)
[2018-06-23] MEDS ORDERED: Clopidogrel 75 MG Tab PO ONE (01:38)
[2018-06-23] MEDS ORDERED: atorvaSTATin 40 MG Tab PO SCH (01:39)
[2018-06-23] MEDS ORDERED: Nitroglycerin 2% Oint 1 GM UD Packet TOP PRN (01:40)
[2018-06-23] MEDS ORDERED: Morphine 2 MG/ML Syringe IVPUSH PRN (01:41)
[2018-06-23] MEDS ORDERED: Metoprolol Tartrate 25 MG Tab PO ONE (01:56)
--- NOTE | 2018-06-23 03:17 | PCM.SN ---
- Free Text/Narrative Note: Patient granddaughter was called , Britany Romero and was informed about the patient transfer
[2018-06-23] MEDS ORDERED: Heparin Sod,Pork In 0.45% Nacl 25,000 UNIT/500 ML IV.SOLN IV SCH ×2 (03:30→03:45)
[2018-06-23] MEDS ORDERED: HYDROmorphone 1 MG/ML Syringe IVPUSH PRN (03:30)
[2018-06-23] MEDS ORDERED: Heparin Sodium 5,000 Units/ML Vial IV ONE (03:45)
[2018-06-23] MEDS ORDERED: Heparin Sodium 5,000 Units/ML Vial IVPUSH ONE (03:47)
[2018-06-23] MEDS ORDERED: prednisoLONE Acetate 1% Ophth Susp 5 ML Bottle EYELF SCH (06:00)
[2018-06-23] MEDS ORDERED: Levothyroxine 75 MCG Tab PO SCH (07:30)
[2018-06-23 08:00] VITALS: BP 110/53
[2018-06-23] MEDS ORDERED: Calcium Carbonate 500 MG Tablet PO SCH (08:00)
[2018-06-23] MEDS ORDERED: Metoprolol Succinate 100 MG Tab.ER PO SCH (08:00)
[2018-06-23] MEDS ORDERED: Furosemide 40 MG Tab PO SCH (09:00)
[2018-06-23] MEDS ORDERED: Apixaban 5 MG Tab PO SCH (09:00)
[2018-06-23] MEDS ORDERED: Multivitamins with Iron/Calcium/Folic Acid/Minerals Tab PO SCH (09:00)
[2018-06-23] MEDS ORDERED: Cholecalciferol (Vitamin D3) 1,000 Unit Tab PO SCH (09:00)
[2018-06-23] MEDS ORDERED: Diltiazem 120 MG Cap.CD PO SCH (09:00)
[2018-06-23] MEDS ORDERED: Acidophilus with Citrus Pectin Tab PO SCH (09:00)
[2018-06-23] MEDS ORDERED: Potassium Chloride 10 MEQ Tab.ER PO SCH (09:00)
[2018-06-23] MEDS ORDERED: Vitamin E (dl-alpha-tocopherol acetate) 400 Unit Cap PO SCH (09:00)
--- NOTE | 2018-06-23 10:45 | PCM.DCSUM1 ---
Discharge Summary - Discharge Data Discharge Disposition: DC/Tfer to Acute Hospital 02 Condition: Stable - Discharge Diagnosis/Problem(s) (1) Myalgia SNOMED Code(s): 45741356 ICD Code: M79.1 - MYALGIA Status: Acute (2) NSTEMI (non-ST elevated myocardial infarction) SNOMED Code(s): 874247811 ICD Code: I21.4 - NON-ST ELEVATION (NSTEMI) MYOCARDIAL INFARCTION Status: Acute - Patient Instructions Diet: NPO Activity: As Tolerated Showering/Bathing: May Shower - Discharge Plan Home Medications: Home Meds Calcium Carbonate 600 mg PO BIDMEALS 09/19/15 [History] Multivitamin [Multivitamins] 1 cap PO DAILY 09/19/15 [History] Potassium Chloride 10 meq PO DAILY 09/19/15 [History] Vitamin E 400 units PO DAILY 09/19/15 [History] L Acidophil/B Lactis/B Longum [Florajen3] 460 mg PO DAILY 10/09/16 [History] Ipratropium/Albuterol Sulfate [Iprat-Albut 0.5-3(2.5) mg/3 ml] 3 ml IH TID PRN 03/31/17 [History] Fluticasone/Vilanterol [Breo Ellipta 100-25 MCG Inhalation Kit] 1 puff IH DAILY #1 inhaler 04/01/17 [Rx] Albuterol [Proventil HFA] 2 puff INH Q4HRRT PRN 12/07/17 [History] Fluticasone Propionate [Flonase] 1 spray NS DAILY PRN 12/07/17 [History] Levothyroxine 75 mcg PO ACBREAKFAST 12/07/17 [History] Omeprazole 20 mg PO ACBREAKFAST PRN 12/07/17 [History] Furosemide 40 mg PO DAILY #0 12/08/17 [Rx] Metoprolol Succinate [Toprol XL] 100 mg PO BIDMEALS 01/30/18 [History] Acetaminophen [Tylenol] 650 mg PO Q4H PRN tablet 01/31/18 [Rx] traMADol [Ultram] 50 mg PO Q6H PRN #15 tablet 01/31/18 [Rx] prednisoLONE Acetate [Prednisolone Acetate] 1 drop EYELF Q6HR 03/25/18 [History] Apixaban [Eliquis] 5 mg PO BID 06/22/18 [History] Cholecalciferol (Vitamin D3) [Vitamin D3] 5,000 unit PO DAILY 06/22/18 [History] Diltiazem HCl [Dilt-XR] 120 mg PO DAILY 06/22/18 [History] Forms: ED Department Discharge Referrals: Colette Quezada DO [Primary Care Provider] - - Patient Data Vitals - Most Recent: Last Vital Signs Temp 98.4 F 06/23/18 08:00 Pulse 86 06/23/18 08:02 Resp 18 06/23/18 08:00 BP 110/53 L 06/23/18 08:02 Pulse Ox 94 L 06/23/18 08:00 Weight - Most Recent: 163 lb 3 oz I&O - Last 24 hours: Intake & Output 06/22/18 06/23/18 06/23/18 22:59 06:59 14:59 Intake Total 400 374 Output Total 750 50 Balance -350 324 Lab Results - Last 24 hrs: Laboratory Results - last 24 hr 06/22/18 06/22/18 06/22/18 Range/Units 12:35 12:45 12:45 WBC 13.40 H (4.0-11.0) K/uL RBC 4.58 (4.30-5.90) M/uL Hgb 13.8 (12.0-16.0) g/dL Hct 41.0 (36.0-46.0) % MCV 89.5 (80.0-98.0) fL MCH 30.1 (27.0-32.0) pg MCHC 33.7 (31.0-37.0) g/dL RDW Std Deviation 44.6 (28.0-62.0) fl RDW Coeff of Brisa 14 (11.0-15.0) % Plt Count 306 (150-400) K/uL MPV 8.90 (7.40-12.00) fL Neut % (Auto) 64.7 (48.0-80.0) % Lymph % (Auto) 21.3 (16.0-40.0) % Blanco % (Auto) 9.1 (0.0-15.0) % Eos % (Auto) 4.5 (0.0-7.0) % Baso % (Auto) 0.4 (0.0-1.5) % Neut # (Auto) 8.7 H (1.4-5.7) K/uL Lymph # (Auto) 2.9 H (0.6-2.4) K/uL Blanco # (Auto) 1.2 H (0.0-0.8) K/uL Eos # (Auto) 0.6 (0.0-0.7) K/uL Baso # (Auto) 0.1 (0.0-0.1) K/uL Nucleated RBC % 0.0 /100WBC Nucleated RBCs # 0 K/uL ESR (0-29) mm/hr APTT (18.6-31.3) SEC Sodium 138 (136-145) mmol/L Potassium 4.1 (3.5-5.1) mmol/L Chloride 100 (98-107) mmol/L Carbon Dioxide 32.3 H (21.0-32.0) mmol/L BUN 15 (7.0-18.0) mg/dL Creatinine 1.2 H (0.6-1.0) mg/dL Est Cr Clr Drug Dosing 24.45 mL/min Estimated GFR (MDRD) 42.4 ml/min Glucose 136 H (74-106) mg/dL Hemoglobin A1c (4.5-6.2) % Calcium 9.8 (8.5-10.1) mg/dL Total Bilirubin 0.3 (0.2-1.0) mg/dL AST 16 (15-37) IU/L ALT 22 (14-63) IU/L Alkaline Phosphatase 75 (46-116) U/L Creatine Kinase (26-308) U/L Troponin I < 0.050 < 0.050 (0.000-0.056) ng/mL C-Reactive Protein (0.00-0.90) mg/dL Total Protein 7.3 (6.4-8.2) g/dL Albumin 3.5 (3.4-5.0) g/dL Globulin 3.8 H (2.0-3.5) g/dL Albumin/Globulin Ratio 0.9 L (1.3-2.8) Triglycerides (0-200) mg/dL Cholesterol (50-200) mg/dL LDL Cholesterol, Calc (60-180) mg/dL VLDL Cholesterol (5-55) mg/dL HDL Cholesterol (40-60) mg/dL Cholesterol/HDL Ratio (3.3-6.0) Amylase 73 (25-115) U/L Lipase 186 (73-393) U/L Urine Color Urine Appearance Urine pH (5.0-8.0) Ur Specific Satin (1.001-1.035) Urine Protein (NEGATIVE) mg/dL Urine Glucose (UA) (NEGATIVE) mg/dL Urine Ketones (NEGATIVE) mg/dL Urine Occult Blood (NEGATIVE) Urine Nitrite (NEGATIVE) Urine Bilirubin (NEGATIVE) Urine Urobilinogen (<2.0) EU/dL Ur Leukocyte Esterase (NEGATIVE) Urine RBC (0-2/HPF) Urine WBC (0-5/HPF) Ur Epithelial Cells (NONE-FEW) Urine Bacteria (NEGATIVE) 06/22/18 06/22/18 06/22/18 Range/Units 12:45 12:45 20:45 WBC (4.0-11.0) K/uL RBC (4.30-5.90) M/uL Hgb (12.0-16.0) g/dL Hct (36.0-46.0) % MCV (80.0-98.0) fL MCH (27.0-32.0) pg MCHC (31.0-37.0) g/dL RDW Std Deviation (28.0-62.0) fl RDW Coeff of Brisa (11.0-15.0) % Plt Count (150-400) K/uL MPV (7.40-12.00) fL Neut % (Auto) (48.0-80.0) % Lymph % (Auto) (16.0-40.0) % Blanco % (Auto) (0.0-15.0) % Eos % (Auto) (0.0-7.0) % Baso % (Auto) (0.0-1.5) % Neut # (Auto) (1.4-5.7) K/uL Lymph # (Auto) (0.6-2.4) K/uL Blanco # (Auto) (0.0-0.8) K/uL Eos # (Auto) (0.0-0.7) K/uL Baso # (Auto) (0.0-0.1) K/uL Nucleated RBC % /100WBC Nucleated RBCs # K/uL ESR 28 (0-29) mm/hr APTT (18.6-31.3) SEC Sodium (136-145) mmol/L Potassium (3.5-5.1) mmol/L Chloride (98-107) mmol/L Carbon Dioxide (21.0-32.0) mmol/L BUN (7.0-18.0) mg/dL Creatinine (0.6-1.0) mg/dL Est Cr Clr Drug Dosing mL/min Estimated GFR (MDRD) ml/min Glucose (74-106) mg/dL Hemoglobin A1c (4.5-6.2) % Calcium (8.5-10.1) mg/dL Total Bilirubin (0.2-1.0) mg/dL AST (15-37) IU/L ALT (14-63) IU/L Alkaline Phosphatase (46-116) U/L Creatine Kinase 63 (26-308) U/L Troponin I (0.000-0.056) ng/mL C-Reactive Protein 1.00 H (0.00-0.90) mg/dL Total Protein (6.4-8.2) g/dL Albumin (3.4-5.0) g/dL Globulin (2.0-3.5) g/dL Albumin/Globulin Ratio (1.3-2.8) Triglycerides (0-200) mg/dL Cholesterol (50-200) mg/dL LDL Cholesterol, Calc (60-180) mg/dL VLDL Cholesterol (5-55) mg/dL HDL Cholesterol (40-60) mg/dL Cholesterol/HDL Ratio (3.3-6.0) Amylase (25-115) U/L Lipase (73-393) U/L Urine Color YELLOW Urine Appearance CLEAR Urine pH 5.5 (5.0-8.0) Ur Specific Satin 1.020 (1.001-1.035) Urine Protein NEGATIVE (NEGATIVE) mg/dL Urine Glucose (UA) NEGATIVE (NEGATIVE) mg/dL Urine Ketones NEGATIVE (NEGATIVE) mg/dL Urine Occult Blood TRACE-INTACT (NEGATIVE) Urine Nitrite NEGATIVE (NEGATIVE) Urine Bilirubin NEGATIVE (NEGATIVE) Urine Urobilinogen 0.2 (<2.0) EU/dL Ur Leukocyte Esterase NEGATIVE (NEGATIVE) Urine RBC 0-1 (0-2/HPF) Urine WBC 0-1 (0-5/HPF) Ur Epithelial Cells OCCASIONAL (NONE-FEW) Urine Bacteria RARE (NEGATIVE) 06/23/18 06/23/18 06/23/18 Range/Units 00:33 00:33 06:45 WBC 15.03 H (4.0-11.0) K/uL RBC 4.33 (4.30-5.90) M/uL Hgb 13.1 (12.0-16.0) g/dL Hct 39.0 (36.0-46.0) % MCV 90.1 (80.0-98.0) fL MCH 30.3 (27.0-32.0) pg MCHC 33.6 (31.0-37.0) g/dL RDW Std Deviation 45.9 (28.0-62.0) fl RDW Coeff of Brisa 14 (11.0-15.0) % Plt Count 281 (150-400) K/uL MPV 8.70 (7.40-12.00) fL Neut % (Auto) 74.3 (48.0-80.0) % Lymph % (Auto) 12.6 L (16.0-40.0) % Blanco % (Auto) 11.3 (0.0-15.0) % Eos % (Auto) 1.5 (0.0-7.0) % Baso % (Auto) 0.3 (0.0-1.5) % Neut # (Auto) 11.2 H (1.4-5.7) K/uL Lymph # (Auto) 1.9 (0.6-2.4) K/uL Blanco # (Auto) 1.7 H (0.0-0.8) K/uL Eos # (Auto) 0.2 (0.0-0.7) K/uL Baso # (Auto) 0.1 (0.0-0.1) K/uL Nucleated RBC % 0.0 /100WBC Nucleated RBCs # 0 K/uL ESR (0-29) mm/hr APTT 28.8 (18.6-31.3) SEC Sodium (136-145) mmol/L Potassium (3.5-5.1) mmol/L Chloride (98-107) mmol/L Carbon Dioxide (21.0-32.0) mmol/L BUN (7.0-18.0) mg/dL Creatinine (0.6-1.0) mg/dL Est Cr Clr Drug Dosing mL/min Estimated GFR (MDRD) ml/min Glucose (74-106) mg/dL Hemoglobin A1c (4.5-6.2) % Calcium (8.5-10.1) mg/dL Total Bilirubin (0.2-1.0) mg/dL AST (15-37) IU/L ALT (14-63) IU/L Alkaline Phosphatase (46-116) U/L Creatine Kinase (26-308) U/L Troponin I 0.440 H* (0.000-0.056) ng/mL C-Reactive Protein (0.00-0.90) mg/dL Total Protein (6.4-8.2) g/dL Albumin (3.4-5.0) g/dL Globulin (2.0-3.5) g/dL Albumin/Globulin Ratio (1.3-2.8) Triglycerides (0-200) mg/dL Cholesterol (50-200) mg/dL LDL Cholesterol, Calc (60-180) mg/dL VLDL Cholesterol (5-55) mg/dL HDL Cholesterol (40-60) mg/dL Cholesterol/HDL Ratio (3.3-6.0) Amylase (25-115) U/L Lipase (73-393) U/L Urine Color Urine Appearance Urine pH (5.0-8.0) Ur Specific Satin (1.001-1.035) Urine Protein (NEGATIVE) mg/dL Urine Glucose (UA) (NEGATIVE) mg/dL Urine Ketones (NEGATIVE) mg/dL Urine Occult Blood (NEGATIVE) Urine Nitrite (NEGATIVE) Urine Bilirubin (NEGATIVE) Urine Urobilinogen (<2.0) EU/dL Ur Leukocyte Esterase (NEGATIVE) Urine RBC (0-2/HPF) Urine WBC (0-5/HPF) Ur Epithelial Cells (NONE-FEW) Urine Bacteria (NEGATIVE) 06/23/18 06/23/18 06/23/18 Range/Units 06:45 06:45 06:45 WBC (4.0-11.0) K/uL RBC (4.30-5.90) M/uL Hgb (12.0-16.0) g/dL Hct (36.0-46.0) % MCV (80.0-98.0) fL MCH (27.0-32.0) pg MCHC (31.0-37.0) g/dL RDW Std Deviation (28.0-62.0) fl RDW Coeff of Brisa (11.0-15.0) % Plt Count (150-400) K/uL MPV (7.40-12.00) fL Neut % (Auto) (48.0-80.0) % Lymph % (Auto) (16.0-40.0) % Blanco % (Auto) (0.0-15.0) % Eos % (Auto) (0.0-7.0) % Baso % (Auto) (0.0-1.5) % Neut # (Auto) (1.4-5.7) K/uL Lymph # (Auto) (0.6-2.4) K/uL Blanco # (Auto) (0.0-0.8) K/uL Eos # (Auto) (0.0-0.7) K/uL Baso # (Auto) (0.0-0.1) K/uL Nucleated RBC % /100WBC Nucleated RBCs # K/uL ESR (0-29) mm/hr APTT (18.6-31.3) SEC Sodium 135 L (136-145) mmol/L Potassium 4.2 (3.5-5.1) mmol/L Chloride 103 (98-107) mmol/L Carbon Dioxide 29.6 (21.0-32.0) mmol/L BUN 14 (7.0-18.0) mg/dL Creatinine 1.1 H (0.6-1.0) mg/dL Est Cr Clr Drug Dosing 26.68 mL/min Estimated GFR (MDRD) 46.9 ml/min Glucose 143 H (74-106) mg/dL Hemoglobin A1c 6.1 (4.5-6.2) % Calcium 8.9 (8.5-10.1) mg/dL Total Bilirubin 0.5 (0.2-1.0) mg/dL AST 112 H (15-37) IU/L ALT 151 H (14-63) IU/L Alkaline Phosphatase 96 (46-116) U/L Creatine Kinase (26-308) U/L Troponin I 0.474 H* (0.000-0.056) ng/mL C-Reactive Protein (0.00-0.90) mg/dL Total Protein 6.5 (6.4-8.2) g/dL Albumin 3.1 L (3.4-5.0) g/dL Globulin 3.4 (2.0-3.5) g/dL Albumin/Globulin Ratio 0.9 L (1.3-2.8) Triglycerides 46 (0-200) mg/dL Cholesterol 193 (50-200) mg/dL LDL Cholesterol, Calc 134 (60-180) mg/dL VLDL Cholesterol 9 (5-55) mg/dL HDL Cholesterol 50 (40-60) mg/dL Cholesterol/HDL Ratio 3.9 (3.3-6.0) Amylase (25-115) U/L Lipase (73-393) U/L Urine Color Urine Appearance Urine pH (5.0-8.0) Ur Specific Satin (1.001-1.035) Urine Protein (NEGATIVE) mg/dL Urine Glucose (UA) (NEGATIVE) mg/dL Urine Ketones (NEGATIVE) mg/dL Urine Occult Blood (NEGATIVE) Urine Nitrite (NEGATIVE) Urine Bilirubin (NEGATIVE) Urine Urobilinogen (<2.0) EU/dL Ur Leukocyte Esterase (NEGATIVE) Urine RBC (0-2/HPF) Urine WBC (0-5/HPF) Ur Epithelial Cells (NONE-FEW) Urine Bacteria (NEGATIVE) Med Orders - Current: Current Medications Discontinued Medications Acetaminophen (Tylenol) 325 mg PO NOW ONE Stop: 06/22/18 13:13 Last Admin: 06/22/18 13:19 Dose: 325 mg Acetaminophen (Tylenol) 650 mg PO Q4H PRN PRN Reason: Pain (mild 1-3) Acidophilus/Pectin (Acidophilus/Pectin, [place]) 1 tab PO DAILY AZ[facility] Last Admin: 06/23/18 08:01 Dose: 1 tab Albuterol (Proventil Hfa) 0 gm INH Q4HRRT PRN PRN Reason: Shortness of Breath Albuterol/Ipratropium (Duoneb 3.0-0.5 Mg/3 Ml) 3 ml INH TID PRN PRN Reason: Shortness of Breath Apixaban (Eliquis) 5 mg PO BID [facility] Aspirin (Aspirin) 324 mg PO ONETIME ONE Stop: 08/17/18 12:34 Last Admin: 06/22/18 12:54 Dose: 324 mg Atorvastatin Calcium (Lipitor) 40 mg PO BEDTIME [facility] Last Admin: 06/23/18 01:59 Dose: 40 mg Calcium Carbonate/Glycine (Oyster Shell Calcium) 500 mg PO BIDMEALS [facility] Last Admin: 06/23/18 07:52 Dose: 500 mg Cholecalciferol (Vitamin D3) 5,000 units PO DAILY [facility] Last Admin: 06/23/18 08:02 Dose: 5,000 units Clopidogrel Bisulfate (Plavix) 300 mg PO ONETIME ONE Stop: 06/23/18 01:39 Last Admin: 06/23/18 01:59 Dose: 300 mg Diltiazem HCl (Cardizem Cd) 120 mg PO DAILY [facility] Last Admin: 06/23/18 08:02 Dose: 120 mg Diphenhydramine HCl (Benadryl) 25 mg IVPUSH ONETIME ONE Stop: 06/22/18 14:21 Last Admin: 06/22/18 14:24 Dose: 25 mg Diphenhydramine HCl (Benadryl) Confirm Administered Dose 50 mg .ROUTE .STK-MED ONE Stop: 06/22/18 14:24 Last Admin: 06/22/18 14:37 Dose: Not Given Famotidine (Pepcid) 20 mg IVPUSH ONETIME ONE Stop: 06/22/18 12:34 Last Admin: 06/22/18 12:52 Dose: 20 mg Fluticasone Propionate (Flonase) 0 gm YUMIKO DAILY PRN PRN Reason: ALLERGY Furosemide (Lasix) 40 mg PO DAILY [facility] Last Admin: 06/23/18 08:01 Dose: 40 mg Heparin Sodium (Porcine) (Heparin Sodium) 5,000 units SUBCUT Q12H [facility] Last Admin: 06/22/18 20:36 Dose: 5,000 units Heparin Sodium (Porcine) (Heparin Sodium) 4,000 units IV ONETIME ONE Stop: 06/23/18 03:46 Last Admin: 06/23/18 03:59 Dose: 4,000 units Heparin Sodium (Porcine) (Heparin Sodium) 4,000 units IVPUSH ONETIME ONE Stop: 06/23/18 03:48 Last Admin: 06/23/18 04:07 Dose: Not Given Hydromorphone HCl (Dilaudid) 0.5 mg IVPUSH Q2H PRN PRN Reason: Chest Pain Last Admin: 06/23/18 05:05 Dose: 0.5 mg Sodium Chloride (Normal Saline) 1,000 mls @ 999 mls/hr IV BOLUS ONE Stop: 06/22/18 13:33 Last Admin: 06/22/18 12:51 Dose: 999 mls/hr Heparin Sodium/Sodium Chloride (Heparin-1/2ns 25,000 Units/500) 25,000 unit in 500 mls @ 17.765 mls/hr IV TITRATE [facility]; Protocol Heparin Sodium/Sodium Chloride (Heparin-1/2ns 25,000 Units/500) 25,000 unit in 500 mls @ 17.765 mls/hr IV TITRATE [facility]; Protocol Last Admin: 06/23/18 04:04 Dose: 12 units/kg/hr, 17.765 mls/hr Levothyroxine Sodium (Levothyroxine) 75 mcg PO ACBREAKFAST [facility] Last Admin: 06/23/18 07:42 Dose: 75 mcg Metoprolol Succinate (Toprol Xl) 100 mg PO BIDMEALS [facility] Last Admin: 06/23/18 07:52 Dose: 100 mg Metoprolol Tartrate (Lopressor) 25 mg PO ONETIME ONE Stop: 06/23/18 01:57 Last Admin: 06/23/18 02:37 Dose: 25 mg Morphine Sulfate (Morphine) 2 mg IVPUSH ONETIME ONE Stop: 06/22/18 13:12 Last Admin: 06/22/18 13:19 Dose: 1 mg Morphine Sulfate (Morphine) 2 mg IVPUSH ONETIME ONE Stop: 06/22/18 14:07 Last Admin: 06/22/18 14:12 Dose: 2 mg Morphine Sulfate (Morphine) 2 mg IVPUSH Q2H PRN PRN Reason: Pain Multivitamins/Minerals (Thera M Plus) 1 tab PO DAILY [facility] Last Admin: 06/23/18 08:01 Dose: 1 tab Nitroglycerin (Nitrostat) 0.4 mg SL ONETIME ONE Stop: 06/22/18 12:34 Last Admin: 06/22/18 12:57 Dose: 0.4 mg Nitroglycerin (Nitro-Bid 2%) 1 gm TOP ONETIME ONE Stop: 06/22/18 13:54 Last Admin: 06/22/18 14:13 Dose: 1 gm Nitroglycerin (Nitro-Bid 2%) 1 gm TOP Q6H PRN PRN Reason: Chest Pain Last Admin: 06/23/18 02:50 Dose: 1 gm Omeprazole (Omeprazole) 20 mg PO ACBREAKFAST PRN PRN Reason: Heartburn Ondansetron HCl (Zofran) 4 mg IVPUSH ONETIME ONE Stop: 06/22/18 14:09 Last Admin: 06/22/18 14:12 Dose: 4 mg Ondansetron HCl (Zofran) Confirm Administered Dose 4 mg .ROUTE .STK-MED ONE Stop: 06/22/18 14:11 Last Admin: 06/22/18 14:37 Dose: Not Given Oxycodone/Acetaminophen (Percocet 325-5 Mg) 1 tab PO Q4H PRN PRN Reason: Pain (moderate 4-6) Last Admin: 06/22/18 18:37 Dose: 1 tab Fluticasone/ (Vilanterol) 1 each INH DAILY [facility] Last Admin: 06/23/18 09:49 Dose: Not Given Potassium Chloride (Klor-Con 10) 10 meq PO DAILY [facility] Last Admin: 06/23/18 08:02 Dose: 10 meq Prednisolone Acetate (Pred Forte 1% Ophth Susp) 0 ml EYELF Q6HR [facility] Last Admin: 06/23/18 05:14 Dose: Not Given Promethazine HCl (Phenergan) 12.5 mg IM Q4H PRN PRN Reason: Nausea/Vomiting Sodium Chloride (Saline Flush) 10 ml FLUSH ASDIRECTED PRN PRN Reason: Keep Vein Open Sodium Chloride (Saline Flush) 2.5 ml FLUSH ASDIRECTED PRN PRN Reason: Keep Vein Open Sodium Chloride (Saline Flush) 10 ml FLUSH ASDIRECTED PRN PRN Reason: Keep Vein Open Sodium Chloride (Saline Flush) 2.5 ml FLUSH ASDIRECTED PRN PRN Reason: Keep Vein Open Temazepam (Restoril) 15 mg PO BEDTIME PRN PRN Reason: Sleep Tramadol HCl (Ultram) 50 mg PO Q6H PRN PRN Reason: Pain Vitamin E (Vitamin E) 400 units PO DAILY [facility] Last Admin: 06/23/18 08:01 Dose: 400 units
== END 2018-06-23 08:40 | DRG 282 ==
LOC: MW.ED 12:27 → MW.MS 16:21
PROVIDERS: ADMIT Internal Medicine; ATTEND Internal Medicine
DX: R07.89 Other chest pain (principal); I21.4 Non-ST elevation (NSTEMI) myocardial infarction; M79.1 Myalgia; I48.91 Unspecified atrial fibrillation; I11.0 Hypertensive heart disease with heart failure; I50.9 Heart failure, unspecified; Z86.718 Personal history of other venous thrombosis and embolism; I34.0 Nonrheumatic mitral (valve) insufficiency; E03.9 Hypothyroidism, unspecified; Z91.040 Latex allergy status; Z79.82 Long term (current) use of aspirin; Z79.01 Long term (current) use of anticoagulants; Z88.8 Allergy status to other drugs, medicaments and biological substances; Z79.899 Other long term (current) drug therapy
CPT/HCPCS: 36415; 71045; 71275; 80053; 82150; 82550; 83690; 84484 ×2; 85025; 85652; 86140; 93005; 96361; 96374; 96375; 96376; 99285; A9270 ×5; J1200; J2270 ×2; J2405; J3490; J7040; 80061; 81001; 83036; 85730; 99284; J1170; J1644

== ENCOUNTER 2018-06-26 20:45 | Observation (INO) | payer MEDICARE, OTHER ==
[2018-06-26] MEDS ORDERED: Sodium Chloride 0.9% 2.5 ML Syringe FLUSH PRN (20:49)
[2018-06-26] MEDS ORDERED: Sodium Chloride 0.9% 10 ML Syringe FLUSH PRN (20:49)
--- NOTE | 2018-06-26 20:57 | EDM.PDOC ---
ED HPI GENERAL MEDICAL PROBLEM - General Chief Complaint: Cardiovascular Problem Stated Complaint: PT HAS HIGH PULSE RATE Time Seen by Provider: 06/26/18 20:52 Source of Information: Reports: Patient History Limitations: Reports: No Limitations - History of Present Illness INITIAL COMMENTS - FREE TEXT/NARRATIVE: HISTORY AND PHYSICAL: History of present illness: Patient is an 88-year-old female who presents to the emergency room today with complaints of tachycardia. She states she had felt her racing and had checked her heart rate manually while at home, 130 to 140 bpm. States she had some tingling in her left arm and generalized weakness. Patient was recently discharged from [facility] after having a "mild heart attack". She was seen in our emergency room and admitted to the [facility] floor and ultimately transferred to [facility] for NSTEMI and elevated troponin. Currently denies any fever, chills, chest pain, cough or shortness of breath. Denies any abdominal pain, nausea, vomiting, diarrhea or constipation. Past medical history of hypertension, CHF, Afib with RVR, hypothyroidism, and PR Review of systems: As per history of present illness and below otherwise all systems reviewed and negative. Past medical history: As per history of present illness and as reviewed below otherwise noncontributory. Surgical history: As per history of present illness and as reviewed below otherwise noncontributory. Social history: No reported history of drug or alcohol abuse. Family history: As per history of present illness and as reviewed below otherwise noncontributory. Physical exam: General: Well-developed and well-nourished 88-year-old female. Alert and oriented. Nontoxic appearing and in no acute distress. HEENT: Atraumatic, normocephalic, pupils equal and reactive bilaterally, negative for conjunctival pallor or scleral icterus, mucous membranes moist, throat clear, neck supple, nontender, trachea midline. No drooling or trismus noted. No meningeal signs Lungs: Clear to auscultation, breath sounds equal bilaterally, chest nontender. Heart: Tachycardic without overt murmur Abdomen: Soft, nondistended, nontender. Negative for masses or hepatosplenomegaly. Negative for costovertebral tenderness. Pelvis: Stable nontender. Genitourinary: Deferred. Rectal: Deferred. Skin: Intact, warm, dry. No lesions or rashes noted. Extremities: Atraumatic, moves all per self, negative for cords or calf pain. Neurovascular unremarkable. Neuro: Awake, alert, oriented. Cranial nerves II through XII unremarkable. Cerebellum unremarkable. Motor and sensory unremarkable throughout. Exam nonfocal. Notes: EKG shows Afib with RVR; rate 130-140's. Cardizem ordered. Post medication her rate is 80-120's. Troponin is 0.078. This is likely due to her recent PR. She had a Troponin of 0.474 on 06/23/2018 prior to being transfered from our facilty. Patient does not have any chest pain. Will continue to monitor. Waiting on remaining lab results. Dr Red was consulted on this case and is agreeable to keeping patient overnight for observation with Telemetry. Diagnostics: CBC, CMP, troponin, EKG, one view chest x-ray, UA Therapeutics: Saline Lock, Cardizem 20mg IV Impression: Atrial Fibrillation with RVR Hypokalemia Plan: Observation admission to Med/Surg with telemetry Definitive disposition and diagnosis as appropriate pending reevaluation and review of above. Onset: Today Duration: Hour(s): Location: Reports: Chest - Related Data Allergies Allergy/AdvReac Type Severity Reaction Status Date / Time meza Allergy Anaphylactic Verified 06/22/18 12:37 Shock codeine Allergy Abdominal Verified 06/22/18 12:37 Cramps dipyridamole [From Aggrenox] Allergy unknown Verified 06/22/18 12:37 Latex, Natural Rubber Allergy Itching Verified 06/22/18 12:37 morphine Allergy Itching Verified 06/22/18 14:23 shrimp Allergy Hives Verified 06/22/18 12:37 dust mites Allergy Sneezing Uncoded 03/25/18 01:55 pollen Allergy Hives Uncoded 03/25/18 01:55 Home Meds: Home Meds Calcium Carbonate 600 mg PO BIDMEALS 09/19/15 [History] Multivitamin [Multivitamins] 1 cap PO DAILY 09/19/15 [History] Potassium Chloride 10 meq PO DAILY 09/19/15 [History] Vitamin E 400 units PO DAILY 09/19/15 [History] L Acidophil/B Lactis/B Longum [Florajen3] 460 mg PO DAILY 10/09/16 [History] Ipratropium/Albuterol Sulfate [Iprat-Albut 0.5-3(2.5) mg/3 ml] 3 ml IH TID PRN 03/31/17 [History] Fluticasone/Vilanterol [Breo Ellipta 100-25 MCG Inhalation Kit] 1 puff IH DAILY #1 inhaler 04/01/17 [Rx] Albuterol [Proventil HFA] 2 puff INH Q4HRRT PRN 12/07/17 [History] Fluticasone Propionate [Flonase] 1 spray NS DAILY PRN 12/07/17 [History] Levothyroxine 75 mcg PO ACBREAKFAST 12/07/17 [History] Omeprazole 20 mg PO ACBREAKFAST PRN 12/07/17 [History] Furosemide 40 mg PO DAILY #0 12/08/17 [Rx] Metoprolol Succinate [Toprol XL] 100 mg PO BIDMEALS 01/30/18 [History] Acetaminophen [Tylenol] 650 mg PO Q4H PRN tablet 01/31/18 [Rx] traMADol [Ultram] 50 mg PO Q6H PRN #15 tablet 01/31/18 [Rx] prednisoLONE Acetate [Prednisolone Acetate] 1 drop EYELF Q6HR 03/25/18 [History] Apixaban [Eliquis] 5 mg PO BID 06/22/18 [History] Cholecalciferol (Vitamin D3) [Vitamin D3] 5,000 unit PO DAILY 06/22/18 [History] Diltiazem HCl [Dilt-XR] 120 mg PO DAILY 06/22/18 [History] Past Medical History - Past Health History Medical/Surgical History: Denies Medical/Surgical History HEENT History: Reports: Cataract, Impaired Vision, 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) Other HEENT History: wears glasses all the time Cardiovascular History: Reports: Afib, Heart Failure, Hypertension, 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) Other Cardiovascular History: 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 Respiratory History: Reports: Asthma Gastrointestinal History: Reports: Bowel Obstruction, Diverticulosis, Pancreatitis Genitourinary History: Reports: None SANITARY CHEMIST History: Reports: , 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) Other SANITARY CHEMIST History: force labor; D&C, stillbirth Musculoskeletal History: Reports: Fracture Neurological History: Reports: None Psychiatric History: Reports: None Endocrine/Metabolic History: Reports: Hypothyroidism Hematologic History: Reports: Anemia, 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) Other Hematologic History: blood clots in the leg Immunologic History: Reports: None Oncologic (Cancer) History: Reports: None Dermatologic History: Reports: None - Infectious Disease History Infectious Disease History: Reports: Chicken Pox, Measles - Past Surgical History Head Surgeries/Procedures: Reports: None HEENT Surgical History: Reports: Adenoidectomy, Cataract Surgery, Tonsillectomy Cardiovascular Surgical History: Reports: None Respiratory Surgical History: Reports: None GI Surgical History: Reports: Appendectomy, Cholecystectomy Endocrine Surgical History: Reports: None Musculoskeletal Surgical History: Reports: None Social & Family History - Family History Family Medical History: Noncontributory HEENT: Reports: Impaired Vision Cardiac: Reports: Hypertension, PR, Prior Cardiac Arrest OBGYN: Reports: Neurological: Reports: CVA - Tobacco Use Smoking Status *Q: Never Smoker - Caffeine Use Caffeine Use: Reports: None Caffeine Use Comment: decaf - Living Situation & Occupation Living situation: Reports: , Alone Occupation: Retired ED ROS GENERAL - Review of Systems Review Of Systems: ROS reveals no pertinent complaints other than HPI. ED EXAM, GENERAL - Physical Exam Exam: See Below (See dictation) Course - Vital Signs Last Recorded V/S: Last Vital Signs Temp 97.4 F 06/26/18 20:50 Pulse 143 H 06/26/18 20:50 Resp 20 06/26/18 20:50 BP 181/83 H 06/26/18 20:50 Pulse Ox 97 06/26/18 20:50 - Orders/Labs/Meds Orders: Active Orders 24 hr Category Date Time Status Admission Status [Patient Status] [ADT] Stat ADT 06/26/18 21:45 Ordered EKG Documentation Completion [RC] STAT Care 06/26/18 20:49 Active Chest 1V Frontal [CR] Stat Exams 06/26/18 20:49 Ordered UA W/MICROSCOPIC [URIN] Stat Lab 06/26/18 20:49 Ordered Sodium Chloride 0.9% [Saline Flush] Med 06/26/18 20:49 Active 10 ml FLUSH ASDIRECTED PRN Sodium Chloride 0.9% [Saline Flush] Med 06/26/18 20:49 Active 2.5 ml FLUSH ASDIRECTED PRN Saline Lock Insert [OM.PC] Stat Oth 06/26/18 20:49 Ordered Medication Orders Sodium Chloride (Saline Flush) 10 ml FLUSH ASDIRECTED PRN PRN Reason: Keep Vein Open Last Admin: 06/26/18 21:07 Dose: 10 ml Sodium Chloride (Saline Flush) 2.5 ml FLUSH ASDIRECTED PRN PRN Reason: Keep Vein Open Last Admin: 06/26/18 21:07 Dose: 2.5 ml Labs: Laboratory Tests 06/26/18 06/26/18 06/26/18 Range/Units 20:48 20:48 20:48 WBC 9.89 (4.0-11.0) K/uL RBC 4.64 (4.30-5.90) M/uL Hgb 13.8 (12.0-16.0) g/dL Hct 41.5 (36.0-46.0) % MCV 89.4 (80.0-98.0) fL MCH 29.7 (27.0-32.0) pg MCHC 33.3 (31.0-37.0) g/dL RDW Std Deviation 45.8 (28.0-62.0) fl RDW Coeff of Brisa 14 (11.0-15.0) % Plt Count 352 (150-400) K/uL MPV 8.90 (7.40-12.00) fL Neut % (Auto) 49.1 (48.0-80.0) % Lymph % (Auto) 31.7 (16.0-40.0) % [facility] % (Auto) 13.1 (0.0-15.0) % Eos % (Auto) 5.5 (0.0-7.0) % Baso % (Auto) 0.6 (0.0-1.5) % Neut # (Auto) 4.9 (1.4-5.7) K/uL Lymph # (Auto) 3.1 H (0.6-2.4) K/uL [facility] # (Auto) 1.3 H (0.0-0.8) K/uL Eos # (Auto) 0.5 (0.0-0.7) K/uL Baso # (Auto) 0.1 (0.0-0.1) K/uL Nucleated RBC % 0.0 /100WBC Nucleated RBCs # 0 K/uL Sodium 137 (136-145) mmol/L Potassium 3.3 L (3.5-5.1) mmol/L Chloride 100 (98-107) mmol/L Carbon Dioxide 31.5 (21.0-32.0) mmol/L BUN 17 (7.0-18.0) mg/dL Creatinine 1.2 H (0.6-1.0) mg/dL Est Cr Clr Drug Dosing 24.45 mL/min Estimated GFR (MDRD) 42.4 ml/min Glucose 164 H (74-106) mg/dL Calcium 9.6 (8.5-10.1) mg/dL Total Bilirubin 0.2 (0.2-1.0) mg/dL AST 19 (15-37) IU/L ALT 54 (14-63) IU/L Alkaline Phosphatase 102 (46-116) U/L Troponin I 0.078 H* (0.000-0.056) ng/mL Total Protein 7.3 (6.4-8.2) g/dL Albumin 3.0 L (3.4-5.0) g/dL Globulin 4.3 H (2.0-3.5) g/dL Albumin/Globulin Ratio 0.7 L (1.3-2.8) TSH 3rd Generation 3.68 (0.36-3.74) uIU/mL Meds: Medications Generic Name Dose Route Start Last Admin Trade Name Freq PRN Reason Stop Dose Admin Sodium Chloride 10 ml 06/26/18 20:49 06/26/18 21:07 Saline Flush FLUSH 10 ml ASDIRECTED PRN Administration Keep Vein Open Sodium Chloride 2.5 ml 06/26/18 20:49 06/26/18 21:07 Saline Flush FLUSH 2.5 ml ASDIRECTED PRN Administration Keep Vein Open Discontinued Medications Generic Name Dose Route Start Last Admin Trade Name Freq PRN Reason Stop Dose Admin Diltiazem HCl 20 mg 06/26/18 20:58 06/26/18 21:06 Diltiazem IVPUSH 06/26/18 20:59 20 mg ONETIME ONE Administration Departure - Departure Time of Disposition: 21:47 Disposition: Refer to Observation Clinical Impression: Atrial fibrillation with RVR Referrals: PCP,None [Primary Care Provider] - Forms: ED Department Discharge - My Orders Last 24 Hours: My Active Orders 06/26/18 20:49 EKG Documentation Completion [RC] STAT Chest 1V Frontal [CR] Stat UA W/MICROSCOPIC [URIN] Stat Sodium Chloride 0.9% [Saline Flush] 10 ml FLUSH ASDIRECTED PRN Sodium Chloride 0.9% [Saline Flush] 2.5 ml FLUSH ASDIRECTED PRN Saline Lock Insert [OM.PC] Stat 06/26/18 21:45 Admission Status [Patient Status] [ADT] Stat - Assessment/Plan Last 24 Hours: My Active Orders 06/26/18 20:49 EKG Documentation Completion [RC] STAT Chest 1V Frontal [CR] Stat UA W/MICROSCOPIC [URIN] Stat Sodium Chloride 0.9% [Saline Flush] 10 ml FLUSH ASDIRECTED PRN Sodium Chloride 0.9% [Saline Flush] 2.5 ml FLUSH ASDIRECTED PRN Saline Lock Insert [OM.PC] Stat 06/26/18 21:45 Admission Status [Patient Status] [ADT] Stat
[2018-06-26] MEDS ORDERED: Diltiazem 25 MG/5 ML SDV IVPUSH ONE (20:58)
[2018-06-27] MEDS: Acetaminophen 325 MG Tab PO PRN ×2 (00:44→22:08)
[2018-06-27] MEDS ORDERED: Acetaminophen/HYDROcodone 325-5 MG Tab PO PRN (02:06)
[2018-06-27] MEDS ORDERED: Diltiazem IR 60 MG Tab PO ONE (05:00)
[2018-06-27] MEDS ORDERED: Enoxaparin 40 MG/0.4 ML Syringe SUBCUT ONE (05:00)
--- NOTE | 2018-06-27 11:13 | CR ---
EXAM DATE: 06/26/18 PATIENT'S AGE: 88 Patient: PANCHO SALAS Facility: [place], [place] Site . Site : [id number] Study: XRay Chest [id number]/21/2018 9:53:07 PM Ordering Physician: Doctor Chou Final Report: Indication: Chest pain Technique: Chest 1 view Comparison: 06/22/2018. Findings/Impression: Cardiovascular and mediastinum: Stable cardiomegaly. An ectatic, calcified aorta again seen. Lungs and pleural space: Lungs are clear. No sign of infiltrate or mass. No sign of pleural effusion. No pneumothorax. Bones and soft tissues: No significant change. Dictated by Nick Skelton MD @ 06/26/2018 9:55:13 PM Dictated by: Nick Skelton MD @ 06/26/2018 21:55:19 (Electronic Signature) Report Signed by Proxy. JAIME
[2018-06-27] MEDS ORDERED: Albuterol/Ipratropium 3.0-0.5 MG/3 ML Neb Soln INH PRN (12:59)
[2018-06-27] MEDS ORDERED: Fluticasone Propionate Nasal Spray 16 GM Bottle NASBOTH PRN (12:59)
[2018-06-27] MEDS ORDERED: Acetaminophen 325 MG Tab PO PRN (12:59)
[2018-06-27] MEDS ORDERED: Omeprazole 20 MG Cap.CR PO PRN (12:59)
[2018-06-27] MEDS ORDERED: Albuterol 8 GM Inhaler INH PRN (12:59)
[2018-06-27] MEDS ORDERED: traMADol 50 MG Tab PO PRN (12:59)
[2018-06-27] MEDS: Acidophilus with Citrus Pectin Tab PO SCH (14:21)
[2018-06-27] MEDS: Furosemide 40 MG Tab PO SCH (14:22)
[2018-06-27] MEDS: Apixaban 5 MG Tab PO SCH ×2 (14:23→21:41)
[2018-06-27] MEDS: Vitamin E (dl-alpha-tocopherol acetate) 400 Unit Cap PO SCH (14:23)
[2018-06-27] MEDS: FLUTICASONE INH SCH (14:25)
[2018-06-27] MEDS: VILANTEROL INH SCH (14:25)
[2018-06-27] MEDS: Diltiazem 120 MG Cap.CD PO SCH ×2 (14:40→21:39)
[2018-06-27] MEDS: Metoprolol Succinate 100 MG Tab.ER PO SCH ×2 (14:41→17:21)
[2018-06-27] MEDS ORDERED: Metoprolol Succinate 100 MG Tab.ER PO SCH (17:00)
[2018-06-27] MEDS: Calcium Carbonate/Vitamin D3 1500 MG-400 Units Tab PO SCH (17:20)
[2018-06-27] MEDS ORDERED: Digoxin 500 MCG/2 ML Amp IVPUSH ONE (17:36)
[2018-06-27] MEDS ORDERED: Diltiazem 25 MG/5 ML SDV IVPUSH ONE (18:28)
[2018-06-27] MEDS ORDERED: Diltiazem 125 MG in Sodium Chloride 0.9% 100 ML IV ONE (19:00)
[2018-06-27] MEDS ORDERED: Cholecalciferol (Vitamin D3) 1,000 Unit Tab PO SCH (21:00)
[2018-06-27] MEDS ORDERED: Diltiazem 120 MG Cap.CD PO SCH (21:00)
--- NOTE | 2018-06-27 21:33 | PCM.HP ---
H&P History of Present Illness - General Admit Problem/Dx: Admission Diagnosis/Problem Admission Diagnosis/Problem Atrial fibrillation - Related Data Allergies/Adverse Reactions: Allergies Allergy/AdvReac Type Severity Reaction Status Date / Time meza Allergy Anaphylactic Verified 06/22/18 12:37 Shock codeine Allergy Abdominal Verified 06/22/18 12:37 Cramps dipyridamole [From Aggrenox] Allergy unknown Verified 06/22/18 12:37 Latex, Natural Rubber Allergy Itching Verified 06/22/18 12:37 morphine Allergy Itching Verified 06/22/18 14:23 shrimp Allergy Hives Verified 06/22/18 12:37 dust mites Allergy Sneezing Uncoded 03/25/18 01:55 pollen Allergy Hives Uncoded 03/25/18 01:55 Home Medications: Home Meds Calcium Carbonate 600 mg PO BIDMEALS 09/19/15 [History] Multivitamin [Multivitamins] 1 cap PO DAILY 09/19/15 [History] Potassium Chloride 10 meq PO DAILY 09/19/15 [History] Vitamin E 400 units PO DAILY 09/19/15 [History] L Acidophil/B Lactis/B Longum [Florajen3] 460 mg PO DAILY 10/09/16 [History] Ipratropium/Albuterol Sulfate [Iprat-Albut 0.5-3(2.5) mg/3 ml] 3 ml IH TID PRN 03/31/17 [History] Fluticasone/Vilanterol [Breo Ellipta 100-25 MCG Inhalation Kit] 1 puff IH DAILY #1 inhaler 04/01/17 [Rx] Albuterol [Proventil HFA] 2 puff INH Q4HRRT PRN 12/07/17 [History] Fluticasone Propionate [Flonase] 1 spray NS DAILY PRN 12/07/17 [History] Levothyroxine 75 mcg PO ACBREAKFAST 12/07/17 [History] Omeprazole 20 mg PO ACBREAKFAST PRN 12/07/17 [History] Furosemide 40 mg PO DAILY #0 12/08/17 [Rx] Metoprolol Succinate [Toprol XL] 100 mg PO BIDMEALS 01/30/18 [History] Acetaminophen [Tylenol] 650 mg PO Q4H PRN tablet 01/31/18 [Rx] traMADol [Ultram] 50 mg PO Q6H PRN #15 tablet 01/31/18 [Rx] prednisoLONE Acetate [Prednisolone Acetate] 1 drop EYELF BID 03/25/18 [History] Apixaban [Eliquis] 5 mg PO BID 06/22/18 [History] Cholecalciferol (Vitamin D3) [Vitamin D3] 5,000 unit PO BEDTIME 06/22/18 [ History] Diltiazem HCl [Dilt-XR] 120 mg PO BEDTIME 06/22/18 [History] Past Medical History - Past Health History Medical/Surgical History: Denies Medical/Surgical History HEENT History: Reports: Cataract, Impaired Vision, 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) Other HEENT History: wears glasses all the time Cardiovascular History: Reports: Afib, Heart Failure, Hypertension, NE, Other ( See Below) Other Cardiovascular History: 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 Respiratory History: Reports: Asthma Gastrointestinal History: Reports: Bowel Obstruction, Diverticulosis, Pancreatitis Genitourinary History: Reports: UTI, Recurrent HOME CARE PROVIDER History: Reports: , 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; D&C, stillbirth Musculoskeletal History: Reports: Fracture Neurological History: Reports: None Psychiatric History: Reports: None Endocrine/Metabolic History: Reports: Hypothyroidism Hematologic History: Reports: Anemia, 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) Other Hematologic History: blood clots in the leg Immunologic History: Reports: None Oncologic (Cancer) History: Reports: None Dermatologic History: Reports: None - Infectious Disease History Infectious Disease History: Reports: Chicken Pox, Measles - Past Surgical History Head Surgeries/Procedures: Reports: None HEENT Surgical History: Reports: Adenoidectomy, Cataract Surgery, Tonsillectomy Cardiovascular Surgical History: Reports: Percutaneous Transluminal Angioplasty , 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) Other Cardiovascular Surgeries/Procedures: angiogram last Monday Respiratory Surgical History: Reports: None GI Surgical History: Reports: Appendectomy, Cholecystectomy Female Surgical History: Reports: None Endocrine Surgical History: Reports: None Musculoskeletal Surgical History: Reports: None Social & Family History - Family History Family Medical History: Noncontributory HEENT: Reports: Impaired Vision Cardiac: Reports: Hypertension, NE, Prior Cardiac Arrest OBGYN: Reports: Neurological: Reports: CVA - Tobacco Use Smoking Status *Q: Never Smoker Second Hand Smoke Exposure: Yes - Caffeine Use Caffeine Use: Reports: Tea Caffeine Use Comment: decaf - Recreational Drug Use Recreational Drug Use: No - Living Situation & Occupation Living situation: Reports: , Alone Occupation: Retired Exam - Vital Signs Vital Signs: Last Vital Signs Temp 98.5 F 06/27/18 20:00 Pulse 72 06/27/18 20:00 Resp 18 06/27/18 20:00 BP 123/60 06/27/18 20:00 Pulse Ox 95 06/27/18 20:00 Weight: 157 lb 15.732 oz - Patient Data Lab Results Last 24 hrs: Laboratory Results - last 24 hr 06/26/18 06/26/18 06/27/18 Range/Units 20:48 21:45 02:55 WBC 9.04 (4.0-11.0) K/uL RBC 4.18 L (4.30-5.90) M/uL Hgb 12.6 (12.0-16.0) g/dL Hct 38.0 (36.0-46.0) % MCV 90.9 (80.0-98.0) fL MCH 30.1 (27.0-32.0) pg MCHC 33.2 (31.0-37.0) g/dL RDW Std Deviation 44.0 (28.0-62.0) fl RDW Coeff of Brisa 14 (11.0-15.0) % Plt Count 312 (150-400) K/uL MPV 8.50 (7.40-12.00) fL Neut % (Auto) 54.1 (48.0-80.0) % Lymph % (Auto) 24.7 (16.0-40.0) % [place] % (Auto) 12.5 (0.0-15.0) % Eos % (Auto) 8.1 H (0.0-7.0) % Baso % (Auto) 0.6 (0.0-1.5) % Neut # (Auto) 4.9 (1.4-5.7) K/uL Lymph # (Auto) 2.2 (0.6-2.4) K/uL [place] # (Auto) 1.1 H (0.0-0.8) K/uL Eos # (Auto) 0.7 (0.0-0.7) K/uL Baso # (Auto) 0.1 (0.0-0.1) K/uL Sodium (136-145) mmol/L Potassium (3.5-5.1) mmol/L Chloride (98-107) mmol/L Carbon Dioxide (21.0-32.0) mmol/L BUN (7.0-18.0) mg/dL Creatinine (0.6-1.0) mg/dL Est Cr Clr Drug Dosing mL/min Estimated GFR (MDRD) ml/min Glucose (74-106) mg/dL Calcium (8.5-10.1) mg/dL Total Bilirubin (0.2-1.0) mg/dL AST (15-37) IU/L ALT (14-63) IU/L Alkaline Phosphatase (46-116) U/L Troponin I (0.000-0.056) ng/mL Total Protein (6.4-8.2) g/dL Albumin (3.4-5.0) g/dL Globulin (2.0-3.5) g/dL Albumin/Globulin Ratio (1.3-2.8) TSH 3rd Generation 3.68 (0.36-3.74) uIU/mL Urine Color YELLOW Urine Appearance SLT CLOUDY Urine pH 6.5 (5.0-8.0) Ur Specific [place] 1.010 (1.001-1.035) Urine Protein NEGATIVE (NEGATIVE) mg/dL Urine Glucose (UA) NEGATIVE (NEGATIVE) mg/dL Urine Ketones NEGATIVE (NEGATIVE) mg/dL Urine Occult Blood SMALL H (NEGATIVE) Urine Nitrite NEGATIVE (NEGATIVE) Urine Bilirubin NEGATIVE (NEGATIVE) Urine Urobilinogen 0.2 (<2.0) EU/dL Ur Leukocyte Esterase SMALL (NEGATIVE) Urine RBC NONE SEEN (0-2/HPF) Urine WBC 7-9 (0-5/HPF) Ur Epithelial Cells MANY (NONE-FEW) Urine Bacteria 2+ H (NEGATIVE) Urine Mucus LIGHT (NONE-MOD) 06/27/18 06/27/18 06/27/18 Range/Units 02:55 02:55 08:50 WBC (4.0-11.0) K/uL RBC (4.30-5.90) M/uL Hgb (12.0-16.0) g/dL Hct (36.0-46.0) % MCV (80.0-98.0) fL MCH (27.0-32.0) pg MCHC (31.0-37.0) g/dL RDW Std Deviation (28.0-62.0) fl RDW Coeff of Brisa (11.0-15.0) % Plt Count (150-400) K/uL MPV (7.40-12.00) fL Neut % (Auto) (48.0-80.0) % Lymph % (Auto) (16.0-40.0) % [place] % (Auto) (0.0-15.0) % Eos % (Auto) (0.0-7.0) % Baso % (Auto) (0.0-1.5) % Neut # (Auto) (1.4-5.7) K/uL Lymph # (Auto) (0.6-2.4) K/uL [place] # (Auto) (0.0-0.8) K/uL Eos # (Auto) (0.0-0.7) K/uL Baso # (Auto) (0.0-0.1) K/uL Sodium 139 (136-145) mmol/L Potassium 4.0 (3.5-5.1) mmol/L Chloride 102 (98-107) mmol/L Carbon Dioxide 32.7 H (21.0-32.0) mmol/L BUN 17 (7.0-18.0) mg/dL Creatinine 1.1 H (0.6-1.0) mg/dL Est Cr Clr Drug Dosing 26.71 mL/min Estimated GFR (MDRD) 46.9 ml/min Glucose 119 H (74-106) mg/dL Calcium 9.3 (8.5-10.1) mg/dL Total Bilirubin 0.3 (0.2-1.0) mg/dL AST 16 (15-37) IU/L ALT 45 (14-63) IU/L Alkaline Phosphatase 82 (46-116) U/L Troponin I 0.079 H* < 0.050 (0.000-0.056) ng/mL Total Protein 6.4 (6.4-8.2) g/dL Albumin 2.7 L (3.4-5.0) g/dL Globulin 3.7 H (2.0-3.5) g/dL Albumin/Globulin Ratio 0.7 L (1.3-2.8) TSH 3rd Generation (0.36-3.74) uIU/mL Urine Color Urine Appearance Urine pH (5.0-8.0) Ur Specific [place] (1.001-1.035) Urine Protein (NEGATIVE) mg/dL Urine Glucose (UA) (NEGATIVE) mg/dL Urine Ketones (NEGATIVE) mg/dL Urine Occult Blood (NEGATIVE) Urine Nitrite (NEGATIVE) Urine Bilirubin (NEGATIVE) Urine Urobilinogen (<2.0) EU/dL Ur Leukocyte Esterase (NEGATIVE) Urine RBC (0-2/HPF) Urine WBC (0-5/HPF) Ur Epithelial Cells (NONE-FEW) Urine Bacteria (NEGATIVE) Urine Mucus (NONE-MOD) 06/27/18 Range/Units 08:50 WBC (4.0-11.0) K/uL RBC (4.30-5.90) M/uL Hgb (12.0-16.0) g/dL Hct (36.0-46.0) % MCV (80.0-98.0) fL MCH (27.0-32.0) pg MCHC (31.0-37.0) g/dL RDW Std Deviation (28.0-62.0) fl RDW Coeff of Brisa (11.0-15.0) % Plt Count (150-400) K/uL MPV (7.40-12.00) fL Neut % (Auto) (48.0-80.0) % Lymph % (Auto) (16.0-40.0) % [place] % (Auto) (0.0-15.0) % Eos % (Auto) (0.0-7.0) % Baso % (Auto) (0.0-1.5) % Neut # (Auto) (1.4-5.7) K/uL Lymph # (Auto) (0.6-2.4) K/uL [place] # (Auto) (0.0-0.8) K/uL Eos # (Auto) (0.0-0.7) K/uL Baso # (Auto) (0.0-0.1) K/uL Sodium (136-145) mmol/L Potassium (3.5-5.1) mmol/L Chloride (98-107) mmol/L Carbon Dioxide (21.0-32.0) mmol/L BUN (7.0-18.0) mg/dL Creatinine (0.6-1.0) mg/dL Est Cr Clr Drug Dosing mL/min Estimated GFR (MDRD) ml/min Glucose (74-106) mg/dL Calcium (8.5-10.1) mg/dL Total Bilirubin (0.2-1.0) mg/dL AST (15-37) IU/L ALT (14-63) IU/L Alkaline Phosphatase (46-116) U/L Troponin I (0.000-0.056) ng/mL Total Protein (6.4-8.2) g/dL Albumin (3.4-5.0) g/dL Globulin (2.0-3.5) g/dL Albumin/Globulin Ratio (1.3-2.8) TSH 3rd Generation 2.98 (0.36-3.74) uIU/mL Urine Color Urine Appearance Urine pH (5.0-8.0) Ur Specific [place] (1.001-1.035) Urine Protein (NEGATIVE) mg/dL Urine Glucose (UA) (NEGATIVE) mg/dL Urine Ketones (NEGATIVE) mg/dL Urine Occult Blood (NEGATIVE) Urine Nitrite (NEGATIVE) Urine Bilirubin (NEGATIVE) Urine Urobilinogen (<2.0) EU/dL Ur Leukocyte Esterase (NEGATIVE) Urine RBC (0-2/HPF) Urine WBC (0-5/HPF) Ur Epithelial Cells (NONE-FEW) Urine Bacteria (NEGATIVE) Urine Mucus (NONE-MOD) Result Diagrams: 06/27/18 02:55 06/27/18 02:55 - Problem List (1) Demand ischemia of myocardium SNOMED Code(s): 983380306 ICD Code: I24.8 - OTHER FORMS OF ACUTE ISCHEMIC HEART DISEASE Status: Acute Current Visit: Yes (2) Atrial fibrillation with rapid ventricular response SNOMED Code(s): 300827918731761 ICD Code: I48.91 - UNSPECIFIED ATRIAL FIBRILLATION Status: Acute Current Visit: Yes Orders Last 24hrs: Active Orders 24 hr Category Date Time Status Admission Status [Patient Status] [ADT] Stat ADT 06/26/18 21:45 Active Patient Status [ADT] Routine ADT 06/27/18 01:00 Active Transfer Patient (Change bed) [ADT] Routine ADT 06/27/18 18:57 Ordered Height and Weight [RC] UPON Care 06/27/18 02:06 Active Intake and Output [RC] Q12H Care 06/27/18 02:14 Active Up ad Kalee [RC] ASDIRECTED Care 06/27/18 02:06 Active VTE/DVT Education [RC] PER UNIT ROUTINE Care 06/27/18 02:06 Active Vital Signs [RC] Q4H Care 06/27/18 02:06 Active 2 Gram Sodium Diet [DIET] Diet 06/27/18 Breakfast Active UA W/MICROSCOPIC [URIN] Stat Lab 06/26/18 21:45 Ordered Acetaminophen [Tylenol] Med 06/27/18 12:59 Active 650 mg PO Q4H PRN Acetaminophen [Tylenol] Med 06/27/18 00:32 Active 650 mg PO Q6H PRN Acetaminophen/HYDROcodone [[place] 325-5 MG] Med 06/27/18 02:06 Active 1 tab PO Q4H PRN Acidophilus/Pectin, [place] Med 06/27/18 13:00 Active 1 tab PO DAILY Albuterol [Ventolin HFA] Med 06/27/18 12:59 Active 0 gm INH Q4H PRN Albuterol/Ipratropium [DuoNeb 3.0-0.5 MG/3 ML] Med 06/27/18 12:59 Active 3 ml INH TID PRN Apixaban [Eliquis] Med 06/27/18 13:00 Active 5 mg PO BID Calcium Carbonate/Vitamin D3 [Caltrate 600+D 1500 MG- Med 06/27/18 17:00 Active 400 Units] 600 tab PO BIDMEALS Cholecalciferol (Vitamin D3) [Vitamin D3] Med 06/27/18 21:00 Active 5,000 units PO BEDTIME Diltiazem [Cardizem CD] Med 06/27/18 14:32 Active 120 mg PO BID Fluticasone Propionate [Flonase] Med 06/27/18 12:59 Active 0 gm NASBOTH DAILY PRN Furosemide [Lasix] Med 06/27/18 13:00 Active 40 mg PO DAILY Levothyroxine Med 06/28/18 07:30 Active 75 mcg PO ACBREAKFAST Metoprolol Succinate [Toprol XL] Med 06/27/18 14:32 Active 100 mg PO BIDMEALS Multivitamins w-Iron/Ca/FA/Min [Thera M Plus] Med 06/28/18 09:00 Active 1 tab PO DAILY Omeprazole Med 06/27/18 12:59 Active 20 mg PO ACBREAKFAST PRN Patient's Own Medication [Ptom] Med 06/27/18 13:00 Active 1 each INH DAILY Potassium Chloride [Klor-Con 10] Med 06/28/18 09:00 Active 10 meq PO DAILY Sodium Chloride 0.9% [Saline Flush] Med 06/26/18 20:49 Active 10 ml FLUSH ASDIRECTED PRN Sodium Chloride 0.9% [Saline Flush] Med 06/26/18 20:49 Active 2.5 ml FLUSH ASDIRECTED PRN Vitamin E (dl, acetate) [Vitamin E] Med 06/27/18 13:15 Active 400 units PO DAILY prednisoLONE acetate [Pred Forte 1% Ophth Susp] Med 06/27/18 21:00 Active 0 ml EYELF BID traMADol [Ultram] Med 06/27/18 12:59 Active 50 mg PO Q6H PRN Saline Lock Insert [OM.PC] Stat Oth 06/26/18 20:49 Ordered Resuscitation Status Routine Resus Stat 06/27/18 02:06 Ordered Medication Orders Acetaminophen (Tylenol) 650 mg PO Q6H PRN PRN Reason: Pain Last Admin: 06/27/18 00:44 Dose: 650 mg Acetaminophen (Tylenol) 650 mg PO Q4H PRN PRN Reason: Pain (mild 1-3) Hydrocodone Bitart/Acetaminophen ([place] 325-5 Mg) 1 tab PO Q4H PRN PRN Reason: Pain (moderate 4-6) Acidophilus/Pectin (Acidophilus/Pectin, [place]) 1 tab PO DAILY AZUL Last Admin: 06/27/18 14:21 Dose: 1 tab Albuterol (Ventolin Hfa) 0 gm INH Q4H PRN PRN Reason: Shortness of Breath Albuterol/Ipratropium (Duoneb 3.0-0.5 Mg/3 Ml) 3 ml INH TID PRN PRN Reason: Shortness of Breath Apixaban (Eliquis) 5 mg PO BID [facility] Last Admin: 06/27/18 14:23 Dose: 5 mg Calcium Carbonate (Caltrate 600+D 1500 Mg-400 Units) 600 tab PO BIDMEALS [facility] Last Admin: 06/27/18 17:20 Dose: 600 tab Cholecalciferol (Vitamin D3) 5,000 units PO BEDTIME [facility] Diltiazem HCl (Cardizem Cd) 120 mg PO BID [facility] Last Admin: 06/27/18 14:40 Dose: 120 mg Fluticasone Propionate (Flonase) 0 gm NASBOTH DAILY PRN PRN Reason: ALLERGY Furosemide (Lasix) 40 mg PO DAILY [facility] Last Admin: 06/27/18 14:22 Dose: 40 mg Levothyroxine Sodium (Levothyroxine) 75 mcg PO ACBREAKFAST [facility] Metoprolol Succinate (Toprol Xl) 100 mg PO BIDMEALS [facility] Last Admin: 06/27/18 17:21 Dose: 100 mg Admin: 06/27/18 14:41 Dose: 100 mg Multivitamins/Minerals (Thera M Plus) 1 tab PO DAILY [facility] Omeprazole (Omeprazole) 20 mg PO ACBREAKFAST PRN PRN Reason: Heartburn Last Admin: 06/27/18 14:22 Dose: 20 mg (Fluticasone/ (Vilanterol 1 Puff) 1 each INH DAILY [facility] Last Admin: 06/27/18 14:25 Dose: Not Given Potassium Chloride (Klor-Con 10) 10 meq PO DAILY [facility] Prednisolone Acetate (Pred Forte 1% Ophth Susp) 0 ml EYELF BID [facility] Sodium Chloride (Saline Flush) 10 ml FLUSH ASDIRECTED PRN PRN Reason: Keep Vein Open Last Admin: 06/26/18 21:07 Dose: 10 ml Sodium Chloride (Saline Flush) 2.5 ml FLUSH ASDIRECTED PRN PRN Reason: Keep Vein Open Last Admin: 06/26/18 21:07 Dose: 2.5 ml Tramadol HCl (Ultram) 50 mg PO Q6H PRN PRN Reason: Pain Vitamin E (Vitamin E) 400 units PO DAILY [facility] Last Admin: 06/27/18 14:23 Dose: 400 units
--- NOTE | 2018-06-27 21:43 | PCM.SN ---
- Free Text/Narrative Note: [id number]
[2018-06-27] MEDS: prednisoLONE Acetate 1% Ophth Susp 5 ML Bottle EYELF SCH (22:07)
--- NOTE | 2018-06-27 22:16 | HP ---
DATE OF : 1930 PRIMARY CARE PHYSICIAN: None PCP ADDENDUM: LABORATORY DATA: At admission; WBC 9.89, hemoglobin 13.8, hematocrit 41.5, platelet count 352. Sodium 137, potassium 3.3, chloride 100, CO2 of 31.5, BUN 17, creatinine 1.2, glucose 164, calcium 9.6, total bilirubin 0.2, AST 19, ALT 54, alkaline phosphatase 102. Troponin 0.078, elevated, high. Total protein 7.3, albumin 3, globulin 4.3, TSH 3.68. Urinalysis was negative. KATHRYN / FRANCISCO /[id number]
--- NOTE | 2018-06-27 22:33 | HP ---
DATE OF : 1930 PRIMARY CARE PHYSICIAN: None PCP HISTORY OF PRESENT ILLNESS: The patient is an 88-year-old female, who presented to emergency room last night because she checked her pulse and it was 137. The patient denies any complaints. No chest pain. , no lightheadedness.She was seen here on 06/22 with chest pain complaint and she had positive troponins and she was transferred to [place] and the patient said she had coronary angiography and she was told her coronary angiography was good and she has clean coronary arteries. Her architectural technologist at [place] was Dr. Ortiz, but currently she f/up with Dr. Kern. REVIEW OF SYSTEMS: A 12-point review of system is negative except as in history of present illness. PAST MEDICAL HISTORY: She had cataract, impaired vision and wears glasses all the time. She has AFib, , hypertension, history of myocardial infarction, severe mitral valve insufficiency, and prolapsed mitral valve, small bowel obstruction, diverticulosis, pancreatitis, UTI, history of fracture, hypothyroidism, blood clots in the leg, anemia. PAST SURGICAL HISTORY: She is status post adenoidectomy, cataract surgery, tonsillectomy, percutaneous transluminal angioplasty; angiogram on last Monday, June 24, 2018, status post appendicectomy, status post cholecystectomy. FAMILY HISTORY: Noncontributory. SOCIAL HISTORY: She had never smoked. No alcohol use. No drug use. She is a and she lives alone. LABORATORY DATA: At admission; WBC 9.89, hemoglobin 13.8, hematocrit 41.5, platelet count 352. Sodium 137, potassium 3.3, chloride 100, CO2 of 31.5, BUN 17, creatinine 1.2, glucose 164, calcium 9.6, total bilirubin 0.2, AST 19, ALT 54, alkaline phosphatase 102. Troponin 0.078, elevated, high. Total protein 7.3, albumin 3, globulin 4.3, TSH 3.68. Urinalysis was negative. PHYSICAL EXAMINATION: VITAL SIGNS: At admission, temperature 97.4, pulse rate 143, blood pressure 181/83, respiratory rate 20, oxygen saturation by pulse oximetry 97. HEENT: Her head is atraumatic and normocephalic. Pupils are equally reactive to light. NECK: Supple. No thyromegaly. No lymphadenopathy. HEART: S1, S2. Irregular rhythm and rate. Tachycardic., systolic murmur LUNGS: Clear to auscultation bilaterally. ABDOMEN: Soft and nontender. Positive bowel sounds. EXTREMITIES: No edema. NEUROLOGIC: The patient is alert and oriented x3. There are no gross neurological deficits. In the emergency room, the patient received a bolus of Cardizem 20, and her heart rate decreased to 110, and she was admitted to telemetry for atrial fibrillation with RVR. The patient during the night, she was given Cardizem 120 mg one tablet and her heart was regular and then in the morning, the patient's heart rate started to increase again in 130s. ASSESSMENT AND PLAN: 1. Atrial fibrillation with rapid ventricular rate. We will admit the patient to medical telemetry and we will give the patient Cardizem 120 mg p.o. and if heart rate stays above 100, we will control heart rate with digoxin 250 mg IV and Cardizem bolus 20 mg IV push. Also, we will titrate medication. if heart rate persistent over 130 patient will need to be transferred to ICU for Cardizem drip. Also, the patient will be continued with the home medication, which is metoprolol 100 mg p.o. b.i.d. Also, patient will be continued on her home medication, which is Cardizem CD 120 mg p.o. b.id. 2. Elevated troponin, likely demand ischemia. The patient denies chest pain. She has a recent angiogram with clean coronary arteries.We will control heart rate. 3. Hypokalemia. We will supplement potassium with potassium chloride p.o. 40 mg a day. 4. History of blood clots. The patient will be continued with Eliquis 5 mg p.o. b.i.d. 5. Hypothyroidism. We will check TSH and we will continue patient with levothyroxine 75 mcg p.o. before breakfast. ANTOPET / MODL /[id number] MTDD
[2018-06-28] MEDS ORDERED: Levothyroxine 75 MCG Tab PO SCH (07:30)
[2018-06-28] MEDS: Calcium Carbonate/Vitamin D3 1500 MG-400 Units Tab PO SCH (08:00)
[2018-06-28] MEDS: Metoprolol Succinate 100 MG Tab.ER PO SCH (08:02)
[2018-06-28] MEDS: Vitamin E (dl-alpha-tocopherol acetate) 400 Unit Cap PO SCH (08:10)
[2018-06-28] MEDS: Diltiazem 120 MG Cap.CD PO SCH (08:11)
[2018-06-28] MEDS: Apixaban 5 MG Tab PO SCH (08:11)
[2018-06-28] MEDS: Acidophilus with Citrus Pectin Tab PO SCH (08:12)
[2018-06-28] MEDS: prednisoLONE Acetate 1% Ophth Susp 5 ML Bottle EYELF SCH (08:12)
[2018-06-28] MEDS: Furosemide 40 MG Tab PO SCH (08:12)
[2018-06-28] MEDS: VILANTEROL INH SCH (08:13)
[2018-06-28] MEDS: FLUTICASONE INH SCH (08:13)
[2018-06-28] MEDS ORDERED: Multivitamins with Iron/Calcium/Folic Acid/Minerals Tab PO SCH (09:00)
[2018-06-28] MEDS ORDERED: Potassium Chloride 10 MEQ Tab.ER PO SCH (09:00)
[2018-06-28] MEDS ORDERED: Diltiazem 180 MG Cap.CD PO SCH (09:15)
[2018-06-28] MEDS: Acetaminophen 325 MG Tab PO PRN (13:00)
[2018-06-28 13:01] VITALS: BP 100/56
[2018-06-28] MEDS ORDERED: Diltiazem IR 60 MG Tab PO ONE ×2 (13:44→13:46)
--- NOTE | 2018-06-28 22:00 | PCM.DCSUM1 ---
Discharge Summary - Hospital Course Diagnosis: Stroke: No - Discharge Data Discharge Disposition: Home, Self-Care 01 Condition: Stable - Discharge Diagnosis/Problem(s) (1) Demand ischemia of myocardium SNOMED Code(s): 077797210 ICD Code: I24.8 - OTHER FORMS OF ACUTE ISCHEMIC HEART DISEASE Status: Acute (2) Atrial fibrillation with rapid ventricular response SNOMED Code(s): 536557711898792 ICD Code: I48.91 - UNSPECIFIED ATRIAL FIBRILLATION Status: Acute - Patient Instructions Diet: Usual Diet as Tolerated Activity: As Tolerated Driving: May Drive Today Showering/Bathing: May Shower - Discharge Plan Prescriptions/Med Rec: Digoxin [Digox] 250 mcg PO DAILY 30 Days #30 tablet Diltiazem HCl [Diltiazem ER] 180 mg PO BID 14 Days #30 capsule.er Home Medications: Home Meds Calcium Carbonate 600 mg PO BIDMEALS 09/19/15 [History] Multivitamin [Multivitamins] 1 cap PO DAILY 09/19/15 [History] Potassium Chloride 10 meq PO DAILY 09/19/15 [History] Vitamin E 400 units PO DAILY 09/19/15 [History] L Acidophil/B Lactis/B Longum [Florajen3] 460 mg PO DAILY 10/09/16 [History] Ipratropium/Albuterol Sulfate [Iprat-Albut 0.5-3(2.5) mg/3 ml] 3 ml IH TID PRN 03/31/17 [History] Fluticasone/Vilanterol [Breo Ellipta 100-25 MCG Inhalation Kit] 1 puff IH DAILY #1 inhaler 04/01/17 [Rx] Albuterol [Proventil HFA] 2 puff INH Q4HRRT PRN 12/07/17 [History] Fluticasone Propionate [Flonase] 1 spray NS DAILY PRN 12/07/17 [History] Levothyroxine 75 mcg PO ACBREAKFAST 12/07/17 [History] Omeprazole 20 mg PO ACBREAKFAST PRN 12/07/17 [History] Furosemide 40 mg PO DAILY #0 12/08/17 [Rx] Metoprolol Succinate [Toprol XL] 100 mg PO BIDMEALS 01/30/18 [History] Acetaminophen [Tylenol] 650 mg PO Q4H PRN tablet 01/31/18 [Rx] traMADol [Ultram] 50 mg PO Q6H PRN #15 tablet 01/31/18 [Rx] prednisoLONE Acetate [Prednisolone Acetate] 1 drop EYELF BID 03/25/18 [History] Apixaban [Eliquis] 5 mg PO BID 06/22/18 [History] Cholecalciferol (Vitamin D3) [Vitamin D3] 5,000 unit PO BEDTIME 06/22/18 [ History] Digoxin [Digox] 250 mcg PO DAILY 30 Days #30 tablet 06/28/18 [Rx] Diltiazem HCl [Diltiazem ER] 180 mg PO BID 14 Days #30 capsule.er 06/28/18 [Rx] Patient Handouts: Diltiazem tablets, Digoxin tablets or capsules, Atrial Fibrillation, [id number] Referrals: Colette Quezada DO [Physician] - 07/03/18 3:15 pm Kobe Kern MD [Ordering Only Provider] - - Patient Data Vitals - Most Recent: Last Vital Signs Temp 97.2 F 06/28/18 11:00 Pulse 70 06/28/18 13:01 Resp 17 06/28/18 11:00 BP 100/56 L 06/28/18 13:01 Pulse Ox 97 06/28/18 11:00 Weight - Most Recent: 157 lb 15.732 oz I&O - Last 24 hours: Intake & Output 06/28/18 06/28/18 06/28/18 06:59 14:59 22:59 Intake Total 500 1180 Output Total 400 950 Balance 100 230 Med Orders - Current: Current Medications Discontinued Medications Acetaminophen (Tylenol) 650 mg PO Q6H PRN PRN Reason: Pain Last Admin: 06/28/18 13:00 Dose: 650 mg Acetaminophen (Tylenol) 650 mg PO Q4H PRN PRN Reason: Pain (mild 1-3) Hydrocodone Bitart/Acetaminophen (Jacumba 325-5 Mg) 1 tab PO Q4H PRN PRN Reason: Pain (moderate 4-6) Acidophilus/Pectin (Acidophilus/Pectin, Bethel) 1 tab PO DAILY AZUL Last Admin: 06/28/18 08:12 Dose: 1 tab Albuterol (Ventolin Hfa) 0 gm INH Q4H PRN PRN Reason: Shortness of Breath Albuterol/Ipratropium (Duoneb 3.0-0.5 Mg/3 Ml) 3 ml INH TID PRN PRN Reason: Shortness of Breath Apixaban (Eliquis) 5 mg PO BID [facility] Last Admin: 06/28/18 08:11 Dose: 5 mg Calcium Carbonate (Caltrate 600+D 1500 Mg-400 Units) 600 tab PO BIDMEALS [facility] Last Admin: 06/28/18 08:00 Dose: 600 tab Cholecalciferol (Vitamin D3) 5,000 units PO BEDTIME [facility] Last Admin: 06/27/18 21:41 Dose: 5,000 units Digoxin (Lanoxin) 250 mcg IVPUSH ONETIME ONE Stop: 06/27/18 17:37 Last Admin: 06/27/18 17:58 Dose: 250 mcg Digoxin (Lanoxin) 250 mcg PO DAILY [facility] Diltiazem HCl (Diltiazem) 20 mg IVPUSH ONETIME ONE Stop: 06/26/18 20:59 Last Admin: 06/26/18 21:06 Dose: 20 mg Diltiazem HCl (Cardizem) 120 mg PO ONETIME ONE Stop: 06/27/18 05:01 Last Admin: 06/27/18 04:52 Dose: 120 mg Diltiazem HCl (Cardizem Cd) 120 mg PO BID [facility] Diltiazem HCl (Cardizem Cd) 120 mg PO BID [facility] Last Admin: 06/28/18 08:11 Dose: 120 mg Diltiazem HCl (Diltiazem) 20 mg IVPUSH ONETIME ONE Stop: 06/27/18 18:29 Last Admin: 06/27/18 18:44 Dose: 20 mg Diltiazem HCl (Cardizem Cd) 180 mg PO BID [facility] Last Admin: 06/28/18 10:48 Dose: Not Given Diltiazem HCl (Cardizem) 60 mg PO ONETIME ONE Stop: 06/28/18 13:47 Last Admin: 06/28/18 14:05 Dose: Not Given Enoxaparin Sodium (Lovenox) 40 mg SUBCUT ONETIME ONE Stop: 06/27/18 05:01 Last Admin: 06/27/18 04:56 Dose: 40 mg Fluticasone Propionate (Flonase) 0 gm NASBOTH DAILY PRN PRN Reason: ALLERGY Furosemide (Lasix) 40 mg PO DAILY [facility] Last Admin: 06/28/18 08:12 Dose: 40 mg Diltiazem HCl 125 mg/ Sodium (Chloride) 125 mls @ 5 mls/hr IV NOW ONE; Protocol Stop: 06/28/18 19:59 Last Admin: 06/27/18 21:49 Dose: Not Given Levothyroxine Sodium (Levothyroxine) 75 mcg PO ACBREAKFAST [facility] Last Admin: 06/28/18 08:00 Dose: 75 mcg Metoprolol Succinate (Toprol Xl) 100 mg PO BIDMEALS [facility] Metoprolol Succinate (Toprol Xl) 100 mg PO BIDMEALS [facility] Last Admin: 06/28/18 08:02 Dose: 100 mg Multivitamins/Minerals (Thera M Plus) 1 tab PO DAILY [facility] Last Admin: 06/28/18 08:10 Dose: 1 tab Omeprazole (Omeprazole) 20 mg PO ACBREAKFAST PRN PRN Reason: Heartburn Last Admin: 06/27/18 14:22 Dose: 20 mg (Fluticasone/ (Vilanterol 1 Puff) 1 each INH DAILY [facility] Last Admin: 06/28/18 08:13 Dose: 1 each Potassium Chloride (Klor-Con 10) 10 meq PO DAILY [facility] Last Admin: 06/28/18 08:10 Dose: 10 meq Prednisolone Acetate (Pred Forte 1% Ophth Susp) 0 ml EYELF BID [facility] Last Admin: 06/28/18 08:12 Dose: 1 drop Sodium Chloride (Saline Flush) 10 ml FLUSH ASDIRECTED PRN PRN Reason: Keep Vein Open Last Admin: 06/26/18 21:07 Dose: 10 ml Sodium Chloride (Saline Flush) 2.5 ml FLUSH ASDIRECTED PRN PRN Reason: Keep Vein Open Last Admin: 06/26/18 21:07 Dose: 2.5 ml Tramadol HCl (Ultram) 50 mg PO Q6H PRN PRN Reason: Pain Vitamin E (Vitamin E) 400 units PO DAILY [facility] Last Admin: 06/28/18 08:10 Dose: 400 units
[2018-06-29] MEDS ORDERED: Digoxin 250 MCG Tab PO SCH (09:00)
== END 2018-06-28 15:25 | disposition home or self-care (01) ==
LOC: MW.ED 20:45 → MW.ICU 21:45 → MW.MS 23:01
PROVIDERS: ADMIT Internal Medicine; ATTEND Internal Medicine
DX: I48.0 Paroxysmal atrial fibrillation (principal); I24.8 Other forms of acute ischemic heart disease; E87.6 Hypokalemia; I11.0 Hypertensive heart disease with heart failure; I50.9 Heart failure, unspecified; I25.2 Old myocardial infarction; J45.909 Unspecified asthma, uncomplicated; I34.0 Nonrheumatic mitral (valve) insufficiency; E03.9 Hypothyroidism, unspecified; Z86.718 Personal history of other venous thrombosis and embolism; Z79.899 Other long term (current) drug therapy
CPT/HCPCS: 36415; 71045; 71045-26; 80053; 81001; 84443; 84484; 85025; 93005; 96372; 96374; 96375; 96376; 99284; 99285-25; A9270-GY; G0378; J1160; J1650; J3490

== ENCOUNTER 2018-07-21 17:46 | Emergency (ER) | payer MEDICARE, OTHER ==
--- NOTE | 2018-07-21 17:58 | EDM.PDOC ---
<Eryn Alvarez E - Last Filed: 07/21/18 20:28> ED HPI GENERAL MEDICAL PROBLEM - General Chief Complaint: Respiratory Problem Stated Complaint: PT BLOOD PRESSURE LOW Time Seen by Provider: 07/21/18 17:53 Source of Information: Reports: Patient History Limitations: Reports: No Limitations - History of Present Illness INITIAL COMMENTS - FREE TEXT/NARRATIVE: HISTORY AND PHYSICAL: History of present illness: Patient is an 88-year-old female who presents to the emergency room today with complaints of shortness of breath, weakness and previous readings of her sugar. Patient was admitted to the hospital on 07/13/2018 for atrial fibrillation and digoxin toxicity. She did see Dr. Quezada on 07/16/2018, and was told she still had some extra fluid on her lungs. She states she has felt short of breath, more bothersome this afternoon. She does routinely check her blood pressure at home and was concerned as her readings were 120/80 and work getting "lower". She is unable to tell me how low these readings were. She states that they were back to normal today. She denies any fever, chills, chest pain or cough. Denies any abdominal pain, nausea, vomiting, diarrhea or constipation. She has been eating and drinking appropriately. Patient does have a history of atrial fibrillation, CO, heart failure, hypertension, mitral valve insufficiency and DVT. Takes Furosemide and Eloquist as directed by her personal lines insurance advisor, Dr. Kern at [facility] in [place]. Has recently seen him in for a angiogram, which she reports was "okay". Review of systems: As per history of present illness and below otherwise all systems reviewed and negative. Past medical history: As per history of present illness and as reviewed below otherwise noncontributory. Surgical history: As per history of present illness and as reviewed below otherwise noncontributory. Social history: No reported history of drug or alcohol abuse. Family history: As per history of present illness and as reviewed below otherwise noncontributory. Physical exam: General: Well-developed and well-nourished 88-year-old female. Alert and oriented. Nontoxic appearing and in no acute distress. HEENT: Atraumatic, normocephalic, pupils equal and reactive bilaterally, negative for conjunctival pallor or scleral icterus, mucous membranes moist, throat clear, neck supple, nontender, trachea midline. No drooling or trismus noted. No meningeal signs Lungs: Clear to auscultation, breath sounds equal bilaterally, chest nontender. Heart: S1S2, irregular - his stream of atrial fibrillation Abdomen: Soft, nondistended, nontender. Negative for masses or hepatosplenomegaly. Negative for costovertebral tenderness. Pelvis: Stable nontender. Genitourinary: Deferred. Rectal: Deferred. Skin: Intact, warm, dry. No lesions or rashes noted. Extremities: Atraumatic, negative for cords or calf pain. Neurovascular unremarkable. Neuro: Awake, alert, oriented. Cranial nerves II through XII unremarkable. Cerebellum unremarkable. Motor and sensory unremarkable throughout. Exam nonfocal. Notes: Patient states that her digoxin was discontinued. She did not have any new medications added since her hospital stay. EKG shows atrial fibrillation with a rate of 67. VSS. Patient denies any pain at this time. X-ray shows no acute findings, no infiltrate or pneumonia. UA shows some bacteria and WBCs but doesn't appear contaminated. Urine culture was added. She is asymptomatic, therefore will not place her on any antibiotics until the culture report is reviewed. BNP today is 868; previous BNP on 2017 was 1254. She has seen Dr Quezada this past Monday, she was aware of her heart failure status. She reports they had done labs, those as altered not available to me. I did offer the patient admission which she declines. She states she does not sleep well while staying in the hospital. She reports her shortness of breath has somewhat improved. She continues to deny any chest pain , GI or symptoms. Diagnostics: CBC, CMP, BNP, troponin, UA, EKG, one view chest Therapeutics: Saline lock, Lasix Prescription: None Impression: Dyspnea Congestive heart failure Plan: 1. Please continue to take your home medications as directed. 2. Follow-up with your primary care provider on Monday. Return to the ED as needed and as discussed. Definitive disposition and diagnosis as appropriate pending reevaluation and review of above. Duration: Day(s): Location: Reports: Chest - Related Data Allergies Allergy/AdvReac Type Severity Reaction Status Date / Time meza Allergy Anaphylactic Verified 07/21/18 17:53 Shock codeine Allergy Abdominal Verified 07/21/18 17:53 Cramps dipyridamole [From Aggrenox] Allergy unknown Verified 07/21/18 17:53 Latex, Natural Rubber Allergy Itching Verified 07/21/18 17:53 morphine Allergy Itching Verified 07/21/18 17:53 shrimp Allergy Hives Verified 07/21/18 17:53 dust mites Allergy Sneezing Uncoded 07/21/18 17:53 pollen Allergy Hives Uncoded 07/21/18 17:53 Home Meds: Home Meds Albuterol [Proventil Neb Soln] 2 puff INH Q4HRRT PRN 07/13/18 [History] Apixaban [Eliquis] 5 mg PO BID 07/13/18 [History] Aspirin [Ecotrin] 325 mg PO DAILY 07/13/18 [History] Calcium Carbonate/Vitamin D3 [Calcium Carb 500 MG] 600 mg PO BID 07/13/18 [ History] Cholecalciferol (Vitamin D3) [Cholecalciferol] 1 tab PO DAILY 07/13/18 [History] Diltiazem HCl [Diltiazem ER] 180 mg PO BID 07/13/18 [History] Famotidine 20 mg PO BID 07/13/18 [History] Fluticasone/Vilanterol [Breo Ellipta 100-25 MCG Inhalation Kit] 1 puff INH DAILY 07/13/18 [History] Furosemide 40 mg PO DAILY 07/13/18 [History] Lactobacillus Acidophilus [Acidophilus Lactobacilli] 460 mg PO DAILY 07/13/18 [ History] Levothyroxine 75 mcg PO DAILY 07/13/18 [History] Metoprolol Succinate 100 mg PO BID 07/13/18 [History] Multivitamin [Multivitamins] 1 tab PO DAILY 07/13/18 [History] Potassium Chloride 10 meq PO DAILY 07/13/18 [History] Vitamin E 400 units PO DAILY 07/13/18 [History] Past Medical History - Past Health History Medical/Surgical History: Denies Medical/Surgical History HEENT History: Reports: Cataract, Impaired Vision, 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) Other HEENT History: wears glasses all the time Cardiovascular History: Reports: Afib, Heart Failure, Hypertension, CO, Other ( See Below) Other Cardiovascular History: 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 Respiratory History: Reports: Asthma Gastrointestinal History: Reports: Bowel Obstruction, Diverticulosis, Pancreatitis Genitourinary History: Reports: UTI, Recurrent BAND TEACHER History: Reports: , 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) Other BAND TEACHER History: force labor; D&C, stillbirth Musculoskeletal History: Reports: Fracture Neurological History: Reports: None Psychiatric History: Reports: None Endocrine/Metabolic History: Reports: Hypothyroidism Hematologic History: Reports: Anemia, 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) Other Hematologic History: blood clots in the leg Immunologic History: Reports: None Oncologic (Cancer) History: Reports: None Dermatologic History: Reports: None - Infectious Disease History Infectious Disease History: Reports: Chicken Pox, Measles - Past Surgical History Head Surgeries/Procedures: Reports: None HEENT Surgical History: Reports: Adenoidectomy, Cataract Surgery, Tonsillectomy Cardiovascular Surgical History: Reports: Percutaneous Transluminal Angioplasty , 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) Other Cardiovascular Surgeries/Procedures: angiogram last Monday Respiratory Surgical History: Reports: None GI Surgical History: Reports: Appendectomy, Cholecystectomy Female Surgical History: Reports: None Endocrine Surgical History: Reports: None Musculoskeletal Surgical History: Reports: None Social & Family History - Family History Family Medical History: Noncontributory HEENT: Reports: Impaired Vision Cardiac: Reports: Hypertension, CO, Prior Cardiac Arrest OBGYN: Reports: Neurological: Reports: CVA - Caffeine Use Caffeine Use: Reports: Tea Caffeine Use Comment: decaf - Living Situation & Occupation Living situation: Reports: , Alone Occupation: Retired ED ROS GENERAL - Review of Systems Review Of Systems: ROS reveals no pertinent complaints other than HPI. ED EXAM, GENERAL - Physical Exam Exam: See Below (See dictation) Course - Vital Signs Last Recorded V/S: Last Vital Signs Temp 36.6 C 07/21/18 17:46 Pulse 74 07/21/18 20:45 Resp 14 07/21/18 20:45 BP 119/60 07/21/18 20:45 Pulse Ox 97 07/21/18 20:45 - Orders/Labs/Meds Orders: Active Orders 24 hr Category Date Time Status Blood Glucose Check, Bedside [RC] ONETIME Care 07/21/18 17:50 Active EKG Documentation Completion [RC] STAT Care 07/21/18 17:49 Active Chest 1V Frontal [CR] Stat Exams 07/21/18 17:49 Taken CULTURE URINE [RM] Stat Lab 07/21/18 19:35 Received Labs: Laboratory Tests 07/21/18 07/21/18 07/21/18 Range/Units 18:00 18:00 18:00 WBC 11.30 H (4.0-11.0) K/uL RBC 4.27 L (4.30-5.90) M/uL Hgb 13.2 (12.0-16.0) g/dL Hct 38.8 (36.0-46.0) % MCV 90.9 (80.0-98.0) fL MCH 30.9 (27.0-32.0) pg MCHC 34.0 (31.0-37.0) g/dL RDW Std Deviation 48.7 (28.0-62.0) fl RDW Coeff of Brisa 15 (11.0-15.0) % Plt Count 255 (150-400) K/uL MPV 9.30 (7.40-12.00) fL Neut % (Auto) 60.1 (48.0-80.0) % Lymph % (Auto) 20.2 (16.0-40.0) % Forsyth % (Auto) 12.3 (0.0-15.0) % Eos % (Auto) 7.0 (0.0-7.0) % Baso % (Auto) 0.4 (0.0-1.5) % Neut # (Auto) 6.8 H (1.4-5.7) K/uL Lymph # (Auto) 2.3 (0.6-2.4) K/uL Forsyth # (Auto) 1.4 H (0.0-0.8) K/uL Eos # (Auto) 0.8 H (0.0-0.7) K/uL Baso # (Auto) 0.1 (0.0-0.1) K/uL Nucleated RBC % 0.0 /100WBC Nucleated RBCs # 0 K/uL Sodium 137 (136-145) mmol/L Potassium 3.5 (3.5-5.1) mmol/L Chloride 101 (98-107) mmol/L Carbon Dioxide 25.7 (21.0-32.0) mmol/L BUN 15 (7.0-18.0) mg/dL Creatinine 1.4 H (0.6-1.0) mg/dL Est Cr Clr Drug Dosing TNP Estimated GFR (MDRD) 35.5 ml/min Glucose 178 H (74-106) mg/dL POC Glucose (60-110) mg/dL Calcium 9.0 (8.5-10.1) mg/dL Total Bilirubin 0.5 (0.2-1.0) mg/dL AST 30 (15-37) IU/L ALT 60 (14-63) IU/L Alkaline Phosphatase 82 (46-116) U/L Troponin I < 0.050 (0.000-0.056) ng/mL B-Natriuretic Peptide 868 H (<100) PG/ML Total Protein 6.4 (6.4-8.2) g/dL Albumin 3.2 L (3.4-5.0) g/dL Globulin 3.2 (2.0-3.5) g/dL Albumin/Globulin Ratio 1.0 L (1.3-2.8) Urine Color Urine Appearance Urine pH (5.0-8.0) Ur Specific Rye (1.001-1.035) Urine Protein (NEGATIVE) mg/dL Urine Glucose (UA) (NEGATIVE) mg/dL Urine Ketones (NEGATIVE) mg/dL Urine Occult Blood (NEGATIVE) Urine Nitrite (NEGATIVE) Urine Bilirubin (NEGATIVE) Urine Urobilinogen (<2.0) EU/dL Ur Leukocyte Esterase (NEGATIVE) Urine RBC (0-2/HPF) Urine WBC (0-5/HPF) Ur Epithelial Cells (NONE-FEW) Calcium Oxalate Crystal (NEGATIVE) Urine Bacteria (NEGATIVE) 07/21/18 07/21/18 07/21/18 Range/Units 18:03 19:27 19:35 WBC (4.0-11.0) K/uL RBC (4.30-5.90) M/uL Hgb (12.0-16.0) g/dL Hct (36.0-46.0) % MCV (80.0-98.0) fL MCH (27.0-32.0) pg MCHC (31.0-37.0) g/dL RDW Std Deviation (28.0-62.0) fl RDW Coeff of Brisa (11.0-15.0) % Plt Count (150-400) K/uL MPV (7.40-12.00) fL Neut % (Auto) (48.0-80.0) % Lymph % (Auto) (16.0-40.0) % Forsyth % (Auto) (0.0-15.0) % Eos % (Auto) (0.0-7.0) % Baso % (Auto) (0.0-1.5) % Neut # (Auto) (1.4-5.7) K/uL Lymph # (Auto) (0.6-2.4) K/uL Forsyth # (Auto) (0.0-0.8) K/uL Eos # (Auto) (0.0-0.7) K/uL Baso # (Auto) (0.0-0.1) K/uL Nucleated RBC % /100WBC Nucleated RBCs # K/uL Sodium (136-145) mmol/L Potassium (3.5-5.1) mmol/L Chloride (98-107) mmol/L Carbon Dioxide (21.0-32.0) mmol/L BUN (7.0-18.0) mg/dL Creatinine (0.6-1.0) mg/dL Est Cr Clr Drug Dosing Estimated GFR (MDRD) ml/min Glucose (74-106) mg/dL POC Glucose 185 H 133 H (60-110) mg/dL Calcium (8.5-10.1) mg/dL Total Bilirubin (0.2-1.0) mg/dL AST (15-37) IU/L ALT (14-63) IU/L Alkaline Phosphatase (46-116) U/L Troponin I (0.000-0.056) ng/mL B-Natriuretic Peptide (<100) PG/ML Total Protein (6.4-8.2) g/dL Albumin (3.4-5.0) g/dL Globulin (2.0-3.5) g/dL Albumin/Globulin Ratio (1.3-2.8) Urine Color YELLOW Urine Appearance HAZY Urine pH 5.5 (5.0-8.0) Ur Specific Rye >= 1.030 (1.001-1.035) Urine Protein 30 (NEGATIVE) mg/dL Urine Glucose (UA) NEGATIVE (NEGATIVE) mg/dL Urine Ketones NEGATIVE (NEGATIVE) mg/dL Urine Occult Blood NEGATIVE (NEGATIVE) Urine Nitrite NEGATIVE (NEGATIVE) Urine Bilirubin NEGATIVE (NEGATIVE) Urine Urobilinogen 0.2 (<2.0) EU/dL Ur Leukocyte Esterase NEGATIVE (NEGATIVE) Urine RBC 1-2 (0-2/HPF) Urine WBC 1-3 (0-5/HPF) Ur Epithelial Cells FEW (NONE-FEW) Calcium Oxalate Crystal MODERATE (NEGATIVE) Urine Bacteria FEW (NEGATIVE) Meds: Medications Discontinued Medications Generic Name Dose Route Start Last Admin Trade Name Huey PRN Reason Stop Dose Admin Furosemide 20 mg 07/21/18 19:26 07/21/18 19:58 Lasix IVPUSH 07/21/18 19:27 20 mg NOW ONE Administration Sodium Chloride 1,000 mls @ 250 mls/hr 07/21/18 17:50 07/21/18 19:48 Normal Saline IV 07/21/18 21:49 Not Given STAT ONE Departure - Departure Time of Disposition: 20:29 Disposition: Home, Self-Care 01 Clinical Impression: CHF, Congestive heart failure Dyspnea Qualifiers: Dyspnea type: shortness of breath Qualified Code(s): R06.02 - Shortness of breath - Discharge Information Instructions: Heart Failure, [id number] Referrals: PCP,None [Primary Care Provider] - Forms: ED Department Discharge Additional Instructions: The following information is given to patients seen in the emergency department who are being discharged to home. This information is to outline your options for follow-up care. We provide all patients seen in our emergency department with a follow-up referral. The need for follow-up, as well as the timing and circumstances, are variable depending upon the specifics of your emergency department visit. If you don't have a primary care physician on staff, we will provide you with a referral. We always advise you to contact your personal physician following an emergency department visit to inform them of the circumstance of the visit and for follow-up with them and/or the need for any referrals to a consulting specialist. The emergency department will also refer you to a specialist when appropriate. This referral assures that you have the opportunity for follow-up care with a specialist. All of these measure are taken in an effort to provide you with optimal care, which includes your follow-up. Under all circumstances we always encourage you to contact your private physician who remains a resource for coordinating your care. When calling for follow-up care, please make the office aware that this follow-up is from your recent emergency room visit. If for any reason you are refused follow-up, please contact the [facility] Emergency Department at and asked to speak to the emergency department charge nurse. [facility] [address] [place] [address] [address] 1. Please continue to take your home medications as directed. 2. Follow-up with your primary care provider on Monday. Return to the ED as needed and as discussed. <Anika Rader - Last Filed: 07/21/18 23:14> ED HPI GENERAL MEDICAL PROBLEM - History of Present Illness INITIAL COMMENTS - FREE TEXT/NARRATIVE: Please note that the nurse practitioner did offer admission to this patient although it is not indicated in the note above. The patient declines admission and does not want to stay and wants to go home.
[2018-07-21 18:39] LABS: CHLORIDE,CL 101 mmol/L (98-107); SODIUM,NA 137 mmol/L (136-145)
[2018-07-21] MEDS ORDERED: Furosemide 40 MG/4 ML VIAL IVPUSH ONE (19:26)
[2018-07-21] MEDS: Sodium Chloride 0.9% 1,000 ML IV ONE ×2 (19:35→19:48)
[2018-07-21 21:00] VITALS: BP 119/60
--- NOTE | 2018-07-23 13:29 | CR ---
EXAM DATE: 07/21/18 PATIENT'S AGE: 88 Patient: PANCHO SALAS Facility: [place], [place] Site . Site : [id number] Study: XRay Chest [id number]/15/2018 7:04:50 PM Ordering Physician: Doctor Chou Final Report: HISTORY: Weakness. COMPARISON: 07/13/2018. FINDINGS: The lungs are clear. Costophrenic angles sharp. Heart size and pulmonary vascularity are within normal limits. Dictated by Anastasia Albert MD @ Jul 21 2018 7:23PM (Electronic Signature) Report Signed by Proxy. JAIME
== END 2018-07-21 20:45 | disposition home or self-care (01) ==
LOC: MW.ED 17:46
DX: I11.0 Hypertensive heart disease with heart failure (principal); I50.9 Heart failure, unspecified; R06.02 Shortness of breath; I48.91 Unspecified atrial fibrillation; J45.909 Unspecified asthma, uncomplicated; E03.9 Hypothyroidism, unspecified; Z91.018 Allergy to other foods; Z91.040 Latex allergy status; Z91.013 Allergy to seafood; Z79.82 Long term (current) use of aspirin; Z79.899 Other long term (current) drug therapy
CPT/HCPCS: 36415; 71045; 80053; 81001; 82962; 83880; 84484; 85025; 87086; 93005; 96374; 99285; J1940; J7040

== ENCOUNTER 2018-07-27 00:25 | Emergency (ER) | payer MEDICARE, OTHER ==
[2018-07-27] MEDS ORDERED: Sodium Chloride 0.9% 2.5 ML Syringe FLUSH PRN (00:42)
[2018-07-27] MEDS ORDERED: Sodium Chloride 0.9% 10 ML Syringe FLUSH PRN (00:42)
[2018-07-27] MEDS ORDERED: Ondansetron 4 MG/2 ML SDV IVPUSH ONE (00:48)
--- NOTE | 2018-07-27 00:48 | EDM.PDOC ---
ED HPI GENERAL MEDICAL PROBLEM - General Stated Complaint: HEART Time Seen by Provider: 07/27/18 00:36 - History of Present Illness INITIAL COMMENTS - FREE TEXT/NARRATIVE: HISTORY AND PHYSICAL: History of present illness: The patient is 88-year-old female who lives at home and follows with [facility] and was just seen here on July 21 for feeling weak and short of breath and was also seen and admitted here on July 13 and 2 times at the end of June. She follows with Dr. Kern at [facility] for her heart and has a history of A. fib congestive heart failure hypertension hypothyroidism DVTs and chronic renal insufficiency. The patient says that after she was seen here last week she did follow-up with her provider 2 days ago who increased her Lasix from 40 once a day to 40 mg twice a day. She also stopped her anticoagulation, Eliquis. When the patient was seen in the clinic she discuss with her provider her sensation of feeling bloating and seeing some blood in her stools and a CT scan was ordered for that finding as well as some episodic right-sided abdominal pain. She is scheduled to have that CT scan tomorrow. The patient tells me that there is nothing new or different about that discomfort. Patient presents today via EMS because she is not feeling well. She is very vague about what she is feeling is just saying that she has generalized weakness and some dizziness/lightheadedness but she is not passing out or blacking out. She has no chest pain cough fever chills but has had one episode of vomiting. She's had no diarrhea. She said she's had the episodic right-sided abdominal pain for quite some time and that is not new or different. She said that she is concerned because she gained 2 pounds in 24 hours and she is worried that the increased Lasix dose is not working. She is not having a cough or current shortness of breath. When I discussed all the symptoms and try to pin down what it is that worries her she says it is just generalized weakness and she is not able to sleep and she has no appetite. She is not stating that she has any specific pain. She has no neck or back pain and she has not had any falls. According to the last 2 discharge summaries the patient has had a recent heart catheter which she says was negative. Please note that the one episode of vomiting occurred in the ambulance in route. . Review of systems: As per history of present illness and below otherwise all systems reviewed and negative. Past medical history: As per history of present illness and as reviewed below otherwise noncontributory. Surgical history: As per history of present illness and as reviewed below otherwise noncontributory. Social history: No reported history of drug or alcohol abuse. Family history: As per history of present illness and as reviewed below otherwise noncontributory. Physical exam: General: Well-developed well-nourished overweight female who is nontoxic and speaking clearly in the ED. Vital signs are noted by me. HEENT: Atraumatic, normocephalic, negative for conjunctival pallor or scleral icterus, mucous membranes moist, throat clear, neck supple, nontender, trachea midline. Lungs: Clear to auscultation, breath sounds equal bilaterally, chest nontender. no work or breathing no wheezing no stridor Heart: S1S2, regular rate and rhythm with slightly bradycardic rate, no overt murmurs Abdomen: Soft, nondistended, nontender. Negative for masses or hepatosplenomegaly. Hypoactive bowel sounds Pelvis: Stable nontender. Genitourinary: Deferred. Rectal: Deferred. Extremities: Atraumatic, negative for cords or calf pain. Neurovascular unremarkable. no pedal edema or leg asymmetry Neuro: Awake, alert, oriented. Cranial nerves II through XII unremarkable. Cerebellum unremarkable. Motor and sensory unremarkable throughout. Exam nonfocal. Diagnostics: EKG CBC CMP BNP INR troponin TSH UA urine culture if indicated chest x-ray lactic acid Therapeutics: IV O2 monitor Zofran IV fluids Rocephin I compared today's labs to prior labs and the BNP of 880 tonight is slightly elevated from the eats 68 done on July 21 but greatly improved from the 1254 of July 13. The patient's TSH is markedly elevated today compared to that one done on June 27 that was 2.98. Patient's WBC count is elevated from prior but the differential is without a left shift. I have discussed all these testing results with the patient and son at bedside. 0245: TESTING results were discussed with the patient and transferred to [facility] was offered and she declines. She is aware that we currently are full and have no beds available for admissions here in our hospital. She would prefer to do her CT scan tomorrow and follow-up with Dr. Quezada at the clinic. He did discuss this case with Dr. Sanchezelin our hospitalist as I do have concerns about several lab abnormalities with respect to the patient's overall clinical picture. He feels that I should give a dose of antibiotics like Rocephin here for the elevated WBC count and the lactic acid despite the patient not having a fever or an obvious source. I will also order a urine culture and blood cultures. He does not feel that I should adjust the patient's levothyroxin and left the provider in the clinic do that. We also discussed giving her a small fluid bolus which I will give her 500 mL as I think her urine indicates that she has some level of dehydration. I will also send the patient home on antibiotics as I will be starting that here tonight. She is comfortable with this care plan and will return as she needs for any change in her symptomatology. Impression: Generalized weakness, dizziness, leukocytosis etiology unclear Definitive disposition and diagnosis as appropriate pending reevaluation and review of above. - Related Data Allergies Allergy/AdvReac Type Severity Reaction Status Date / Time meza Allergy Anaphylactic Verified 07/27/18 00:41 Shock codeine Allergy Abdominal Verified 07/27/18 00:41 Cramps dipyridamole [From Aggrenox] Allergy unknown Verified 07/27/18 00:41 Latex, Natural Rubber Allergy Itching Verified 07/27/18 00:41 morphine Allergy Itching Verified 07/27/18 00:41 shrimp Allergy Hives Verified 07/27/18 00:41 dust mites Allergy Sneezing Uncoded 07/27/18 00:41 pollen Allergy Hives Uncoded 07/27/18 00:41 Home Meds: Home Meds Albuterol [Proventil Neb Soln] 2 puff INH Q4HRRT PRN 07/13/18 [History] Aspirin [Ecotrin] 325 mg PO DAILY 07/13/18 [History] Calcium Carbonate/Vitamin D3 [Calcium Carb 500 MG] 600 mg PO BID 07/13/18 [ History] Cholecalciferol (Vitamin D3) [Cholecalciferol] 1 tab PO DAILY 07/13/18 [History] Diltiazem HCl [Diltiazem ER] 180 mg PO BID 07/13/18 [History] Famotidine 20 mg PO BID 07/13/18 [History] Fluticasone/Vilanterol [Breo Ellipta 100-25 MCG Inhalation Kit] 1 puff INH DAILY 07/13/18 [History] Furosemide 40 mg PO BID 07/13/18 [History] Lactobacillus Acidophilus [Acidophilus Lactobacilli] 460 mg PO DAILY 07/13/18 [ History] Levothyroxine 75 mcg PO DAILY 07/13/18 [History] Metoprolol Succinate 100 mg PO BID 07/13/18 [History] Multivitamin [Multivitamins] 1 tab PO DAILY 07/13/18 [History] Potassium Chloride 10 meq PO DAILY 07/13/18 [History] Vitamin E 400 units PO DAILY 07/13/18 [History] Past Medical History - Past Health History Medical/Surgical History: Denies Medical/Surgical History HEENT History: Reports: Cataract, Impaired Vision, 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) Other HEENT History: wears glasses all the time Cardiovascular History: Reports: Afib, Heart Failure, Hypertension, [place], Other ( See Below) Other Cardiovascular History: 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; D&C, stillbirth Musculoskeletal History: Reports: Fracture Neurological History: Reports: None Psychiatric History: Reports: None Endocrine/Metabolic History: Reports: Hypothyroidism Hematologic History: Reports: Anemia, 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) Other Hematologic History: blood clots in the leg Immunologic History: Reports: None Oncologic (Cancer) History: Reports: None Dermatologic History: Reports: None - Infectious Disease History Infectious Disease History: Reports: Chicken Pox, Measles - Past Surgical History Head Surgeries/Procedures: Reports: None HEENT Surgical History: Reports: Adenoidectomy, Cataract Surgery, Tonsillectomy Cardiovascular Surgical History: Reports: Percutaneous Transluminal Angioplasty , 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) Other Cardiovascular Surgeries/Procedures: angiogram last Monday Respiratory Surgical History: Reports: None GI Surgical History: Reports: Appendectomy, Cholecystectomy Female Surgical History: Reports: None Endocrine Surgical History: Reports: None Musculoskeletal Surgical History: Reports: None Social & Family History - Family History Family Medical History: Noncontributory HEENT: Reports: Impaired Vision Cardiac: Reports: Hypertension, ME, Prior Cardiac Arrest OBGYN: Reports: Neurological: Reports: CVA - Caffeine Use Caffeine Use: Reports: Tea Caffeine Use Comment: decaf - Living Situation & Occupation Living situation: Reports: , Alone Occupation: Retired ED ROS GENERAL - Review of Systems Review Of Systems: ROS reveals no pertinent complaints other than HPI. ED EXAM, GENERAL - Physical Exam Exam: See Below (See dictation) Course - Vital Signs Last Recorded V/S: Last Vital Signs Temp 36.4 C 07/27/18 00:38 Pulse 55 L 07/27/18 02:15 Resp 17 07/27/18 02:15 BP 116/53 L 07/27/18 02:15 Pulse Ox 97 07/27/18 02:15 - Orders/Labs/Meds Orders: Active Orders 24 hr Category Date Time Status Cardiac Monitoring [RC] . DIRECTED Care 07/27/18 00:42 Active EKG Documentation Completion [RC] STAT Care 07/27/18 00:43 Active Oxygen Therapy, ED [RC] ASDIRECTED Care 07/27/18 00:42 Active Pulse Oximetry [RC] ASDIRECTED Care 07/27/18 00:43 Active Chest 1V Frontal [CR] Stat Exams 07/27/18 00:43 Taken CULTURE BLOOD [BC] Stat Lab 07/27/18 02:34 Ordered CULTURE BLOOD [BC] Stat Lab 07/27/18 02:34 Ordered CULTURE URINE [RM] Stat Lab 07/27/18 02:15 Received Sodium Chloride 0.9% [Normal Saline] 500 ml Med 07/27/18 02:45 Active IV STAT Sodium Chloride 0.9% [Saline Flush] Med 07/27/18 00:42 Active 10 ml FLUSH ASDIRECTED PRN Sodium Chloride 0.9% [Saline Flush] Med 07/27/18 00:42 Active 2.5 ml FLUSH ASDIRECTED PRN cefTRIAXone [Rocephin in Dextrose,Iso-Osm 1 GM/50 ML] 1 Med 07/27/18 02:43 Active gm Premix Bag 1 bag IV ONETIME Blood Culture x2 Reflex Set [OM.PC] Stat Oth 07/27/18 02:34 Ordered Saline Lock Insert [OM.PC] Stat Oth 07/27/18 00:42 Ordered Medication Orders Ceftriaxone Sodium/Dextrose 1 (gm/ Premix) 50 mls @ 100 mls/hr IV ONETIME ONE Stop: 07/27/18 03:12 Sodium Chloride (Normal Saline) 500 mls @ 999 mls/hr IV STAT AZUL Sodium Chloride (Saline Flush) 10 ml FLUSH ASDIRECTED PRN PRN Reason: Keep Vein Open Sodium Chloride (Saline Flush) 2.5 ml FLUSH ASDIRECTED PRN PRN Reason: Keep Vein Open Labs: Laboratory Tests 07/27/18 07/27/18 07/27/18 Range/Units 00:40 00:40 00:40 WBC 14.54 H (4.0-11.0) K/uL RBC 4.45 (4.30-5.90) M/uL Hgb 13.6 (12.0-16.0) g/dL Hct 41.5 (36.0-46.0) % MCV 93.3 (80.0-98.0) fL MCH 30.6 (27.0-32.0) pg MCHC 32.8 (31.0-37.0) g/dL RDW Std Deviation 50.3 (28.0-62.0) fl RDW Coeff of Brisa 15 (11.0-15.0) % Plt Count 262 (150-400) K/uL MPV 9.50 (7.40-12.00) fL Add Manual Diff YES Neutrophils % (Manual) 74 (48.0-80.0) % Lymphocytes % (Manual) 16 (16.0-40.0) % Monocytes % (Manual) 6 (0.0-15.0) % Eosinophils % (Manual) 4 (0.0-7.0) % Absolute Seg Neuts 10.8 H (1.4-5.7) Lymphocytes # (Manual) 2.3 (0.6-2.4) Monocytes # (Manual) 0.9 H (0.0-0.8) Eosinophils # (Manual) 0.6 (0.0-0.7) INR 1.18 Lactate 3.8 H (0.20-2.00) mmol/L Sodium (136-145) mmol/L Potassium (3.5-5.1) mmol/L Chloride (98-107) mmol/L Carbon Dioxide (21.0-32.0) mmol/L BUN (7.0-18.0) mg/dL Creatinine (0.6-1.0) mg/dL Est Cr Clr Drug Dosing mL/min Estimated GFR (MDRD) ml/min Glucose (74-106) mg/dL Calcium (8.5-10.1) mg/dL Total Bilirubin (0.2-1.0) mg/dL AST (15-37) IU/L ALT (14-63) IU/L Alkaline Phosphatase (46-116) U/L Troponin I (0.000-0.056) ng/mL B-Natriuretic Peptide (<100) PG/ML Total Protein (6.4-8.2) g/dL Albumin (3.4-5.0) g/dL Globulin (2.0-3.5) g/dL Albumin/Globulin Ratio (1.3-2.8) TSH 3rd Generation (0.36-3.74) uIU/mL Urine Color Urine Appearance Urine pH (5.0-8.0) Ur Specific [place] (1.001-1.035) Urine Protein (NEGATIVE) mg/dL Urine Glucose (UA) (NEGATIVE) mg/dL Urine Ketones (NEGATIVE) mg/dL Urine Occult Blood (NEGATIVE) Urine Nitrite (NEGATIVE) Urine Bilirubin (NEGATIVE) Urine Urobilinogen (<2.0) EU/dL Ur Leukocyte Esterase (NEGATIVE) Urine RBC (0-2/HPF) Urine WBC (0-5/HPF) Ur Epithelial Cells (NONE-FEW) Urine Bacteria (NEGATIVE) Hyaline Casts (0-2/LPF) Urine Mucus (NONE-MOD) Urinalysis Comment 07/27/18 07/27/18 07/27/18 Range/Units 00:40 00:40 01:25 WBC (4.0-11.0) K/uL RBC (4.30-5.90) M/uL Hgb (12.0-16.0) g/dL Hct (36.0-46.0) % MCV (80.0-98.0) fL MCH (27.0-32.0) pg MCHC (31.0-37.0) g/dL RDW Std Deviation (28.0-62.0) fl RDW Coeff of Brisa (11.0-15.0) % Plt Count (150-400) K/uL MPV (7.40-12.00) fL Add Manual Diff Neutrophils % (Manual) (48.0-80.0) % Lymphocytes % (Manual) (16.0-40.0) % Monocytes % (Manual) (0.0-15.0) % Eosinophils % (Manual) (0.0-7.0) % Absolute Seg Neuts (1.4-5.7) Lymphocytes # (Manual) (0.6-2.4) Monocytes # (Manual) (0.0-0.8) Eosinophils # (Manual) (0.0-0.7) INR Lactate (0.20-2.00) mmol/L Sodium 131 L (136-145) mmol/L Potassium 4.1 (3.5-5.1) mmol/L Chloride 97 L (98-107) mmol/L Carbon Dioxide 25.2 (21.0-32.0) mmol/L BUN 17 (7.0-18.0) mg/dL Creatinine 1.6 H (0.6-1.0) mg/dL Est Cr Clr Drug Dosing 18.34 mL/min Estimated GFR (MDRD) 30.4 ml/min Glucose 199 H (74-106) mg/dL Calcium 9.6 (8.5-10.1) mg/dL Total Bilirubin 0.6 (0.2-1.0) mg/dL AST 44 H (15-37) IU/L ALT 64 H (14-63) IU/L Alkaline Phosphatase 101 (46-116) U/L Troponin I < 0.050 (0.000-0.056) ng/mL B-Natriuretic Peptide 880 H (<100) PG/ML Total Protein 7.0 (6.4-8.2) g/dL Albumin 3.4 (3.4-5.0) g/dL Globulin 3.6 H (2.0-3.5) g/dL Albumin/Globulin Ratio 0.9 L (1.3-2.8) TSH 3rd Generation 8.70 H (0.36-3.74) uIU/mL Urine Color YELLOW Urine Appearance SLT CLOUDY Urine pH 5.0 (5.0-8.0) Ur Specific [place] >= 1.030 (1.001-1.035) Urine Protein >=300 (NEGATIVE) mg/dL Urine Glucose (UA) NEGATIVE (NEGATIVE) mg/dL Urine Ketones TRACE H (NEGATIVE) mg/dL Urine Occult Blood NEGATIVE (NEGATIVE) Urine Nitrite NEGATIVE (NEGATIVE) Urine Bilirubin SMALL H (NEGATIVE) Urine Urobilinogen 0.2 (<2.0) EU/dL Ur Leukocyte Esterase NEGATIVE (NEGATIVE) Urine RBC 0-1 (0-2/HPF) Urine WBC 1-3 (0-5/HPF) Ur Epithelial Cells MANY (NONE-FEW) Urine Bacteria FEW (NEGATIVE) Hyaline Casts 0-1 (0-2/LPF) Urine Mucus LIGHT (NONE-MOD) Urinalysis Comment Meds: Medications Generic Name Dose Route Start Last Admin Trade Name Freq PRN Reason Stop Dose Admin Ceftriaxone Sodium/Dextrose 1 50 mls @ 100 mls/hr 07/27/18 02:43 gm/ Premix IV 07/27/18 03:12 ONETIME ONE Sodium Chloride 500 mls @ 999 mls/hr 07/27/18 02:45 Normal Saline IV STAT AZUL Sodium Chloride 10 ml 07/27/18 00:42 Saline Flush FLUSH ASDIRECTED PRN Keep Vein Open Sodium Chloride 2.5 ml 07/27/18 00:42 Saline Flush FLUSH ASDIRECTED PRN Keep Vein Open Discontinued Medications Generic Name Dose Route Start Last Admin Trade Name Freq PRN Reason Stop Dose Admin Ondansetron HCl 4 mg 07/27/18 00:48 07/27/18 01:00 Zofran IVPUSH 07/27/18 00:49 4 mg ONETIME ONE Administration Departure - Departure Time of Disposition: 02:51 Disposition: Home, Self-Care 01 Condition: Good Clinical Impression: Generalized weakness Leukocytosis Qualifiers: Leukocytosis type: unspecified Qualified Code(s): D72.829 - Elevated white blood cell count, unspecified - Discharge Information Referrals: Colette Quezada DO [Primary Care Provider] - Additional Instructions: The following information is given to patients seen in the emergency department who are being discharged to home. This information is to outline your options for follow-up care. We provide all patients seen in our emergency department with a follow-up referral. The need for follow-up, as well as the timing and circumstances, are variable depending upon the specifics of your emergency department visit. If you don't have a primary care physician on staff, we will provide you with a referral. We always advise you to contact your personal physician following an emergency department visit to inform them of the circumstance of the visit and for follow-up with them and/or the need for any referrals to a consulting specialist. The emergency department will also refer you to a specialist when appropriate. This referral assures that you have the opportunity for followup care with a specialist. All of these measure are taken in an effort to provide you with optimal care, which includes your followup. Under all circumstances we always encourage you to contact your private physician who remains a resource for coordinating your care. When calling for followup care, please make the office aware that this follow-up is from your recent emergency room visit. If for any reason you are refused follow-up, please contact the [facility] emergency department at and ask to speak to the emergency department charge nurse. [address] [place] [address] Quezada tomorrow and discuss with her today's testing results so that she can address her thyroid meds and follow up your WBC count and culture results. Please continue all home medications and try to drink of a bit hydration as we discussed. Please keep all appointments for test that you have today and return to ER as needed and as discussed. - My Orders Last 24 Hours: My Active Orders 07/27/18 00:42 Cardiac Monitoring [RC] . DIRECTED Oxygen Therapy, ED [RC] ASDIRECTED Sodium Chloride 0.9% [Saline Flush] 10 ml FLUSH ASDIRECTED PRN Sodium Chloride 0.9% [Saline Flush] 2.5 ml FLUSH ASDIRECTED PRN Saline Lock Insert [OM.PC] Stat 07/27/18 00:43 EKG Documentation Completion [RC] STAT Pulse Oximetry [RC] ASDIRECTED Chest 1V Frontal [CR] Stat 07/27/18 02:15 CULTURE URINE [RM] Stat 07/27/18 02:34 CULTURE BLOOD [BC] Stat CULTURE BLOOD [BC] Stat Blood Culture x2 Reflex Set [OM.PC] Stat 07/27/18 02:43 cefTRIAXone [Rocephin in Dextrose,Iso-Osm 1 GM/50 ML] 1 gm Premix Bag 1 bag IV ONETIME 07/27/18 02:45 Sodium Chloride 0.9% [Normal Saline] 500 ml IV STAT - Assessment/Plan Last 24 Hours: My Active Orders 07/27/18 00:42 Cardiac Monitoring [RC] . DIRECTED Oxygen Therapy, ED [RC] ASDIRECTED Sodium Chloride 0.9% [Saline Flush] 10 ml FLUSH ASDIRECTED PRN Sodium Chloride 0.9% [Saline Flush] 2.5 ml FLUSH ASDIRECTED PRN Saline Lock Insert [OM.PC] Stat 07/27/18 00:43 EKG Documentation Completion [RC] STAT Pulse Oximetry [RC] ASDIRECTED Chest 1V Frontal [CR] Stat 07/27/18 02:15 CULTURE URINE [RM] Stat 07/27/18 02:34 CULTURE BLOOD [BC] Stat CULTURE BLOOD [BC] Stat Blood Culture x2 Reflex Set [OM.PC] Stat 07/27/18 02:43 cefTRIAXone [Rocephin in Dextrose,Iso-Osm 1 GM/50 ML] 1 gm Premix Bag 1 bag IV ONETIME 07/27/18 02:45 Sodium Chloride 0.9% [Normal Saline] 500 ml IV STAT
[2018-07-27 01:20] LABS: CHLORIDE,CL 97 mmol/L (98-107); SODIUM,NA 131 mmol/L (136-145)
[2018-07-27] MEDS ORDERED: cefTRIAXone 1 GM in Premix Bag 1 BAG IV ONE (02:43)
[2018-07-27] MEDS ORDERED: Sodium Chloride 0.9% 500 ML IV SCH (02:45)
[2018-07-27 03:56] VITALS: BP 120/60
--- NOTE | 2018-07-27 13:02 | CR ---
EXAM DATE: 07/27/18 PATIENT'S AGE: 88 Patient: PANCHO SALAS Facility: [place], [place] Site . Site : [id number] Study: XRay Chest [id number]/21/2018 1:11:08 AM Ordering Physician: Prasanth Donaldson Final Report: INDICATION: Pain, Shortness of Breath TECHNIQUE: Chest 1 view. COMPARISON: 07/21/18 FINDINGS: Cardiovascular and mediastinum: Heart size and vasculature are normal in caliber and appearance. Mediastinum is within normal limits. Lungs and pleural space: Lungs are clear. No sign of infiltrate or mass. No sign of pleural effusion. No pneumothorax. Bones and soft tissues: No significant findings. IMPRESSION: Unremarkable chest. Dictated by: Gregg Mijares MD @ 07/27/2018 01:15:01 (Electronic Signature) Report Signed by Proxy. JAIME
== END 2018-07-27 03:57 | disposition home or self-care (01) ==
LOC: MW.ED 00:25
DX: D72.829 Elevated white blood cell count, unspecified (principal); I13.0 Hypertensive heart and chronic kidney disease with heart failure and stage 1 through stage 4 chronic kidney disease, or unspecified chronic kidney disease; I50.9 Heart failure, unspecified; N18.9 Chronic kidney disease, unspecified; I48.91 Unspecified atrial fibrillation; E03.9 Hypothyroidism, unspecified; Z79.82 Long term (current) use of aspirin; Z79.899 Other long term (current) drug therapy; Z88.5 Allergy status to narcotic agent; Z91.013 Allergy to seafood; Z91.040 Latex allergy status
CPT/HCPCS: 36415; 71045; 80053; 81001; 83605; 83880; 84443; 84484; 85025; 85610; 87040; 87086; 96365; 96375; 99285; J0696; J2405; J7040

== ENCOUNTER 2018-08-02 19:34 | Inpatient (IN) | payer MEDICARE, OTHER ==
--- NOTE | 2018-08-02 21:07 | EDM.PDOC ---
<Dana Salmeron - Last Filed: 08/02/18 22:00> ED HPI GENERAL MEDICAL PROBLEM - General Chief Complaint: Abdominal Pain Stated Complaint: PAIN IN LOWER ABDIMIN Time Seen by Provider: 08/02/18 21:07 Source of Information: Reports: Patient History Limitations: Reports: No Limitations - History of Present Illness INITIAL COMMENTS - FREE TEXT/NARRATIVE: HISTORY AND PHYSICAL: []88-year-old female presenting with abdominal pain across the upper abdomen History of Present Illness: []Pain has been present for 1 day She has nausea Review of Systems: As per history of present illness and below otherwise all systems reviewed and negative. Past medical history: As per history of present illness and as reviewed below otherwise noncontributory. Surgical history: As per history of present illness and as reviewed below otherwise noncontributory. Social history: No reported history of drug or alcohol abuse. Family history: As per history of present illness and as reviewed below otherwise noncontributory. Physical exam: HEENT: Atraumatic, normocehpalic, pupils reactive, negative for conjunctival pallor or scleral icterus, mucous membranes moist, throat clear, neck supple, nontender, trachea midline. Lungs: Clear to auscultation, breath sounds equal bilaterally, chest non tender. Heart: S1S2, regular, negative for clicks, rubs, or JVD. Abdomen: Soft, nondistended, nontender. Negative for masses or hepatossplenmegaly. Negative for costovertebral tenderness. Pelvis: Stable nontender. Genitourinary: Deferred. Rectal: Deferred Extremities: Atraumatic, negative for cords or calf pain. Neurovascular unremarkable. Neuro: Awake, alert, oriented. Cranial nerves II through XII unremarkable. Cerebellum unremarkable. Motor and sensory unremarkable throughout. Exam nonfocal. Diagnostics: []CBC CMP and EKG chest x-ray abdominal/pelvis CT without contrast Therapeutics: []Dilaudid Impression: []Abdominal pain Plan: []Cares been transferred to Dr. Flores Reports have been given awaiting lab results and CT reports Definitive disposition and diagnosis as appropriate pending reevaluation and review of above. Onset: Sudden Duration: Day(s): (1) Location: Reports: Abdomen lower abdomen Pain Score (Numeric/FACES): 9 - Related Data Allergies Allergy/AdvReac Type Severity Reaction Status Date / Time meza Allergy Anaphylactic Verified 08/02/18 19:42 Shock codeine Allergy Abdominal Verified 08/02/18 19:42 Cramps dipyridamole [From Aggrenox] Allergy unknown Verified 08/02/18 19:42 Latex, Natural Rubber Allergy Itching Verified 08/02/18 19:42 morphine Allergy Itching Verified 08/02/18 19:42 shrimp Allergy Hives Verified 08/02/18 19:42 dust mites Allergy Sneezing Uncoded 07/27/18 00:41 pollen Allergy Hives Uncoded 07/27/18 00:41 Home Meds: Home Meds Albuterol [Proventil Neb Soln] 2 puff INH Q4HRRT PRN 07/13/18 [History] Aspirin [Ecotrin] 325 mg PO DAILY 07/13/18 [History] Calcium Carbonate/Vitamin D3 [Calcium Carb 500 MG] 600 mg PO BID 07/13/18 [ History] Cholecalciferol (Vitamin D3) [Cholecalciferol] 1 tab PO DAILY 07/13/18 [History] Diltiazem HCl [Diltiazem ER] 180 mg PO BID 07/13/18 [History] Famotidine 20 mg PO BID 07/13/18 [History] Fluticasone/Vilanterol [Breo Ellipta 100-25 MCG Inhalation Kit] 1 puff INH DAILY 07/13/18 [History] Furosemide 40 mg PO BID 07/13/18 [History] Lactobacillus Acidophilus [Acidophilus Lactobacilli] 460 mg PO DAILY 07/13/18 [ History] Levothyroxine 75 mcg PO DAILY 07/13/18 [History] Metoprolol Succinate 100 mg PO BID 07/13/18 [History] Multivitamin [Multivitamins] 1 tab PO DAILY 07/13/18 [History] Potassium Chloride 10 meq PO DAILY 07/13/18 [History] Vitamin E 400 units PO DAILY 07/13/18 [History] Past Medical History - Past Health History Medical/Surgical History: Denies Medical/Surgical History HEENT History: Reports: Cataract, Impaired Vision, 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) Other HEENT History: wears glasses all the time Cardiovascular History: Reports: Afib, Heart Failure, Hypertension, NM, Other ( See Below) Other Cardiovascular History: 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 Respiratory History: Reports: Asthma Gastrointestinal History: Reports: Bowel Obstruction, Diverticulosis, Pancreatitis Genitourinary History: Reports: UTI, Recurrent FUELER History: Reports: , 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) Other FUELER History: force labor; D&C, stillbirth Musculoskeletal History: Reports: Fracture Neurological History: Reports: None Psychiatric History: Reports: None Endocrine/Metabolic History: Reports: Hypothyroidism Hematologic History: Reports: Anemia, 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) Other Hematologic History: blood clots in the leg Immunologic History: Reports: None Oncologic (Cancer) History: Reports: None Dermatologic History: Reports: None - Infectious Disease History Infectious Disease History: Reports: Chicken Pox, Measles, Mumps - Past Surgical History Head Surgeries/Procedures: Reports: None HEENT Surgical History: Reports: Adenoidectomy, Cataract Surgery, Tonsillectomy Cardiovascular Surgical History: Reports: Percutaneous Transluminal Angioplasty , 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) Other Cardiovascular Surgeries/Procedures: angiogram last Monday Respiratory Surgical History: Reports: None GI Surgical History: Reports: Appendectomy, Cholecystectomy Female Surgical History: Reports: None Endocrine Surgical History: Reports: None Musculoskeletal Surgical History: Reports: None Social & Family History - Family History Family Medical History: Noncontributory HEENT: Reports: Impaired Vision Cardiac: Reports: Hypertension, NM, Prior Cardiac Arrest OBGYN: Reports: Neurological: Reports: CVA - Tobacco Use Smoking Status *Q: Never Smoker Second Hand Smoke Exposure: No - Caffeine Use Caffeine Use: Reports: None Caffeine Use Comment: decaf - Recreational Drug Use Recreational Drug Use: No - Living Situation & Occupation Living situation: Reports: , Alone Occupation: Retired ED ROS GENERAL - Review of Systems Review Of Systems: ROS reveals no pertinent complaints other than HPI. ED EXAM, GI/ABD - Physical Exam Exam: See Below (The dictation) Course - Vital Signs Last Recorded V/S: Last Vital Signs Temp 97.1 F 08/02/18 23:00 Pulse 92 08/02/18 23:00 Resp 19 08/02/18 23:00 BP 123/57 L 08/02/18 23:00 Pulse Ox 94 L 08/02/18 23:00 - Orders/Labs/Meds Orders: Active Orders 24 hr Category Date Time Status Admission Status [Patient Status] [ADT] Stat ADT 08/02/18 23:20 Ordered EKG Documentation Completion [RC] STAT Care 08/02/18 21:08 Active Abdomen Pelvis wo Cont [CT] Stat Exams 08/02/18 21:09 Taken CULTURE BLOOD [BC] Stat Lab 08/02/18 21:22 Received CULTURE BLOOD [BC] Stat Lab 08/02/18 21:45 Received Sodium Chloride 0.9% [Normal Saline] 1,000 ml Med 08/02/18 23:04 Ordered IV STAT Sodium Chloride 0.9% [Saline Flush] Med 08/02/18 21:08 Active 10 ml FLUSH ASDIRECTED PRN Sodium Chloride 0.9% [Saline Flush] Med 08/02/18 21:08 Active 2.5 ml FLUSH ASDIRECTED PRN Blood Culture x2 Reflex Set [OM.PC] Stat Oth 08/02/18 21:09 Ordered NG [Nasogastric Orogastric Tube Insertion] [OM.PC] Stat Oth 08/02/18 23:15 Ordered Saline Lock Insert [OM.PC] Stat Oth 08/02/18 21:08 Ordered Medication Orders Sodium Chloride (Normal Saline) 1,000 mls @ 999 mls/hr IV STAT ONE Stop: 08/03/18 00:04 Last Admin: 08/02/18 23:11 Dose: 999 mls/hr Sodium Chloride (Saline Flush) 10 ml FLUSH ASDIRECTED PRN PRN Reason: Keep Vein Open Sodium Chloride (Saline Flush) 2.5 ml FLUSH ASDIRECTED PRN PRN Reason: Keep Vein Open Labs: Laboratory Tests 08/02/18 08/02/18 08/02/18 Range/Units 20:40 20:40 22:10 WBC 9.66 (4.0-11.0) K/uL RBC 4.33 (4.30-5.90) M/uL Hgb 13.1 (12.0-16.0) g/dL Hct 39.1 (36.0-46.0) % MCV 90.3 (80.0-98.0) fL MCH 30.3 (27.0-32.0) pg MCHC 33.5 (31.0-37.0) g/dL RDW Std Deviation 50.5 (28.0-62.0) fl RDW Coeff of Brisa 15 (11.0-15.0) % Plt Count 360 (150-400) K/uL MPV 9.20 (7.40-12.00) fL Neut % (Auto) 75.4 (48.0-80.0) % Lymph % (Auto) 10.8 L (16.0-40.0) % Bowman % (Auto) 10.6 (0.0-15.0) % Eos % (Auto) 3.0 (0.0-7.0) % Baso % (Auto) 0.2 (0.0-1.5) % Neut # (Auto) 7.3 H (1.4-5.7) K/uL Lymph # (Auto) 1.0 (0.6-2.4) K/uL Bowman # (Auto) 1.0 H (0.0-0.8) K/uL Eos # (Auto) 0.3 (0.0-0.7) K/uL Baso # (Auto) 0.0 (0.0-0.1) K/uL Nucleated RBC % 0.0 /100WBC Nucleated RBCs # 0 K/uL Lactate (0.20-2.00) mmol/L Sodium 135 L (136-145) mmol/L Potassium 3.4 L (3.5-5.1) mmol/L Chloride 97 L (98-107) mmol/L Carbon Dioxide 29.6 (21.0-32.0) mmol/L BUN 19 H (7.0-18.0) mg/dL Creatinine 1.2 H (0.6-1.0) mg/dL Est Cr Clr Drug Dosing 24.45 mL/min Estimated GFR (MDRD) 42.4 ml/min Glucose 133 H (74-106) mg/dL Calcium 8.9 (8.5-10.1) mg/dL Total Bilirubin 0.8 (0.2-1.0) mg/dL AST 35 (15-37) IU/L ALT 104 H (14-63) IU/L Alkaline Phosphatase 90 (46-116) U/L Troponin I < 0.050 (0.000-0.056) ng/mL Total Protein 6.3 L (6.4-8.2) g/dL Albumin 3.1 L (3.4-5.0) g/dL Globulin 3.2 (2.0-3.5) g/dL Albumin/Globulin Ratio 1.0 L (1.3-2.8) Amylase 68 (25-115) U/L Urine Color YELLOW Urine Appearance CLEAR Urine pH 5.5 (5.0-8.0) Ur Specific [place] 1.025 (1.001-1.035) Urine Protein NEGATIVE (NEGATIVE) mg/dL Urine Glucose (UA) NEGATIVE (NEGATIVE) mg/dL Urine Ketones NEGATIVE (NEGATIVE) mg/dL Urine Occult Blood TRACE-INTACT (NEGATIVE) Urine Nitrite NEGATIVE (NEGATIVE) Urine Bilirubin NEGATIVE (NEGATIVE) Urine Urobilinogen 0.2 (<2.0) EU/dL Ur Leukocyte Esterase SMALL (NEGATIVE) Urine RBC NONE SEEN (0-2/HPF) Urine WBC 0-2 (0-5/HPF) Ur Epithelial Cells FEW (NONE-FEW) Urine Bacteria FEW (NEGATIVE) Urine Mucus LIGHT (NONE-MOD) Urine Yeast FEW 08/02/18 Range/Units 22:15 WBC (4.0-11.0) K/uL RBC (4.30-5.90) M/uL Hgb (12.0-16.0) g/dL Hct (36.0-46.0) % MCV (80.0-98.0) fL MCH (27.0-32.0) pg MCHC (31.0-37.0) g/dL RDW Std Deviation (28.0-62.0) fl RDW Coeff of Brisa (11.0-15.0) % Plt Count (150-400) K/uL MPV (7.40-12.00) fL Neut % (Auto) (48.0-80.0) % Lymph % (Auto) (16.0-40.0) % Bowman % (Auto) (0.0-15.0) % Eos % (Auto) (0.0-7.0) % Baso % (Auto) (0.0-1.5) % Neut # (Auto) (1.4-5.7) K/uL Lymph # (Auto) (0.6-2.4) K/uL Bowman # (Auto) (0.0-0.8) K/uL Eos # (Auto) (0.0-0.7) K/uL Baso # (Auto) (0.0-0.1) K/uL Nucleated RBC % /100WBC Nucleated RBCs # K/uL Lactate 2.3 H (0.20-2.00) mmol/L Sodium (136-145) mmol/L Potassium (3.5-5.1) mmol/L Chloride (98-107) mmol/L Carbon Dioxide (21.0-32.0) mmol/L BUN (7.0-18.0) mg/dL Creatinine (0.6-1.0) mg/dL Est Cr Clr Drug Dosing mL/min Estimated GFR (MDRD) ml/min Glucose (74-106) mg/dL Calcium (8.5-10.1) mg/dL Total Bilirubin (0.2-1.0) mg/dL AST (15-37) IU/L ALT (14-63) IU/L Alkaline Phosphatase (46-116) U/L Troponin I (0.000-0.056) ng/mL Total Protein (6.4-8.2) g/dL Albumin (3.4-5.0) g/dL Globulin (2.0-3.5) g/dL Albumin/Globulin Ratio (1.3-2.8) Amylase (25-115) U/L Urine Color Urine Appearance Urine pH (5.0-8.0) Ur Specific [place] (1.001-1.035) Urine Protein (NEGATIVE) mg/dL Urine Glucose (UA) (NEGATIVE) mg/dL Urine Ketones (NEGATIVE) mg/dL Urine Occult Blood (NEGATIVE) Urine Nitrite (NEGATIVE) Urine Bilirubin (NEGATIVE) Urine Urobilinogen (<2.0) EU/dL Ur Leukocyte Esterase (NEGATIVE) Urine RBC (0-2/HPF) Urine WBC (0-5/HPF) Ur Epithelial Cells (NONE-FEW) Urine Bacteria (NEGATIVE) Urine Mucus (NONE-MOD) Urine Yeast Meds: Medications Generic Name Dose Route Start Last Admin Trade Name Freq PRN Reason Stop Dose Admin Sodium Chloride 1,000 mls @ 999 mls/hr 08/02/18 23:04 08/02/18 23:11 Normal Saline IV 08/03/18 00:04 999 mls/hr STAT ONE Administration Sodium Chloride 10 ml 08/02/18 21:08 Saline Flush FLUSH ASDIRECTED PRN Keep Vein Open Sodium Chloride 2.5 ml 08/02/18 21:08 Saline Flush FLUSH ASDIRECTED PRN Keep Vein Open Discontinued Medications Generic Name Dose Route Start Last Admin Trade Name Freq PRN Reason Stop Dose Admin Hydromorphone HCl 0.5 mg 08/02/18 21:09 08/02/18 21:33 Dilaudid IM 08/02/18 21:10 0.5 mg ONETIME ONE Administration Ondansetron HCl 4 mg 08/02/18 21:10 08/02/18 21:24 Zofran IVPUSH 08/02/18 21:11 4 mg ONETIME ONE Administration Departure - Departure Time of Disposition: 22:01 Disposition: Admitted As Inpatient 66 Condition: Fair Clinical Impression: Small bowel obstruction, Lactic acid acidosis Abdominal pain Qualifiers: Abdominal location: upper abdomen, unspecified Qualified Code(s): R10.10 - Upper abdominal pain, unspecified - Discharge Information Referrals: PCP,None [Primary Care Provider] - Forms: ED Department Discharge - My Orders Last 24 Hours: My Active Orders 08/02/18 23:04 Sodium Chloride 0.9% [Normal Saline] 1,000 ml IV STAT 08/02/18 23:15 NG [Nasogastric Orogastric Tube Insertion] [OM.PC] Stat 08/02/18 23:20 Admission Status [Patient Status] [ADT] Stat - Assessment/Plan Last 24 Hours: My Active Orders 08/02/18 23:04 Sodium Chloride 0.9% [Normal Saline] 1,000 ml IV STAT 08/02/18 23:15 NG [Nasogastric Orogastric Tube Insertion] [OM.PC] Stat 08/02/18 23:20 Admission Status [Patient Status] [ADT] Stat <Pavel Flores - Last Filed: 08/02/18 23:26> ED HPI GENERAL MEDICAL PROBLEM - General Source of Information: Reports: Patient, Family History Limitations: Reports: No Limitations - History of Present Illness INITIAL COMMENTS - FREE TEXT/NARRATIVE: Dr. Flores taking over patient care at 2200 hrs. I have been thoroughly briefed on the patient and have reviewed labs and radiologic findings. I have personally examined the patient and agree with the above. CBC was unremarkable however lactate was elevated to 2.3. Secondary to this I did give a 500 mL bolus of normal saline. Will watch closely as patient does have a history of CHF and does have some mild pedal edema on exam. Did also communicate this with the hospitalist, Dr. Brownlee. CT of the abdomen showed fluid -filled and dilated small bowel loops present measuring up to 2.9 cm. Transition point was not well-defined but most likely due to mechanical small bowel obstruction. 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 There was a midline ventral hernia containing decompressed loops of small bowel without interval change and did not appear to cause the small bowel obstruction. Did call general surgery, Dr. Dominguez, and advised him of the patient. He suggested NG tube placement and will consult on the patient tomorrow. Secondary to above did call hospitalist, Dr. Brownlee, who accepted the patient for admission secondary to small bowel obstruction. ED ROS GENERAL - Review of Systems Review Of Systems: ROS reveals no pertinent complaints other than HPI. ED EXAM, GI/ABD - Physical Exam Exam: See Below Departure - Departure Time of Disposition: 23:25 Condition: Fair
[2018-08-02] MEDS ORDERED: Sodium Chloride 0.9% 10 ML Syringe FLUSH PRN (21:08)
[2018-08-02] MEDS ORDERED: Sodium Chloride 0.9% 2.5 ML Syringe FLUSH PRN (21:08)
[2018-08-02] MEDS ORDERED: HYDROmorphone 2 MG/ML SDV IM ONE (21:09)
[2018-08-02] MEDS ORDERED: Ondansetron 4 MG/2 ML SDV IVPUSH ONE (21:10)
[2018-08-02 21:32] LABS: CHLORIDE,CL 97 mmol/L (98-107); SODIUM,NA 135 mmol/L (136-145)
[2018-08-02] MEDS ORDERED: Sodium Chloride 0.9% 1,000 ML IV ONE (23:04)
--- NOTE | 2018-08-03 00:18 | PCM.SN ---
- Free Text/Narrative Note: pt seen, chart reviewed; minimal abd pain, normal wbc; recommend ngt decompression, continuous low wall suction, avoid narcotics pain meds/sleeping pills, keep potassium above 4; serial abd exam; pt is not a surgical candidate here, from her comorbidities, CHF, Afib, MO 1 mo ago, cri, pt would benefit to transfer to tertiary care center. will follow pt with you; [id number]
[2018-08-03] MEDS ORDERED: Ketorolac 30 MG/ML SDV IM PRN (00:40)
[2018-08-03] MEDS ORDERED: Sodium Chloride 0.9% 1,000 ML IV SCH (00:45)
[2018-08-03] MEDS ORDERED: Ketorolac 15 MG/ML SDV IVPUSH PRN (07:31)
--- NOTE | 2018-08-03 08:07 | PCM.HP ---
<MckeonUsman - Last Filed: 08/03/18 08:32> H&P History of Present Illness - General Date of Service: 08/03/18 Admit Problem/Dx: Admission Diagnosis/Problem Admission Diagnosis/Problem Small bowel obstruction Source of Information: Patient, Old Records - History of Present Illness Initial Comments - Free Text/Narative: 88F hx of A. Fib, CHF, Asthma, HI 1 month ago presented to the ER with a chief complaint of upper abdomen pain that is worsening. Patient does have a lengthy abdominal history in terms of surgeries and issues including resection of her large bowel in the 80s for reasons shes unsure of, cholecystectomy, diverticulosis, pancreatitis. She has dealt with constipation issues on/off for the past 30 years. Shes unaware of her last "good bowel movement" but has been passing gas. When evaluated by me, she says that her pain is a 10/10, and wants something more for pain. She has an NG in place. She is not nauseous, denies any fever or chills or vomiting. Denies any chest pain. She has been evaluated by our general surgeon here who indicates that she is not a surgical candidate secondary to her lengthy list of comorbidities. CT Abdomen/Pelvis as per radiology- 1. Fluid filled and dilated small bowel loops are present measuring up to 2.9 cm. The transition point is not well identified and findings are most likely due to mechanical small bowel obstruction. 2. There is a midline ventral hernia present containing decompressed loops of small bowel without interval change and does not appear to be the cause of the small bowel obstruction. 3. A small amount of abdominal ascites is seen. lower abdomen Pain Score (Numeric/FACES): 4 - Related Data Allergies/Adverse Reactions: Allergies Allergy/AdvReac Type Severity Reaction Status Date / Time meza Allergy Anaphylactic Verified 08/02/18 19:42 Shock codeine Allergy Abdominal Verified 08/02/18 19:42 Cramps dipyridamole [From Aggrenox] Allergy unknown Verified 08/02/18 19:42 Latex, Natural Rubber Allergy Itching Verified 08/02/18 19:42 morphine Allergy Itching Verified 08/02/18 19:42 shrimp Allergy Hives Verified 08/02/18 19:42 dust mites Allergy Sneezing Uncoded 07/27/18 00:41 pollen Allergy Hives Uncoded 07/27/18 00:41 Home Medications: Home Meds Albuterol [Proventil Neb Soln] 2 puff INH Q4HRRT PRN 07/13/18 [History] Aspirin [Ecotrin] 325 mg PO DAILY 07/13/18 [History] Calcium Carbonate/Vitamin D3 [Calcium Carb 500 MG] 600 mg PO BID 07/13/18 [ History] Cholecalciferol (Vitamin D3) [Cholecalciferol] 1 tab PO DAILY 07/13/18 [History] Diltiazem HCl [Diltiazem ER] 180 mg PO BID 07/13/18 [History] Famotidine 20 mg PO BID 07/13/18 [History] Fluticasone/Vilanterol [Breo Ellipta 100-25 MCG Inhalation Kit] 1 puff INH DAILY 07/13/18 [History] Furosemide 40 mg PO BID 07/13/18 [History] Lactobacillus Acidophilus [Acidophilus Lactobacilli] 460 mg PO DAILY 07/13/18 [ History] Levothyroxine 75 mcg PO DAILY 07/13/18 [History] Metoprolol Succinate 100 mg PO BID 07/13/18 [History] Multivitamin [Multivitamins] 1 tab PO DAILY 07/13/18 [History] Potassium Chloride 10 meq PO DAILY 07/13/18 [History] Vitamin E 400 units PO DAILY 07/13/18 [History] Past Medical History - Past Health History Medical/Surgical History: Denies Medical/Surgical History HEENT History: Reports: Cataract, Impaired Vision, 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) Other HEENT History: wears glasses all the time Cardiovascular History: Reports: Afib, Heart Failure, Hypertension, HI, Other ( See Below) Other Cardiovascular History: 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 Respiratory History: Reports: Asthma Gastrointestinal History: Reports: Bowel Obstruction, Diverticulosis, Pancreatitis Genitourinary History: Reports: UTI, Recurrent GOVERNMENT GAUGER History: Reports: , 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; D&C, stillbirth Musculoskeletal History: Reports: Fracture Neurological History: Reports: None Psychiatric History: Reports: None Endocrine/Metabolic History: Reports: Hypothyroidism Hematologic History: Reports: Anemia, 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) Other Hematologic History: blood clots in the leg Immunologic History: Reports: None Oncologic (Cancer) History: Reports: None Dermatologic History: Reports: None - Infectious Disease History Infectious Disease History: Reports: Chicken Pox, Measles, Mumps - Past Surgical History Head Surgeries/Procedures: Reports: None HEENT Surgical History: Reports: Adenoidectomy, Cataract Surgery, Tonsillectomy Cardiovascular Surgical History: Reports: Percutaneous Transluminal Angioplasty , 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) Other Cardiovascular Surgeries/Procedures: angiogram last Monday Respiratory Surgical History: Reports: None GI Surgical History: Reports: Appendectomy, Cholecystectomy Female Surgical History: Reports: None Endocrine Surgical History: Reports: None Musculoskeletal Surgical History: Reports: None Social & Family History - Family History Family Medical History: Noncontributory HEENT: Reports: Impaired Vision Cardiac: Reports: Hypertension, HI, Prior Cardiac Arrest OBGYN: Reports: Neurological: Reports: CVA - Tobacco Use Smoking Status *Q: Never Smoker Second Hand Smoke Exposure: No - Caffeine Use Caffeine Use: Reports: Coffee Caffeine Use Comment: decaf - Recreational Drug Use Recreational Drug Use: No - Living Situation & Occupation Living situation: Reports: , Alone Occupation: Retired H&P Review of Systems - Review of Systems: Review Of Systems: ROS reveals no pertinent complaints other than HPI. Exam - Exam Exam: See Below - Vital Signs Vital Signs: Last Vital Signs Temp 36.9 C 08/03/18 06:30 Pulse 78 08/03/18 06:30 Resp 17 08/03/18 06:30 BP 119/58 L 08/03/18 06:30 Pulse Ox 96 08/03/18 06:30 Weight: 76.204 kg - Exam General: Alert, Oriented, Cooperative HEENT: Conjunctiva Clear, EACs Clear, EOMI Neck: Supple, Trachea Midline Lungs: Clear to Auscultation, Normal Respiratory Effort Cardiovascular: Regular Rate, Regular Rhythm GI/Abdominal Exam: Other (Non distended, tenderness to palpation over the left upper quadrants primarily but endorses tenderness throughout to light palpation. No rebound tenderness. ) Extremities: Normal Inspection, Normal Range of Motion, Non-Tender, No Pedal Edema Peripheral Pulses: 2+: Dorsalis Pedis (L), Dorsalis Pedis (R) Skin: Warm Neurological: Cranial Nerves Intact Neuro Extensive - Mental Status: Alert, Oriented x3, Normal Mood/Affect - Patient Data Lab Results Last 24 hrs: Laboratory Results - last 24 hr 08/02/18 08/02/18 08/02/18 Range/Units 20:40 20:40 22:10 WBC 9.66 (4.0-11.0) K/uL RBC 4.33 (4.30-5.90) M/uL Hgb 13.1 (12.0-16.0) g/dL Hct 39.1 (36.0-46.0) % MCV 90.3 (80.0-98.0) fL MCH 30.3 (27.0-32.0) pg MCHC 33.5 (31.0-37.0) g/dL RDW Std Deviation 50.5 (28.0-62.0) fl RDW Coeff of Brisa 15 (11.0-15.0) % Plt Count 360 (150-400) K/uL MPV 9.20 (7.40-12.00) fL Neut % (Auto) 75.4 (48.0-80.0) % Lymph % (Auto) 10.8 L (16.0-40.0) % [place] % (Auto) 10.6 (0.0-15.0) % Eos % (Auto) 3.0 (0.0-7.0) % Baso % (Auto) 0.2 (0.0-1.5) % Neut # (Auto) 7.3 H (1.4-5.7) K/uL Lymph # (Auto) 1.0 (0.6-2.4) K/uL [place] # (Auto) 1.0 H (0.0-0.8) K/uL Eos # (Auto) 0.3 (0.0-0.7) K/uL Baso # (Auto) 0.0 (0.0-0.1) K/uL Nucleated RBC % 0.0 /100WBC Nucleated RBCs # 0 K/uL Lactate (0.20-2.00) mmol/L Sodium 135 L (136-145) mmol/L Potassium 3.4 L (3.5-5.1) mmol/L Chloride 97 L (98-107) mmol/L Carbon Dioxide 29.6 (21.0-32.0) mmol/L BUN 19 H (7.0-18.0) mg/dL Creatinine 1.2 H (0.6-1.0) mg/dL Est Cr Clr Drug Dosing 24.45 mL/min Estimated GFR (MDRD) 42.4 ml/min Glucose 133 H (74-106) mg/dL Calcium 8.9 (8.5-10.1) mg/dL Phosphorus (2.6-4.7) mg/dL Magnesium (1.8-2.4) mg/dL Total Bilirubin 0.8 (0.2-1.0) mg/dL AST 35 (15-37) IU/L ALT 104 H (14-63) IU/L Alkaline Phosphatase 90 (46-116) U/L Troponin I < 0.050 (0.000-0.056) ng/mL Total Protein 6.3 L (6.4-8.2) g/dL Albumin 3.1 L (3.4-5.0) g/dL Globulin 3.2 (2.0-3.5) g/dL Albumin/Globulin Ratio 1.0 L (1.3-2.8) Amylase 68 (25-115) U/L Urine Color YELLOW Urine Appearance CLEAR Urine pH 5.5 (5.0-8.0) Ur Specific [place] 1.025 (1.001-1.035) Urine Protein NEGATIVE (NEGATIVE) mg/dL Urine Glucose (UA) NEGATIVE (NEGATIVE) mg/dL Urine Ketones NEGATIVE (NEGATIVE) mg/dL Urine Occult Blood TRACE-INTACT (NEGATIVE) Urine Nitrite NEGATIVE (NEGATIVE) Urine Bilirubin NEGATIVE (NEGATIVE) Urine Urobilinogen 0.2 (<2.0) EU/dL Ur Leukocyte Esterase SMALL (NEGATIVE) Urine RBC NONE SEEN (0-2/HPF) Urine WBC 0-2 (0-5/HPF) Ur Epithelial Cells FEW (NONE-FEW) Urine Bacteria FEW (NEGATIVE) Urine Mucus LIGHT (NONE-MOD) Urine Yeast FEW 08/02/18 08/03/18 08/03/18 Range/Units 22:15 04:50 04:50 WBC 9.69 (4.0-11.0) K/uL RBC 4.09 L (4.30-5.90) M/uL Hgb 12.2 (12.0-16.0) g/dL Hct 37.4 (36.0-46.0) % MCV 91.4 (80.0-98.0) fL MCH 29.8 (27.0-32.0) pg MCHC 32.6 (31.0-37.0) g/dL RDW Std Deviation 51.4 (28.0-62.0) fl RDW Coeff of Brisa 16 H (11.0-15.0) % Plt Count 329 (150-400) K/uL MPV 9.00 (7.40-12.00) fL Neut % (Auto) 65.7 (48.0-80.0) % Lymph % (Auto) 15.1 L (16.0-40.0) % [place] % (Auto) 13.3 (0.0-15.0) % Eos % (Auto) 5.8 (0.0-7.0) % Baso % (Auto) 0.1 (0.0-1.5) % Neut # (Auto) 6.4 H (1.4-5.7) K/uL Lymph # (Auto) 1.5 (0.6-2.4) K/uL [place] # (Auto) 1.3 H (0.0-0.8) K/uL Eos # (Auto) 0.6 (0.0-0.7) K/uL Baso # (Auto) 0.0 (0.0-0.1) K/uL Nucleated RBC % 0.0 /100WBC Nucleated RBCs # 0 K/uL Lactate 2.3 H (0.20-2.00) mmol/L Sodium 136 (136-145) mmol/L Potassium 3.4 L (3.5-5.1) mmol/L Chloride 100 (98-107) mmol/L Carbon Dioxide 28.3 (21.0-32.0) mmol/L BUN 17 (7.0-18.0) mg/dL Creatinine 1.2 H (0.6-1.0) mg/dL Est Cr Clr Drug Dosing 24.48 mL/min Estimated GFR (MDRD) 42.4 ml/min Glucose 113 H (74-106) mg/dL Calcium 8.6 (8.5-10.1) mg/dL Phosphorus 4.2 (2.6-4.7) mg/dL Magnesium 1.9 (1.8-2.4) mg/dL Total Bilirubin 0.7 (0.2-1.0) mg/dL AST 32 (15-37) IU/L ALT 92 H (14-63) IU/L Alkaline Phosphatase 85 (46-116) U/L Troponin I (0.000-0.056) ng/mL Total Protein 5.7 L (6.4-8.2) g/dL Albumin 2.8 L (3.4-5.0) g/dL Globulin 2.9 (2.0-3.5) g/dL Albumin/Globulin Ratio 1.0 L (1.3-2.8) Amylase (25-115) U/L Urine Color Urine Appearance Urine pH (5.0-8.0) Ur Specific [place] (1.001-1.035) Urine Protein (NEGATIVE) mg/dL Urine Glucose (UA) (NEGATIVE) mg/dL Urine Ketones (NEGATIVE) mg/dL Urine Occult Blood (NEGATIVE) Urine Nitrite (NEGATIVE) Urine Bilirubin (NEGATIVE) Urine Urobilinogen (<2.0) EU/dL Ur Leukocyte Esterase (NEGATIVE) Urine RBC (0-2/HPF) Urine WBC (0-5/HPF) Ur Epithelial Cells (NONE-FEW) Urine Bacteria (NEGATIVE) Urine Mucus (NONE-MOD) Urine Yeast Result Diagrams: 08/03/18 04:50 08/03/18 04:50 Problem List Initiated/Reviewed/Updated: Yes Orders Last 24hrs: Active Orders 24 hr Category Date Time Status Admission Status [Patient Status] [ADT] Stat ADT 08/02/18 23:20 Active Communication Order [RC] ROUTINE Care 08/03/18 00:18 Active Influenza Vaccine Charge [RC] .DISCHARGE Care 08/03/18 01:55 Active Telemetry Monitoring [Cardiac Monitoring] [RC] . Care 08/03/18 07:30 Active DIRECTED Consult to Physician [CONS] Stat Cons 08/02/18 23:47 Active NPO [Nothing Per Oral Diet] [DIET] Diet 08/03/18 Breakfast Active Abdomen Pelvis wo Cont [CT] Stat Exams 08/02/18 21:09 Taken CULTURE BLOOD [BC] Stat Lab 08/02/18 21:22 Received CULTURE BLOOD [BC] Stat Lab 08/02/18 21:45 Received FLU Vacc [id number](65YR UP)/PF [Fluzone High-Dose 2018- Med 08/03/18 10:00 Once 19 Syringe] 180 mcg IM .ONCE ONE Ketorolac [Toradol] Med 08/03/18 07:31 Active 15 mg IVPUSH Q6H PRN Sodium Chloride 0.9% [Normal Saline] 1,000 ml Med 08/03/18 00:45 Active IV ASDIRECTED Sodium Chloride 0.9% [Saline Flush] Med 08/02/18 21:08 Active 10 ml FLUSH ASDIRECTED PRN Sodium Chloride 0.9% [Saline Flush] Med 08/02/18 21:08 Active 2.5 ml FLUSH ASDIRECTED PRN Blood Culture x2 Reflex Set [OM.PC] Stat Ot 08/02/18 21:09 Ordered NG [Nasogastric Orogastric Tube Insertion] [OM.PC] Stat Ot 08/02/18 23:15 Ordered Saline Lock Insert [OM.PC] Stat Ot 08/02/18 21:08 Ordered Medication Orders Sodium Chloride (Normal Saline) 1,000 mls @ 75 mls/hr IV ASDIRECTED AZUL Last Admin: 08/03/18 01:05 Dose: 75 mls/hr Ketorolac Tromethamine (Toradol) 15 mg IVPUSH Q6H PRN PRN Reason: Pain Sodium Chloride (Saline Flush) 10 ml FLUSH ASDIRECTED PRN PRN Reason: Keep Vein Open Sodium Chloride (Saline Flush) 2.5 ml FLUSH ASDIRECTED PRN PRN Reason: Keep Vein Open Assessment/Plan Comment:: Assessment: #1. Small bowel obstruction #2. Mild hypokalemia #3. Abdominal pain secondary to #1 #4. History of colon resection, diverticulosis, HTN, A. Fib, CHF, recent HI, cholecystectomy, pancreatitis #5. Elevated ALT Plan: #1. Admit to the floor for inpatient. DNR/DNI #2. NG tube placed for decompression of the gut. General surgery consulted who recommends conservative management. #3. PRN IV ketorolac for pain #4. IVNS + 20meq KCl 75ml/h. NPO. <Alex Brownlee - Last Filed: 08/03/18 09:32> H&P History of Present Illness - General Admit Problem/Dx: Admission Diagnosis/Problem Admission Diagnosis/Problem Small bowel obstruction I have seen and examined the patient independently of medical coding manager. The patient is an 88-year-old lady who has multiple medical comorbidities as well as a history of small bowel obstruction had presented with similar symptoms to the emergency room yesterday evening. The patient also has had significant pain. She has an NG tube in place with minimal fluid removal. Surgeon has evaluated the patient and feels that the patient is a poor candidate for surgery. We'll continue examining a patient with serial abdominal exams and abdominal x-rays as necessary. The patient may be appropriate for discharge in 1 -2 days with clearing of bowel blockage. I have reviewed and agree with the medical residents assessment and plan of care. Please see orders. Exam - Vital Signs Vital Signs: Last Vital Signs Temp 36.8 C 08/03/18 08:00 Pulse 64 08/03/18 08:00 Resp 18 08/03/18 08:00 BP 122/58 L 08/03/18 08:00 Pulse Ox 96 08/03/18 08:00 - Patient Data Lab Results Last 24 hrs: Laboratory Results - last 24 hr 08/02/18 08/02/18 08/02/18 Range/Units 20:40 20:40 22:10 WBC 9.66 (4.0-11.0) K/uL RBC 4.33 (4.30-5.90) M/uL Hgb 13.1 (12.0-16.0) g/dL Hct 39.1 (36.0-46.0) % MCV 90.3 (80.0-98.0) fL MCH 30.3 (27.0-32.0) pg MCHC 33.5 (31.0-37.0) g/dL RDW Std Deviation 50.5 (28.0-62.0) fl RDW Coeff of Brisa 15 (11.0-15.0) % Plt Count 360 (150-400) K/uL MPV 9.20 (7.40-12.00) fL Neut % (Auto) 75.4 (48.0-80.0) % Lymph % (Auto) 10.8 L (16.0-40.0) % [place] % (Auto) 10.6 (0.0-15.0) % Eos % (Auto) 3.0 (0.0-7.0) % Baso % (Auto) 0.2 (0.0-1.5) % Neut # (Auto) 7.3 H (1.4-5.7) K/uL Lymph # (Auto) 1.0 (0.6-2.4) K/uL [place] # (Auto) 1.0 H (0.0-0.8) K/uL Eos # (Auto) 0.3 (0.0-0.7) K/uL Baso # (Auto) 0.0 (0.0-0.1) K/uL Nucleated RBC % 0.0 /100WBC Nucleated RBCs # 0 K/uL Lactate (0.20-2.00) mmol/L Sodium 135 L (136-145) mmol/L Potassium 3.4 L (3.5-5.1) mmol/L Chloride 97 L (98-107) mmol/L Carbon Dioxide 29.6 (21.0-32.0) mmol/L BUN 19 H (7.0-18.0) mg/dL Creatinine 1.2 H (0.6-1.0) mg/dL Est Cr Clr Drug Dosing 24.45 mL/min Estimated GFR (MDRD) 42.4 ml/min Glucose 133 H (74-106) mg/dL Calcium 8.9 (8.5-10.1) mg/dL Phosphorus (2.6-4.7) mg/dL Magnesium (1.8-2.4) mg/dL Total Bilirubin 0.8 (0.2-1.0) mg/dL AST 35 (15-37) IU/L ALT 104 H (14-63) IU/L Alkaline Phosphatase 90 (46-116) U/L Troponin I < 0.050 (0.000-0.056) ng/mL Total Protein 6.3 L (6.4-8.2) g/dL Albumin 3.1 L (3.4-5.0) g/dL Globulin 3.2 (2.0-3.5) g/dL Albumin/Globulin Ratio 1.0 L (1.3-2.8) Amylase 68 (25-115) U/L Urine Color YELLOW Urine Appearance CLEAR Urine pH 5.5 (5.0-8.0) Ur Specific [place] 1.025 (1.001-1.035) Urine Protein NEGATIVE (NEGATIVE) mg/dL Urine Glucose (UA) NEGATIVE (NEGATIVE) mg/dL Urine Ketones NEGATIVE (NEGATIVE) mg/dL Urine Occult Blood TRACE-INTACT (NEGATIVE) Urine Nitrite NEGATIVE (NEGATIVE) Urine Bilirubin NEGATIVE (NEGATIVE) Urine Urobilinogen 0.2 (<2.0) EU/dL Ur Leukocyte Esterase SMALL (NEGATIVE) Urine RBC NONE SEEN (0-2/HPF) Urine WBC 0-2 (0-5/HPF) Ur Epithelial Cells FEW (NONE-FEW) Urine Bacteria FEW (NEGATIVE) Urine Mucus LIGHT (NONE-MOD) Urine Yeast FEW 08/02/18 08/03/18 08/03/18 Range/Units 22:15 04:50 04:50 WBC 9.69 (4.0-11.0) K/uL RBC 4.09 L (4.30-5.90) M/uL Hgb 12.2 (12.0-16.0) g/dL Hct 37.4 (36.0-46.0) % MCV 91.4 (80.0-98.0) fL MCH 29.8 (27.0-32.0) pg MCHC 32.6 (31.0-37.0) g/dL RDW Std Deviation 51.4 (28.0-62.0) fl RDW Coeff of Brisa 16 H (11.0-15.0) % Plt Count 329 (150-400) K/uL MPV 9.00 (7.40-12.00) fL Neut % (Auto) 65.7 (48.0-80.0) % Lymph % (Auto) 15.1 L (16.0-40.0) % [place] % (Auto) 13.3 (0.0-15.0) % Eos % (Auto) 5.8 (0.0-7.0) % Baso % (Auto) 0.1 (0.0-1.5) % Neut # (Auto) 6.4 H (1.4-5.7) K/uL Lymph # (Auto) 1.5 (0.6-2.4) K/uL [place] # (Auto) 1.3 H (0.0-0.8) K/uL Eos # (Auto) 0.6 (0.0-0.7) K/uL Baso # (Auto) 0.0 (0.0-0.1) K/uL Nucleated RBC % 0.0 /100WBC Nucleated RBCs # 0 K/uL Lactate 2.3 H (0.20-2.00) mmol/L Sodium 136 (136-145) mmol/L Potassium 3.4 L (3.5-5.1) mmol/L Chloride 100 (98-107) mmol/L Carbon Dioxide 28.3 (21.0-32.0) mmol/L BUN 17 (7.0-18.0) mg/dL Creatinine 1.2 H (0.6-1.0) mg/dL Est Cr Clr Drug Dosing 24.48 mL/min Estimated GFR (MDRD) 42.4 ml/min Glucose 113 H (74-106) mg/dL Calcium 8.6 (8.5-10.1) mg/dL Phosphorus 4.2 (2.6-4.7) mg/dL Magnesium 1.9 (1.8-2.4) mg/dL Total Bilirubin 0.7 (0.2-1.0) mg/dL AST 32 (15-37) IU/L ALT 92 H (14-63) IU/L Alkaline Phosphatase 85 (46-116) U/L Troponin I (0.000-0.056) ng/mL Total Protein 5.7 L (6.4-8.2) g/dL Albumin 2.8 L (3.4-5.0) g/dL Globulin 2.9 (2.0-3.5) g/dL Albumin/Globulin Ratio 1.0 L (1.3-2.8) Amylase (25-115) U/L Urine Color Urine Appearance Urine pH (5.0-8.0) Ur Specific [place] (1.001-1.035) Urine Protein (NEGATIVE) mg/dL Urine Glucose (UA) (NEGATIVE) mg/dL Urine Ketones (NEGATIVE) mg/dL Urine Occult Blood (NEGATIVE) Urine Nitrite (NEGATIVE) Urine Bilirubin (NEGATIVE) Urine Urobilinogen (<2.0) EU/dL Ur Leukocyte Esterase (NEGATIVE) Urine RBC (0-2/HPF) Urine WBC (0-5/HPF) Ur Epithelial Cells (NONE-FEW) Urine Bacteria (NEGATIVE) Urine Mucus (NONE-MOD) Urine Yeast Result Diagrams: 08/03/18 04:50 08/03/18 04:50 Orders Last 24hrs: Active Orders 24 hr Category Date Time Status Admission Status [Patient Status] [ADT] Stat ADT 08/02/18 23:20 Active Communication Order [RC] ROUTINE Care 08/03/18 00:18 Active Influenza Vaccine Charge [RC] .DISCHARGE Care 08/03/18 01:55 Active Telemetry Monitoring [Cardiac Monitoring] [RC] . Care 08/03/18 07:30 Active DIRECTED Consult to Physician [CONS] Stat Cons 08/02/18 23:47 Active NPO [Nothing Per Oral Diet] [DIET] Diet 08/03/18 Breakfast Active Abdomen Pelvis wo Cont [CT] Stat Exams 08/02/18 21:09 Taken CULTURE BLOOD [BC] Stat Lab 08/02/18 21:22 Received CULTURE BLOOD [BC] Stat Lab 08/02/18 21:45 Received FLU Vacc [id number](65YR UP)/PF [Fluzone High-Dose 2018- Med 08/03/18 10:00 Once 19 Syringe] 180 mcg IM .ONCE ONE Ketorolac [Toradol] Med 08/03/18 07:31 Active 15 mg IVPUSH Q6H PRN NS + KCl 20mEq/L [Normal Saline with 20 mEq KCl] 1,000 Med 08/03/18 08:15 Active ml IV ASDIRECTED Sodium Chloride 0.9% [Saline Flush] Med 08/02/18 21:08 Active 10 ml FLUSH ASDIRECTED PRN Sodium Chloride 0.9% [Saline Flush] Med 08/02/18 21:08 Active 2.5 ml FLUSH ASDIRECTED PRN Blood Culture x2 Reflex Set [OM.PC] Stat Oth 08/02/18 21:09 Ordered NG [Nasogastric Orogastric Tube Insertion] [OM.PC] Stat Oth 08/02/18 23:15 Ordered SCD [Sequential Compression Device] [OM.PC] Routine Oth 08/03/18 08:31 Ordered Saline Lock Insert [OM.PC] Stat Oth 08/02/18 21:08 Ordered Code Status [Resuscitation Status] Routine Resus Stat 08/03/18 09:31 Ordered Medication Orders Potassium Chloride/Sodium Chloride (Normal Saline With 20 Meq Kcl) 1,000 mls @ 75 mls/hr IV ASDIRECTED AZUL Ketorolac Tromethamine (Toradol) 15 mg IVPUSH Q6H PRN PRN Reason: Pain Last Admin: 08/03/18 08:02 Dose: 15 mg Sodium Chloride (Saline Flush) 10 ml FLUSH ASDIRECTED PRN PRN Reason: Keep Vein Open Sodium Chloride (Saline Flush) 2.5 ml FLUSH ASDIRECTED PRN PRN Reason: Keep Vein Open
--- NOTE | 2018-08-03 09:11 | CONS ---
DATE OF CONSULTATION: 08/02/2018 DATE OF : 1930 PRIMARY CARE PHYSICIAN: None PCP Consult was called, the patient was seen shortly after. CONCERNING QUESTION: Abdominal pain. HISTORY OF PRESENT ILLNESS: The patient is an 88-year-old lady and obese, complained about several - day history of waxing and waning right lower quadrant pain. The patient remarked the pain has been there all the time and has been there for months, and at the same time, the patient threw up in the ambulance when the patient was taken to the hospital. The patient has regular bowel movements, and last one was day of admission. PAST MEDICAL HISTORY: Extensive. The patient had ID a month ago and has hypertension; congestive heart failure; atrial fibrillation, on anticoagulation, which has stopped; and patient also gained weight lately, requiring increase in the Lasix. ALLERGIES: Please refer to nursing for details. MEDICATION: Please refer to nursing for details. PHYSICAL EXAMINATION: GENERAL: A very frail lady on NG tube. Alert, awake, and in no acute distress. HEENT: Normocephalic, atraumatic. Sclerae anicteric. LUNGS: Clear to auscultation, but with rales and crackles on the right side. ABDOMEN: Soft, nontender, with diminished bowel sounds and sometimes with a gush of fright train, large midline incision. LABORATORY DATA: Upon consultation, white count 9.66, H and H are 13 and 39, and platelets 360,000. INR is 1.18. Potassium is 3.4, BUN is 19, creatinine is 1.2. BNP about one week ago was 880. TSH one week ago was 8.7, three times of the normal. Moderate amount of rock-solid crystal in the UA. CAT scan reading revealed dilated small bowel loop, transition point not identified, midline ventral hernia, small amount of ascites. IMPRESSION: 1. Obese. 2. Atrial fibrillation. 3. Congestive heart failure. BNP of 900 a week ago and ID one month ago. The patient is not a surgical candidate in our facility. Recommend conservative management, NG tube decompression, and follow serial bowel exams. Long discussion with the patient that the patient is a very poor surgical candidate, and if surgery need arises, the patient needs to be transferred out, and the patient voiced understanding. On the patient's admission record, the patient is allergic to more than 10 item and makes taking care of her very very very difficult. I would like the patient and the nursing staff to clear up on the allergies. For the time being, the patient is allergic to meza, anaphylactic shock; codeine, abdominal cramps; Aggrenox, unknown, please check with the patient; latex, itching; morphine, itching; shrimp, hives; dust mites, sneezing; pollen, hives; and cold, please verify with the patient. It just gets to the point that it is difficult to take care of, when patients has so many allergies. For the time being, continue NG tube decompression and avoid narcotics if possible, any narcotic pain pill or sleeping pill, and treat conservatively using Tylenol. I will follow the patient with you. Keep potassium above 4 to avoid chemical ileus. As always, thank you for the kind referral. MAURICE SINGH /[id number]
[2018-08-03] MEDS: NS + KCl 20mEq/L 1,000 ML IV SCH ×2 (09:30→20:58)
--- NOTE | 2018-08-03 10:15 | CT ---
EXAM DATE: 08/02/18 PATIENT'S AGE: 88 Patient: PANCHO SALAS Facility: [place], [place] Site . Site : 1930 Study: CT Abdomen/Pelvis [id number] 10:01:19 PM Ordering Physician: Doctor Chou Final Report: INDICATION: Pain in lower abdomen for 1 day TECHNIQUE: CT Abdomen and pelvis without i.v. contrast. Coronal and sagittal reformats were obtained. CONTRAST: None COMPARISON: 03/24/2018 FINDINGS: Lower chest: Small bilateral pleural effusions are present. Liver: There are 2 cysts in the left lateral segment of the liver measuring up to 1.3 cm. A cyst in the right anterior segment is present measuring 11 mm. Spleen: Unremarkable. Pancreas: Unremarkable. Gallbladder: Previous cholecystectomy noted mild stable intra and extrahepatic biliary ductal dilatation seen. Kidney: There is a cystic lesion in the lower pole of the right kidney that measures 7 cm in diameter. The appearance is unchanged from prior exam. Adrenal: Unremarkable. Bowel: Fluid filled and dilated small bowel loops are present measuring up to 2.9 cm. The transition point is not well identified and findings are most likely due to mechanical small bowel obstruction. Small sliding type esophageal hiatal hernia (type I) is present. Moderate sigmoid diverticulosis is present with no evidence of diverticulitis. There is a midline ventral hernia present containing decompressed loops of small bowel without interval change and does not appear to be the cause of the small bowel obstruction. The appendix is not identified. Vascular: Unremarkable. Lymph: Unremarkable. Peritoneum: Unremarkable. No pneumoperitoneum is seen. A small amount of abdominal ascites is seen. Pelvis: Unremarkable. Soft tissue: Unremarkable. Bone: Unremarkable for age. IMPRESSIONS: 1. Fluid filled and dilated small bowel loops are present measuring up to 2.9 cm. The transition point is not well identified and findings are most likely due to mechanical small bowel obstruction. 2. There is a midline ventral hernia present containing decompressed loops of small bowel without interval change and does not appear to be the cause of the small bowel obstruction. 3. A small amount of abdominal ascites is seen. Dictated by Dionisio Garcia MD @ 08/02/2018 10:16:19 PM Please note that all CT scans at this facility use dose modulation, iterative reconstruction, and/or weight-based dosing when appropriate to reduce radiation dose to as low as reasonably achievable. Dictated by: Dionisio Garcia MD @ 08/02/2018 22:16:24 (Electronic Signature) Report Signed by Proxy. [facility]
--- NOTE | 2018-08-03 13:39 | PCM.SURGPN ---
- General Info Date of Service: 08/03/18 Functional Status: Reports: Pain Controlled - Review of Systems General: Reports: No Symptoms Gastrointestinal: Reports: No Symptoms (no flatus; ng t output minimal) - Patient Data Vitals - Most Recent: Last Vital Signs Temp 97.7 F 08/03/18 11:43 Pulse 78 08/03/18 11:43 Resp 20 08/03/18 11:43 BP 115/59 L 08/03/18 11:43 Pulse Ox 94 L 08/03/18 11:43 Weight - Most Recent: 168 lb 0.017 oz I&O - Last 24 Hours: Intake & Output 08/02/18 08/03/18 08/03/18 22:59 06:59 14:59 Intake Total 300 400 Output Total 400 Balance -100 400 Lab Results Last 24 Hrs: Laboratory Results - last 24 hr 08/02/18 08/02/18 08/02/18 Range/Units 20:40 20:40 22:10 WBC 9.66 (4.0-11.0) K/uL RBC 4.33 (4.30-5.90) M/uL Hgb 13.1 (12.0-16.0) g/dL Hct 39.1 (36.0-46.0) % MCV 90.3 (80.0-98.0) fL MCH 30.3 (27.0-32.0) pg MCHC 33.5 (31.0-37.0) g/dL RDW Std Deviation 50.5 (28.0-62.0) fl RDW Coeff of Brisa 15 (11.0-15.0) % Plt Count 360 (150-400) K/uL MPV 9.20 (7.40-12.00) fL Neut % (Auto) 75.4 (48.0-80.0) % Lymph % (Auto) 10.8 L (16.0-40.0) % [place] % (Auto) 10.6 (0.0-15.0) % Eos % (Auto) 3.0 (0.0-7.0) % Baso % (Auto) 0.2 (0.0-1.5) % Neut # (Auto) 7.3 H (1.4-5.7) K/uL Lymph # (Auto) 1.0 (0.6-2.4) K/uL [place] # (Auto) 1.0 H (0.0-0.8) K/uL Eos # (Auto) 0.3 (0.0-0.7) K/uL Baso # (Auto) 0.0 (0.0-0.1) K/uL Nucleated RBC % 0.0 /100WBC Nucleated RBCs # 0 K/uL Lactate (0.20-2.00) mmol/L Sodium 135 L (136-145) mmol/L Potassium 3.4 L (3.5-5.1) mmol/L Chloride 97 L (98-107) mmol/L Carbon Dioxide 29.6 (21.0-32.0) mmol/L BUN 19 H (7.0-18.0) mg/dL Creatinine 1.2 H (0.6-1.0) mg/dL Est Cr Clr Drug Dosing 24.45 mL/min Estimated GFR (MDRD) 42.4 ml/min Glucose 133 H (74-106) mg/dL Calcium 8.9 (8.5-10.1) mg/dL Phosphorus (2.6-4.7) mg/dL Magnesium (1.8-2.4) mg/dL Total Bilirubin 0.8 (0.2-1.0) mg/dL AST 35 (15-37) IU/L ALT 104 H (14-63) IU/L Alkaline Phosphatase 90 (46-116) U/L Troponin I < 0.050 (0.000-0.056) ng/mL Total Protein 6.3 L (6.4-8.2) g/dL Albumin 3.1 L (3.4-5.0) g/dL Globulin 3.2 (2.0-3.5) g/dL Albumin/Globulin Ratio 1.0 L (1.3-2.8) Amylase 68 (25-115) U/L Urine Color YELLOW Urine Appearance CLEAR Urine pH 5.5 (5.0-8.0) Ur Specific [place] 1.025 (1.001-1.035) Urine Protein NEGATIVE (NEGATIVE) mg/dL Urine Glucose (UA) NEGATIVE (NEGATIVE) mg/dL Urine Ketones NEGATIVE (NEGATIVE) mg/dL Urine Occult Blood TRACE-INTACT (NEGATIVE) Urine Nitrite NEGATIVE (NEGATIVE) Urine Bilirubin NEGATIVE (NEGATIVE) Urine Urobilinogen 0.2 (<2.0) EU/dL Ur Leukocyte Esterase SMALL (NEGATIVE) Urine RBC NONE SEEN (0-2/HPF) Urine WBC 0-2 (0-5/HPF) Ur Epithelial Cells FEW (NONE-FEW) Urine Bacteria FEW (NEGATIVE) Urine Mucus LIGHT (NONE-MOD) Urine Yeast FEW 08/02/18 08/03/18 08/03/18 Range/Units 22:15 04:50 04:50 WBC 9.69 (4.0-11.0) K/uL RBC 4.09 L (4.30-5.90) M/uL Hgb 12.2 (12.0-16.0) g/dL Hct 37.4 (36.0-46.0) % MCV 91.4 (80.0-98.0) fL MCH 29.8 (27.0-32.0) pg MCHC 32.6 (31.0-37.0) g/dL RDW Std Deviation 51.4 (28.0-62.0) fl RDW Coeff of Brisa 16 H (11.0-15.0) % Plt Count 329 (150-400) K/uL MPV 9.00 (7.40-12.00) fL Neut % (Auto) 65.7 (48.0-80.0) % Lymph % (Auto) 15.1 L (16.0-40.0) % [place] % (Auto) 13.3 (0.0-15.0) % Eos % (Auto) 5.8 (0.0-7.0) % Baso % (Auto) 0.1 (0.0-1.5) % Neut # (Auto) 6.4 H (1.4-5.7) K/uL Lymph # (Auto) 1.5 (0.6-2.4) K/uL [place] # (Auto) 1.3 H (0.0-0.8) K/uL Eos # (Auto) 0.6 (0.0-0.7) K/uL Baso # (Auto) 0.0 (0.0-0.1) K/uL Nucleated RBC % 0.0 /100WBC Nucleated RBCs # 0 K/uL Lactate 2.3 H (0.20-2.00) mmol/L Sodium 136 (136-145) mmol/L Potassium 3.4 L (3.5-5.1) mmol/L Chloride 100 (98-107) mmol/L Carbon Dioxide 28.3 (21.0-32.0) mmol/L BUN 17 (7.0-18.0) mg/dL Creatinine 1.2 H (0.6-1.0) mg/dL Est Cr Clr Drug Dosing 24.48 mL/min Estimated GFR (MDRD) 42.4 ml/min Glucose 113 H (74-106) mg/dL Calcium 8.6 (8.5-10.1) mg/dL Phosphorus 4.2 (2.6-4.7) mg/dL Magnesium 1.9 (1.8-2.4) mg/dL Total Bilirubin 0.7 (0.2-1.0) mg/dL AST 32 (15-37) IU/L ALT 92 H (14-63) IU/L Alkaline Phosphatase 85 (46-116) U/L Troponin I (0.000-0.056) ng/mL Total Protein 5.7 L (6.4-8.2) g/dL Albumin 2.8 L (3.4-5.0) g/dL Globulin 2.9 (2.0-3.5) g/dL Albumin/Globulin Ratio 1.0 L (1.3-2.8) Amylase (25-115) U/L Urine Color Urine Appearance Urine pH (5.0-8.0) Ur Specific [place] (1.001-1.035) Urine Protein (NEGATIVE) mg/dL Urine Glucose (UA) (NEGATIVE) mg/dL Urine Ketones (NEGATIVE) mg/dL Urine Occult Blood (NEGATIVE) Urine Nitrite (NEGATIVE) Urine Bilirubin (NEGATIVE) Urine Urobilinogen (<2.0) EU/dL Ur Leukocyte Esterase (NEGATIVE) Urine RBC (0-2/HPF) Urine WBC (0-5/HPF) Ur Epithelial Cells (NONE-FEW) Urine Bacteria (NEGATIVE) Urine Mucus (NONE-MOD) Urine Yeast Med Orders - Current: Current Medications Potassium Chloride/Sodium Chloride (Normal Saline With 20 Meq Kcl) 1,000 mls @ 75 mls/hr IV ASDIRECTED AZUL Last Admin: 08/03/18 09:30 Dose: 75 mls/hr Ketorolac Tromethamine (Toradol) 15 mg IVPUSH Q6H PRN PRN Reason: Pain Last Admin: 08/03/18 08:02 Dose: 15 mg Sodium Chloride (Saline Flush) 10 ml FLUSH ASDIRECTED PRN PRN Reason: Keep Vein Open Sodium Chloride (Saline Flush) 2.5 ml FLUSH ASDIRECTED PRN PRN Reason: Keep Vein Open Discontinued Medications Hydromorphone HCl (Dilaudid) 0.5 mg IM ONETIME ONE Stop: 08/02/18 21:10 Last Admin: 08/02/18 21:33 Dose: 0.5 mg Sodium Chloride (Normal Saline) 1,000 mls @ 999 mls/hr IV STAT ONE Stop: 08/03/18 00:04 Last Admin: 08/02/18 23:11 Dose: 999 mls/hr Sodium Chloride (Normal Saline) 1,000 mls @ 75 mls/hr IV ASDIRECTED AZUL Last Admin: 08/03/18 01:05 Dose: 75 mls/hr Ketorolac Tromethamine (Toradol) 30 mg IM Q6H PRN PRN Reason: Pain Ondansetron HCl (Zofran) 4 mg IVPUSH ONETIME ONE Stop: 08/02/18 21:11 Last Admin: 08/02/18 21:24 Dose: 4 mg - Exam General: Alert, Oriented GI/Abdominal Exam: Normal Bowel Sounds, Soft, Non-Tender - Problem List Review Problem List Initiated/Reviewed/Updated: Yes - My Orders Last 24 Hours: Active Orders 24 hr Category Date Time Status Admission Status [Patient Status] [ADT] Stat ADT 08/02/18 23:20 Active Communication Order [RC] ROUTINE Care 08/03/18 00:18 Active Influenza Vaccine Charge [RC] .DISCHARGE Care 08/03/18 01:55 Active Telemetry Monitoring [Cardiac Monitoring] [RC] . Care 08/03/18 07:30 Active DIRECTED Consult to Physician [CONS] Stat Cons 08/02/18 23:47 Active NPO [Nothing Per Oral Diet] [DIET] Diet 08/03/18 Breakfast Active Acute Abdominal Series [Abdomen 1V Upright] [CR] Exams 08/03/18 09:54 Taken Routine CULTURE BLOOD [BC] Stat Lab 08/02/18 21:22 Received CULTURE BLOOD [BC] Stat Lab 08/02/18 21:45 Received Ketorolac [Toradol] Med 08/03/18 07:31 Active 15 mg IVPUSH Q6H PRN NS + KCl 20mEq/L [Normal Saline with 20 mEq KCl] 1,000 Med 08/03/18 08:15 Active ml IV ASDIRECTED Sodium Chloride 0.9% [Saline Flush] Med 08/02/18 21:08 Active 10 ml FLUSH ASDIRECTED PRN Sodium Chloride 0.9% [Saline Flush] Med 08/02/18 21:08 Active 2.5 ml FLUSH ASDIRECTED PRN Blood Culture x2 Reflex Set [OM.PC] Stat Ot 08/02/18 21:09 Ordered NG [Nasogastric Orogastric Tube Insertion] [OM.PC] Stat Ot 08/02/18 23:15 Ordered SCD [Sequential Compression Device] [OM.PC] Routine Ot 08/03/18 08:31 Ordered Saline Lock Insert [OM.PC] Stat Ot 08/02/18 21:08 Ordered Code Status [Resuscitation Status] Routine Resus Stat 08/03/18 09:31 Ordered Medication Orders Potassium Chloride/Sodium Chloride (Normal Saline With 20 Meq Kcl) 1,000 mls @ 75 mls/hr IV ASDIRECTED AZUL Last Admin: 08/03/18 09:30 Dose: 75 mls/hr Ketorolac Tromethamine (Toradol) 15 mg IVPUSH Q6H PRN PRN Reason: Pain Last Admin: 08/03/18 08:02 Dose: 15 mg Sodium Chloride (Saline Flush) 10 ml FLUSH ASDIRECTED PRN PRN Reason: Keep Vein Open Sodium Chloride (Saline Flush) 2.5 ml FLUSH ASDIRECTED PRN PRN Reason: Keep Vein Open - Assessment Assessment (Free Text/Narrative):: ngt output minimal, pain resolved; continue ngt till bowel function, and keep potassium above 4, avoid narcotics - Plan Plan (Free Text/Narrative):: ngt output minimal, pain resolved; continue ngt till bowel function, and keep potassium above 4, avoid narcotics
--- NOTE | 2018-08-03 15:23 | CR ---
EXAMINATION: Abdomen HISTORY: Check NG tube placement COMPARISON: CT dated 08/02/2018 TECHNIQUE: Single view of the abdomen FINDINGS: There is an intrathoracic tube noted with its side-port and tip projecting over the stomach . No organomegaly. There is a paucity of bowel gas. Osseous structures appear grossly unremarkable. IMPRESSION: NG tube noted with tip in the stomach.
[2018-08-03] MEDS ORDERED: Furosemide 40 MG Tab PO ONE (17:32)
--- NOTE | 2018-08-04 09:49 | PCM.PN ---
<Usman Mckeon - Last Filed: 08/04/18 09:47> - General Info Date of Service: 08/04/18 Subjective Update: Feels better in terms of pain but experienced watery diarrhea overnight. This has since subsided. Denies any fever, chills, nausea, vomiting. NG tube in place with minimal output. - Review of Systems General: Reports: Other (see hpi) - Patient Data Vitals - Most Recent: Last Vital Signs Temp 36.2 C 08/04/18 07:00 Pulse 111 H 08/04/18 07:00 Resp 18 08/04/18 07:00 BP 127/54 L 08/04/18 07:00 Pulse Ox 95 08/04/18 07:00 Weight - Most Recent: 77.065 kg I&O - Last 24 Hours: Intake & Output 08/03/18 08/04/18 08/04/18 22:59 06:59 14:59 Intake Total 1344 Output Total 575 1100 Balance -575 244 Lab Results Last 24 Hours: Laboratory Results - last 24 hr 08/04/18 08/04/18 Range/Units 06:03 06:03 WBC 9.77 (4.0-11.0) K/uL RBC 4.08 L (4.30-5.90) M/uL Hgb 12.2 (12.0-16.0) g/dL Hct 37.7 (36.0-46.0) % MCV 92.4 (80.0-98.0) fL MCH 29.9 (27.0-32.0) pg MCHC 32.4 (31.0-37.0) g/dL RDW Std Deviation 52.1 (28.0-62.0) fl RDW Coeff of Brisa 16 H (11.0-15.0) % Plt Count 291 (150-400) K/uL MPV 8.90 (7.40-12.00) fL Neut % (Auto) 64.1 (48.0-80.0) % Lymph % (Auto) 15.0 L (16.0-40.0) % [place] % (Auto) 13.4 (0.0-15.0) % Eos % (Auto) 7.1 H (0.0-7.0) % Baso % (Auto) 0.4 (0.0-1.5) % Neut # (Auto) 6.3 H (1.4-5.7) K/uL Lymph # (Auto) 1.5 (0.6-2.4) K/uL [place] # (Auto) 1.3 H (0.0-0.8) K/uL Eos # (Auto) 0.7 (0.0-0.7) K/uL Baso # (Auto) 0.0 (0.0-0.1) K/uL Nucleated RBC % 0.0 /100WBC Nucleated RBCs # 0 K/uL Sodium 139 (136-145) mmol/L Potassium 4.0 (3.5-5.1) mmol/L Chloride 105 (98-107) mmol/L Carbon Dioxide 27.8 (21.0-32.0) mmol/L BUN 21 H (7.0-18.0) mg/dL Creatinine 1.2 H (0.6-1.0) mg/dL Est Cr Clr Drug Dosing 24.48 mL/min Estimated GFR (MDRD) 42.4 ml/min Glucose 90 (74-106) mg/dL Calcium 8.7 (8.5-10.1) mg/dL Total Bilirubin 0.7 (0.2-1.0) mg/dL AST 30 (15-37) IU/L ALT 61 (14-63) IU/L Alkaline Phosphatase 76 (46-116) U/L Total Protein 5.5 L (6.4-8.2) g/dL Albumin 2.6 L (3.4-5.0) g/dL Globulin 2.9 (2.0-3.5) g/dL Albumin/Globulin Ratio 0.9 L (1.3-2.8) Zack Results Last 24 Hours: Microbiology 08/02/18 21:45 Aerobic Blood Culture - Preliminary Blood - Venous - Lab Draw NO GROWTH AFTER 1 DAY Anaerobic Blood Culture - Preliminary NO GROWTH AFTER 1 DAY 08/02/18 21:22 Aerobic Blood Culture - Preliminary Blood - Venous NO GROWTH AFTER 1 DAY Anaerobic Blood Culture - Preliminary NO GROWTH AFTER 1 DAY Med Orders - Current: Current Medications Potassium Chloride/Sodium Chloride (Normal Saline With 20 Meq Kcl) 1,000 mls @ 75 mls/hr IV ASDIRECTED AZUL Last Admin: 08/03/18 20:58 Dose: 75 mls/hr Ketorolac Tromethamine (Toradol) 15 mg IVPUSH Q6H PRN PRN Reason: Pain Last Admin: 08/03/18 08:02 Dose: 15 mg Sodium Chloride (Saline Flush) 10 ml FLUSH ASDIRECTED PRN PRN Reason: Keep Vein Open Sodium Chloride (Saline Flush) 2.5 ml FLUSH ASDIRECTED PRN PRN Reason: Keep Vein Open Discontinued Medications Furosemide (Lasix) 40 mg PO ONETIME ONE Stop: 08/03/18 17:33 Last Admin: 08/03/18 17:40 Dose: 40 mg Hydromorphone HCl (Dilaudid) 0.5 mg IM ONETIME ONE Stop: 08/02/18 21:10 Last Admin: 08/02/18 21:33 Dose: 0.5 mg Sodium Chloride (Normal Saline) 1,000 mls @ 999 mls/hr IV STAT ONE Stop: 08/03/18 00:04 Last Admin: 08/02/18 23:11 Dose: 999 mls/hr Sodium Chloride (Normal Saline) 1,000 mls @ 75 mls/hr IV ASDIRECTED AZUL Last Admin: 08/03/18 01:05 Dose: 75 mls/hr Ketorolac Tromethamine (Toradol) 30 mg IM Q6H PRN PRN Reason: Pain Ondansetron HCl (Zofran) 4 mg IVPUSH ONETIME ONE Stop: 08/02/18 21:11 Last Admin: 08/02/18 21:24 Dose: 4 mg - Exam General: Alert, Oriented HEENT: Pupils Equal, Pupils Reactive, EOMI, Mucous Membr. Moist/[place] Neck: Supple Lungs: Clear to Auscultation, Normal Respiratory Effort Cardiovascular: Regular Rate, Regular Rhythm Extremities: Other (trace edema) Skin: Warm Psy/Mental Status: Alert, Normal Affect, Normal Mood - Problem List Review Problem List Initiated/Reviewed/Updated: Yes - My Orders Last 24 Hours: My Active Orders 08/03/18 09:31 Code Status [Resuscitation Status] Routine 08/04/18 09:03 Communication Order [RC] ROUTINE 08/04/18 09:06 CULTURE STOOL + CAMPY+SHIGATOX [RM] Routine 08/04/18 Lunch Clear Liquid Diet [DIET] - Plan Plan:: Assessment: #1. Small bowel obstruction - resolved #2. Diarrhea #3. Tachycardia with history of A. Fib Plan: #1. Remove NG tube #2. Clear liquid diet and advance as tolerated #3. Stool culture #4. Anticipate discharge tomorrow or Monday. #5. Restart A. Fib home meds. <Alex Brownlee - Last Filed: 08/04/18 16:00> - General Info Admission Dx/Problem (Free Text): I've examined the patient independently of medical transcription editor. The patient is an 88-year-old lady who had presented to the emergency department on August 03, 2018. The patient had been admitted with small bowel obstruction. Patient has a history of multiple abdominal surgeries and further has had a history of multiple episodes of small bowel blockages. The patient has been evaluated by surgeon. The patient reports that she has had some diarrhea and likely clearance of the blockage. The patient had her diet advanced. NG tube was removed. The patient had been started on her medication secondary to the atrial fibrillation with RVR. I have reviewed and agree with the medical residents assessment and plan of care. Please see orders. The patient should be appropriate for discharge in 1-2 days. - Patient Data Vitals - Most Recent: Last Vital Signs Temp 36.4 C 08/04/18 11:00 Pulse 114 H 08/04/18 11:00 Resp 12 08/04/18 11:00 BP 131/68 08/04/18 11:00 Pulse Ox 97 08/04/18 11:00 I&O - Last 24 Hours: Intake & Output 08/04/18 08/04/18 08/04/18 06:59 14:59 22:59 Intake Total 1344 Output Total 1100 Balance 244 Lab Results Last 24 Hours: Laboratory Results - last 24 hr 08/04/18 08/04/18 Range/Units 06:03 06:03 WBC 9.77 (4.0-11.0) K/uL RBC 4.08 L (4.30-5.90) M/uL Hgb 12.2 (12.0-16.0) g/dL Hct 37.7 (36.0-46.0) % MCV 92.4 (80.0-98.0) fL MCH 29.9 (27.0-32.0) pg MCHC 32.4 (31.0-37.0) g/dL RDW Std Deviation 52.1 (28.0-62.0) fl RDW Coeff of Brisa 16 H (11.0-15.0) % Plt Count 291 (150-400) K/uL MPV 8.90 (7.40-12.00) fL Neut % (Auto) 64.1 (48.0-80.0) % Lymph % (Auto) 15.0 L (16.0-40.0) % [place] % (Auto) 13.4 (0.0-15.0) % Eos % (Auto) 7.1 H (0.0-7.0) % Baso % (Auto) 0.4 (0.0-1.5) % Neut # (Auto) 6.3 H (1.4-5.7) K/uL Lymph # (Auto) 1.5 (0.6-2.4) K/uL [place] # (Auto) 1.3 H (0.0-0.8) K/uL Eos # (Auto) 0.7 (0.0-0.7) K/uL Baso # (Auto) 0.0 (0.0-0.1) K/uL Nucleated RBC % 0.0 /100WBC Nucleated RBCs # 0 K/uL Sodium 139 (136-145) mmol/L Potassium 4.0 (3.5-5.1) mmol/L Chloride 105 (98-107) mmol/L Carbon Dioxide 27.8 (21.0-32.0) mmol/L BUN 21 H (7.0-18.0) mg/dL Creatinine 1.2 H (0.6-1.0) mg/dL Est Cr Clr Drug Dosing 24.48 mL/min Estimated GFR (MDRD) 42.4 ml/min Glucose 90 (74-106) mg/dL Calcium 8.7 (8.5-10.1) mg/dL Total Bilirubin 0.7 (0.2-1.0) mg/dL AST 30 (15-37) IU/L ALT 61 (14-63) IU/L Alkaline Phosphatase 76 (46-116) U/L Total Protein 5.5 L (6.4-8.2) g/dL Albumin 2.6 L (3.4-5.0) g/dL Globulin 2.9 (2.0-3.5) g/dL Albumin/Globulin Ratio 0.9 L (1.3-2.8) Zack Results Last 24 Hours: Microbiology 08/02/18 21:45 Aerobic Blood Culture - Preliminary Blood - Venous - Lab Draw NO GROWTH AFTER 1 DAY Anaerobic Blood Culture - Preliminary NO GROWTH AFTER 1 DAY 08/02/18 21:22 Aerobic Blood Culture - Preliminary Blood - Venous NO GROWTH AFTER 1 DAY Anaerobic Blood Culture - Preliminary NO GROWTH AFTER 1 DAY Med Orders - Current: Current Medications Acidophilus/Pectin (Acidophilus/Pectin, [place]) 460 tab PO DAILY [facility] Last Admin: 08/04/18 11:09 Dose: 460 tab Calcium Carbonate (Caltrate 600+D 1500 Mg-400 Units) 1 tab PO BID [facility] Last Admin: 08/04/18 11:08 Dose: 1 tab Diltiazem HCl (Cardizem Cd) 180 mg PO BID [facility] Last Admin: 08/04/18 11:10 Dose: 180 mg Furosemide (Lasix) 40 mg PO BID [facility] Last Admin: 08/04/18 11:09 Dose: 40 mg Potassium Chloride/Sodium Chloride (Normal Saline With 20 Meq Kcl) 1,000 mls @ 75 mls/hr IV ASDIRECTED [facility] Last Admin: 08/04/18 10:49 Dose: 75 mls/hr Ketorolac Tromethamine (Toradol) 15 mg IVPUSH Q6H PRN PRN Reason: Pain Last Admin: 08/03/18 08:02 Dose: 15 mg Metoprolol Succinate (Toprol Xl) 100 mg PO BID [facility] Metoprolol Tartrate (Lopressor) 5 mg IVPUSH Q6H PRN PRN Reason: Tachycardia Potassium Chloride (Klor-Con 10) 10 meq PO DAILY [facility] Last Admin: 08/04/18 11:09 Dose: 10 meq Sodium Chloride (Saline Flush) 10 ml FLUSH ASDIRECTED PRN PRN Reason: Keep Vein Open Sodium Chloride (Saline Flush) 2.5 ml FLUSH ASDIRECTED PRN PRN Reason: Keep Vein Open Discontinued Medications Furosemide (Lasix) 40 mg PO ONETIME ONE Stop: 08/03/18 17:33 Last Admin: 08/03/18 17:40 Dose: 40 mg Hydromorphone HCl (Dilaudid) 0.5 mg IM ONETIME ONE Stop: 08/02/18 21:10 Last Admin: 08/02/18 21:33 Dose: 0.5 mg Sodium Chloride (Normal Saline) 1,000 mls @ 999 mls/hr IV STAT ONE Stop: 08/03/18 00:04 Last Admin: 08/02/18 23:11 Dose: 999 mls/hr Sodium Chloride (Normal Saline) 1,000 mls @ 75 mls/hr IV ASDIRECTED [facility] Last Admin: 08/03/18 01:05 Dose: 75 mls/hr Ketorolac Tromethamine (Toradol) 30 mg IM Q6H PRN PRN Reason: Pain Ondansetron HCl (Zofran) 4 mg IVPUSH ONETIME ONE Stop: 08/02/18 21:11 Last Admin: 08/02/18 21:24 Dose: 4 mg
[2018-08-04] MEDS: NS + KCl 20mEq/L 1,000 ML IV SCH (10:49)
[2018-08-04] MEDS: Calcium Carbonate/Vitamin D3 1500 MG-400 Units Tab PO SCH ×2 (11:08→20:15)
[2018-08-04] MEDS: Acidophilus with Citrus Pectin Tab PO SCH (11:09)
[2018-08-04] MEDS: Potassium Chloride 10 MEQ Tab.ER PO SCH (11:09)
[2018-08-04] MEDS: Furosemide 40 MG Tab PO SCH ×2 (11:09→20:16)
[2018-08-04] MEDS: Diltiazem 180 MG Cap.CD PO SCH ×2 (11:10→20:16)
[2018-08-04] MEDS ORDERED: Metoprolol Tartrate 5 MG/5 ML SDV IVPUSH PRN (15:31)
[2018-08-04] MEDS: Metoprolol Succinate 100 MG Tab.ER PO SCH (20:16)
[2018-08-05] MEDS: NS + KCl 20mEq/L 1,000 ML IV SCH (02:50)
[2018-08-05] MEDS: Potassium Chloride 10 MEQ Tab.ER PO SCH (09:31)
[2018-08-05] MEDS: Calcium Carbonate/Vitamin D3 1500 MG-400 Units Tab PO SCH ×2 (09:31→21:19)
[2018-08-05] MEDS: Metoprolol Succinate 100 MG Tab.ER PO SCH ×2 (09:32→21:19)
[2018-08-05] MEDS: Diltiazem 180 MG Cap.CD PO SCH ×2 (09:33→21:19)
[2018-08-05] MEDS: Furosemide 40 MG Tab PO SCH ×2 (09:33→17:38)
[2018-08-05] MEDS: Acidophilus with Citrus Pectin Tab PO SCH (09:33)
--- NOTE | 2018-08-05 13:00 | PCM.PN ---
- General Info Date of Service: 08/05/18 Admission Dx/Problem (Free Text): The patient is an 88-year-old lady who had been admitted on August 02, 2018 secondary to small bowel obstruction with severe abdominal pain. The patient has been evaluated by surgeon. The patient does have a number of medical comorbidities and this was thought to be nonoperative. The patient today has had diarrhea and bowel movements. Her pain is lessened. The patient today feels very weak and fatigued. The patient has been tolerating her diet. She is denied any new pain. The patient feels that she is not ready to go home just yet. Subjective Update: Feels better in terms of pain but experienced watery diarrhea overnight. This has since subsided. Denies any fever, chills, nausea, vomiting. NG tube in place with minimal output. Functional Status: Reports: Pain Controlled - Review of Systems General: Reports: Weakness, Fatigue HEENT: Reports: No Symptoms Pulmonary: Reports: No Symptoms Cardiovascular: Reports: No Symptoms Gastrointestinal: Reports: Abdominal Pain Genitourinary: Reports: No Symptoms Musculoskeletal: Reports: No Symptoms Skin: Reports: No Symptoms Neurological: Reports: Difficulty Walking, Weakness Psychiatric: Reports: No Symptoms - Patient Data Vitals - Most Recent: Last Vital Signs Temp 36.7 C 08/05/18 08:00 Pulse 92 08/05/18 09:32 Resp 16 08/05/18 08:00 BP 103/53 L 08/05/18 09:32 Pulse Ox 96 08/05/18 08:00 Weight - Most Recent: 77.973 kg I&O - Last 24 Hours: Intake & Output 08/04/18 08/05/18 08/05/18 22:59 06:59 14:59 Intake Total 2469 Output Total 700 Balance 1769 Lab Results Last 24 Hours: Laboratory Results - last 24 hr 08/05/18 Range/Units 05:46 Sodium 140 (136-145) mmol/L Potassium 3.7 (3.5-5.1) mmol/L Chloride 106 (98-107) mmol/L Carbon Dioxide 29.6 (21.0-32.0) mmol/L BUN 15 (7.0-18.0) mg/dL Creatinine 1.0 (0.6-1.0) mg/dL Est Cr Clr Drug Dosing 29.38 mL/min Estimated GFR (MDRD) 52.3 ml/min Glucose 101 (74-106) mg/dL Calcium 8.6 (8.5-10.1) mg/dL Zack Results Last 24 Hours: Microbiology 08/04/18 18:50 Campylobacter Antigen Assay - Final Stool / Feces NEGATIVE CAMPYLOBACTER AG Shiga Toxin I - Final NEGATIVE FOR SHIGA TOXIN 1 Shiga Toxin II - Final NEGATIVE FOR SHIGA TOXIN 2 08/02/18 21:45 Aerobic Blood Culture - Preliminary Blood - Venous - Lab Draw NO GROWTH AFTER 2 DAYS Anaerobic Blood Culture - Preliminary NO GROWTH AFTER 2 DAYS 08/02/18 21:22 Aerobic Blood Culture - Preliminary Blood - Venous NO GROWTH AFTER 2 DAYS Anaerobic Blood Culture - Preliminary NO GROWTH AFTER 2 DAYS Med Orders - Current: Current Medications Acidophilus/Pectin (Acidophilus/Pectin, [place]) 460 tab PO DAILY [facility] Last Admin: 08/05/18 09:33 Dose: 460 tab Calcium Carbonate (Caltrate 600+D 1500 Mg-400 Units) 1 tab PO BID [facility] Last Admin: 08/05/18 09:31 Dose: 1 tab Diltiazem HCl (Cardizem Cd) 180 mg PO BID [facility] Last Admin: 08/05/18 09:33 Dose: 180 mg Furosemide (Lasix) 40 mg PO BID [facility] Last Admin: 08/05/18 09:33 Dose: 40 mg Ketorolac Tromethamine (Toradol) 15 mg IVPUSH Q6H PRN PRN Reason: Pain Last Admin: 08/03/18 08:02 Dose: 15 mg Metoprolol Succinate (Toprol Xl) 100 mg PO BID [facility] Last Admin: 08/05/18 09:32 Dose: 100 mg Metoprolol Tartrate (Lopressor) 5 mg IVPUSH Q6H PRN PRN Reason: Tachycardia Last Admin: 08/04/18 15:58 Dose: 5 mg Potassium Chloride (Klor-Con 10) 10 meq PO DAILY [facility] Last Admin: 08/05/18 09:31 Dose: 10 meq Sodium Chloride (Saline Flush) 10 ml FLUSH ASDIRECTED PRN PRN Reason: Keep Vein Open Sodium Chloride (Saline Flush) 2.5 ml FLUSH ASDIRECTED PRN PRN Reason: Keep Vein Open Discontinued Medications Furosemide (Lasix) 40 mg PO ONETIME ONE Stop: 08/03/18 17:33 Last Admin: 08/03/18 17:40 Dose: 40 mg Hydromorphone HCl (Dilaudid) 0.5 mg IM ONETIME ONE Stop: 08/02/18 21:10 Last Admin: 08/02/18 21:33 Dose: 0.5 mg Sodium Chloride (Normal Saline) 1,000 mls @ 999 mls/hr IV STAT ONE Stop: 08/03/18 00:04 Last Admin: 08/02/18 23:11 Dose: 999 mls/hr Sodium Chloride (Normal Saline) 1,000 mls @ 75 mls/hr IV ASDIRECTED [facility] Last Admin: 08/03/18 01:05 Dose: 75 mls/hr Potassium Chloride/Sodium Chloride (Normal Saline With 20 Meq Kcl) 1,000 mls @ 75 mls/hr IV ASDIRECTED [facility] Last Admin: 08/05/18 02:50 Dose: 75 mls/hr Ketorolac Tromethamine (Toradol) 30 mg IM Q6H PRN PRN Reason: Pain Ondansetron HCl (Zofran) 4 mg IVPUSH ONETIME ONE Stop: 08/02/18 21:11 Last Admin: 08/02/18 21:24 Dose: 4 mg - Exam Quality Assessment: No: Supplemental Oxygen General: Alert, Oriented, Cooperative, No Acute Distress HEENT: Pupils Equal, Pupils Reactive, EOMI Neck: Supple, Trachea Midline Lungs: Clear to Auscultation, Normal Respiratory Effort Cardiovascular: Regular Rate. No: Regular Rhythm GI/Abdominal Exam: Normal Bowel Sounds, Soft, Non-Tender, No Distention (Female) Exam: Deferred Back Exam: Normal Inspection. No: Full Range of Motion (Kyphosis) Extremities: Normal Inspection, No Pedal Edema Skin: Warm, Dry, Intact Neurological: No New Focal Deficit. No: Normal Gait Psy/Mental Status: Alert, Normal Affect, Normal Mood - Problem List & Annotations (1) Small bowel obstruction SNOMED Code(s): 880373431 Code(s): K56.609 - UNSP INTESTNL OBST, UNSP TO PARTIAL VERSUS COMPLETE OBST Status: Resolved Priority: High Current Visit: Yes (2) Abdominal pain SNOMED Code(s): 70254380 Code(s): R10.9 - UNSPECIFIED ABDOMINAL PAIN Status: Acute Current Visit: No (3) Atrial fibrillation with rapid ventricular response SNOMED Code(s): 035971623993732 Code(s): I48.91 - UNSPECIFIED ATRIAL FIBRILLATION Status: Acute Current Visit: No (4) Generalized weakness SNOMED Code(s): 46892553 Code(s): R53.1 - WEAKNESS Status: Acute Current Visit: No - Problem List Review Problem List Initiated/Reviewed/Updated: Yes - My Orders Last 24 Hours: My Active Orders 08/05/18 Lunch Advance Diet Instructions [DIET] Full Liquid Diet [DIET] - Plan Plan:: The patient is an 88-year-old lady who is doing better. Small bowel blockage has resolved. The patient has been tolerating her diet. Physical therapy should work with the patient at least 1 more day in order to ensure safe transition to home. The patient does have a history of atrial fibrillation with RVR and this has essentially normalized. I suspect that the patient should be appropriate for discharge tomorrow. She has been doing well. She does however remain weak and fatigued. The patient should have home health and additional assistance at home.
[2018-08-05] MEDS: Famotidine 20 MG Tab PO SCH (21:20)
[2018-08-06] MEDS ORDERED: Levothyroxine 75 MCG Tab PO SCH (07:30)
[2018-08-06] MEDS ORDERED: Furosemide 40 MG Tab PO SCH (08:00)
[2018-08-06] MEDS ORDERED: Vitamin E (dl-alpha-tocopherol acetate) 400 Unit Cap PO SCH (09:00)
[2018-08-06] MEDS ORDERED: Multivitamin Tab PO SCH (09:00)
[2018-08-06] MEDS ORDERED: BREO ELLIPTA INH SCH (09:00)
[2018-08-06] MEDS: Acidophilus with Citrus Pectin Tab PO SCH (09:02)
[2018-08-06] MEDS: Calcium Carbonate/Vitamin D3 1500 MG-400 Units Tab PO SCH (09:02)
[2018-08-06] MEDS: Potassium Chloride 10 MEQ Tab.ER PO SCH (09:03)
[2018-08-06] MEDS: Diltiazem 180 MG Cap.CD PO SCH (09:03)
[2018-08-06] MEDS: Famotidine 20 MG Tab PO SCH (09:03)
[2018-08-06] MEDS: Metoprolol Succinate 100 MG Tab.ER PO SCH (09:04)
--- NOTE | 2018-08-06 10:13 | PCM.DCSUM1 ---
Discharge Summary - Hospital Course Free Text/Narrative:: Admission date: 08/03/2018 Discharge date: 08/06/2018 Admission Diagnosis: #1. Small bowel obstruction #2. Mild hypokalemia #3. Abdominal pain secondary to #1 #4. History of colon resection, diverticulosis, HTN, A. Fib, CHF, recent OR, cholecystectomy, pancreatitis #5. Elevated ALT Discharge diagnosis: #1. Small bowel obstruction - resolved #2. Diarrhea - resolved #3. History of colon resection, diverticulosis, HTN, A. Fib, CHF, recent OR, cholecystectomy, pancreatitis Consults: Dr. Dominguez, general surgery Hospital course: 88F with the above past medical history that was admitted for a SBO noted on CT Abdomen. General surgery was consulted for the case. Patient had an NG tube placed for decompression of the gut, and PRN meds for pain control. She was not a surgical candidate secondary to her multiple comorbidities. Patient however did improve quickly, and actually developed a short episode of diarrhea. Patient endorses a lengthy history of constipation for which she takes PRN miralax. At the time of discharge, patient felt comfortable going home. She was evaluated by PT and she ambulates well with a walker. When asked, she says she lives with her son, is independent with cooking and cleaning and bathing. She is to f/u with her PCP within 1 week. - Discharge Data Discharge Date: 08/06/18 Discharge Disposition: Home, Self-Care 01 Condition: Fair - Patient Summary/Data Consults: Consultations 08/02/18 23:47 Consult to Physician [CONS] Stat 08/05/18 15:58 Consult to Home Health [CONS] Routine 08/06/18 07:22 Consult to Physical Therapy [PT Evaluation and Treatment] [CONS] Routine - Patient Instructions Diet: Heart Healthy Diet Activity: As Tolerated Notify Provider of: Fever, Increased Pain, Swelling and Redness, Drainage, Nausea and/or Vomiting Other/Special Instructions: shortness of breath - Discharge Plan Home Medications: Home Meds Albuterol [Proventil Neb Soln] 2 puff INH Q4HRRT PRN 07/13/18 [History] Aspirin [Ecotrin] 325 mg PO DAILY 07/13/18 [History] Calcium Carbonate/Vitamin D3 [Calcium Carb 500 MG] 600 mg PO BID 07/13/18 [ History] Cholecalciferol (Vitamin D3) [Cholecalciferol] 1 tab PO DAILY 07/13/18 [History] Diltiazem HCl [Diltiazem ER] 180 mg PO BID 07/13/18 [History] Famotidine 20 mg PO BID 07/13/18 [History] Fluticasone/Vilanterol [Breo Ellipta 100-25 MCG Inhalation Kit] 1 puff INH DAILY 07/13/18 [History] Furosemide 40 mg PO BID 07/13/18 [History] Lactobacillus Acidophilus [Acidophilus Lactobacilli] 460 mg PO DAILY 07/13/18 [ History] Levothyroxine 75 mcg PO DAILY 07/13/18 [History] Metoprolol Succinate 100 mg PO BID 07/13/18 [History] Multivitamin [Multivitamins] 1 tab PO DAILY 07/13/18 [History] Potassium Chloride 10 meq PO DAILY 07/13/18 [History] Vitamin E 400 units PO DAILY 07/13/18 [History] Referrals: Franchesca Chavez MD [Ordering Only Provider] - - Patient Data Vitals - Most Recent: Last Vital Signs Temp 36.6 C 08/06/18 08:00 Pulse 80 08/06/18 09:04 Resp 18 08/06/18 08:00 BP 127/76 08/06/18 09:04 Pulse Ox 95 08/06/18 08:00 Weight - Most Recent: 79.469 kg I&O - Last 24 hours: Intake & Output 08/05/18 08/06/18 08/06/18 22:59 06:59 14:59 Intake Total 1200 400 Output Total 800 400 Balance 400 0 MARY Results - Last 24 hrs: Microbiology 08/04/18 18:50 Stool Culture - Final Stool / Feces NO SALMONELLA, SHIGELLA,OR E.COLI O157 ISOLATED Campylobacter Antigen Assay - Final NEGATIVE CAMPYLOBACTER AG Shiga Toxin I - Final NEGATIVE FOR SHIGA TOXIN 1 Shiga Toxin II - Final NEGATIVE FOR SHIGA TOXIN 2 08/02/18 21:45 Aerobic Blood Culture - Preliminary Blood - Venous - Lab Draw NO GROWTH AFTER 3 DAYS Anaerobic Blood Culture - Preliminary NO GROWTH AFTER 3 DAYS 08/02/18 21:22 Aerobic Blood Culture - Preliminary Blood - Venous NO GROWTH AFTER 3 DAYS Anaerobic Blood Culture - Preliminary NO GROWTH AFTER 3 DAYS Med Orders - Current: Current Medications Acidophilus/Pectin (Acidophilus/Pectin, [place]) 460 tab PO DAILY [facility] Last Admin: 10/01/18 09:02 Dose: 460 tab Calcium Carbonate (Caltrate 600+D 1500 Mg-400 Units) 1 tab PO BID [facility] Last Admin: 08/06/18 09:02 Dose: 1 tab Diltiazem HCl (Cardizem Cd) 180 mg PO BID [facility] Last Admin: 08/06/18 09:03 Dose: 180 mg Famotidine (Pepcid) 20 mg PO BID [facility] Last Admin: 08/06/18 09:03 Dose: 20 mg Furosemide (Lasix) 40 mg PO BIDDIURETIC [facility] Last Admin: 08/06/18 08:03 Dose: 40 mg Ketorolac Tromethamine (Toradol) 15 mg IVPUSH Q6H PRN PRN Reason: Pain Last Admin: 08/03/18 08:02 Dose: 15 mg Levothyroxine Sodium (Levothyroxine) 75 mcg PO ACBREAKFAST [facility] Last Admin: 08/06/18 06:41 Dose: 75 mcg Metoprolol Succinate (Toprol Xl) 100 mg PO BID [facility] Last Admin: 08/06/18 09:04 Dose: 100 mg Metoprolol Tartrate (Lopressor) 5 mg IVPUSH Q6H PRN PRN Reason: Tachycardia Last Admin: 08/04/18 15:58 Dose: 5 mg Multivitamins/Minerals/Vitamin C (Tab-A-Daren) 1 tab PO DAILY [facility] Last Admin: 08/06/18 09:03 Dose: 1 tab Breo Ellipta 1 each INH DAILY [facility] Potassium Chloride (Klor-Con 10) 10 meq PO DAILY [facility] Last Admin: 08/06/18 09:03 Dose: 10 meq Sodium Chloride (Saline Flush) 10 ml FLUSH ASDIRECTED PRN PRN Reason: Keep Vein Open Sodium Chloride (Saline Flush) 2.5 ml FLUSH ASDIRECTED PRN PRN Reason: Keep Vein Open Vitamin E (Vitamin E) 400 units PO DAILY [facility] Last Admin: 08/06/18 09:04 Dose: 400 units Discontinued Medications Furosemide (Lasix) 40 mg PO ONETIME ONE Stop: 08/03/18 17:33 Last Admin: 08/03/18 17:40 Dose: 40 mg Furosemide (Lasix) 40 mg PO BID [facility] Last Admin: 08/05/18 17:38 Dose: 40 mg Hydromorphone HCl (Dilaudid) 0.5 mg IM ONETIME ONE Stop: 08/02/18 21:10 Last Admin: 08/02/18 21:33 Dose: 0.5 mg Sodium Chloride (Normal Saline) 1,000 mls @ 999 mls/hr IV STAT ONE Stop: 08/03/18 00:04 Last Admin: 08/02/18 23:11 Dose: 999 mls/hr Sodium Chloride (Normal Saline) 1,000 mls @ 75 mls/hr IV ASDIRECTED [facility] Last Admin: 08/03/18 01:05 Dose: 75 mls/hr Potassium Chloride/Sodium Chloride (Normal Saline With 20 Meq Kcl) 1,000 mls @ 75 mls/hr IV ASDIRECTED [facility] Last Admin: 08/05/18 02:50 Dose: 75 mls/hr Ketorolac Tromethamine (Toradol) 30 mg IM Q6H PRN PRN Reason: Pain Ondansetron HCl (Zofran) 4 mg IVPUSH ONETIME ONE Stop: 08/02/18 21:11 Last Admin: 08/02/18 21:24 Dose: 4 mg
[2018-08-06 11:41] VITALS: BP 125/64
== END 2018-08-06 12:10 | disposition home or self-care (01) | DRG 389 ==
LOC: MW.ED 19:34 → MW.MS 23:20
PROVIDERS: ADMIT Internal Medicine; ATTEND Internal Medicine
PROC: 0D9670Z Drainage of Stomach with Drainage Device, Via Natural or Artificial Opening (ICD-10-PCS; 2018-08-03)
PROC: 3E02340 Introduction of Influenza Vaccine into Muscle, Percutaneous Approach (ICD-10-PCS; principal; 2018-08-06)
DX: K56.699 Other intestinal obstruction unspecified as to partial versus complete obstruction (principal); R10.10 Upper abdominal pain, unspecified; R18.8 Other ascites; I48.91 Unspecified atrial fibrillation; R19.7 Diarrhea, unspecified; K57.90 Diverticulosis of intestine, part unspecified, without perforation or abscess without bleeding; I11.0 Hypertensive heart disease with heart failure; I50.9 Heart failure, unspecified; K43.9 Ventral hernia without obstruction or gangrene; I25.2 Old myocardial infarction; H54.7 Unspecified visual loss; I34.0 Nonrheumatic mitral (valve) insufficiency; E03.9 Hypothyroidism, unspecified; E87.6 Hypokalemia; R53.1 Weakness; Z91.040 Latex allergy status; Z88.8 Allergy status to other drugs, medicaments and biological substances; Z88.5 Allergy status to narcotic agent; Z79.899 Other long term (current) drug therapy; Z79.82 Long term (current) use of aspirin; Z23 Encounter for immunization
CPT/HCPCS: 36415; 74176; 80053; 81001; 82150; 83605; 84484; 85025; 87040 ×2; 96361; 96372; 96374; 99285; J1170; J2405; J7040; 74018; 74018-26; 80048; 83735; 84100; 87046; 87899; 90662; 93005; 97161-GP; 99284; A9270-GY; G0008; J1885; J3480; J3490

== ENCOUNTER 2019-04-27 23:58 | Observation (INO) | payer MEDICARE, OTHER ==
[2019-04-28] MEDS ORDERED: Ondansetron 4 MG/2 ML SDV IVPUSH ONE (00:10)
--- NOTE | 2019-04-28 00:12 | EDM.PDOC ---
ED HPI GENERAL MEDICAL PROBLEM - General Chief Complaint: Abdominal Pain Stated Complaint: ABDOMINAL PAIN Time Seen by Provider: 04/28/19 00:11 Source of Information: Reports: Patient - History of Present Illness INITIAL COMMENTS - FREE TEXT/NARRATIVE: HISTORY AND PHYSICAL: History of present illness: []Patient presents with abdominal pain vomiting, pain is 10 out of 10 on arrival began at 6 PM tonight Patient has history of appendectomy and cholecystectomy No fever chills sweats no chest pain shortness breath headache dizziness palpitation no bowel or urine symptoms no diaphoresis or radiation arm neck or jaw Review of systems: As per history of present illness and below otherwise all systems reviewed and negative. Past medical history: As per history of present illness and as reviewed below otherwise noncontributory. Surgical history: As per history of present illness and as reviewed below otherwise noncontributory. Social history: No reported history of drug or alcohol abuse. Family history: As per history of present illness and as reviewed below otherwise noncontributory. Physical exam: HEENT: Atraumatic, normocephalic, pupils reactive, negative for conjunctival pallor or scleral icterus, mucous membranes moist, throat clear, neck supple, nontender, trachea midline. Lungs: Clear to auscultation, breath sounds equal bilaterally, chest nontender. Heart: S1S2, regular, negative for clicks, rubs, or JVD. Abdomen: Soft, nondistended, nontender. Negative for masses or hepatosplenomegaly. Negative for costovertebral tenderness. Pelvis: Stable nontender. Genitourinary: Deferred. Rectal: Deferred. Extremities: Atraumatic, negative for cords or calf pain. Neurovascular unremarkable. Neuro: Awake, alert, oriented. Cranial nerves II through XII unremarkable. Cerebellum unremarkable. Motor and sensory unremarkable throughout. Exam nonfocal. Diagnostics: [CBC CMP UA troponin lipase EKG CT abdomen pelvis with contrast ] Therapeutics: [ saline Zofran 4 mg IV Dilaudid 0.5 mg IV Reglan 5 mg IV Patient discussed in detail with Dr. Trinidad further orders pending his evaluation and treatment ] Impression: Ileus versus early small bowel obstruction Ischemic changes on EKG [ abdominal pain Vomiting Chronic history of baseline ] Definitive disposition and diagnosis as appropriate pending reevaluation and review of above. Abdomen Pain Score (Numeric/FACES): 10 - Related Data Allergies Allergy/AdvReac Type Severity Reaction Status Date / Time meza Allergy Anaphylactic Verified 04/28/19 00:06 Shock codeine Allergy Abdominal Verified 04/28/19 00:06 Cramps dipyridamole [From Aggrenox] Allergy unknown Verified 04/28/19 00:06 Latex, Natural Rubber Allergy Itching Verified 04/28/19 00:06 morphine Allergy Itching Verified 04/28/19 00:06 shrimp Allergy Hives Verified 04/28/19 00:06 dust mites Allergy Sneezing Uncoded 04/28/19 00:06 pollen Allergy Hives Uncoded 04/28/19 00:06 Home Meds: Home Meds Albuterol [Proventil Neb Soln] 2 puff INH Q4HRRT PRN 07/13/18 [History] Aspirin [Ecotrin EC] 325 mg PO DAILY 07/13/18 [History] Calcium Carbonate/Vitamin D3 [Calcium Carb 500 MG] 600 mg PO BID 07/13/18 [ History] Cholecalciferol (Vitamin D3) [Cholecalciferol] 1 tab PO DAILY 07/13/18 [History] Famotidine 20 mg PO BID 07/13/18 [History] Fluticasone/Vilanterol [Breo Ellipta 100-25 MCG Inhalation Kit] 1 puff INH DAILY 07/13/18 [History] Lactobacillus Acidophilus [Acidophilus Lactobacilli] 460 mg PO DAILY 07/13/18 [ History] Levothyroxine 88 mcg PO DAILY 07/13/18 [History] Metoprolol Succinate 100 mg PO BID 07/13/18 [History] Potassium Chloride 10 meq PO DAILY 07/13/18 [History] Vitamin E 400 units PO DAILY 07/13/18 [History] dilTIAZem HCl [Diltiazem 24Hr ER (Xr)] 180 mg PO BID 07/13/18 [History] Bumetanide 2 tab PO BID 04/28/19 [History] Past Medical History - Past Health History Medical/Surgical History: Denies Medical/Surgical History HEENT History: Reports: Cataract, Impaired Vision, 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) Other HEENT History: wears glasses all the time Cardiovascular History: Reports: Afib, Heart Failure, Hypertension, [place], Other ( See Below) Other Cardiovascular History: 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 Respiratory History: Reports: Asthma Gastrointestinal History: Reports: Bowel Obstruction, Diverticulosis, Pancreatitis Genitourinary History: Reports: UTI, Recurrent JACQUARD CARD LACER History: Reports: , 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) Other JACQUARD C[employer] LACER History: force labor; D&C, stillbirth Musculoskeletal History: Reports: Fracture Neurological History: Reports: None Psychiatric History: Reports: None Endocrine/Metabolic History: Reports: Hypothyroidism Hematologic History: Reports: Anemia, 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) Other Hematologic History: blood clots in the leg Immunologic History: Reports: None Oncologic (Cancer) History: Reports: None Dermatologic History: Reports: None - Infectious Disease History Infectious Disease History: Reports: Chicken Pox, Measles, Mumps - Past Surgical History Head Surgeries/Procedures: Reports: None HEENT Surgical History: Reports: Adenoidectomy, Cataract Surgery, Tonsillectomy Cardiovascular Surgical History: Reports: Percutaneous Transluminal Angioplasty , 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) Other Cardiovascular Surgeries/Procedures: angiogram last Monday Respiratory Surgical History: Reports: None GI Surgical History: Reports: Appendectomy, Cholecystectomy Female Surgical History: Reports: None Endocrine Surgical History: Reports: None Musculoskeletal Surgical History: Reports: None Social & Family History - Family History Family Medical History: Noncontributory HEENT: Reports: Impaired Vision Cardiac: Reports: Hypertension, [place], Prior Cardiac Arrest OBGYN: Reports: Neurological: Reports: CVA - Caffeine Use Caffeine Use: Reports: Coffee Caffeine Use Comment: decaf - Living Situation & Occupation Living situation: Reports: , Alone Occupation: Retired ED ROS GENERAL - Review of Systems Review Of Systems: See Below ED EXAM, GENERAL - Physical Exam Exam: See Below Course - Vital Signs Last Recorded V/S: Last Vital Signs Temp 97.5 F 04/28/19 00:06 Pulse 104 H 04/28/19 01:51 Resp 19 04/28/19 01:51 BP 91/39 L 04/28/19 01:51 Pulse Ox 97 04/28/19 01:51 - Orders/Labs/Meds Orders: Active Orders 24 hr Category Date Time Status EKG Documentation Completion [RC] STAT Care 04/28/19 00:11 Active HYDROmorphone [Dilaudid] Med 04/28/19 00:15 Active 0.5 mg IVPUSH ONETIME PRN Nitroglycerin [Nitrostat] Med 04/28/19 00:34 Active 0.4 mg SL Q5M PRN Sodium Chloride 0.9% [Normal Saline] 1,000 ml Med 04/28/19 00:15 Active IV STAT Medication Orders Hydromorphone HCl (Dilaudid) 0.5 mg IVPUSH ONETIME PRN PRN Reason: Abdominal Pain Sodium Chloride (Normal Saline) 1,000 mls @ 125 mls/hr IV STAT [facility] Last Admin: 04/28/19 00:13 Dose: 125 mls/hr Nitroglycerin (Nitrostat) 0.4 mg SL Q5M PRN PRN Reason: Chest Pain Labs: Laboratory Tests 04/28/19 04/28/19 04/28/19 Range/Units 00:10 00:10 01:05 WBC 16.36 H (4.0-11.0) K/uL RBC 5.11 (4.30-5.90) M/uL Hgb 16.0 (12.0-16.0) g/dL Hct 47.0 H (36.0-46.0) % MCV 92.0 (80.0-98.0) fL MCH 31.3 (27.0-32.0) pg MCHC 34.0 (31.0-37.0) g/dL RDW Std Deviation 45.9 (28.0-62.0) fl RDW Coeff of Brisa 14 (11.0-15.0) % Plt Count 270 (150-400) K/uL MPV 9.40 (7.40-12.00) fL Neut % (Auto) 73.6 (48.0-80.0) % Lymph % (Auto) 19.3 (16.0-40.0) % [place] % (Auto) 4.8 (0.0-15.0) % Eos % (Auto) 2.1 (0.0-7.0) % Baso % (Auto) 0.2 (0.0-1.5) % Neut # (Auto) 12.1 H (1.4-5.7) K/uL Lymph # (Auto) 3.2 H (0.6-2.4) K/uL [place] # (Auto) 0.8 (0.0-0.8) K/uL Eos # (Auto) 0.4 (0.0-0.7) K/uL Baso # (Auto) 0.0 (0.0-0.1) K/uL Sodium 137 (136-145) mmol/L Potassium 3.7 (3.5-5.1) mmol/L Chloride 98 (98-107) mmol/L Carbon Dioxide 29.9 (21.0-32.0) mmol/L BUN 27 H (7.0-18.0) mg/dL Creatinine 1.4 H (0.6-1.0) mg/dL Est Cr Clr Drug Dosing 19.57 mL/min Estimated GFR (MDRD) 35.4 ml/min Glucose 189 H (74-106) mg/dL Calcium 9.8 (8.5-10.1) mg/dL Total Bilirubin 0.6 (0.2-1.0) mg/dL AST 23 (15-37) IU/L ALT 27 (14-63) IU/L Alkaline Phosphatase 101 (46-116) U/L Troponin I < 0.050 (0.000-0.056) ng/mL Total Protein 8.0 (6.4-8.2) g/dL Albumin 4.2 (3.4-5.0) g/dL Globulin 3.8 (2.6-4.0) g/dL Albumin/Globulin Ratio 1.1 (0.9-1.6) Lipase 152 (73-393) U/L Urine Color YELLOW Urine Appearance SLT CLOUDY Urine pH 6.0 (5.0-8.0) Ur Specific [place] 1.015 (1.001-1.035) Urine Protein NEGATIVE (NEGATIVE) mg/dL Urine Glucose (UA) NEGATIVE (NEGATIVE) mg/dL Urine Ketones NEGATIVE (NEGATIVE) mg/dL Urine Occult Blood NEGATIVE (NEGATIVE) Urine Nitrite NEGATIVE (NEGATIVE) Urine Bilirubin NEGATIVE (NEGATIVE) Urine Urobilinogen 0.2 (<2.0) EU/dL Ur Leukocyte Esterase NEGATIVE (NEGATIVE) Meds: Medications Generic Name Dose Route Start Last Admin Trade Name Freq PRN Reason Stop Dose Admin Hydromorphone HCl 0.5 mg 04/28/19 00:15 Dilaudid IVPUSH ONETIME PRN Abdominal Pain Sodium Chloride 1,000 mls @ 125 mls/hr 04/28/19 00:15 04/28/19 00:13 Normal Saline IV 125 mls/hr STAT [facility] Administration Nitroglycerin 0.4 mg 04/28/19 00:34 Nitrostat SL Q5M PRN Chest Pain Discontinued Medications Generic Name Dose Route Start Last Admin Trade Name Huey PRN Reason Stop Dose Admin Hydromorphone HCl 0.5 mg 04/28/19 00:51 04/28/19 01:09 Dilaudid IVPUSH 04/28/19 00:52 0.5 mg ONETIME ONE Administration Sodium Chloride Confirm 04/28/19 00:35 04/28/19 00:44 Normal Saline Administered 04/28/19 00:36 10 mls/hr Dose Administration 20 mls @ as directed .ROUTE .STK-MED ONE Metoclopramide HCl 5 mg 04/28/19 03:37 Reglan IV 04/28/19 03:38 ONETIME ONE Ondansetron HCl 4 mg 04/28/19 00:10 04/28/19 00:13 Zofran IVPUSH 04/28/19 00:11 4 mg ONETIME ONE Administration Pantoprazole Sodium Confirm 04/28/19 00:36 04/28/19 00:44 Protonix Iv Administered 04/28/19 00:37 Not Given Dose 40 mg .ROUTE .STK-MED ONE Pantoprazole Sodium 40 mg 04/28/19 00:41 04/28/19 00:43 Protonix Iv IVPUSH 04/28/19 00:42 40 mg NOW ONE Administration Departure - Departure Time of Disposition: 03:44 Disposition: Home, Self-Care 01 Condition: Good Clinical Impression: Vomiting, Small bowel obstruction - Discharge Information Referrals: Colette Quezada DO [Primary Care Provider] - Forms: ED Department Discharge - My Orders Last 24 Hours: My Active Orders 04/28/19 00:11 EKG Documentation Completion [RC] STAT 04/28/19 00:15 HYDROmorphone [Dilaudid] 0.5 mg IVPUSH ONETIME PRN Sodium Chloride 0.9% [Normal Saline] 1,000 ml IV STAT 04/28/19 00:34 Nitroglycerin [Nitrostat] 0.4 mg SL Q5M PRN - Assessment/Plan Last 24 Hours: My Active Orders 04/28/19 00:11 EKG Documentation Completion [RC] STAT 04/28/19 00:15 HYDROmorphone [Dilaudid] 0.5 mg IVPUSH ONETIME PRN Sodium Chloride 0.9% [Normal Saline] 1,000 ml IV STAT 04/28/19 00:34 Nitroglycerin [Nitrostat] 0.4 mg SL Q5M PRN
[2019-04-28] MEDS ORDERED: Sodium Chloride 0.9% 1,000 ML IV SCH (00:15)
[2019-04-28] MEDS ORDERED: HYDROmorphone 2 MG/ML SDV IVPUSH PRN ×2 (00:15→08:21)
[2019-04-28] MEDS ORDERED: Pantoprazole 40 MG in Sodium Chloride 0.9% 100 ML IVPUSH SCH (00:15)
[2019-04-28] MEDS ORDERED: Nitroglycerin 0.4 MG Tab.SL SL PRN (00:34)
[2019-04-28] MEDS ORDERED: Sodium Chloride 0.9% 20 ML ONE (00:35)
[2019-04-28] MEDS ORDERED: Pantoprazole 40 MG Vial ONE (00:36)
[2019-04-28] MEDS ORDERED: Pantoprazole 40 MG Vial IVPUSH ONE (00:41)
[2019-04-28 00:47] LABS: CHLORIDE,CL 98 mmol/L (98-107); SODIUM,NA 137 mmol/L (136-145)
[2019-04-28] MEDS ORDERED: HYDROmorphone 1 MG/ML Syringe IVPUSH ONE (00:51)
[2019-04-28] MEDS ORDERED: Metoclopramide 10 MG/2 ML SDV IV ONE (03:37)
--- NOTE | 2019-04-28 03:42 | CT ---
INDICATION: Abdominal pain TECHNIQUE: CT abdomen and pelvis without contrast. COMPARISON: August 02, 2018 FINDINGS: Lower chest: Cardiomegaly. Mitral annular calcification. Small hiatal hernia. Liver: There are a few simple cysts within the liver. Spleen: Unremarkable. Pancreas: Unremarkable. Gallbladder and bile ducts: Status post cholecystectomy. Mild intrahepatic and extrahepatic biliary ductal dilatation likely due to reservoir effect.. Adrenal glands: Unremarkable. Kidneys: Simple cyst on the right kidney. GI tract: There are some fluid-filled small bowel loops. No definite transition point identified. The colon is decompressed. Colonic diverticulosis. Appendix is not seen. Vascular structures: Unremarkable. Lymph nodes: Unremarkable. Miscellaneous: Small umbilical hernia containing a loop of normal-appearing small bowel. No free air or significant free fluid. Pelvic Organs: Unremarkable. Bones: Unremarkable for age. IMPRESSION: Findings concerning for early small bowel obstruction. A transition zone is not seen. Colonic diverticulosis. Small umbilical hernia containing a loop of normal-appearing small bowel. Colonic diverticulosis. Status post cholecystectomy. Cardiomegaly. Small hiatal hernia. Please note that all CT scans at this facility use dose modulation, iterative reconstruction, and/or weight-based dosing when appropriate to reduce radiation dose to as low as reasonably achievable. Dictated by Yudelka Vega MD @ Apr 28 2019 3:20AM Signed by Dr. Yudelka Vega @ Apr 28 2019 3:28AM
--- NOTE | 2019-04-28 03:42 | CR ---
Indication: Pain, dyspnea Technique: Chest 1 view Comparison: July 27, 2018 Findings/impression: : Stable cardiac size. Normal pulmonary vasculature. There is linear atelectasis in the retrocardiac region. No focal consolidation, effusion, or pneumothorax. No acute osseous abnormality. Dictated by Yudelka Vega MD @ Apr 28 2019 3:40AM Signed by Dr. Yudelka Vega @ Apr 28 2019 3:40AM
[2019-04-28] MEDS ORDERED: HYDROmorphone 1 MG/ML Syringe IVPUSH PRN (04:37)
[2019-04-28] MEDS ORDERED: Ondansetron 4 MG/2 ML SDV IVPUSH PRN (04:37)
[2019-04-28] MEDS: Sodium Chloride 0.9% 1,000 ML IV SCH ×3 (04:45→22:04)
--- NOTE | 2019-04-28 07:27 | PCM.HP ---
H&P History of Present Illness - General Date of Service: 04/28/19 Admit Problem/Dx: Admission Diagnosis/Problem Admission Diagnosis/Problem Small bowel obstruction Source of Information: Patient History Limitations: Reports: No Limitations - History of Present Illness Initial Comments - Free Text/Narative: The patient is an 89-year-old lady who presented to the emergency department this morning with severe abdominal pain. The patient reports that she had the pain starting approximately 6 hours prior to presentation in the emergency department. Patient also has some nausea and vomiting associated with this. The patient has a history of small bowel obstruction and this is similar to her past history. The patient says that the pain is located in her mid abdomen and does not radiate. She has described it as cramping, throbbing and sharp. The patient has denied any dizziness or lightheadedness. No diarrhea but has had some constipation. The patient has been in her usual state of health and she has been compliant with her medications. Onset of Symptoms: Reports: Gradual Duration of Symptoms: Reports: Hour(s):, Improving Location: Reports: Abdomen Quality: Reports: Ache, Same as Previous Episode, Throbbing Severity: Moderate Improves with: Reports: Medication Worsens with: Reports: Eating Context: Reports: Sick Contact Associated Symptoms: Reports: Nausea/Vomiting Abdomen Pain Score (Numeric/FACES): 5 - Related Data Allergies/Adverse Reactions: Allergies Allergy/AdvReac Type Severity Reaction Status Date / Time meza Allergy Anaphylactic Verified 04/28/19 06:33 Shock codeine Allergy Abdominal Verified 04/28/19 06:33 Cramps dipyridamole [From Aggrenox] Allergy unknown Verified 04/28/19 06:33 Latex, Natural Rubber Allergy Itching Verified 04/28/19 06:33 morphine Allergy Itching Verified 04/28/19 06:33 shrimp Allergy Hives Verified 04/28/19 06:33 dust mites Allergy Sneezing Uncoded 04/28/19 06:33 pollen Allergy Hives Uncoded 04/28/19 06:33 Home Medications: Home Meds Albuterol [Proventil Neb Soln] 2 puff INH Q4HRRT PRN 07/13/18 [History] Aspirin [Ecotrin EC] 325 mg PO DAILY 07/13/18 [History] Calcium Carbonate/Vitamin D3 [Calcium Carb 500 MG] 600 mg PO BID 07/13/18 [ History] Cholecalciferol (Vitamin D3) [Cholecalciferol] 1 tab PO DAILY 07/13/18 [History] Famotidine 20 mg PO BID 07/13/18 [History] Fluticasone/Vilanterol [Breo Ellipta 100-25 MCG Inhalation Kit] 1 puff INH DAILY 07/13/18 [History] Lactobacillus Acidophilus [Acidophilus Lactobacilli] 460 mg PO DAILY 07/13/18 [ History] Levothyroxine 88 mcg PO DAILY 07/13/18 [History] Metoprolol Succinate 100 mg PO BID 07/13/18 [History] Potassium Chloride 10 meq PO DAILY 07/13/18 [History] Vitamin E 400 units PO DAILY 07/13/18 [History] dilTIAZem HCl [Diltiazem 24Hr ER (Xr)] 180 mg PO BID 07/13/18 [History] Bumetanide 2 tab PO BID 04/28/19 [History] Past Medical History - Past Health History Medical/Surgical History: Denies Medical/Surgical History HEENT History: Reports: Cataract, Impaired Vision, 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) Other HEENT History: wears glasses all the time Cardiovascular History: Reports: Afib, Heart Failure, Hypertension, [place], Other ( See Below) Other Cardiovascular History: 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 Respiratory History: Reports: Asthma Gastrointestinal History: Reports: Bowel Obstruction, Diverticulosis, GERD, Pancreatitis Genitourinary History: Reports: UTI, Recurrent [employer] WORK[employer] History: Reports: , 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; D&C, stillbirth Musculoskeletal History: Reports: Fracture Neurological History: Reports: None Psychiatric History: Reports: None Endocrine/Metabolic History: Reports: Hypothyroidism Hematologic History: Reports: Anemia, 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) Other Hematologic History: blood clots in the leg Immunologic History: Reports: None Oncologic (Cancer) History: Reports: None Dermatologic History: Reports: None - Infectious Disease History Infectious Disease History: Reports: Chicken Pox, Measles, Mumps - Past Surgical History Head Surgeries/Procedures: Reports: None HEENT Surgical History: Reports: Adenoidectomy, Cataract Surgery, Tonsillectomy Cardiovascular Surgical History: Reports: Percutaneous Transluminal Angioplasty , 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) Other Cardiovascular Surgeries/Procedures: angiogram last Monday Respiratory Surgical History: Reports: None GI Surgical History: Reports: Appendectomy, Cholecystectomy Female Surgical History: Reports: None Endocrine Surgical History: Reports: None Musculoskeletal Surgical History: Reports: None Social & Family History - Family History Family Medical History: Noncontributory HEENT: Reports: Impaired Vision Cardiac: Reports: Hypertension, [place], Prior Cardiac Arrest OBGYN: Reports: Neurological: Reports: CVA - Tobacco Use Smoking Status *Q: Never Smoker Second Hand Smoke Exposure: No - Caffeine Use Caffeine Use: Reports: Coffee Caffeine Use Comment: decaf - Recreational Drug Use Recreational Drug Use: No - Living Situation & Occupation Living situation: Reports: , Alone Occupation: Retired H&P Review of Systems - Review of Systems: Review Of Systems: See Below General: Reports: No Symptoms HEENT: Reports: No Symptoms Pulmonary: Reports: No Symptoms Cardiovascular: Reports: No Symptoms Gastrointestinal: Reports: Abdominal Pain, Constipation, Flatus, Nausea, Vomiting Genitourinary: Reports: No Symptoms Musculoskeletal: Reports: No Symptoms Skin: Reports: No Symptoms Psychiatric: Reports: No Symptoms Neurological: Reports: No Symptoms Hematologic/Lymphatic: Reports: No Symptoms Immunologic: Reports: No Symptoms Exam - Exam Exam: See Below - Vital Signs Vital Signs: Last Vital Signs Temp 36.4 C 04/28/19 07:22 Pulse 92 04/28/19 07:22 Resp 18 04/28/19 04:12 BP 95/55 L 04/28/19 07:22 Pulse Ox 94 L 04/28/19 07:22 Weight: 70.715 kg - Exam Quality Assessment: No: Supplemental Oxygen General: Alert, Oriented, Cooperative HEENT: Conjunctiva Clear, EACs Clear, EOMI, Mucosa Moist & [place], Nares Patent, Pupils Equal, PERRLA Neck: Supple, Trachea Midline Lungs: Clear to Auscultation, Normal Respiratory Effort Cardiovascular: Regular Rate, Regular Rhythm GI/Abdominal Exam: Soft, Non-Tender, No Distention. No: Normal Bowel Sounds ( Hyperactive), Guarding, Rigid, Rebound Back Exam: Normal Inspection (Age appropriate) Extremities: Normal Inspection, No Pedal Edema Skin: Warm, Dry, Intact Neurological: Cranial Nerves Intact Psychiatric: Alert, Normal Affect, Normal Mood - Patient Data Lab Results Last 24 hrs: Laboratory Results - last 24 hr 04/28/19 04/28/19 04/28/19 Range/Units 00:10 00:10 01:05 WBC 16.36 H (4.0-11.0) K/uL RBC 5.11 (4.30-5.90) M/uL Hgb 16.0 (12.0-16.0) g/dL Hct 47.0 H (36.0-46.0) % MCV 92.0 (80.0-98.0) fL MCH 31.3 (27.0-32.0) pg MCHC 34.0 (31.0-37.0) g/dL RDW Std Deviation 45.9 (28.0-62.0) fl RDW Coeff of Brisa 14 (11.0-15.0) % Plt Count 270 (150-400) K/uL MPV 9.40 (7.40-12.00) fL Neut % (Auto) 73.6 (48.0-80.0) % Lymph % (Auto) 19.3 (16.0-40.0) % [place] % (Auto) 4.8 (0.0-15.0) % Eos % (Auto) 2.1 (0.0-7.0) % Baso % (Auto) 0.2 (0.0-1.5) % Neut # (Auto) 12.1 H (1.4-5.7) K/uL Lymph # (Auto) 3.2 H (0.6-2.4) K/uL [place] # (Auto) 0.8 (0.0-0.8) K/uL Eos # (Auto) 0.4 (0.0-0.7) K/uL Baso # (Auto) 0.0 (0.0-0.1) K/uL Sodium 137 (136-145) mmol/L Potassium 3.7 (3.5-5.1) mmol/L Chloride 98 (98-107) mmol/L Carbon Dioxide 29.9 (21.0-32.0) mmol/L BUN 27 H (7.0-18.0) mg/dL Creatinine 1.4 H (0.6-1.0) mg/dL Est Cr Clr Drug Dosing 19.57 mL/min Estimated GFR (MDRD) 35.4 ml/min Glucose 189 H (74-106) mg/dL Calcium 9.8 (8.5-10.1) mg/dL Total Bilirubin 0.6 (0.2-1.0) mg/dL AST 23 (15-37) IU/L ALT 27 (14-63) IU/L Alkaline Phosphatase 101 (46-116) U/L Troponin I < 0.050 (0.000-0.056) ng/mL Total Protein 8.0 (6.4-8.2) g/dL Albumin 4.2 (3.4-5.0) g/dL Globulin 3.8 (2.6-4.0) g/dL Albumin/Globulin Ratio 1.1 (0.9-1.6) Lipase 152 (73-393) U/L Urine Color YELLOW Urine Appearance SLT CLOUDY Urine pH 6.0 (5.0-8.0) Ur Specific [place] 1.015 (1.001-1.035) Urine Protein NEGATIVE (NEGATIVE) mg/dL Urine Glucose (UA) NEGATIVE (NEGATIVE) mg/dL Urine Ketones NEGATIVE (NEGATIVE) mg/dL Urine Occult Blood NEGATIVE (NEGATIVE) Urine Nitrite NEGATIVE (NEGATIVE) Urine Bilirubin NEGATIVE (NEGATIVE) Urine Urobilinogen 0.2 (<2.0) EU/dL Ur Leukocyte Esterase NEGATIVE (NEGATIVE) Result Diagrams: 04/28/19 00:10 04/28/19 00:10 - Problem List (1) Small bowel obstruction SNOMED Code(s): 011743505 ICD Code: K56.609 - UNSP INTESTNL OBST, UNSP TO PARTIAL VERSUS COMPLETE OBST Status: Acute Priority: High Current Visit: Yes (2) CHF (congestive heart failure) SNOMED Code(s): 57026106 ICD Code: I50.9 - HEART FAILURE, UNSPECIFIED Status: Chronic Priority: Medium Current Visit: Yes Qualifiers: Heart failure type: unspecified Heart failure chronicity: chronic Qualified Code(s): I50.9 - Heart failure, unspecified Problem List Initiated/Reviewed/Updated: Yes Orders Last 24hrs: Active Orders 24 hr Category Date Time Status Admission Status [Patient Status] [ADT] Stat ADT 04/28/19 03:45 Active Telemetry Monitoring [Cardiac Monitoring] [RC] . Care 04/28/19 04:00 Active DIRECTED NPO [Nothing Per Oral Diet] [DIET] Diet 04/28/19 Breakfast Active HYDROmorphone [Dilaudid] Med 04/28/19 00:15 Active 0.5 mg IVPUSH ONETIME PRN HYDROmorphone [Dilaudid] Med 04/28/19 04:37 Active 0.5 mg IVPUSH Q4H PRN Nitroglycerin [Nitrostat] Med 04/28/19 00:34 Active 0.4 mg SL Q5M PRN Ondansetron [Zofran] Med 04/28/19 04:37 Active 4 mg IVPUSH Q4H PRN Sodium Chloride 0.9% [Normal Saline] 1,000 ml Med 04/28/19 04:45 Active IV ASDIRECTED Sodium Chloride 0.9% [Normal Saline] 1,000 ml Med 04/28/19 00:15 Active IV STAT Medication Orders Hydromorphone HCl (Dilaudid) 0.5 mg IVPUSH ONETIME PRN PRN Reason: Abdominal Pain Hydromorphone HCl (Dilaudid) 0.5 mg IVPUSH Q4H PRN PRN Reason: Pain Sodium Chloride (Normal Saline) 1,000 mls @ 125 mls/hr IV STAT [facility] Last Admin: 04/28/19 00:13 Dose: 125 mls/hr Sodium Chloride (Normal Saline) 1,000 mls @ 100 mls/hr IV ASDIRECTED [facility] Last Admin: 04/28/19 04:45 Dose: 100 mls/hr Nitroglycerin (Nitrostat) 0.4 mg SL Q5M PRN PRN Reason: Chest Pain Ondansetron HCl (Zofran) 4 mg IVPUSH Q4H PRN PRN Reason: Nausea/Vomiting Assessment/Plan Comment:: The patient is an 89-year-old lady who has a partial small bowel obstruction. This is been causing some abdominal pain and as a result of that she was admitted. The patient will be kept nothing by mouth for now with the exception of sips of water and ice chips. The patient's pain will be controlled with the use of IV Dilaudid that she has an allergy to morphine. The patient has tolerated this before. The patient has been encouraged to ambulate. DVT prophylaxis will be accomplished with the use of SCDs. The patient does have a history of congestive heart failure and her maintenance fluids will be kept at normal saline at 75 mL per hour. Repeat laboratory testings a been ordered. I' ve also ordered abdominal x-ray for the morning. The patient should be appropriate for discharge in 1-2 days.
[2019-04-28] MEDS ORDERED: PROAIR HFA (ALBUTEROL SULFATE) INH PRN (08:18)
[2019-04-28] MEDS ORDERED: Acetaminophen 325 MG Tab PO PRN (08:21)
[2019-04-28] MEDS: Diltiazem 180 MG Cap.CD PO SCH ×2 (09:40→20:06)
[2019-04-28] MEDS: Levothyroxine 88 MCG Tab PO SCH (09:41)
[2019-04-28] MEDS: Bumetanide 1 MG Tab PO SCH ×2 (09:41→20:06)
[2019-04-28] MEDS: Metoprolol Succinate 100 MG Tab.ER PO SCH ×2 (09:42→20:14)
[2019-04-28] MEDS: FLUTICASONE INH SCH (09:44)
[2019-04-28] MEDS: VILANTEROL INH SCH (09:44)
[2019-04-28] MEDS: POTASSIUM CHLORIDE 10 MEQ PO SCH (09:46)
[2019-04-28] MEDS ORDERED: Aspirin 81 MG Tab.Chew PO SCH ×2 (10:00)
[2019-04-28] MEDS: VALSARTAN PO SCH ×2 (10:24→20:09)
[2019-04-28] MEDS: SACUBITRIL PO SCH ×2 (10:24→20:09)
[2019-04-28] MEDS: Aspirin 325 MG Tab PO SCH (10:24)
[2019-04-29] MEDS: Levothyroxine 88 MCG Tab PO SCH (06:40)
[2019-04-29 07:41] VITALS: BP 100/63
[2019-04-29] MEDS: Aspirin 325 MG Tab PO SCH (08:13)
[2019-04-29] MEDS: FLUTICASONE INH SCH (08:14)
[2019-04-29] MEDS: VILANTEROL INH SCH (08:14)
[2019-04-29] MEDS: Bumetanide 1 MG Tab PO SCH (08:15)
[2019-04-29] MEDS: Diltiazem 180 MG Cap.CD PO SCH (08:17)
[2019-04-29] MEDS: Metoprolol Succinate 100 MG Tab.ER PO SCH (08:19)
[2019-04-29] MEDS: POTASSIUM CHLORIDE 10 MEQ PO SCH (08:21)
[2019-04-29] MEDS: SACUBITRIL PO SCH (08:22)
[2019-04-29] MEDS: VALSARTAN PO SCH (08:22)
[2019-04-29] MEDS ORDERED: Pantoprazole 40 MG Tab.CR PO SCH (09:40)
--- NOTE | 2019-04-29 10:33 | CR ---
EXAMINATION: Abdomen HISTORY: Bowel obstruction COMPARISON: 04/28/2019 TECHNIQUE: AP and upright views FINDINGS: There is no free air under the diaphragm. There is a paucity of bowel gas however stool and gas is noted within the distal colon and rectum. No abnormal calcifications. No organomegaly. Visualized osseous structures appear intact. IMPRESSION: 1. No evidence of a bowel obstruction on today's examination.
--- NOTE | 2019-04-29 10:36 | PCM.DCSUM1 ---
<Rayna Salgado M - Last Filed: 04/29/19 10:28> Discharge Summary - Hospital Course Brief History: This an 89-year-old lady who presented to the ED this morning with severe abdominal pain. The patient reports that she had the pain starting approximately 6 hours prior to presentation in the emergency department. Patient also has some nausea and vomiting associated with this. The patient has a history of small bowel obstruction and this is similar to her past history. The patient says that the pain is located in her mid abdomen and does not radiate. She has described it as cramping, throbbing and sharp. The patient has denied any dizziness or lightheadedness. No diarrhea but has had some constipation. The patient has been in her usual state of health and she has been compliant with her medications. Diagnosis: Stroke: No - Discharge Data Discharge Date: 04/29/19 Discharge Disposition: Home, Self-Care 01 Condition: Good - Patient Instructions Diet: Full Liquid Diet (for now, slowly over next couple days increase to low fiber soft then your regular heart healthy diet.) Activity: As Tolerated Showering/Bathing: May Shower Notify Provider of: Fever, Increased Pain, Swelling and Redness, Drainage, Nausea and/or Vomiting - Discharge Plan *PRESCRIPTION DRUG MONITORING PROGRAM REVIEWED*: Not Applicable *COPY OF PRESCRIPTION DRUG MONITORING REPORT IN PATIENT [place]: Not Applicable Prescriptions/Med Rec: Docusate Sodium [Colace] 100 mg PO DAILY #30 cap Home Medications: Home Meds Albuterol [Proventil Neb Soln] 2 puff INH Q4HRRT PRN 07/13/18 [History] Aspirin [Ecotrin EC] 325 mg PO DAILY 07/13/18 [History] Calcium Carbonate/Vitamin D3 [Calcium Carb 500 MG] 600 mg PO BID 07/13/18 [ History] Cholecalciferol (Vitamin D3) [Cholecalciferol] 1 tab PO DAILY 07/13/18 [History] Famotidine 20 mg PO BID 07/13/18 [History] Fluticasone/Vilanterol [Breo Ellipta 100-25 MCG Inhalation Kit] 1 puff INH DAILY 07/13/18 [History] Lactobacillus Acidophilus [Acidophilus Lactobacilli] 460 mg PO DAILY 07/13/18 [ History] Levothyroxine 88 mcg PO DAILY 07/13/18 [History] Metoprolol Succinate 100 mg PO BID 07/13/18 [History] Potassium Chloride 10 meq PO DAILY 07/13/18 [History] Vitamin E 400 units PO DAILY 07/13/18 [History] dilTIAZem HCl [Diltiazem 24Hr ER (Xr)] 180 mg PO BID 07/13/18 [History] Bumetanide 2 tab PO BID 04/28/19 [History] Sacubitril/Valsartan [Entresto 97 mg-103 mg Tablet] 1 each PO BID 04/28/19 [ History] Docusate Sodium [Colace] 100 mg PO DAILY #30 cap 04/29/19 [Rx] Oxygen Therapy Mode: Room Air Referrals: Colette Quezada DO [Primary Care Provider] - (follow up in 1 week) - Discharge Summary/Plan Comment DC Time >30 min.: No Discharge Summary/Plan Comment: Admitting Diagnoses: PSBO Discharge Diagnoses: PSBO- resolved Other PMH: recurrent SBO CAD CHF HTN Afib Padmini was admitted with severe abdominal pain, on day 2 of admission, she started feeling better and wsa placed on CL. She tolerated these well. abdominal pain was nearly gone. Today she continues to tolerate CL diet and is passing gas. Last this morning, she had diarrhea stool. She reports normally after this she has diarrhea for a couple days then her stools regulate again. She is feeling better and is requesting discharge home. SHe is to keep FL diet then soft low fiber for next few days then slowly advance to her heart healthy diet after. She is to follow up with PCP in 1 week. She is to return to the ED or clinic if concerns should arise. - General Info Date of Service: 04/29/19 Admission Dx/Problem (Free Text: Admission Diagnosis/Problem Admission Diagnosis/Problem partial small bowel obstruction Subjective Update: She is feeling better today, no abdominal pain, tolerating CL diet. Had BM today. No nausea. No other concerns Functional Status: Reports: Pain Controlled, Tolerating Diet, Ambulating, Urinating - Review of Systems General: Reports: No Symptoms. Denies: Weakness, Fatigue, Malaise HEENT: Reports: No Symptoms. Denies: Headaches, Sore Throat Pulmonary: Reports: No Symptoms. Denies: Shortness of Breath Cardiovascular: Reports: No Symptoms. Denies: Chest Pain Gastrointestinal: Reports: No Symptoms. Denies: Abdominal Pain, Nausea, Vomiting Genitourinary: Reports: No Symptoms. Denies: Dysuria, Frequency, Burning Musculoskeletal: Reports: No Symptoms Skin: Reports: No Symptoms Neurological: Reports: No Symptoms Psychiatric: Reports: No Symptoms - Patient Data Vitals - Most Recent: Last Vital Signs Temp 97.5 F 04/29/19 07:30 Pulse 82 04/29/19 08:19 Resp 18 04/29/19 07:30 BP 100/63 04/29/19 08:19 Pulse Ox 96 04/29/19 07:30 Weight - Most Recent: 70.715 kg I&O - Last 24 hours: Intake & Output 04/28/19 04/29/19 04/29/19 22:59 06:59 14:59 Intake Total 710 1422 Output Total 650 650 Balance 60 772 Lab Results - Last 24 hrs: Laboratory Results - last 24 hr 04/29/19 04/29/19 Range/Units 05:33 05:33 WBC 5.82 (4.0-11.0) K/uL RBC 4.24 L (4.30-5.90) M/uL Hgb 12.9 (12.0-16.0) g/dL Hct 40.8 (36.0-46.0) % MCV 96.2 (80.0-98.0) fL MCH 30.4 (27.0-32.0) pg MCHC 31.6 (31.0-37.0) g/dL RDW Std Deviation 51.7 (28.0-62.0) fl RDW Coeff of Brisa 15 (11.0-15.0) % Plt Count 239 (150-400) K/uL MPV 9.80 (7.40-12.00) fL Neut % (Auto) 39.4 L (48.0-80.0) % Lymph % (Auto) 38.8 (16.0-40.0) % Sunflower % (Auto) 12.7 (0.0-15.0) % Eos % (Auto) 8.4 H (0.0-7.0) % Baso % (Auto) 0.7 (0.0-1.5) % Neut # (Auto) 2.3 (1.4-5.7) K/uL Lymph # (Auto) 2.3 (0.6-2.4) K/uL Sunflower # (Auto) 0.7 (0.0-0.8) K/uL Eos # (Auto) 0.5 (0.0-0.7) K/uL Baso # (Auto) 0.0 (0.0-0.1) K/uL Nucleated RBC % 0.0 /100WBC Nucleated RBCs # 0 K/uL Sodium 146 H (136-145) mmol/L Potassium 4.3 (3.5-5.1) mmol/L Chloride 109 H (98-107) mmol/L Carbon Dioxide 31.3 (21.0-32.0) mmol/L BUN 22 H (7.0-18.0) mg/dL Creatinine 1.3 H (0.6-1.0) mg/dL Est Cr Clr Drug Dosing 22.14 mL/min Estimated GFR (MDRD) 38.6 ml/min Glucose 94 (74-106) mg/dL Calcium 8.0 L (8.5-10.1) mg/dL Med Orders - Current: Current Medications Acetaminophen (Tylenol) 650 mg PO Q4H PRN PRN Reason: Pain (Mild 1-3)/fever Aspirin (Aspirin) 325 mg PO DAILY [facility] Last Admin: 04/29/19 08:13 Dose: 325 mg Bumetanide (Bumex) 2 mg PO BID [facility] Last Admin: 04/29/19 08:15 Dose: 2 mg Diltiazem HCl (Cardizem Cd) 180 mg PO BID [facility] Last Admin: 04/29/19 08:17 Dose: 180 mg Levothyroxine Sodium (Synthroid) 88 mcg PO ACBREAKFAST [facility] Last Admin: 04/29/19 06:40 Dose: 88 mcg Metoprolol Succinate (Toprol Xl) 100 mg PO BID [facility] Last Admin: 04/29/19 08:19 Dose: 100 mg Nitroglycerin (Nitrostat) 0.4 mg SL Q5M PRN PRN Reason: Chest Pain Ondansetron HCl (Zofran) 4 mg IVPUSH Q4H PRN PRN Reason: Nausea/Vomiting Pantoprazole Sodium (Protonix) 40 mg PO DAILY [facility] Last Admin: 04/29/19 08:47 Dose: 40 mg Proair Hfa ( (Albuterol Sulfate)) 2 each INH Q4HRRT PRN PRN Reason: Shortness of Breath Fluticasone/Vilanterol [Breo Ellipta] 100-25 Mcg 1 each INH DAILY [facility] Last Admin: 04/29/19 08:14 Dose: 1 each [Potassium Chloride] (10 Meq) 1 each PO DAILY [facility] Last Admin: 04/29/19 08:21 Dose: 1 each Sacubitril/Valsartan [Entresto 97 Mg-103 Mg Tablet] 1 each PO BID [facility] Last Admin: 04/29/19 08:22 Dose: 1 each Discontinued Medications Aspirin (Aspirin) 81 mg PO DAILY [facility] Aspirin (Aspirin) 325 mg PO DAILY [facility] Last Admin: 04/28/19 10:06 Dose: Not Given Hydromorphone HCl (Dilaudid) 0.5 mg IVPUSH ONETIME PRN PRN Reason: Abdominal Pain Hydromorphone HCl (Dilaudid) 0.5 mg IVPUSH ONETIME ONE Stop: 04/28/19 00:52 Last Admin: 04/28/19 01:09 Dose: 0.5 mg Hydromorphone HCl (Dilaudid) 0.5 mg IVPUSH Q4H PRN PRN Reason: Pain Sodium Chloride (Normal Saline) 1,000 mls @ 125 mls/hr IV STAT [facility] Last Admin: 04/28/19 00:13 Dose: 125 mls/hr Sodium Chloride (Normal Saline) Confirm Administered Dose 20 mls @ as directed .ROUTE .STK-MED ONE Stop: 04/28/19 00:36 Last Admin: 04/28/19 00:44 Dose: 10 mls/hr Sodium Chloride (Normal Saline) 1,000 mls @ 75 mls/hr IV ASDIRECTED [facility] Last Admin: 04/28/19 22:04 Dose: 75 mls/hr Metoclopramide HCl (Reglan) 5 mg IV ONETIME ONE Stop: 04/28/19 03:38 Last Admin: 04/28/19 04:24 Dose: Not Given Ondansetron HCl (Zofran) 4 mg IVPUSH ONETIME ONE Stop: 04/28/19 00:11 Last Admin: 04/28/19 00:13 Dose: 4 mg Pantoprazole Sodium (Protonix Iv) Confirm Administered Dose 40 mg .ROUTE .STK -MED ONE Stop: 04/28/19 00:37 Last Admin: 04/28/19 00:44 Dose: Not Given Pantoprazole Sodium (Protonix Iv) 40 mg IVPUSH NOW ONE Stop: 04/28/19 00:42 Last Admin: 04/28/19 00:43 Dose: 40 mg - Exam General: Reports: Alert, Oriented, Cooperative, No Acute Distress Lungs: Reports: Clear to Auscultation, Normal Respiratory Effort Cardiovascular: Reports: Regular Rate, Regular Rhythm GI/Abdominal Exam: Normal Bowel Sounds, Soft, Non-Tender Back Exam: Reports: Normal Inspection, Full Range of Motion Neurological: Reports: No New Focal Deficit <Alex Brownlee - Last Filed: 04/29/19 10:41> Discharge Summary - Hospital Course HPI Initial Comments: I have seen and examined to patient independently of Rayna Salgado CNP. I have discussed the case for care of this patient with her. I have reviewed and approve of the plan of care as outlined by her. Please see orders. Awaiting placement. - Discharge Diagnosis/Problem(s) (1) Small bowel obstruction SNOMED Code(s): 518781748 ICD Code: K56.609 - UNSP INTESTNL OBST, UNSP TO PARTIAL VERSUS COMPLETE OBST Status: Acute Priority: High Current Visit: Yes (2) CHF (congestive heart failure) SNOMED Code(s): 81804093 ICD Code: I50.9 - HEART FAILURE, UNSPECIFIED Status: Chronic Priority: Medium Current Visit: Yes Qualifiers: Heart failure type: unspecified Heart failure chronicity: chronic Qualified Code(s): I50.9 - Heart failure, unspecified - Patient Data Vitals - Most Recent: Last Vital Signs Temp 36.4 C 04/29/19 07:30 Pulse 82 04/29/19 08:19 Resp 18 04/29/19 07:30 BP 100/63 04/29/19 08:19 Pulse Ox 96 04/29/19 07:30 I&O - Last 24 hours: Intake & Output 04/28/19 04/29/19 04/29/19 22:59 06:59 14:59 Intake Total 710 1422 Output Total 650 650 Balance 60 772 Lab Results - Last 24 hrs: Laboratory Results - last 24 hr 04/29/19 04/29/19 Range/Units 05:33 05:33 WBC 5.82 (4.0-11.0) K/uL RBC 4.24 L (4.30-5.90) M/uL Hgb 12.9 (12.0-16.0) g/dL Hct 40.8 (36.0-46.0) % MCV 96.2 (80.0-98.0) fL MCH 30.4 (27.0-32.0) pg MCHC 31.6 (31.0-37.0) g/dL RDW Std Deviation 51.7 (28.0-62.0) fl RDW Coeff of Brisa 15 (11.0-15.0) % Plt Count 239 (150-400) K/uL MPV 9.80 (7.40-12.00) fL Neut % (Auto) 39.4 L (48.0-80.0) % Lymph % (Auto) 38.8 (16.0-40.0) % Sunflower % (Auto) 12.7 (0.0-15.0) % Eos % (Auto) 8.4 H (0.0-7.0) % Baso % (Auto) 0.7 (0.0-1.5) % Neut # (Auto) 2.3 (1.4-5.7) K/uL Lymph # (Auto) 2.3 (0.6-2.4) K/uL Sunflower # (Auto) 0.7 (0.0-0.8) K/uL Eos # (Auto) 0.5 (0.0-0.7) K/uL Baso # (Auto) 0.0 (0.0-0.1) K/uL Nucleated RBC % 0.0 /100WBC Nucleated RBCs # 0 K/uL Sodium 146 H (136-145) mmol/L Potassium 4.3 (3.5-5.1) mmol/L Chloride 109 H (98-107) mmol/L Carbon Dioxide 31.3 (21.0-32.0) mmol/L BUN 22 H (7.0-18.0) mg/dL Creatinine 1.3 H (0.6-1.0) mg/dL Est Cr Clr Drug Dosing 22.14 mL/min Estimated GFR (MDRD) 38.6 ml/min Glucose 94 (74-106) mg/dL Calcium 8.0 L (8.5-10.1) mg/dL Med Orders - Current: Current Medications Acetaminophen (Tylenol) 650 mg PO Q4H PRN PRN Reason: Pain (Mild 1-3)/fever Aspirin (Aspirin) 325 mg PO DAILY [facility] Last Admin: 04/29/19 08:13 Dose: 325 mg Bumetanide (Bumex) 2 mg PO BID [facility] Last Admin: 04/29/19 08:15 Dose: 2 mg Diltiazem HCl (Cardizem Cd) 180 mg PO BID [facility] Last Admin: 04/29/19 08:17 Dose: 180 mg Levothyroxine Sodium (Synthroid) 88 mcg PO ACBREAKFAST [facility] Last Admin: 04/29/19 06:40 Dose: 88 mcg Metoprolol Succinate (Toprol Xl) 100 mg PO BID [facility] Last Admin: 04/29/19 08:19 Dose: 100 mg Nitroglycerin (Nitrostat) 0.4 mg SL Q5M PRN PRN Reason: Chest Pain Ondansetron HCl (Zofran) 4 mg IVPUSH Q4H PRN PRN Reason: Nausea/Vomiting Pantoprazole Sodium (Protonix) 40 mg PO DAILY [facility] Last Admin: 04/29/19 08:47 Dose: 40 mg Proair Hfa ( (Albuterol Sulfate)) 2 each INH Q4HRRT PRN PRN Reason: Shortness of Breath Fluticasone/Vilanterol [Breo Ellipta] 100-25 Mcg 1 each INH DAILY [facility] Last Admin: 04/29/19 08:14 Dose: 1 each [Potassium Chloride] (10 Meq) 1 each PO DAILY [facility] Last Admin: 04/29/19 08:21 Dose: 1 each Sacubitril/Valsartan [Entresto 97 Mg-103 Mg Tablet] 1 each PO BID [facility] Last Admin: 04/29/19 08:22 Dose: 1 each Discontinued Medications Aspirin (Aspirin) 81 mg PO DAILY [facility] Aspirin (Aspirin) 325 mg PO DAILY [facility] Last Admin: 04/28/19 10:06 Dose: Not Given Hydromorphone HCl (Dilaudid) 0.5 mg IVPUSH ONETIME PRN PRN Reason: Abdominal Pain Hydromorphone HCl (Dilaudid) 0.5 mg IVPUSH ONETIME ONE Stop: 04/28/19 00:52 Last Admin: 04/28/19 01:09 Dose: 0.5 mg Hydromorphone HCl (Dilaudid) 0.5 mg IVPUSH Q4H PRN PRN Reason: Pain Sodium Chloride (Normal Saline) 1,000 mls @ 125 mls/hr IV STAT [facility] Last Admin: 04/28/19 00:13 Dose: 125 mls/hr Sodium Chloride (Normal Saline) Confirm Administered Dose 20 mls @ as directed .ROUTE .STK-MED ONE Stop: 04/28/19 00:36 Last Admin: 04/28/19 00:44 Dose: 10 mls/hr Sodium Chloride (Normal Saline) 1,000 mls @ 75 mls/hr IV ASDIRECTED [facility] Last Admin: 04/28/19 22:04 Dose: 75 mls/hr Metoclopramide HCl (Reglan) 5 mg IV ONETIME ONE Stop: 04/28/19 03:38 Last Admin: 04/28/19 04:24 Dose: Not Given Ondansetron HCl (Zofran) 4 mg IVPUSH ONETIME ONE Stop: 04/28/19 00:11 Last Admin: 04/28/19 00:13 Dose: 4 mg Pantoprazole Sodium (Protonix Iv) Confirm Administered Dose 40 mg .ROUTE .STK -MED ONE Stop: 04/28/19 00:37 Last Admin: 04/28/19 00:44 Dose: Not Given Pantoprazole Sodium (Protonix Iv) 40 mg IVPUSH NOW ONE Stop: 04/28/19 00:42 Last Admin: 04/28/19 00:43 Dose: 40 mg
== END 2019-04-29 11:43 | disposition home or self-care (01) ==
LOC: MW.ED 23:58 → MW.MS 04-28 03:45
PROVIDERS: ADMIT Internal Medicine; ATTEND Internal Medicine
DX: K56.600 Partial intestinal obstruction, unspecified as to cause (principal); I25.10 Atherosclerotic heart disease of native coronary artery without angina pectoris; I11.0 Hypertensive heart disease with heart failure; I50.9 Heart failure, unspecified; I48.91 Unspecified atrial fibrillation; E03.9 Hypothyroidism, unspecified; D64.9 Anemia, unspecified; K21.9 Gastro-esophageal reflux disease without esophagitis; I25.2 Old myocardial infarction; J45.909 Unspecified asthma, uncomplicated; Z79.82 Long term (current) use of aspirin; Z79.899 Other long term (current) drug therapy; Z91.040 Latex allergy status; Z88.5 Allergy status to narcotic agent; Z91.013 Allergy to seafood; Z88.8 Allergy status to other drugs, medicaments and biological substances; Z91.018 Allergy to other foods; Z91.048 Other nonmedicinal substance allergy status; Z98.890 Other specified postprocedural states
CPT/HCPCS: 36415; 71045; 74019; 74176; 80048; 80053; 81003; 83690; 84484; 85025; 93005; 96361; 96374; 96375; 99285; A9270; C9113; J1170; J2405; J7040; 99283; G0378